=== PATIENT | female | born 1955 | race Caucasian/White ===

== ENCOUNTER → 2023-08-24 13:44 | Outpatient (REF) | payer MEDICARE, OTHER, SELFPAY | LOC: RAD 13:44 | PROVIDERS: ATTENDING PHYSICIAN Orthopaedic Surgery Hand Surgery; FAMILY PHYSICIAN Family Medicine | DX: M25.532 Pain in left wrist (principal) | CPT/HCPCS: 73200 ==

== ENCOUNTER 2023-08-28 23:44 | Inpatient (IN) | payer MEDICARE, OTHER, SELFPAY ==
[2023-08-28 19:09] VITALS: BP 137/79; BMI 25.6
--- NOTE | 2023-08-28 19:45 | ED.GENMED ---
History of Present Illness
General
Chief Complaint: Abdominal Pain
Source: patient
Exam Limitations: none
Time Seen by Provider: 08/28/23 19:12
Travel History
Have you had any contact with someone who has COVID-19?: No
Do you have any symptoms of coronavirus? Fever > 100 degrees, chills, cough, shortness of breath, sore throat, loss of taste or smell, muscle aches, or headache?: No
History of Present Illness
History of Present Illness:
This is a 68 year old female that comes in by ambulance with c/o nausea, vomiting, and abd pain. States that she hasn't eaten in 2 days and that her abd pain started 2 hours ago. Patient has been drinking 2-5ths of Vodka daily. States that she has
had chills, abd pain, nausea, vomiting, diarrhea, headache, dizziness. Denies any fever, chest pain, SOB, urinary burning.
Past History
Past History
ED Past Medical History: GERD, HTN, Hypercholesterolemia, NIDDM, Seizures, Psychiatric (Depression, Anxiety), Other (Chronic pancreatitis, Ulcers, obstructive sleep apnea, UTi, Bilateral Vestibular loss) and Other (migraines, hepatitis, alcohol
abuse, Bilateral vestibular Loss, Gastritis)
ED Past Surgical History: Tonsilectomy and Other (right breast lumpectomy)
Patient has exhibited threatening behavior?: No
Social History
Tobacco: Smoker
Alcohol: Chronic alcoholic ( Two 5th's of vodka)
Drug: None
Personal:
Living: alone
Employment: Not employed
Family History
Family History: Other (Alzheimer's); Negative Early CAD
Review of Systems
Review of Systems
All Other Systems: ROS reviewed and negative except as documented in HPI and ROS
Constitutional: Reports chills; Denies fever
EENT: Reports no symptoms
Respiratory: Reports no symptoms; Denies cough or trouble breathing
Cardiac: Reports no symptoms; Denies chest pain
ABD/GI: Reports abdominal pain, nausea, vomiting and diarrhea
: Reports no symptoms; Denies dysuria, frequency or urgency
Musculoskeletal: Reports no symptoms
Skin: Reports no symptoms
Neurological: Reports dizzy and headache
Psychiatric: Reports no symptoms
Phy Exam
General Physical Exam
General Presentation: mild distress
General age: appears stated age
General Skin: warm and dry
General Habitus: poor hygiene
General Mental: alert
General Hydration: dry mucous membranes
ENT Exam
ENT Exam: TM's normal, pharynx normal and neck supple
Eye Exam
Eye Exam: EOMI
Cardiovascular Exam
Cardiovascular Exam: no edema, normal peripheral pulses and tachycardia
Pulmonary Exam
Pulmonary Exam: lungs clear, no respiratory distress, no rales, chest non tender, no crackles, no rhonchi, no wheezing and no cough
Gastrointestinal Exam
Gastrointestinal Exam: normal bowel sounds, soft, no organomegaly, no pulsatile mass, non distended and tender (Generalized tenderness with palpation)
Musculoskeletal Exam
Musculoskeletal Exam: full ROM and no edema
Skin Exam
Skin Exam: normal color, warm/dry, no rash and no petechia
Psychiatric Exam
Psychiatric Exam: normal mood/affect
Course
Orders/Labs/Results
Orders:
Orders
08/28/23 19:40
0.9% Sodium Chloride 1000 ml [Nss] 1,000 ml IV BOLUS
Pantoprazole [Protonix IV] 80 mg IV NOW STA
08/28/23 20:22
Alcohol Urgent
Complete Blood Count/With Diff Urgent
Comprehensive Metabolic Panel Urgent
Lipase Urgent
08/28/23 21:30
Lorazepam [Ativan] 0.5 mg IV NOW STA
08/28/23 21:32
CT Abd/pelvis W Iv Cont Urgent
Comment:
Reason For Exam: Generalized abd pain
0.9% Sodium Chloride 1000 ml [Nss] 1,000 ml Mvi, Adult [Multivitamin] 10 ml Thiamine Injection 100 mg IV 250 mls/hr
08/28/23 21:54
Ketorolac [Toradol] 30 mg .ROUTE .STK-MED ONE
08/28/23 21:55
Ketorolac [Toradol] 30 mg IV NOW STA
Abnormal Lab Results
08/28/23
20:22
WBC 12.9 H 10^3/uL
(4.8-10.8)
RBC 4.04 L 10^6/uL
(4.20-5.40)
Hct 33.7 L %
(37.0-47.0)
MCH 31.2 H pg
(27.0-31.0)
MCHC 37.4 H g/dL
(33.0-37.0)
Abs Immat Gran (auto) 0.1 H 10^3/uL
(0-0.05)
Absolute Neuts (auto) 7.6 H 10^3/uL
(1.4-6.5)
Absolute Lymphs (auto) 4.5 H 10^3/uL
(1.2-3.4)
Absolute Monos (auto) 0.8 H 10^3/uL
(0.1-0.6)
Sodium 124 L mmol/L
(135-145)
Chloride 94 L mmol/L
(98-107)
BUN 4 L mg/dl
(7-17)
Creatinine 0.4 L mg/dL
(0.6-1.0)
Glucose 143 H mg/dl
(70-99)
08/28/23 20:22
08/28/23 20:22
Leukocytosis, hyponatremia, Chloride low. Glucose nonfasting. Lipase normal at 55, Alcohol none detected.
Vital Signs
Initial and Last Documented VS:
Initial Vital Signs
Temp Pulse Resp BP Pulse Ox
98.4 F 105 22 137/79 97
08/28/23 19:09 08/28/23 19:09 08/28/23 19:09 08/28/23 19:09 08/28/23 19:09
Last Documented Vital Signs
Temp Pulse Resp BP Pulse Ox
98.4 F 103 28 137/79 97
08/28/23 19:09 08/28/23 20:00 08/28/23 19:45 08/28/23 19:09 08/28/23 19:09
MDM/Problems Addressed
Differential Diagnosis Includes:
Alcohol abuse, Gastritis, Ulcers, DKA, Pancreatitis
MDM/Problems Addressed:
This is a 68 year old female that comes in with c/o abd pain. States that she has been drinking 2-5th's daily.
Will get labs, give IV fluids.
Back into see patient. Explained that she will be admitted as her sodium is very low. Will also get CT of the abd due to patient c/o pain. However, this may be a gastritis due to the alcohol abuse.
Chronic conditions affecting care: Other (Chronic alcoholic, Pancreatitis)
Acute Exacerbation and/or Progression of Chronic Illness: Other (Pancreatitis, )
*Radiology
Radiology exam reviewed: radiology read reviewed (CT [place]- Pancreatic parencymal calcification consistent with chronic pancreatitis. No definite CT signs of acute pancreatitis. Correlate with lipase. Diffuse hepatic steatosis. No CT signs of
Cholecystitis. NO evidence of diverticulitis or coloits. Normal appendix. No bowel obstruction. ) and other (CT cont- No free air. No obstructive uropathy. New healing right lateral seventh, 10th, 11th rib fractures. )
*Pulse Oximetry
Patient hypoxic: no
*EKG
Interpreted by ED Provider?: NA
Rate: EKG- N/A
*Banquet Chef Interpretation
Rate: tachycardiac
Heart Rate: 104
*Critical Care Note
Total Time (30-74mins, 75-104mins- exclusive of procedures): Not Applicable
ED Attending Note
-
Portions of this chart may have been created with voice recognition software.� Occasional wrong word or��sound alike� substitutions may have occurred due to the inherent limitations of voice recognition software.
Discharge Plan
Departure
Patient Disposition: Admit
Date of Disposition: 08/28/23
Time of Disposition: 23:38
Admit to: Med/Surg
Presentation/result/management discussed w/ accepting MD/DO: Hospitalist
Patient with high blood pressure during this ER visit?: Yes
Condition: Good
Covid-19: Not Applicable
Discharge Problem:
Abdominal pain, Acute hyponatremia
Prescriptions:
No Action
Jentadueto 2.5-1,000 mg Tablet
1 tab PO BID
folic acid 1 mg Tablet
1 mg PO DAILY Qty: 30 0RF
cyanocobalamin (vitamin B-12) 1,000 mcg Tablet
1,000 mcg PO DAILY Qty: 30 0RF
thiamine HCl (vitamin B1) 100 mg Tablet
100 mg PO BID Qty: 60 0RF
Zenpep 10,000-32,000 -42,000 unit Capsule,Delayed Release(Dr/Ec)
3 cap PO MEALS Qty: 270 0RF
simvastatin 40 mg tablet
40 mg PO HS
gabapentin 300 mg capsule
300 mg PO QID
Rx Instructions:
05/12/23 pt states this medication does not work for her pain
lisinopril 2.5 mg tablet
2 mg PO DAILY
cephalexin 250 mg Capsule
250 mg PO QID Qty: 12 0RF
oxycodone 5 mg tablet
5 mg PO Q8H PRN (Reason: Pain) Qty: 20 0RF
esomeprazole magnesium [Nexium] 40 mg Capsule,Delayed Release(Dr/Ec)
40 mg PO DAILY
Referrals:
Massimo Mcdaniels MD [Family Provider] -
Interventions
Interventions:
*Risk Screen - Suicide Last Done: 08/28/23 19:09
*General Assessment Last Done: 08/28/23 19:09
*Neglect/Abuse Screening Last Done: 08/28/23 19:09
*ED COVID-19 Vaccine History Last Done: 08/28/23 19:38
TM-Kufpcw-Sgupbcfurn Assessment Last Done: 08/28/23 19:38
[2023-08-28] MEDS: NSS 1000 IV (20:27)
[2023-08-28 20:31] LABS: % Basophils 0.2 % (0-2); % Eosinophils 0.2 % (0-6); % Immature Granulocytes 0.4 % (0-0.5); % Lymphocytes 34.4 % (20.5-51.1); % Monocytes 5.8 % (1.7-9.3); Absolute Immature Granulocytes 0.1 10^3/uL (0-0.05); Absolute Lymphocytes 4.5 10^3/uL (1.2-3.4); Absolute Monocytes 0.8 10^3/uL (0.1-0.6); Absolute Neutrophils 7.6 10^3/uL (1.4-6.5); Hematocrit 33.7 % (37.0-47.0); Hemoglobin 12.6 g/dL (12.0-16.0); Mean Corp Hgb Conc. 37.4 g/dL (33.0-37.0); Mean Corpuscular Hgb 31.2 pg (27.0-31.0); Mean Corpuscular Volume 83.4 fL (81.0-99.0); Mean Platelet Volume 8.7 fL (7.4-10.4); Nucleated Red Blood Cells % 0 %; Platelet Count 318 10^3/uL (130-400); Red Blood Cell Count 4.04 10^6/uL (4.20-5.40); Red Cell Dist. Width 13.4 % (11.5-14.5); White Blood Cell Count 12.9 10^3/uL (4.8-10.8)
[2023-08-28] MEDS: PROTONIX IV 80 MG IV (20:44)
[2023-08-28 20:51] LABS: ALT (SGPT) 16 U/L (0-35); AST (SGOT) 34 U/L (14-36); Albumin 4.4 g/dl (3.5-5.0); Alkaline Phosphatase 51 U/L (38-126); Blood Urea Nitrogen 4 mg/dl (7-17); Carbon Dioxide 22 mmol/L (22-30); Chloride 94 mmol/L (98-107); Estimated Creatinine Clearance 83 ml/min; Glucose 143 mg/dl (70-99); Lipase 55 U/L (23-300); Potassium 4.1 mmol/L (3.5-5.1); Sodium 124 mmol/L (135-145); Total Bilirubin 0.9 mg/dl (0.2-1.3); Total Protein 7.3 g/dl (6.3-8.2); eGFR > 60.00
[2023-08-28] MEDS: ATIVAN 0.5 MG IV (21:36)
[2023-08-28] MEDS: TORADOL 30 MG IV (21:57)
[2023-08-28] MEDS: DILAUDID 0.5 MG IV (23:44)
[2023-08-29] VITALS (31 sets, daily range): BP systolic 74–122; BP diastolic 28–78; BMI 24.7
--- NOTE | 2023-08-29 00:04 | HPS.HSE ---
Family Physician
-
Family Physician: Massimo Mcdaniels
Chief Complaint
-
nausea, vomiting, and abd pain.
History of Present Illness
68F HX severe ETOH use disorder, HX DTs, chronic hyponatremia pw nausea, vomiting, and abd pain.
Not eaten in 2 days and that her abd pain started 2 hours ago. Patient has been drinking 2-5ths of Vodka daily.
POS chills, abd pain, nausea, vomiting, diarrhea, headache, dizziness.
ROS
Denies any fever, chest pain, SOB, urinary burning.
Medical History
Past Medical History
Past Medical History: Reports Other
Additional Past Medical History:
GERD, HTN, Hypercholesterolemia, NIDDM, Seizures, Psychiatric (Depression, Anxiety), Other (Chronic pancreatitis, Ulcers, obstructive sleep apnea, UTi, Bilateral Vestibular loss) and Other (migraines, hepatitis, alcohol abuse, Bilateral vestibular
Loss, Gastritis)
Past Surgical History: Reports Other
Additional Past Surgical History:
Tonsillectomy and Other (right breast lumpectomy)
Social History
Tobacco: Non-smoker
Alcohol: Daily (Chronic alcoholic ( Two 5th's of vodka))
Living: Alone
Employment: Not Employed
Family History
Family History: Not pertinent
Allergies / Home Medications
Allergies reflects when Allergies were last updated in [employer].
Home Medications with original date entered in [employer]
Allergy/Medication List:
Allergies
Allergy/AdvReac Type Severity Reaction Status Date / Time
topiramate [From Topamax] Allergy Itching Verified 06/14/23 00:48
valdecoxib [From Bextra] Allergy Rash Verified 06/14/23 00:48
Home Medications
linagliptin 2.5 mg-metformin 1,000 mg tablet (Jentadueto) 1 tab PO BID Diabetes 04/02/23
cyanocobalamin (vitamin B-12) 1,000 mcg tablet 1,000 mcg PO DAILY #30 tabs 05/02/23
folic acid 1 mg tablet 1 mg PO DAILY #30 tabs 05/02/23
nnmjlq-aesowmqe-edgnysr 10,000-32,000-42,000 unit capsule,delayed rel (Zenpep) 3 cap PO MEALS #270 caps 05/02/23
thiamine HCl (vitamin B1) 100 mg tablet 100 mg PO BID #60 tabs 05/02/23
gabapentin 300 mg capsule 300 mg PO QID Pain 05/12/23
lisinopril 2.5 mg tablet 2 mg PO DAILY Blood Pressure 05/12/23
simvastatin 40 mg tablet 40 mg PO HS High Cholesterol 05/12/23
cephalexin 250 mg capsule 250 mg PO QID #12 caps 05/17/23
oxycodone 5 mg tablet 5 mg PO Q8H PRN Pain #20 tabs 05/17/23
esomeprazole magnesium 40 mg capsule,delayed release (Nexium) 40 mg PO DAILY 08/28/23
Review of Systems
-
Constitutional: Reports No Symptoms
EENT: Reports No Symptoms
Respiratory: Reports No Symptoms
Cardiac: Reports No Symptoms
Abdomen/GI: Reports Abdominal Pain, Nausea and Vomiting; Denies Diarrhea
: Reports No Symptoms
Musculoskeletal: Reports No Symptoms
Skin: Reports No Symptoms
Neurological: Reports No Symptoms
Endocrine: Reports No Symptoms
Hematologic/Lymphatic: Reports No Symptoms
Psych: Reports See HPI
Physical Exam
Vital Signs
Vital Signs
Temp Pulse Resp BP Pulse Ox
98.4 F 103 28 137/79 97
08/28/23 19:09 08/28/23 20:00 08/28/23 19:45 08/28/23 19:09 08/28/23 19:09
Physical Exam
General: Other (see below )
Laboratory Results
-
08/28/23 20:22
08/28/23 20:22
Laboratory Results
Total Bilirubin 0.9 mg/dl (0.2-1.3) 08/28/23 20:22
AST 34 U/L (14-36) 08/28/23 20:22
ALT 16 U/L (0-35) 08/28/23 20:22
Alkaline Phosphatase 51 U/L (38-126) 08/28/23 20:22
Lipase 55 U/L (23-300) 08/28/23 20:22
Data Reviewed
-
CT Scan: Report Reviewed by me
Lab Data: Labs Reviewed by me
Old Records: Reviewed
Impression/Plan
-
Reviewed VS: afebrile ST 100 BP 135/80 RR 28 POx 97
PE
GENERAL: alert, tremulous , decresed attention span , slow cognitve speed
HEAD: Atraumatic, normocephalic.
NECK: Supple.
CHEST: Clear to auscultation.
HEART: ST
ABDOMEN: Soft, slight tnder , NG < NRT
EXTREMITIES: no peripheral edema.
Data
WCC 12.9
nl Platelet
Na 124 - baseline is hi 120s to 130 Pending Ur Na, Ur Osm
K 4.1
Cl 94
CO2 22
nl Cr
eGFR > 60
BG 153
nl Transaminase
nl Lipase
Alb 4.4
NEG ETOH
Pending UA
CT AP w contrast
- chronic pancreatitis - no CT suggestion of acute pancreatitis
- Diffuse hepatic steatosis
- New healing Rt lateral 7th, 10th , 11th rib Fxs.
last hospitalist admission 05/12/23 - 05/17/23
DC DXs
1. Severe alcohol use disorder, aborted delirium.
2. Aborted delirium tremens.
3. Fall with left distal radial fracture.
4. Chronic pancreatitis.
5. Urinary tract infection without evidence of sepsis.
6. Depression.
7. Gastroesophageal reflux disease.
8. Type 2 diabetes.
9. Dyslipidemia.
ASSESSMENT & PLAN
At risk for ETOH WDS - NEG ETOH level
Hi risk for rapidly progressibe ETOH WDS
HX aborted DTs on last admission with PHB protocol
HX Severe ETOH abuse and relapse HX
daily 2-5ths of Vodka daily
- Initiate PHB protocol
- MSAS protocol and Ativan
- Supportive care with Thiamine
- Psych Cs
Chronic hyponatremia with acute element due to GI loss
Suspect acute ETOH gastritis
s/p IV NS at ER
- Held Escitalopram /SSRI
- Pending Ur Na, Ur Osm
- FR 40 oz
- Trend Na in AM
- Renal consult
Suspect acute ETOH gastritis
Acute abdominal pain /N/V
Unremarkable CT AP for acute pathology
- S/P IVF at ER
- cont. PO PPI
- on FR due to hyponatremia
Depression
- Held Escitalopram due to hyponatremia
GERD
- PPI daily
T2 DM
- add ISS low
- Hold Linagliptin/Metformin
HLD
- Held Simvastatin
DVT Prophylaxis: SCDs
Full code
IMU
[2023-08-29] MEDS: ATIVAN 1 MG IV ×5 (00:34→07:27)
[2023-08-29] MEDS: PHENOBARBITAL 104 MG IV (00:37)
[2023-08-29] MEDS: ZOFRAN 4 MG IV (02:09)
[2023-08-29] MEDS: OCEAN, SALINE MIST 2 SPRAYS NASAL (02:32)
--- NOTE | 2023-08-29 02:34 | TRANSFER ---
Received pt from the ER via stretcher with Phenobarb IV infusing. She arrived alert and oriented. Given call kothari and instructed pt how to use it and oriented pt to her room. She complained of nausea and abdominal pain. Pain is improved since
she received Dilaudid in the ER. GLUE MAKER notified of pt C/O of nausea and order for Zofran obtained and given to pt. Pt voided clear yellow urine and it was sent for urinalysis, drug screen,etc. She also has tremors and restlessness and MSAS scored at
9 so Ativan 1mg IV given. Now she is slightly more rested. Will monitor. Bed alarm on, call kothari in reach. Instructed not to get up OOB by herself and to ring kothari for her needs. Pt verbalized that she understands.
[2023-08-29 02:38] LABS: Urine Albumin Negative (Neg - Trace); Urine Bilirubin Negative (Negative); Urine Character Clear (Clear); Urine Color Yellow; Urine Glucose Negative (Negative); Urine Ketone 3+ (Negative); Urine Leukocyte 1+ (Negative); Urine Nitrite Negative (Negative); Urine Occult Blood Negative (Negative); Urine Specific Gravity 1.005 (<1.030); Urine Urobilinogen Negative (Neg - 1+)
[2023-08-29 02:43] LABS: Osmolality Urine 203 mOsm/kg (300-900)
[2023-08-29 02:53] LABS: Amphetamines Negative (Negative); Barbiturates Negative (Negative); Benzodiazepines Positive (Negative); Buprenorphine Negative (Negative); Cocaine Negative (Negative); Marijuana Negative (Negative); Methadone Negative (Negative); Methamphetamines Negative (Negative); Opiates Negative (Negative); Phencyclidine Negative (Negative); Tricyclic Antidepressants Negative (Negative)
[2023-08-29 02:55] LABS: Urine Sodium 14 mmol/L (30-90)
[2023-08-29 03:07] LABS: Fentanyl, Urine Negative (Negative)
[2023-08-29 03:46] LABS: Urine Red Blood Cell 0-2 /HPF (0-2); Urine Squamous Cell >30 /LPF (Few); Urine White Cell 21-25 /HPF (0-5)
[2023-08-29 03:47] LABS: Urine Bacteria Few (Negative)
--- NOTE | 2023-08-29 04:23 | PTCARENOTE ---
Pt is feeling less nauseous but still restless, 'nervous', Ativan given per MSAS. When asleep noted O2 sat drops to 87%, placed on O2 at 2 liters and sat improved to 96%.
[2023-08-29 04:54] LABS: GGTP 24 U/L (12-43); Magnesium 1.2 mg/dl (1.6-2.3); Phosphorus 3.5 mg/dl (2.5-4.5)
[2023-08-29 05:00] LABS: B-Hydroxybutyrate 2.68 mmol/L (0.02-0.27)
[2023-08-29 07:33] LABS: Glucose - Point of Care 118 mg/dl (70-99)
[2023-08-29] MEDS: NOVOLOG FLEXPEN-LOW RESISTANCE SC ×2 (07:52→11:47)
--- NOTE | 2023-08-29 08:19 | PTCARENOTE ---
Received patient from mold shifter. Patient resting comfortably in bed. AAO, although a little confused at times, VSS. MSAS this AM was 8 for increased agitation, 1mg Ativan given. Patient received Ativan through the night for MSAS of 8. No
other major events noted. No complaints of pain. Call kothari in reach.
[2023-08-29] MEDS: ZESTRIL 2.5 MG PO (09:11)
[2023-08-29] MEDS: FOLVITE 1 MG PO (09:11)
[2023-08-29] MEDS: VITAMIN B1 100 MG PO ×2 (09:11→19:45)
[2023-08-29] MEDS: VITAMIN B-12 1000 MCG PO (09:11)
[2023-08-29] MEDS: PROTONIX 40 MG PO (09:11)
[2023-08-29] MEDS: LIDOCAINE 4% PATCH TOPICAL ×2 (09:12→11:47)
[2023-08-29] MEDS: PHENOBARBITAL 97.5 MG IV ×3 (09:12→22:48)
--- NOTE | 2023-08-29 10:50 | CON.MD ---
Consultation - Medical
-
Assessment
-hyponatremia acute on chronic
-N/V/abd pain
-hypomagnesemia
-hx alcoholism
-chronic pancreatitis
Plan
-correct volume component
-IVF NSS today
-replete mag
-follow BMP/mag
-[id number]
[2023-08-29 11:46] LABS: Glucose - Point of Care 117 mg/dl (70-99)
--- NOTE | 2023-08-29 11:53 | W.PN.HOSP.TC ---
Today's Communication/Plan
-
Monitor vital signs and see plan
Monitor sodium
Nephrology following
Continue with phenobarbital
Transfer out of IMU
Replete magnesium
Assessment / Plan
Assessment / Plan
GENERAL: no acute distress
HEENT: Anicteric, pink conjunctiva
CVS: Regular rate and rhythm, normal S1-S2
CHEST:� Clear to auscultation, no wheezing
ABDOMEN:� Soft, non tender
EXTREMITIES:� no peripheral edema
Neuro: no slurred speech,AAOX3
Psych: calm
Alchol use with abuse
At risk for ETOH WDS - NEG ETOH level
Hi risk for rapidly progressibe ETOH WDS
HX aborted DTs on last admission with PHB protocol
HX Severe ETOH abuse and relapse HX
daily� 2-5ths of Vodka daily; last drink 2-3 days ago
- Initiate PHB protocol
- MSAS protocol and Ativan
started phenobarbital
- Supportive care with Thiamine
- Psych consult
Chronic hyponatremia with acute element� due to GI loss
Suspect acute ETOH gastritis
s/p IV NS at ER
- Held Escitalopram /SSRI
nephrology following
IVF
Hypomagnesemia
replete
Suspect acute ETOH gastritis
Acute abdominal pain /N/V
Unremarkable CT AP� for acute pathology
- cont. PO PPI
-� on FR due to hyponatremia
Depression
-� Held Escitalopram due to hyponatremia
GERD
- PPI daily
T2 DM
- add ISS low
- Hold Linagliptin/Metformin
HLD
- cw stain
DVT Prophylaxis:� lovenox
Full code
Anticipated Discharge: 24 - 48 hours
Subjective/Interval History
-
Date of Service: August 29, 2023
denies pain
Objective Data
-
Labs:
Laboratory Results
08/29/23
05:00
PT Pending
INR Pending
APTT Pending
Vital Signs:
Vital Signs
Temp Pulse Resp BP Pulse Ox
98.4 F 83 24 108/64 96
08/29/23 08:01 08/29/23 11:15 08/29/23 11:15 08/29/23 11:00 08/29/23 11:36
I&O
08/28/23 08/29/23 08/30/23
06:59 06:59 06:59
Output Total 80 / 80
Balance -80 / -80
--- NOTE | 2023-08-29 12:19 | CON.MD ---
Consultation - Medical
-
patient seen chart reviewed. discussed w nursing. patient is a 68 year old woman who is known to this bond underwriter. she comes to w c.o n,v and abdominal pain. she had not eaten in two days and was excessively consuming etoh. she was seen in the fall
of 2022 and at that time had relapsed w etoh. she entered rehab at [facility] where she was for 21 days and left bc was dx w [facility]. she reports she stayed sober until last week. she cannot pinpoint a reason for her relapse. she denies depression.
in the past she has relapsed bc depression. it was the cause of her relapse a couple of years ago after four years of sobriety. she is s/w anxious but not unduly so. she has a aa sponsor but does not attend meetings much 'it's a pity constitution party'. she
was drinking two liters of vodka per day. she does have a hx of withdrawal sx in the past. patient consumes a lot of fluid in general. see urine osmolality. she drinks over four liters of fluid daily. she is not psychotic no issue re si. patient
was detoxed last time w msas and phenobarb last drink yesterday
past psych hx in the past many years ago hosp for depression took effexor and really struggled to get off it when it stopped working. she mentioned this today as it is a very bad memory and i surmise it has soured her on the subject of
antidepressants
medical hx patient w hyponatremia 124 admits she consumes a large amount of water reflected in urine osmolality. patient w hx chronic pancreatitis electrolyte imbalances niddm pulmonary nodules b12 deficiency in the past amee breast biopsy gerd
neuropathy migraines urine noted w wbc culture pending she has had sz in withdrawal from etoh. hx falls balance issues ct in the past w mold volume loss and leukoairiosis without acute changes.
fh son w addiction
substance abuse etoh see above
social lives at [facility]. likes it. says she does well if she actively engages in activities there. not much contact w son
mse alert ox3 cooperative and rather pleasant. speech and thought process nl no psychosis mood is neutral affect ok no si aver intelligence insight and judgment fair but poor where etoh concerned
dx etoh use disorder severe
plan would continue w msas and phenobarb detox for now. patient asking when she could be dc. advised her to stay for a few days to restore electrolyte balance etc. she should consider at the very least intensive out pt rx for her etoh. advised her
to cut back water consumption ..medical to address. we will follow
[2023-08-29] MEDS: MAGNESIUM SULFATE 100 IV (12:43)
[2023-08-29] MEDS: NSS 1000 IV (13:07)
[2023-08-29 13:27] LABS: INR 1.19
[2023-08-29] MEDS: ProAmatine 5 MG PO ×2 (13:51→17:01)
[2023-08-29 16:34] LABS: Glucose - Point of Care 167 mg/dl (70-99)
[2023-08-29] MEDS: LOVENOX 40 MG SC (16:58)
--- NOTE | 2023-08-29 17:00 | CM ---
Patient with Dx alcohol use disorder, hyponatremia, Suspect acute ETOH gastritis, depression. Room air. Receiving IV Phenobarb, IV Ativan. MSAS.
Met with patient who resides alone in a 6th floor apartment with elevator access.
The patient has been independent in ADLs and ambulation.
The patient has no DME or prior VN.
PCP - Massimo Mcdaniels
Pharmacy - [facility]
The patient has no children. Her sister May is her closest contact.
CM Consult: Substance Abuse
Offered [facility] for help with Etoh use, and patient declined. She had a bad experience when [facility] sent her to [place]. Patient reports that the facility was filthy, the food was horrible, they had to walk outside a long distance to dining moeller,
there were patients there who had done Tranq and had open sores all over their body, and she came down with Covid while she was there. All of this upset her and after being there 21 days she left AMA.
Plan home.
[2023-08-29] MEDS: NOVOLOG FLEXPEN-LOW RESISTANCE 300 UNITS SC (18:02)
[2023-08-29] MEDS: ATIVAN 1 MG PO (19:45)
[2023-08-29 22:29] LABS: Glucose - Point of Care 127 mg/dl (70-99)
[2023-08-30] VITALS: BP 93/54
--- NOTE | 2023-08-30 00:04 | PTCARENOTE ---
Rec'd pt at change of shift from previous RN, AAOx3, VSS. Pt received one dose of PO ativan for MSAS 4 and request for medication from pt. Assessment as documented. Pt c/o pain in R hand IV site, site assessed by nursing and IVT. Determination made
that site may be positional, but is intact. Pt refused half of IV magnesium dose and IVF d/t pain in IV site. IVT determined pt may need a midline if need for IV access continues. Pt has no complaints at rest with no medication running through IV.
PO lipitor refused. MSAS improved to 0 at following assessment.
[2023-08-30 01:00] VITALS: BP 93/49
[2023-08-30 02:43] VITALS: BP 96/58
--- NOTE | 2023-08-30 04:13 | PTCARENOTE ---
Pt repeatedly removing monitoring equipment, agitated, responding aggressively to staff. Pt educated on importance of monitoring equipment. MSAS 2. This RN will continue to monitor pt condition throughout remainder of shift.
--- NOTE | 2023-08-30 07:26 | PTCARENOTE ---
Recd pt this AM. Uncooperative. pulled off all leads, monitoring system. Using abusive language to staff requiring redirection. Informed pt that abusive language will not be tolerated and that if she is to remain here she must be monitored.
Demanding IV be removed. Educated pt that per IV team, she would require a midline IV. Pt states she is not having a midline placed. RN and PCT placed pt back on monitor. NSR on tele, BP 115.57.
[2023-08-30 07:49] LABS: Glucose - Point of Care 128 mg/dl (70-99)
[2023-08-30] MEDS: VITAMIN B-12 1000 MCG PO (08:15)
[2023-08-30] MEDS: NOVOLOG FLEXPEN-LOW RESISTANCE SC (08:15)
[2023-08-30] MEDS: ProAmatine 5 MG PO (08:15)
[2023-08-30] MEDS: PROTONIX 40 MG PO (08:16)
[2023-08-30] MEDS: VITAMIN B1 100 MG PO (08:16)
[2023-08-30] MEDS: LIDOCAINE 4% PATCH 1 PATCH TOPICAL (08:16)
[2023-08-30] MEDS: FOLVITE 1 MG PO (08:16)
[2023-08-30] MEDS: PHENOBARBITAL IV (08:18)
--- NOTE | 2023-08-30 08:59 | PTCARENOTE ---
Pt demanding to leave AMA. stating 'you people aren't going to put up with me much longer'. She did eat her breakfast and allow PO AM meds. Removed lunchroom monitor. multiple complaints. redirection provided. Dr. Valadez notified. Pt called friend for
a ride.
[2023-08-30] MEDS: ZESTRIL PO (09:04)
--- NOTE | 2023-08-30 09:11 | W.PN.HOSP.TC ---
Today's Communication/Plan
-
monitor vitals
see plan
AMA
time of discharge 36 minutes
Assessment / Plan
Assessment / Plan
GENERAL: no acute distress
CVS: Regular rate and rhythm
CHEST:� no wheezing
ABDOMEN:� non tender
EXTREMITIES:� no peripheral edema
Neuro: no slurred speech,AAOX3
Psych: calm
Alchol use with abuse
At risk for ETOH WDS - NEG ETOH level
Hi risk for rapidly progressibe ETOH WDS
HX aborted DTs on last admission with PHB protocol
HX Severe ETOH abuse and relapse HX
daily� 2-5ths of Vodka daily; last drink 2-3 days ago
- Initiate PHB protocol
- MSAS protocol and Ativan
started phenobarbital
- Supportive care with Thiamine
- Psych consult
Chronic hyponatremia with acute element� due to GI loss
Suspect acute ETOH gastritis
s/p IV NS at ER
- Held Escitalopram /SSRI
nephrology following
IVF
Hypomagnesemia
replete
Suspect acute ETOH gastritis
Acute abdominal pain /N/V
Unremarkable CT AP� for acute pathology
- cont. PO PPI
-� on FR due to hyponatremia
Depression
-� Held Escitalopram due to hyponatremia
GERD
- PPI daily
T2 DM
- add ISS low
- Hold Linagliptin/Metformin
HLD
- cw stain
DVT Prophylaxis:� lovenox
Full code
Patient is refusing medical care this morning and abusive to hospital staff. Demanding to leave AMA. I have explained risks of leaving against AMA including worsening alcohol withdrawal however she still chose to leave AMA. RN witnessed conversation
in the room. Will remove IV line. I am providing few days phenobarbital to her upon her leaving and sent prescription to the pharmacy.
Anticipated Discharge: Today
Subjective/Interval History
-
Date of Service: August 30, 2023
refusing care
Objective Data
-
Labs:
Laboratory Results
08/30/23
06:00
WBC Pending
Hgb Pending
Hct Pending
Plt Count Pending
Sodium Pending
Potassium Pending
Chloride Pending
Carbon Dioxide Pending
BUN Pending
Creatinine Pending
Glucose Pending
Calcium Pending
Vital Signs:
Vital Signs
Temp Pulse Resp BP Pulse Ox
98.4 F 66 21 105/55 95
08/30/23 07:55 08/30/23 08:15 08/30/23 03:00 08/30/23 08:15 08/29/23 20:20
I&O
08/29/23 08/30/23 08/31/23
06:59 06:59 06:59
Intake Total 730 / 730
Output Total 80 / 80
Balance -80 / -80 730 / 730
--- NOTE | 2023-08-30 09:16 | W.DCSUMMARY ---
Discharge Summary
Discharge Data
Date of Admission: 08/28/23
Date of Discharge: 08/30/23
-
Pending Results: No
Hospital Course
68-year-old female with past medical show type 2 diabetes mellitus, GERD, hyperlipidemia, depression, alcohol abuse came to the hospital with acute on chronic hyponatremia and alcohol use related gastritis. Patient also had alcohol withdrawal while
she was hospitalized and was started on phenobarbital. She also had hypotension for which she was started on midodrine. patient was seen by psychiatry and nephrology throughout hospitalization. Over time patient nausea and vomiting continue to
improve.
On 08/30/2023 patient decided to leave AGAINST MEDICAL ADVICE. All the risks were discussed with the patient prior to the discharge however she still chose to leave AGAINST MEDICAL ADVICE and signed the paperwork. Patient left AMA on 08/30/2023.
Discharge Plan
-
Patient Disposition: Against Medical Advice
Discharge Diagnosis/Procedures: Alcohol abuse with withrawal
Hyponatremia
Hypotension
Diet: As tolerated
Activity: With assistance and As tolerated
Driving Restrictions: No driving
Referrals:
Massimo Mcdaniels MD [Family Provider] - in less than 1 week
Prescriptions:
New
midodrine 5 mg Tablet
5 mg PO TID@0800,1300,1800 Qty: 30 0RF
phenobarbital 32.4 mg Tablet
32.4 mg PO TID Qty: 18 0RF
Continued
Jentadueto 2.5-1,000 mg Tablet
1 tab PO BID
folic acid 1 mg Tablet
1 mg PO DAILY Qty: 30 0RF
cyanocobalamin (vitamin B-12) 1,000 mcg Tablet
1,000 mcg PO DAILY Qty: 30 0RF
thiamine HCl (vitamin B1) 100 mg Tablet
100 mg PO BID Qty: 60 0RF
simvastatin 40 mg tablet
40 mg PO HS
gabapentin 300 mg capsule
300 mg PO QID
Rx Instructions:
05/12/23 pt states this medication does not work for her pain
lisinopril 2.5 mg tablet
2.5 mg PO DAILY
oxycodone 5 mg tablet
5 mg PO Q8H PRN (Reason: Pain) Qty: 20 0RF
esomeprazole magnesium [Nexium] 40 mg Capsule,Delayed Release(Dr/Ec)
40 mg PO DAILY
cephalexin 250 mg capsule
250 mg PO QID
Zenpep 10,000-32,000 -42,000 unit capsule,delayed release(DR/EC)
3 cap PO MEALS
Discharge Orders:
Discharge Patient (As Directed); Ordered 08/30/23
Ordered By: Guido Valadez
Discharge Date and Time
Discharge Date/Time: 08/30/23 09:12
--- NOTE | 2023-08-30 09:47 | PTCARENOTE ---
Pt jed SHAFFER after discussion with Dr. Valadez. Insisted on ambulating herself to lobby to meet her friend who is picking her up.
== END 2023-08-30 09:12 | disposition left against medical advice (07) | DRG 392 ==
LOC: IMU 23:44
PROVIDERS: Clinical Nurse Specialist Family Health; Nurse Practitioner; ADMITTING PHYSICIAN Internal Medicine; ATTENDING PHYSICIAN Internal Medicine; CONSULT PHYSICIAN Psychiatry & Neurology Psychiatry; CONSULT PHYSICIAN Specialist; EMERGENCY PHYSICIAN Emergency Medicine; FAMILY PHYSICIAN Family Medicine
DX: K29.20 Alcoholic gastritis without bleeding (principal); F10.239 Alcohol dependence with withdrawal, unspecified; E87.1 Hypo-osmolality and hyponatremia; N39.0 Urinary tract infection, site not specified; K86.1 Other chronic pancreatitis; F17.200 Nicotine dependence, unspecified, uncomplicated; E11.9 Type 2 diabetes mellitus without complications; E78.00 Pure hypercholesterolemia, unspecified; F32.A Depression, unspecified; E83.42 Hypomagnesemia; G43.909 Migraine, unspecified, not intractable, without status migrainosus; I95.9 Hypotension, unspecified; G47.33 Obstructive sleep apnea (adult) (pediatric); I10 Essential (primary) hypertension; K21.9 Gastro-esophageal reflux disease without esophagitis; Z87.440 Personal history of urinary (tract) infections; Z88.8 Allergy status to other drugs, medicaments and biological substances
CPT/HCPCS: 74177; 80053; 80306; 80307; 81003; 81015; 82010; 82077; 82962; 82977; 83036; 83690; 83735; 83935; 84100; 84300; 85025; 85610; 85730; 87086; 96361; 96374; 96375; 99285; 99406; Q9967

== ENCOUNTER 2023-10-27 06:37 | Day surgery (SDC) | payer MEDICARE, OTHER, SELFPAY ==
[2023-10-11 14:09] VITALS: BMI 27.9
[2023-10-11 14:36] LABS: Hematocrit 33.3 % (37.0-47.0); Hemoglobin 11.5 g/dL (12.0-16.0); Mean Corp Hgb Conc. 34.5 g/dL (33.0-37.0); Mean Corpuscular Hgb 30.8 pg (27.0-31.0); Mean Corpuscular Volume 89.3 fL (81.0-99.0); Mean Platelet Volume 9.2 fL (7.4-10.4); Platelet Count 263 10^3/uL (130-400); Red Blood Cell Count 3.73 10^6/uL (4.20-5.40); Red Cell Dist. Width 13.5 % (11.5-14.5); White Blood Cell Count 9.8 10^3/uL (4.8-10.8)
[2023-10-27] VITALS (10 sets, daily range): BP systolic 98–122; BP diastolic 49–71; BMI 27.9
[2023-10-27 13:17] LABS: Glucose - Point of Care 115 mg/dl (70-99)
[2023-10-27] MEDS: TYLENOL 1000 MG PO (13:29)
[2023-10-27 15:10] LABS: Glucose - Point of Care 113 mg/dl (70-99)
[2023-10-27 17:56] LABS: Glucose - Point of Care 158 mg/dl (70-99)
== END 2023-10-27 19:15 | disposition home or self-care (01) ==
LOC: SDS 06:37
PROVIDERS: ATTENDING PHYSICIAN Orthopaedic Surgery Hand Surgery; FAMILY PHYSICIAN Family Medicine
DX: S62.102P Fracture of unspecified carpal bone, left wrist, subsequent encounter for fracture with malunion (principal); X58.XXXS Exposure to other specified factors, sequela; Z87.81 Personal history of (healed) traumatic fracture
CPT/HCPCS: 25350; 25390; C1713; 36415; 82962; 85027; 93005

== ENCOUNTER 2024-03-13 21:42 | Emergency (ER) | payer MEDICARE, OTHER, SELFPAY ==
[2024-03-13 21:47] VITALS: BP 141/100
[2024-03-13 21:53] VITALS: BP 141/100
--- NOTE | 2024-03-13 21:56 | PHANOTE ---
Med Rec Note:
Pt unable to answer questions, home med list compiled from Dr Garcia and DOMENICO.
[2024-03-13 22:00] VITALS: BP 86/73
[2024-03-13 22:40] VITALS: BP 129/78
[2024-03-13 23:11] VITALS: BP 139/100
[2024-03-13 23:32] LABS: Ammonia < 9 umol/L (9-30); Lactic Acid 1.2 mmol/L (0.7-2.0)
[2024-03-13 23:34] LABS: ALT (SGPT) 18 U/L (0-35); AST (SGOT) 36 U/L (14-36); Albumin 3.9 g/dl (3.5-5.0); Alcohol None Detected; Alkaline Phosphatase 45 U/L (38-126); Blood Urea Nitrogen 19 mg/dl (7-17); Calcium 9.3 mg/dl (8.4-10.2); Carbon Dioxide 23 mmol/L (22-30); Chloride 86 mmol/L (98-107); Glucose 135 mg/dl (70-99); Potassium 3.7 mmol/L (3.5-5.1); Sodium 121 mmol/L (135-145); Total Bilirubin 0.7 mg/dl (0.2-1.3); Total Protein 6.4 g/dl (6.3-8.2); eGFR > 60.00
[2024-03-13 23:43] LABS: % Basophils 0.3 % (0-2); % Immature Granulocytes 0.6 % (0-0.5); % Lymphocytes 11.1 % (20.5-51.1); Absolute Immature Granulocytes 0.1 10^3/uL (0-0.05); Absolute Lymphocytes 1.2 10^3/uL (1.2-3.4); Absolute Monocytes 1.3 10^3/uL (0.1-0.6); Absolute Neutrophils 8.5 10^3/uL (1.4-6.5); Hematocrit 30.1 % (37.0-47.0); Hemoglobin 11.1 g/dL (12.0-16.0); Mean Corp Hgb Conc. 36.9 g/dL (33.0-37.0); Mean Corpuscular Hgb 32.1 pg (27.0-31.0); Mean Platelet Volume 8.9 fL (7.4-10.4); Nucleated Red Blood Cells % 0 %; Platelet Count 236 10^3/uL (130-400); Red Blood Cell Count 3.46 10^6/uL (4.20-5.40); Red Cell Dist. Width 13.1 % (11.5-14.5); White Blood Cell Count 11.2 10^3/uL (4.8-10.8)
[2024-03-14] VITALS: BP 112/65
--- NOTE | 2024-03-14 00:09 | ED.GENMED ---
History of Present Illness
<NICK Salguero - Last Filed: 03/14/24 02:20>
General
Chief Complaint: Change in Mental Status
Source: other (Nursing staff)
Exam Limitations: altered mental status
Time Seen by Provider: 03/13/24 23:48
History of Present Illness
History of Present Illness:
This is a 69 year old female that is brought in by ambulance with change in mental status. Patient is well know in the ER. Told that the patient was walking down the moeller naked and pulling the fire alarms. Patient is a chronic alcoholic and will
drink whatever she can get that has alcohol in it.
Past History
<NICK Salguero - Last Filed: 03/14/24 02:20>
Past History
ED Past Medical History: GERD, HTN, Hypercholesterolemia, NIDDM, Seizures, Psychiatric (Depression, Anxiety), Other (Chronic pancreatitis, Ulcers, obstructive sleep apnea, UTi, Bilateral Vestibular loss, Migraines, Neck pain, ) and Other (migraines,
hepatitis, alcohol abuse, Bilateral vestibular Loss, Gastritis)
ED Past Surgical History: Tonsilectomy and Other (right breast lumpectomy)
Patient has exhibited threatening behavior?: No
Social History
Tobacco: Smoker
Alcohol: Chronic alcoholic ( Two 5th's of vodka)
Drug: None
Personal:
Living: long term ([facility])
Employment: Not employed
Family History
Family History: Other (Alzheimer's); Negative Early CAD
Review of Systems
<NCIK Salguero - Last Filed: 03/14/24 02:20>
Review of Systems
Unable to obtain full review of systems at this time due to: other (Change in mental status. Patient is not talking)
Constitutional: Reports no symptoms
EENT: Reports no symptoms
Respiratory: Reports no symptoms
Cardiac: Reports no symptoms
ABD/GI: Reports no symptoms
: Reports no symptoms
Musculoskeletal: Reports no symptoms
Skin: Reports no symptoms
Neurological: Reports other (Change in mental status)
Psychiatric: Reports no symptoms
Phy Exam
<NICK Salguero - Last Filed: 03/14/24 02:20>
General Physical Exam
General Presentation: no apparent distress
General age: appears older than age
General Skin: warm and dry
General Habitus: normal
General Mental: other (change in mental status, Patient is not talking. )
General Hydration: appears well hydrated
ENT Exam
ENT Exam: TM's normal
Eye Exam
Eye Exam: EOMI (Patient opens her eyes when name called, Make eye contact)
Cardiovascular Exam
Cardiovascular Exam: regular rate/rhythm, no edema and normal peripheral pulses
Pulmonary Exam
Pulmonary Exam: lungs clear, no respiratory distress, no rales, chest non tender, no crackles, no rhonchi, no wheezing and no cough
Gastrointestinal Exam
Gastrointestinal Exam: normal bowel sounds, soft, no organomegaly, no pulsatile mass, non distended and other (NO grimacing noted with palpation)
Musculoskeletal Exam
Musculoskeletal Exam: full ROM and no edema
Skin Exam
Skin Exam: normal color, warm/dry, no rash, no petechia and other (Old contusion noted on the right hip and left upper arm. )
Psychiatric Exam
Psychiatric Exam: other (Nonverbal adult. Opens eyes when name called, Moving all extremities in bed. )
Course
<NICK Salguero - Last Filed: 03/14/24 02:20>
Orders/Labs/Results
Orders:
Orders
03/13/24 21:50
Restraints - Non Violent As Directed
Justification-Patient:: 2-Protective Intervention
Restraint Type-: Soft Limb-L&R Wrist/4rail
Apply From (date): 03/13/24
Apply from (time): 21:50
Remove (date): 03/14/24
Remove (time): 23:59
03/13/24 22:11
METFORMIN HCl [Glucophage] 1,000 mg .ROUTE .STK-MED ONE
03/13/24 23:12
Alcohol Urgent
Ammonia Urgent
Complete Blood Count/With Diff Urgent
Comprehensive Metabolic Panel Urgent
Lactic Acid Urgent
Lipase Urgent
Comment: ADD ON
03/14/24 00:08
CT Head W/o Iv Contrast Urgent
Comment:
Reason For Exam: Change in mental status
Acetaminophen 1000MG/100Ml [Ofirmev] 1,000 mg in 100 ml IV ONCE
Acetaminophen IV Indication:: ED Narcotic Naive Pt-ONCE
03/14/24 00:10
Add On- LAB Urgent
Tests Added?: Lipase
03/14/24 00:22
Electrocardiogram (*1) Urgent
Reason for Study: Other
Other Reason for Exam: change in mental status
EKG- Treatment ONCE
Osmolality, Random Urine Urgent
Date Specimen was Collected: 03/14/24
Time Specimen was Collected: 01:00
Urinalysis Reflex To Culture Urgent
Date Specimen was Collected: 03/14/24
Time Specimen was Collected: 00:19
Urine Microscopic Reflex Cult Urgent
Urine Sodium Urgent
Date Specimen was Collected: 03/14/24
Time Specimen was Collected: 01:00
Urine Culture Urgent
TEREZA Source: U
Specimen Description:
Date Specimen was Collected: 03/14/24
Time Specimen was Collected: 00:19
03/14/24 01:05
COVID-19 Antigen Urgent
Source: Nasal Swab
03/14/24 01:54
Piperacillin/Tazo 3.375 Gram [Zosyn] 3.375 gram in 50 ml IV NOW
03/14/24 02:21
CPK [Creatine Phosphokinase] Urgent
Blood Culture Urgent
TEREZA Source: Blood/Venous
Specimen Description:
03/14/24 03:00
3% Sodium Chloride 250 ml [Sodium Chloride 3%] 250 ml IV ONCE
Abnormal Lab Results
03/13/24 03/14/24 03/14/24
23:12 00:22 02:21
WBC 11.2 H 10^3/uL
(4.8-10.8)
RBC 3.46 L 10^6/uL
(4.20-5.40)
Hgb 11.1 L g/dL
(12.0-16.0)
Hct 30.1 L %
(37.0-47.0)
MCH 32.1 H pg
(27.0-31.0)
Abs Immat Gran (auto) 0.1 H 10^3/uL
(0-0.05)
Absolute Neuts (auto) 8.5 H 10^3/uL
(1.4-6.5)
Absolute Monos (auto) 1.3 H 10^3/uL
(0.1-0.6)
Immature Gran % 0.6 H %
(0-0.5)
Neutrophils % 76.0 H %
(42.2-75.2)
Lymphocytes % 11.1 L %
(20.5-51.1)
Monocytes % 12.0 H %
(1.7-9.3)
Sodium 121 L mmol/L
(135-145)
Chloride 86 L mmol/L
(98-107)
BUN 19 H mg/dl
(7-17)
Glucose 135 H mg/dl
(70-99)
Ammonia < 9 L umol/L
(9-30)
Creatine Kinase 305 H U/L
(30-135)
Urine Ketones 1+ A
(Negative)
Ur Occult Blood Reflex 1+ A
(Negative)
Leukocyte Esterase Rfl 2+ A
(Negative)
Urine Bacteria (Reflex) Few A
(Negative)
Urine Osmolality 192 L mOsm/kg
(300-900)
03/13/24 23:12
03/13/24 23:12
Leukocytosis, H/H slightly low, Hyponatremia, chloride low. Dehydration. Glucose nonfasting. Ammonia <9 normal. Lactic acid 1.2, Alcohol negative. , Urine osmolality low at 192, Lipase normal at 51, Urine questionable (will give IV Zosyn).
Vital Signs
Initial and Last Documented VS:
Initial Vital Signs
Pulse Resp
95 12
03/13/24 21:44 03/13/24 21:44
Last Documented Vital Signs
Temp Pulse Resp BP Pulse Ox
98.2 F 83 17 126/49 94
03/14/24 03:15 03/14/24 03:15 03/14/24 03:15 03/14/24 03:15 03/14/24 03:15
<Alaina Melchor DO - Last Filed: 03/14/24 06:29>
Orders/Labs/Results
Orders:
Orders
03/13/24 21:50
Restraints - Non Violent As Directed
Justification-Patient:: 2-Protective Intervention
Restraint Type-: Soft Limb-L&R Wrist/4rail
Apply From (date): 03/13/24
Apply from (time): 21:50
Remove (date): 03/14/24
Remove (time): 23:59
03/13/24 22:11
METFORMIN HCl [Glucophage] 1,000 mg .ROUTE .STK-MED ONE
03/13/24 23:12
Alcohol Urgent
Ammonia Urgent
Complete Blood Count/With Diff Urgent
Comprehensive Metabolic Panel Urgent
Lactic Acid Urgent
Lipase Urgent
Comment: ADD ON
03/14/24 00:08
CT Head W/o Iv Contrast Urgent
Comment:
Reason For Exam: Change in mental status
Acetaminophen 1000MG/100Ml [Ofirmev] 1,000 mg in 100 ml IV ONCE
Acetaminophen IV Indication:: ED Narcotic Naive Pt-ONCE
03/14/24 00:10
Add On- LAB Urgent
Tests Added?: Lipase
03/14/24 00:22
Electrocardiogram (*1) Urgent
Reason for Study: Other
Other Reason for Exam: change in mental status
EKG- Treatment ONCE
Osmolality, Random Urine Urgent
Date Specimen was Collected: 03/14/24
Time Specimen was Collected: 01:00
Urinalysis Reflex To Culture Urgent
Date Specimen was Collected: 03/14/24
Time Specimen was Collected: 00:19
Urine Microscopic Reflex Cult Urgent
Urine Sodium Urgent
Date Specimen was Collected: 03/14/24
Time Specimen was Collected: 01:00
Urine Culture Urgent
TEREZA Source: U
Specimen Description:
Date Specimen was Collected: 03/14/24
Time Specimen was Collected: 00:19
03/14/24 01:05
COVID-19 Antigen Urgent
Source: Nasal Swab
03/14/24 01:54
Piperacillin/Tazo 3.375 Gram [Zosyn] 3.375 gram in 50 ml IV NOW
03/14/24 02:21
CPK [Creatine Phosphokinase] Urgent
Blood Culture Urgent
TEREZA Source: Blood/Venous
Specimen Description:
03/14/24 03:00
3% Sodium Chloride 250 ml [Sodium Chloride 3%] 250 ml IV ONCE
Abnormal Lab Results
03/13/24 03/14/24 03/14/24
23:12 00:22 02:21
WBC 11.2 H 10^3/uL
(4.8-10.8)
RBC 3.46 L 10^6/uL
(4.20-5.40)
Hgb 11.1 L g/dL
(12.0-16.0)
Hct 30.1 L %
(37.0-47.0)
MCH 32.1 H pg
(27.0-31.0)
Abs Immat Gran (auto) 0.1 H 10^3/uL
(0-0.05)
Absolute Neuts (auto) 8.5 H 10^3/uL
(1.4-6.5)
Absolute Monos (auto) 1.3 H 10^3/uL
(0.1-0.6)
Immature Gran % 0.6 H %
(0-0.5)
Neutrophils % 76.0 H %
(42.2-75.2)
Lymphocytes % 11.1 L %
(20.5-51.1)
Monocytes % 12.0 H %
(1.7-9.3)
Sodium 121 L mmol/L
(135-145)
Chloride 86 L mmol/L
(98-107)
BUN 19 H mg/dl
(7-17)
Glucose 135 H mg/dl
(70-99)
Ammonia < 9 L umol/L
(9-30)
Creatine Kinase 305 H U/L
(30-135)
Urine Ketones 1+ A
(Negative)
Ur Occult Blood Reflex 1+ A
(Negative)
Leukocyte Esterase Rfl 2+ A
(Negative)
Urine Bacteria (Reflex) Few A
(Negative)
Urine Osmolality 192 L mOsm/kg
(300-900)
03/13/24 23:12
03/13/24 23:12
Vital Signs
Initial and Last Documented VS:
Initial Vital Signs
Pulse Resp
95 12
03/13/24 21:44 03/13/24 21:44
Last Documented Vital Signs
Temp Pulse Resp BP Pulse Ox
98.2 F 83 17 126/49 94
03/14/24 03:15 03/14/24 03:15 03/14/24 03:15 03/14/24 03:15 03/14/24 03:15
<NICK Salguero - Last Filed: 03/14/24 02:20>
MDM/Problems Addressed
Differential Diagnosis Includes:
Change in mental status, Hyponatremia,
MDM/Problems Addressed:
This is a 69 year old female that was brought in by ambulance as patient was walking down the moeller at [facility] naked and attempting to pull the fire alarms. Patient is not talking.
Will check labs and CT head. Neuro exam is limited as patient is not following commands and will only open her eyes when her name is called and closes them. Moving all her extremitas at this time.
Spoke with patient Sister May Dennis who is in [place] ) Reviewed CT with her and explained that the patient needed to be transferred. Spoke with Dr. Pretty neurosurgery at [facility] and also Trauma Doctor Dr. Jacobs. They will take
patient as a Transfer to the ER. Dr. Jacobs did not feel that the patient needed to be flown. Will make ambulance arrangements.
Chronic conditions affecting care:
NA
Acute Exacerbation and/or Progression of Chronic Illness:
NA
<NICK Salguero - Last Filed: 03/14/24 02:20>
*Radiology
Radiology exam reviewed: radiology read reviewed (CT head night hawk-Subtle nondepressed hairline fracture of the right parietal calvarium. INtracranial hemorrhage present and the subdural, subarachoid and intraparenchymal spaces. Acute appearing,
hyperattenuating subdural hemorrhage measures up to 7mm over the right temporal pole, 5mm over the ), all reviewed NAD by ED Provider (CT cont- over the left frontal convexity and 4mm along the falx. There is scattered subarachnoid hemorrhage,
particularly over the left cerebral hemisphere. In addition, there small hemorrhagic contusions in the left frontal and temporal lobes. NO midline shift. No herniation. No hydrocephalus. ) and other (CT cont-Bilateral temporomandibular joint
arthrosis. )
*Pulse Oximetry
Patient hypoxic: no
*EKG
Interpreted by ED Provider?: Yes
Heart Rate: 85
Rate: normal
Rhythm: sinus
Tebbetts: normal axis
Interval: normal interval
QRS Pattern: normal QRS
Ischemia: no ischemia
*Icing Machine Operator Interpretation
Rate: normal
Heart Rate: 82
Rhythm: sinus
*Critical Care Note
Total Time (30-74mins, 75-104mins- exclusive of procedures): Not Applicable
ED Attending Note
<NICK Salguero - Last Filed: 03/14/24 02:20>
-
Portions of this chart may have been created with voice recognition software.� Occasional wrong word or��sound alike� substitutions may have occurred due to the inherent limitations of voice recognition software.
<Alaina Melchor DO - Last Filed: 03/14/24 06:29>
ED Attending Note
Patient seen and examined by attending physician: Yes
I performed a history and physical exam of patient and discussed management with resident, I reviewed resident's note and agree with documented findings and plan of care.: Yes
ED Attending Note:
69-year-old woman resides alone in an apartment at [facility]. History of alcohol abuse presents confusional state.
She is awake but significantly confused, mildly agitated, poorly cooperative.
Noted to have somewhat acute as well as subacute ecchymotic patches about her extremities.
She was also noted to be acutely febrile.
CAT scan shows intracranial hemorrhage in the subdural, subarachnoid and intraparenchymal spaces, acute appearing subdural hemorrhage measuring up to 7 mm over the right temporal pole. There is note of a subtle nondepressed hairline fracture right
parietal calvarium.
At this point unclear as to when or how the patient fell.
Labs are remarkable for significant hyponatremia. Similar but not as significant hyponatremia noted in the past. Alcohol level is 0.
No evidence of significant alcohol withdrawal on exam but must consider.
Other consideration is rhabdomyolysis, sepsis thus blood and urine cultures are pending. It is reassuring that lactic acid is normal.
Will check CPK, assess for potential rhabdomyolysis.
Patient remains hemodynamically stable, no respiratory compromise.
No focal neurologic deficit.
She has been accepted to [facility] trauma service.
Discharge Plan
Departure
Patient Disposition: [facility]
Date of Disposition: 03/14/24
Time of Disposition: 02:15
Patient with high blood pressure during this ER visit?: No
Condition: Good
Covid-19: Negative COVID-19
Discharge Problem:
Acute alteration in mental status, Bilateral subdural hematomas, Subarachnoid hemorrhage, fracture right parietal calvarium
Prescriptions:
No Action
Jentadueto 2.5-1,000 mg Tablet
1 tab PO BID
simvastatin 40 mg tablet
40 mg PO HS
gabapentin 300 mg capsule
300 mg PO QID
lisinopril 2.5 mg tablet
2.5 mg PO DAILY
esomeprazole magnesium [Nexium] 40 mg Capsule,Delayed Release(Dr/Ec)
40 mg PO DAILY
tramadol 50 mg Tablet
50 mg PO Q6HPRN PRN (Reason: moderate pain)
Patient Comments:
03/13/2024: last filled 02/10/24, 120 tabs for 30 days from [facility]
diazepam [Valium] 5 mg Tablet
5 mg PO HS PRN (Reason: anxiety)
Patient Comments:
03/13/2024: last filled 02/15/24, 30 tabs for 10 days from [facility]
calcitonin (salmon) 200 unit/actuation spray,non-aerosol
1 spray intranasal DAILY
Referrals:
Massimo Mcdaniels MD [Family Provider] -
Hospital Transfer
Other hospital: [facility]
I certify that the patient requires transfer: Yes
Discussed case with accepting physician: DR. Jacobs
Reason for transfer: higher level of care and specialties available
Interventions
Interventions:
*Risk Screen - Suicide Last Done: 03/13/24 21:46
*General Assessment Last Done: 03/13/24 21:46
*Neglect/Abuse Screening Last Done: 03/13/24 21:46
ED- Fall Risk Assessment Last Done: 03/14/24 00:00
*ED COVID-19 Vaccine History Last Done: 03/13/24 21:56
*Nursing Disposition Last Done: 03/14/24 03:15
ED- Pulmonary Assessment Last Done: 03/14/24 00:00
ED-Psychological Assessment Last Done: 03/13/24 21:58
ED- Neurological Assessment Last Done: 03/13/24 21:56
ED- Cardiac Assessment Last Done: 03/14/24 01:51
ED Swallowing Screen Last Done: 03/14/24 00:20
Discharge Date and Time
Discharge Date/Time: 03/14/24 03:20
Print Language: SYRIAC
[2024-03-14 00:33] LABS: Urine Albumin Negative (Neg - Trace); Urine Bilirubin Negative (Negative); Urine Character Clear (Clear); Urine Color Yellow; Urine Glucose Negative (Negative); Urine Ketone 1+ (Negative); Urine Leukocyte 2+ (Negative); Urine Nitrite Negative (Negative); Urine Occult Blood 1+ (Negative); Urine Urobilinogen Negative (Neg - 1+)
[2024-03-14] MEDS: OFIRMEV 100 IV (00:35)
[2024-03-14 00:55] LABS: Lipase 51 U/L (23-300)
[2024-03-14 00:58] LABS: Urine Bacteria Few (Negative); Urine Red Blood Cell 0-2 /HPF (0-2); Urine Squamous Cell 0-2 /LPF (Few)
[2024-03-14 01:00] VITALS: BP 124/51
[2024-03-14 01:28] LABS: Osmolality Urine 192 mOsm/kg (300-900)
[2024-03-14 01:31] LABS: COVID-19 Antigen Negative (Negative)
[2024-03-14 01:34] LABS: Urine Sodium 43 mmol/L (30-90)
[2024-03-14 01:47] VITALS: BP 119/57
[2024-03-14 02:19] VITALS: BP 125/58
[2024-03-14] MEDS: ZOSYN 50 IV (02:45)
[2024-03-14 02:59] LABS: Creatine Phosphokinase 305 U/L (30-135)
[2024-03-14 03:00] VITALS: BP 126/49
[2024-03-14] MEDS: SODIUM CHLORIDE 3% 250 IV (03:00)
[2024-03-14 03:15] VITALS: BP 126/49
== END 2024-03-14 03:20 | disposition short-term general hospital (02) ==
LOC: EMR 21:42
PROVIDERS: Clinical Nurse Specialist Family Health; EMERGENCY PHYSICIAN Emergency Medicine; FAMILY PHYSICIAN Family Medicine
DX: S06.6XAA Traumatic subarachnoid hemorrhage with loss of consciousness status unknown, initial encounter (principal); Y93.01 Activity, walking, marching and hiking; K21.9 Gastro-esophageal reflux disease without esophagitis; I10 Essential (primary) hypertension; E78.00 Pure hypercholesterolemia, unspecified; E11.9 Type 2 diabetes mellitus without complications; F41.9 Anxiety disorder, unspecified; E86.0 Dehydration; E87.1 Hypo-osmolality and hyponatremia; G47.33 Obstructive sleep apnea (adult) (pediatric); K86.1 Other chronic pancreatitis; F17.200 Nicotine dependence, unspecified, uncomplicated; Z87.19 Personal history of other diseases of the digestive system; Z87.440 Personal history of urinary (tract) infections
CPT/HCPCS: 99284; 96365; 96375; 70450; 80053; 81003; 81015; 82077; 82140; 82550; 83605; 83690; 83935; 84300; 85025; 87040; 87086; 87811; 93005

== ENCOUNTER 2024-05-21 07:47 | Emergency (ER) | payer MEDICARE, OTHER, SELFPAY ==
[2024-05-21 07:51] VITALS: BP 130/75
[2024-05-21 07:53] VITALS: BP 130/75
[2024-05-21 07:55] VITALS: BMI 22.8
--- NOTE | 2024-05-21 08:20 | ED.GENMED ---
History of Present Illness
General
Chief Complaint: Abdominal Symptoms
Source: patient
Time Seen by Provider: 05/21/24 08:02
History of Present Illness
History of Present Illness:
69yoF with a history of type 2 diabetes, hyperlipidemia, GERD, and chronic pancreatitis presenting via EMS for evaluation of abdominal pain. Patient states she has been feeling unwell for the past 2 days and has not been eating. She developed
nausea and vomiting around dinnertime last night. Patient reports vomiting approximately 20 times since her symptoms began. She also reports abdominal pain which is primarily present in the center lower abdomen. She has a history of pancreatitis
although states her current pain feels different. Last bowel movement was yesterday which was reportedly normal. She denies any fevers, chest pain, shortness of breath, hematemesis, diarrhea, dysuria. She has a documented history of alcohol abuse
although denies drinking alcohol currently. She was admitted 2 months ago at [facility] for a brain bleed after a fall. She was reportedly in a coma for 2 days. No previous abdominal surgeries.
Past History
Past History
ED Past Medical History: GERD, HTN, Hypercholesterolemia, NIDDM, Seizures, Psychiatric (Depression, Anxiety), Other (Chronic pancreatitis, Ulcers, obstructive sleep apnea, UTi, Bilateral Vestibular loss, Migraines, Neck pain, ) and Other (migraines,
hepatitis, alcohol abuse, Bilateral vestibular Loss, Gastritis)
ED Past Surgical History: Tonsilectomy and Other (right breast lumpectomy)
Patient has exhibited threatening behavior?: No
Social History
Tobacco: Smoker
Alcohol: Chronic alcoholic ( Two 5th's of vodka)
Drug: None
Personal:
Living: jail ([facility])
Employment: Not employed
Family History
Family History: Other (Alzheimer's); Negative Early CAD
Phy Exam
General Physical Exam
General Presentation: well appearing and no apparent distress
General age: appears stated age
General Skin: warm and dry
General Habitus: normal
General Mental: alert
General Hydration: appears well hydrated
ENT Exam
ENT Exam: normocephalic
Cardiovascular Exam
Cardiovascular Exam: regular rate/rhythm
Pulmonary Exam
Pulmonary Exam: lungs clear, no respiratory distress, no crackles and no wheezing
Gastrointestinal Exam
Gastrointestinal Exam: soft, non distended and tender (+Tenderness to periumbilical region. Abdomen soft, non-distended. No rebound or guarding. )
[place] Coma Scale
Eye Opening: Spontaneous
Verbal Response: Oriented
Motor Response: Obeys Commands
GCS Total Score: 15
Skin Exam
Skin Exam: normal color and warm/dry
Psychiatric Exam
Psychiatric Exam: normal mood/affect
Course
Orders/Labs/Results
Orders:
Orders
05/21/24 08:17
0.9% Sodium Chloride 500 ml [Nss] 500 ml IV BOLUS
05/21/24 08:18
Electrocardiogram (*1) Urgent
Reason for Study: Abdominal Pain
EKG- Treatment ONCE
05/21/24 08:19
Ondansetron Injectable [Zofran] 4 mg IV NOW STA
05/21/24 08:37
Basic Metabolic Panel Urgent
Complete Blood Count/With Diff Urgent
Lipase Urgent
05/21/24 09:08
Acetaminophen 1000MG/100Ml [Ofirmev] 1,000 mg in 100 ml IV ONCE
Acetaminophen IV Indication:: ED Narcotic History-ONCE
Diphenhydramine [Benadryl] 25 mg IV NOW STA
Magnesium Sulfate 1 G/D5w [Magnesium Sulfate] 1 gm in 100 ml IV NOW
Abnormal Lab Results
05/21/24
08:37
WBC 11.6 H 10^3/uL
(4.8-10.8)
Hct 36.6 L %
(37.0-47.0)
MCH 31.5 H pg
(27.0-31.0)
Absolute Neuts (auto) 7.5 H 10^3/uL
(1.4-6.5)
Absolute Monos (auto) 0.8 H 10^3/uL
(0.1-0.6)
Sodium 134 L mmol/L
(135-145)
Chloride 95 L mmol/L
(98-107)
Glucose 170 H mg/dl
(70-99)
Calcium 10.4 H mg/dl
(8.4-10.2)
05/21/24 08:37
05/21/24 09:16
Vital Signs
Initial and Last Documented VS:
Initial Vital Signs
BP
130/75
05/21/24 07:51
Last Documented Vital Signs
Temp Pulse Resp BP Pulse Ox
98.3 F 95 16 121/74 98
05/21/24 07:53 05/21/24 10:36 05/21/24 10:36 05/21/24 10:36 05/21/24 10:36
MDM/Problems Addressed
Differential Diagnosis Includes:
69yoF here with n/v and abdominal pain since last night. Has not been eating much the past few days. Documented history of alcohol abuse which she denies. Also c/o a migraine. HR 109 in triage. Remainder of vitals are normal. She is well appearing
in no distress. No signs of peritonitis on abdominal exam. Differential diagnosis includes but is not limited to: gastroenteritis, appendicitis, diverticulitis, SBO, dehydration
Initial ED plan: Check abdominal labs, magnesium, EKG, CT head, and CT abdomen. IV Zofran and fluid bolus for symptoms.
*EKG
Interpreted by ED Provider?: Yes
EKG Intrepretation Date: 05/21/24
Heart Rate: 106
Rate: tachycardiac
Rhythm: sinus
[place]: normal axis
Interval: normal interval
QRS Pattern: normal QRS
Ischemia: no ischemia
*Critical Care Note
Total Time (30-74mins, 75-104mins- exclusive of procedures): Not Applicable
Update Note
Update Note:
Labs reveal a sodium of 134. Renal function and lipase normal. Labs hemolyzed so potassium and LFTs not resulted. Informed by nursing staff that patient is requesting medications for her migraines. Tylenol, Benadryl, and magnesium ordered. After
medications were ordered, patient became upset that she was not being given a narcotic because this is apparently what she has been given in the past for her headaches. Discussed with patient that narcotics are not indicated for migraines and can
cause rebound headaches. Patient now is refusing CT scans and further testing. She called her friend to pick her up so she can go home. She was also seen by Dr. Majano. Advised f/u with PCP and ED return precautions discussed. She was discharged
in stable condition.
ED Attending Note
-
Portions of this chart may have been created with voice recognition software.� Occasional wrong word or��sound alike� substitutions may have occurred due to the inherent limitations of voice recognition software.
Discharge Plan
Departure
Patient Disposition: Home (Routine Discharge)
Date of Disposition: 05/21/24
Time of Disposition: 10:26
Patient with high blood pressure during this ER visit?: No
Discharge Problem:
Abdominal pain, Nausea and vomiting
Instructions: Nausea and Vomiting, Adult (DC), Abdominal Pain
Prescriptions:
No Action
Jentadueto 2.5-1,000 mg Tablet
1 tab PO BID
simvastatin 40 mg tablet
40 mg PO HS
gabapentin 300 mg capsule
300 mg PO QID
lisinopril 2.5 mg tablet
2.5 mg PO DAILY
esomeprazole magnesium [Nexium] 40 mg Capsule,Delayed Release(Dr/Ec)
40 mg PO DAILY
tramadol 50 mg Tablet
50 mg PO Q6HPRN PRN (Reason: moderate pain)
Patient Comments:
03/13/2024: last filled 02/10/24, 120 tabs for 30 days from [facility]
diazepam [Valium] 5 mg Tablet
5 mg PO HS PRN (Reason: anxiety)
Patient Comments:
03/13/2024: last filled 02/15/24, 30 tabs for 10 days from [facility]
calcitonin (salmon) 200 unit/actuation spray,non-aerosol
1 spray intranasal DAILY
Referrals:
Massimo Mcdaniels MD [Family Provider] -
Activity Restrictions/Additional Instructions:
Please call your family doctor tomorrow to schedule a follow-up appointment. Return to the ER with any new or worsening symptoms.
Interventions
Interventions:
*Risk Screen - Suicide Last Done: 05/21/24 07:55
*General Assessment Last Done: 05/21/24 07:55
*Neglect/Abuse Screening Last Done: 05/21/24 07:55
ED- Fall Risk Assessment Last Done: 05/21/24 10:37
*ED COVID-19 Vaccine History Last Done: 05/21/24 07:55
*Nursing Disposition Last Done: 05/21/24 10:37
GA-Byxmcc-Pwjekhimbx Assessment Last Done: 05/21/24 07:55
Discharge Date and Time
Discharge Date/Time: 05/21/24 10:38
Print Language: PASHTO
[2024-05-21 08:44] LABS: % Basophils 0.2 % (0-2); % Immature Granulocytes 0.3 % (0-0.5); % Lymphocytes 27.6 % (20.5-51.1); % Monocytes 6.9 % (1.7-9.3); Absolute Lymphocytes 3.2 10^3/uL (1.2-3.4); Absolute Monocytes 0.8 10^3/uL (0.1-0.6); Absolute Neutrophils 7.5 10^3/uL (1.4-6.5); Hematocrit 36.6 % (37.0-47.0); Hemoglobin 13.5 g/dL (12.0-16.0); Mean Corp Hgb Conc. 36.9 g/dL (33.0-37.0); Mean Corpuscular Hgb 31.5 pg (27.0-31.0); Mean Corpuscular Volume 85.3 fL (81.0-99.0); Mean Platelet Volume 8.1 fL (7.4-10.4); Nucleated Red Blood Cells % 0 %; Platelet Count 322 10^3/uL (130-400); Red Blood Cell Count 4.29 10^6/uL (4.20-5.40); White Blood Cell Count 11.6 10^3/uL (4.8-10.8)
[2024-05-21] MEDS: NSS 500 IV (08:46)
[2024-05-21] MEDS: ZOFRAN 4 MG IV (08:47)
[2024-05-21 09:00] VITALS: BP 117/57
[2024-05-21 09:15] LABS: Blood Urea Nitrogen 9 mg/dl (7-17); Calcium 10.4 mg/dl (8.4-10.2); Carbon Dioxide 25 mmol/L (22-30); Chloride 95 mmol/L (98-107); Estimated Creatinine Clearance 62 ml/min; Glucose 170 mg/dl (70-99); Lipase 64 U/L (23-300); Sodium 134 mmol/L (135-145); eGFR > 60.00
[2024-05-21] MEDS: MAGNESIUM SULFATE IV (09:54)
[2024-05-21] MEDS: BENADRYL IV (09:54)
[2024-05-21] MEDS: BENADRYL 25 MG IV (10:01)
[2024-05-21] MEDS: MAGNESIUM SULFATE 100 IV (10:02)
[2024-05-21 10:36] VITALS: BP 121/74
== END 2024-05-21 10:38 | disposition home or self-care (01) ==
LOC: EMR 07:47
PROVIDERS: Physician Assistant; EMERGENCY PHYSICIAN Emergency Medicine; FAMILY PHYSICIAN Family Medicine
DX: R11.2 Nausea with vomiting, unspecified (principal); R10.9 Unspecified abdominal pain
CPT/HCPCS: 99284; 96374; 96375 ×2; 96361; 80048; 83690; 85025; 93005

== ENCOUNTER 2024-05-22 19:03 | Emergency (ER) | payer MEDICARE, OTHER, SELFPAY ==
[2024-05-22 19:13] VITALS: BP 127/73
--- NOTE | 2024-05-22 19:13 | ED.GENMED ---
ED Provider Triage
<Ginger Anne PAYROLL PROCESSOR - Last Filed: 05/22/24 19:20>
-
Patient seen by provider in Triage?: Seen in Triage
Attestation: A medical screening examination has been initiated by a qualified medical provider. Based on the assessment performed at this time, it has been determined that an emergent medical condition may exist and the patient has been informed
that further medical evaluation and possible additional diagnostic testing may be needed.
HPI: 69-year-old female here for 'belly pain, nausea.' 'I have a migraine.' Seen here yesterday for same.
Head CT ordered, had other comprehensive W/U yesterday.
PHYSICAL EXAMINATION:
General: In wheelchair, crouched over holding emesis bag to mouth.
Neuro: alert and oriented.
RESP: No distress
Psychiatric: Anxious. No good eye contact
Musculoskeletal: Moves with ease
Skin: Warm, pink.
This is a medical evaluation conducted in person to initiate diagnostic evaluation and provide initial therapeutics. Please see further documentation by the treating clinician.
History of Present Illness
<Ginger Anne PAYROLL PROCESSOR - Last Filed: 05/22/24 19:20>
General
Chief Complaint: Headache
Time Seen by Provider: 05/22/24 19:45
<NICK Salguero - Last Filed: 05/23/24 02:50>
General
Source: patient
Exam Limitations: none
History of Present Illness
History of Present Illness:
This is a 69 year old female that comes in with c/o migraine. States that she was here yesterday. States that she has not take anything at home for her headache. States that this is different then her normal headache pain as she has pain all over
her head. States that she feels dizzy, has abd discomfort with nausea and vomiting. Denies any fever, chills, chest pain, SOB, diarrhea, urinary burning.
Past History
<Ginger Anne PAYROLL PROCESSOR - Last Filed: 05/22/24 19:20>
Past History
ED Past Medical History: GERD, HTN, Hypercholesterolemia, NIDDM, Seizures, Psychiatric (Depression, Anxiety), Other (Chronic pancreatitis, Ulcers, obstructive sleep apnea, UTi, Bilateral Vestibular loss, Migraines, Neck pain, ) and Other (migraines,
hepatitis, alcohol abuse, Bilateral vestibular Loss, Gastritis)
ED Past Surgical History: Tonsilectomy and Other (right breast lumpectomy)
Patient has exhibited threatening behavior?: No
Social History
Tobacco: Smoker
Alcohol: Chronic alcoholic ( Two 5th's of vodka)
Drug: None
Personal:
Living: prison ([facility])
Employment: Not employed
Family History
Family History: Other (Alzheimer's); Negative Early CAD
<NICK Salguero - Last Filed: 05/23/24 02:50>
Past History
ED Past Medical History: Other (Chronic pancreatitis, Ulcers, obstructive sleep apnea, UTi, Bilateral Vestibular loss, Migraines, Neck pain, Coma from fall)
Social History
Alcohol: Chronic alcoholic ( Two 5th's of vodka, Denies any alcohol for 3 months as of 05/22/24)
Review of Systems
<NICK Salguero - Last Filed: 05/23/24 02:50>
Review of Systems
All Other Systems: ROS reviewed and negative except as documented in HPI and ROS
Constitutional: Reports no symptoms; Denies fever or chills
EENT: Reports no symptoms
Respiratory: Reports no symptoms; Denies cough or trouble breathing
Cardiac: Reports no symptoms; Denies chest pain
ABD/GI: Reports abdominal pain, nausea and vomiting; Denies diarrhea
: Reports no symptoms; Denies dysuria, frequency or urgency
Musculoskeletal: Reports no symptoms
Skin: Reports no symptoms
Neurological: Reports dizzy and headache
Psychiatric: Reports no symptoms
Phy Exam
<NICK Salguero - Last Filed: 05/23/24 02:50>
General Physical Exam
General Presentation: no apparent distress
General age: appears older than age
General Skin: warm and dry
General Habitus: normal
General Mental: alert
General Hydration: appears well hydrated
ENT Exam
ENT Exam: TM's normal, pharynx normal and neck supple
Eye Exam
Eye Exam: EOMI
Cardiovascular Exam
Cardiovascular Exam: regular rate/rhythm, no edema and normal peripheral pulses
Pulmonary Exam
Pulmonary Exam: lungs clear, no respiratory distress, no rales, chest non tender, no crackles, no rhonchi, no wheezing and no cough
Gastrointestinal Exam
Gastrointestinal Exam: normal bowel sounds, soft, no organomegaly, no pulsatile mass, non distended and tender (Chronic upper abd tenderness with palpation)
Musculoskeletal Exam
Musculoskeletal Exam: full ROM and no edema
Skin Exam
Skin Exam: normal color, warm/dry, no rash and no petechia
Psychiatric Exam
Psychiatric Exam: normal mood/affect
Course
<Ginger Anne PAYROLL PROCESSOR - Last Filed: 05/22/24 19:20>
Orders/Labs/Results
Orders:
Orders
05/22/24 19:16
CT Head W/o Iv Contrast Urgent
Comment:
Reason For Exam: headache, n/v
05/22/24 20:00
0.9% Sodium Chloride 1000 ml [Nss] 1,000 ml IV BOLUS
Acetaminophen 1000MG/100Ml [Ofirmev] 1,000 mg in 100 ml IV ONCE
Acetaminophen IV Indication:: ED Narcotic Naive Pt-ONCE
Ketorolac [Toradol] 30 mg IV NOW STA
05/22/24 20:03
Pantoprazole [Protonix IV] 40 mg IV NOW STA
05/22/24 20:20
Ondansetron Injectable [Zofran] 4 mg IV NOW STA
05/22/24 20:30
Alcohol Urgent
Complete Blood Count/With Diff Urgent
Comprehensive Metabolic Panel Urgent
Lipase Urgent
Comment: ADDED
05/23/24 01:00
Add On- LAB Urgent
Tests Added?: Lipase
Abnormal Lab Results
05/22/24 05/22/24
19:36 20:30
RBC 3.82 L 10^6/uL
(4.20-5.40)
Hct 33.1 L %
(37.0-47.0)
MCH 32.2 H pg
(27.0-31.0)
MCHC 37.2 H g/dL
(33.0-37.0)
Absolute Lymphs (auto) 5.1 H 10^3/uL
(1.2-3.4)
Sodium 130 L mmol/L
(135-145)
Chloride 92 L mmol/L
(98-107)
Glucose 132 H mg/dl
(70-99)
Calcium 10.3 H mg/dl
(8.4-10.2)
POC Glucose 141 H mg/dl
(70-99)
05/22/24 20:30
05/22/24 20:30
Vital Signs
Initial and Last Documented VS:
Initial Vital Signs
Temp Pulse Resp Pulse Ox
97.5 F 110 20 98
05/22/24 19:10 05/22/24 19:10 05/22/24 19:10 05/22/24 19:10
Last Documented Vital Signs
Temp Pulse Resp BP Pulse Ox
97.5 F 92 13 126/73 96
05/22/24 19:10 05/23/24 00:45 05/23/24 00:45 05/22/24 22:06 05/22/24 23:15
<NICK Salguero - Last Filed: 05/23/24 02:50>
Orders/Labs/Results
Orders:
Orders
05/22/24 19:16
CT Head W/o Iv Contrast Urgent
Comment:
Reason For Exam: headache, n/v
05/22/24 20:00
0.9% Sodium Chloride 1000 ml [Nss] 1,000 ml IV BOLUS
Acetaminophen 1000MG/100Ml [Ofirmev] 1,000 mg in 100 ml IV ONCE
Acetaminophen IV Indication:: ED Narcotic Naive Pt-ONCE
Ketorolac [Toradol] 30 mg IV NOW STA
05/22/24 20:03
Pantoprazole [Protonix IV] 40 mg IV NOW STA
05/22/24 20:20
Ondansetron Injectable [Zofran] 4 mg IV NOW STA
05/22/24 20:30
Alcohol Urgent
Complete Blood Count/With Diff Urgent
Comprehensive Metabolic Panel Urgent
Lipase Urgent
Comment: ADDED
05/23/24 01:00
Add On- LAB Urgent
Tests Added?: Lipase
Abnormal Lab Results
05/22/24 05/22/24
19:36 20:30
RBC 3.82 L 10^6/uL
(4.20-5.40)
Hct 33.1 L %
(37.0-47.0)
MCH 32.2 H pg
(27.0-31.0)
MCHC 37.2 H g/dL
(33.0-37.0)
Absolute Lymphs (auto) 5.1 H 10^3/uL
(1.2-3.4)
Sodium 130 L mmol/L
(135-145)
Chloride 92 L mmol/L
(98-107)
Glucose 132 H mg/dl
(70-99)
Calcium 10.3 H mg/dl
(8.4-10.2)
POC Glucose 141 H mg/dl
(70-99)
05/22/24 20:30
05/22/24 20:30
Hyponatremia. Chloride low. Hyperglycemia. Alcohol none detected. Lipase normal at 64
Vital Signs
Initial and Last Documented VS:
Initial Vital Signs
Temp Pulse Resp Pulse Ox
97.5 F 110 20 98
05/22/24 19:10 05/22/24 19:10 05/22/24 19:10 05/22/24 19:10
Last Documented Vital Signs
Temp Pulse Resp BP Pulse Ox
97.5 F 92 13 126/73 96
05/22/24 19:10 05/23/24 00:45 05/23/24 00:45 05/22/24 22:06 05/22/24 23:15
Mobile Patrol Officer consulted with Physician
Mobile Patrol Officer consulted with physician?: Yes
Name of Physician Consulted: DR. Villafana
<NICK Salguero - Last Filed: 05/23/24 02:50>
MDM/Problems Addressed
Differential Diagnosis Includes:
Migraines
MDM/Problems Addressed:
This is a 69 year old female who is well know in the emergency room. States that she was here yesterday and today returns with a migraine. States that she has not take anything for this.
Will check labs and medicate for her migraines. Will also get CT of head.
Back into see patient. Patient states that she still has a migraine. Patient states that she wanted to go home but she doesn't have a ride. Patient denies any suicidal thoughts or plan.
Chronic conditions affecting care: Psychiatric illness
Acute Exacerbation and/or Progression of Chronic Illness: Psychiatric illness
<NICK Salguero - Last Filed: 05/23/24 02:50>
*Radiology
Radiology exam reviewed: radiology read reviewed (CT head-There is a left suddural convexity collection with slightly greater than CSF density. This m easures up to 8mm in thickness and appears slightly larger than examination of march 14, 2024.
This is likely a chronic subdural hematoma. Minimal midline shift from left to right. Consideration for) and other (CT cont-- continued CT or MRI follow-up. )
*Pulse Oximetry
Patient hypoxic: no
*EKG
Interpreted by ED Provider?: NA
Rate: EKG- N/A
*Stereotyper Helper Interpretation
Rate: tachycardiac
Heart Rate: 100
Rhythm: sinus tachycardia
*Critical Care Note
Total Time (30-74mins, 75-104mins- exclusive of procedures): Not Applicable
ED Attending Note
<Ginger Anne NP - Last Filed: 05/22/24 19:20>
-
Portions of this chart may have been created with voice recognition software.� Occasional wrong word or��sound alike� substitutions may have occurred due to the inherent limitations of voice recognition software.
Discharge Plan
Departure
Patient Disposition: Home (Routine Discharge)
Date of Disposition: 05/23/24
Time of Disposition: 00:26
Patient with high blood pressure during this ER visit?: No
Condition: Good
Covid-19: Not Applicable
Discharge Problem:
Migraine, Chronic abdominal pain
Instructions: Migraines (DC), Abdominal Pain, Adult ED
Prescriptions:
No Action
Jentadueto 2.5-1,000 mg Tablet
1 tab PO BID
simvastatin 40 mg tablet
40 mg PO HS
gabapentin 300 mg capsule
300 mg PO QID
lisinopril 2.5 mg tablet
2.5 mg PO DAILY
esomeprazole magnesium [Nexium] 40 mg Capsule,Delayed Release(Dr/Ec)
40 mg PO DAILY
tramadol 50 mg Tablet
50 mg PO Q6HPRN PRN (Reason: moderate pain)
Patient Comments:
03/13/2024: last filled 02/10/24, 120 tabs for 30 days from [facility]
diazepam [Valium] 5 mg Tablet
5 mg PO HS PRN (Reason: anxiety)
Patient Comments:
03/13/2024: last filled 02/15/24, 30 tabs for 10 days from [facility]
calcitonin (salmon) 200 unit/actuation spray,non-aerosol
1 spray intranasal DAILY
Referrals:
Massimo Mcdaniels MD [Family Provider] - Follow up in 2-3 days
Activity Restrictions/Additional Instructions:
As discussed, your blood work shows that your sodium is a little low. Please try eating some canned soup or boxed food. Your CT is negative for any acute process. Please increase your water intake to 8-8oz glasses daily. Follow up with the family
doctor for recheck. IF YOU HAVE ANY OTHER CONCERNS PLEASE RETURN TO THE EMERGENY ROOM.
Interventions
Interventions:
*Risk Screen - Suicide Last Done: 05/22/24 20:17
*General Assessment Last Done: 05/22/24 19:10
*Neglect/Abuse Screening Last Done: 05/22/24 19:10
ED- Fall Risk Assessment Last Done: 05/23/24 01:00
*ED COVID-19 Vaccine History Last Done: 05/23/24 01:00
*Nursing Disposition Last Done: 05/23/24 01:06
ED- Neurological Assessment Last Done: 05/22/24 19:38
Discharge Date and Time
Discharge Date/Time: 05/23/24 01:07
Print Language: EQUATORIAL GUINEAN
[2024-05-22 19:31] VITALS: BP 134/68
[2024-05-22 19:39] LABS: Glucose - Point of Care 141 mg/dl (70-99)
[2024-05-22 20:00] VITALS: BP 123/62
[2024-05-22] MEDS: PROTONIX IV 40 MG IV (20:28)
[2024-05-22] MEDS: ZOFRAN 4 MG IV (20:29)
[2024-05-22] MEDS: OFIRMEV 100 IV (20:29)
[2024-05-22] MEDS: NSS 1000 IV (20:29)
[2024-05-22] MEDS: TORADOL 30 MG IV (20:29)
[2024-05-22 20:44] LABS: % Basophils 0.5 % (0-2); % Eosinophils 0.3 % (0-6); % Immature Granulocytes 0.3 % (0-0.5); % Lymphocytes 47.5 % (20.5-51.1); % Monocytes 5.8 % (1.7-9.3); % Neutrophils 45.6 % (42.2-75.2); Absolute Basophils 0.1 10^3/uL (0-0.2); Absolute Lymphocytes 5.1 10^3/uL (1.2-3.4); Absolute Monocytes 0.6 10^3/uL (0.1-0.6); Absolute Neutrophils 4.9 10^3/uL (1.4-6.5); Hematocrit 33.1 % (37.0-47.0); Hemoglobin 12.3 g/dL (12.0-16.0); Mean Corp Hgb Conc. 37.2 g/dL (33.0-37.0); Mean Corpuscular Hgb 32.2 pg (27.0-31.0); Mean Corpuscular Volume 86.6 fL (81.0-99.0); Mean Platelet Volume 8.3 fL (7.4-10.4); Nucleated Red Blood Cells % 0 %; Platelet Count 268 10^3/uL (130-400); Red Blood Cell Count 3.82 10^6/uL (4.20-5.40); Red Cell Dist. Width 13.9 % (11.5-14.5); White Blood Cell Count 10.8 10^3/uL (4.8-10.8)
[2024-05-22 20:59] LABS: ALT (SGPT) 14 U/L (0-35); AST (SGOT) 30 U/L (14-36); Albumin 4.5 g/dl (3.5-5.0); Alcohol None Detected; Alkaline Phosphatase 52 U/L (38-126); Blood Urea Nitrogen 9 mg/dl (7-17); Calcium 10.3 mg/dl (8.4-10.2); Carbon Dioxide 24 mmol/L (22-30); Glucose 132 mg/dl (70-99); Total Protein 7.2 g/dl (6.3-8.2); eGFR > 60.00
[2024-05-22 21:04] LABS: Chloride 92 mmol/L (98-107); Potassium 3.9 mmol/L (3.5-5.1); Sodium 130 mmol/L (135-145)
[2024-05-22 22:06] VITALS: BP 126/73
[2024-05-23 02:08] LABS: Lipase 64 U/L (23-300)
== END 2024-05-23 01:07 | disposition home or self-care (01) ==
LOC: EMR 19:03
PROVIDERS: Clinical Nurse Specialist Family Health; EMERGENCY PHYSICIAN Student in an Organized Health Care Education/Training Program; FAMILY PHYSICIAN Family Medicine
DX: G43.909 Migraine, unspecified, not intractable, without status migrainosus (principal); R10.9 Unspecified abdominal pain; G89.29 Other chronic pain; K21.9 Gastro-esophageal reflux disease without esophagitis; I10 Essential (primary) hypertension; E78.00 Pure hypercholesterolemia, unspecified; E11.9 Type 2 diabetes mellitus without complications; F17.200 Nicotine dependence, unspecified, uncomplicated; G47.33 Obstructive sleep apnea (adult) (pediatric)
CPT/HCPCS: 99284; 96374; 96375; 96361; 70450; 80053; 82077; 82962; 83690; 85025

== ENCOUNTER 2024-06-10 10:27 | Emergency (ER) | payer MEDICARE, OTHER, SELFPAY ==
[2024-06-10 10:38] VITALS: BP 112/67; BMI 25.6
--- NOTE | 2024-06-10 10:58 | ED.GENMED ---
History of Present Illness
General
Chief Complaint: Alcohol Problem
Time Seen by Provider: 06/10/24 10:40
History of Present Illness
History of Present Illness:
69 yo female presents to the Emergency Department via EMS from [facility] for evaluation of ETOH intoxication and a fall last night. Reports falling in the shower, reporting head and neck pain at the moment. Also notes L elbow pain. No CP, SOB,
back pain, N/V, or hip/pelvic pain. States she started drinking heavily last night due to depression, denies SI/HI. States that she does not typically drink. Does not want inpatient mental health treatment.
Past History
Past History
ED Past Medical History: GERD, HTN, Hypercholesterolemia, NIDDM, Seizures, Psychiatric (Depression, Anxiety), Other (Chronic pancreatitis, Ulcers, obstructive sleep apnea, UTi, Bilateral Vestibular loss, Migraines, Neck pain, Coma from fall) and
Other (migraines, hepatitis, alcohol abuse, Bilateral vestibular Loss, Gastritis)
ED Past Surgical History: Tonsilectomy and Other (right breast lumpectomy)
Patient has exhibited threatening behavior?: No
Social History
Tobacco: Smoker
Alcohol: Chronic alcoholic ( Two 5th's of vodka, Denies any alcohol for 3 months as of 05/22/24)
Drug: None
Personal:
Living: [facility] ([facility])
Employment: Not employed
Family History
Family History: Other (Alzheimer's); Negative Early CAD
Review of Systems
Review of Systems
Allergies reviewed?: Yes
All Other Systems: ROS reviewed and negative except as documented in HPI and ROS
Phy Exam
Physical Exam
Physical Exam:
GEN: Well appearing, NAD, WDWN
Eyes: PERRLA, EOMs intact, no scleral icterus
HENT: NCAT, oral mucosa moist. Midline Cervical and L paracervical musculature tenderness noted
Lungs: CTAB, no wheezes, rales, rhonchi, normal chest wall excursion
Cardiac: RRR, no M/R/G, no peripheral edema. Radial pulses 2+ bilat
Abdomen: S, NT, ND, NABS, no masses or hepatosplenomegaly
Neuro: AO x 3, no focal deficits to BUE/BLE, normal sensation throughout
MSK: No gross deformity. Mild L elbow ecchymosis, normal ROM. No pelvic tenderness.
Skin: No rashes, petechiae. Normal color, no pallor or jaundice.
Psych: Calm, cooperative, proper hygiene
Scores
Withdrawal Assessment of Alcohol
Withdrawal Assessment Completed?: Not applicable
Course
Orders/Labs/Results
Orders:
Orders
06/10/24 10:46
CT Cervical Spine W/o Iv Contr Urgent
Comment:
Reason For Exam: fall, +ETOH
CT Head W/o Iv Contrast Urgent
Comment:
Reason For Exam: fall, +ETOH
CR Elbow - Left Min 3 Views Urgent
Comment:
Reason For Exam: fall
06/10/24 11:31
Ketorolac [Toradol] 15 mg IV NOW STA
06/10/24 11:36
Ketorolac [Toradol] 15 mg IM NOW STA
06/10/24 10:46
06/10/24 10:46
Vital Signs
Initial and Last Documented VS:
Initial Vital Signs
Pulse Resp Pulse Ox
98 21 98
06/10/24 10:36 06/10/24 10:36 06/10/24 10:36
Last Documented Vital Signs
Temp Pulse Resp BP Pulse Ox
98.5 F 107 23 89/45 97
06/10/24 10:38 06/10/24 12:15 06/10/24 12:15 06/10/24 11:00 06/10/24 11:45
MDM/Problems Addressed
MDM/Problems Addressed:
Patient's imaging is unremarkable. She was offered counseling with [facility] however declined and was discharged to the care of a close friend, declined mental health resources and there is no need for involuntary psychiatric treatment
*Critical Care Note
Total Time (30-74mins, 75-104mins- exclusive of procedures): Not Applicable
ED Attending Note
-
Portions of this chart may have been created with voice recognition software.� Occasional wrong word or��sound alike� substitutions may have occurred due to the inherent limitations of voice recognition software.
Discharge Plan
Departure
Patient Disposition: Home (Routine Discharge)
Date of Disposition: 06/10/24
Time of Disposition: 12:35
Patient with high blood pressure during this ER visit?: No
Discharge Problem:
Alcohol intoxication, Contusion of elbow, left
Instructions: Alcohol Use Disorder (DC)
Prescriptions:
No Action
Jentadueto 2.5-1,000 mg Tablet
1 tab PO BID
simvastatin 40 mg tablet
40 mg PO HS
gabapentin 300 mg capsule
300 mg PO QID
lisinopril 2.5 mg tablet
2.5 mg PO DAILY
esomeprazole magnesium [Nexium] 40 mg Capsule,Delayed Release(Dr/Ec)
40 mg PO DAILY
tramadol 50 mg Tablet
50 mg PO Q6HPRN PRN (Reason: moderate pain)
Patient Comments:
03/13/2024: last filled 02/10/24, 120 tabs for 30 days from [facility]
diazepam [Valium] 5 mg Tablet
5 mg PO HS PRN (Reason: anxiety)
Patient Comments:
03/13/2024: last filled 02/15/24, 30 tabs for 10 days from [facility]
calcitonin (salmon) 200 unit/actuation spray,non-aerosol
1 spray intranasal DAILY
Referrals:
Massimo Mcdaniels MD [Family Provider] -
Activity Restrictions/Additional Instructions:
Your CT scans were negative for acute disease and your elbow x ray was normal
You declined to wait in the ER for [facility], our substance abuse counselors
If you need further assistance with quitting alcohol use, please return to the ER for further evaluation
Interventions
Interventions:
*Risk Screen - Suicide Last Done: 06/10/24 10:38
*General Assessment Last Done: 06/10/24 10:38
*Neglect/Abuse Screening Last Done: 06/10/24 10:38
ED- Fall Risk Assessment Last Done: 06/10/24 10:38
*ED COVID-19 Vaccine History Last Done: 06/10/24 10:38
*Nursing Disposition Last Done: 06/10/24 13:13
ED- Neurological Assessment Last Done: 06/10/24 10:38
ED-Psychological Assessment Last Done: 06/10/24 10:38
Discharge Date and Time
Discharge Date/Time: 06/10/24 13:14
Print Language: FINNISH
[2024-06-10 11:00] VITALS: BP 89/45
--- NOTE | 2024-06-10 11:36 | EDRN ---
this RN entered the pts room and placed the pt back on the personnel monitor and BP cuff, and Sp02 monitor, this RN notified the pt that the provider wanted blood work drawn, the pt stated to this RN, 'You can draw blood work but don't put an IV in i
don't need one, also i need pain medication for my neck and my back now', this RN asked the pt if she takes pain medication at home and the pt stated, 'No i don't take pain medication at home but i am asking for pain meds, thats your job to relieve
pain now go get me pain medication, and i won't accept tylenol', this RN notified the provider Pascual NDIAYE and per the provider narcotics will not be ordered for the pt, this information was explained to the pt, the pt then stated, 'I want toradol
then and i don't want an IV'
--- NOTE | 2024-06-10 11:40 | EDRN ---
the pt took herself off of the cardiac cath technologist, Sp02 monitor, and BP cuff, and this RN educated the pt on the importance of keeping the cardiac cath technologist in place and the pt interrupted this RN's education and stated, 'I don't care, i don't need it',
this RN asked the pt if she would allow this RN to straight stick her for labs, the pt was agreeable, this RN attempted to straight stick the pt for labs and was unsuccessful, this RN notified the provider
--- NOTE | 2024-06-10 12:08 | EDRN ---
another RN at the pts bedside attempting to straight stick the pt
--- NOTE | 2024-06-10 12:25 | EDRN ---
per the provider the pts labs were cancelled, the pt is refusing to be monitored, the pt is refusing for her labs to be drawn, the pt wants to leave due to not being given narcotics, Pascual NDIAYE at the pts bedside speaking to the pt, the pt is going
to be discharged and the pt is calling to have a friend pick her up
--- NOTE | 2024-06-10 12:39 | EDRN ---
the pt was able to get herself dressed and notified this RN that she called her friend to come pick her up, per the provider, the pt is to wait in the ER room and not the waiting room until the pts ride arrives
--- NOTE | 2024-06-10 12:45 | EDRN ---
this RN heard the pt screaming, 'Leander Tabor, someone come here', this RN entered the pts room and saw that the call kothari was within reach, the pt stated to this RN, 'Put my head down i want to lie down', this RN lowered the pts head
slightly', this RN asked the pt if the pt understood how to use the call kothari, the pt stated that she understands how to use it, this RN asked the pt why she didn't use her call kothari and started screaming, the pt stated, 'Because i shouldn't have to
use the call kothari, so i screamed to get your attention', this RN re educated the pt on the use of the call kothari, the pt is laying in stretcher in the lowest position, side rails up x1, HOB slightly elevated, call kothari within reach in her personal
clothes, the pt is awaiting for her friend to pick her up
== END 2024-06-10 13:14 | disposition home or self-care (01) ==
LOC: EMR 10:27
PROVIDERS: EMERGENCY PHYSICIAN Student in an Organized Health Care Education/Training Program; FAMILY PHYSICIAN Family Medicine
DX: F10.129 Alcohol abuse with intoxication, unspecified (principal); S50.02XA Contusion of left elbow, initial encounter; W18.2XXA Fall in (into) shower or empty bathtub, initial encounter; E11.9 Type 2 diabetes mellitus without complications; E78.00 Pure hypercholesterolemia, unspecified; F17.200 Nicotine dependence, unspecified, uncomplicated; G47.33 Obstructive sleep apnea (adult) (pediatric); I10 Essential (primary) hypertension; K21.9 Gastro-esophageal reflux disease without esophagitis
CPT/HCPCS: 99284; 70450; 72125; 73080

== ENCOUNTER 2024-06-10 18:24 | Emergency (ER) | payer MEDICARE, OTHER, SELFPAY ==
[2024-06-10 18:29] VITALS: BP 102/66
[2024-06-10 18:39] VITALS: BMI 25.1
--- NOTE | 2024-06-10 18:39 | EDRN ---
the pt is refusing a PIV, the pt is refusing for labs to be drawn and the pt is demanding pain medication stating, 'I want pain medication right now, that's your job', provider notified, the pt is resting in stretcher in the lowest position, side
rails up x2, call kothari within reach, HOB elevated, no s/s of distress, will continue to monitor the pt closely
--- NOTE | 2024-06-10 18:44 | EDRN ---
the pt pressed the call kothari and this RN entered the pts room, the pt stated to this RN, 'I am in pain i want dilaudid', this RN asked the pt where her pain was and the pt stated, 'Where it was earlier, i always have neck pain and i need something
for it', this RN notified the provider, the pt then stated, 'If you can't give me anything for pain i am signing myself out', will continue to monitor the pt closely
[2024-06-10 19:00] VITALS: BP 102/53
--- NOTE | 2024-06-10 19:13 | ED.GENMED ---
History of Present Illness
General
Chief Complaint: Alcohol Problem
Source: patient
Time Seen by Provider: 06/10/24 18:58
History of Present Illness
History of Present Illness:
69-year-old female presents emergency room stating she is concerned about her alcohol use. Patient was actually here in the emerged earlier today. She came because she had a fall. She was medically cleared and refused assistance from [facility].
Patient states she wants me to give her medication for alcohol withdrawal but does not want to go through rehab. She denies any fever, chills, chest pain, shortness of breath. No recent nausea or vomiting.
Past History
Past History
ED Past Medical History: GERD, HTN, Hypercholesterolemia, NIDDM, Seizures, Psychiatric (Depression, Anxiety), Other (Chronic pancreatitis, Ulcers, obstructive sleep apnea, UTi, Bilateral Vestibular loss, Migraines, Neck pain, Coma from fall) and
Other (migraines, hepatitis, alcohol abuse, Bilateral vestibular Loss, Gastritis)
ED Past Surgical History: Tonsilectomy and Other (right breast lumpectomy)
Patient has exhibited threatening behavior?: No
Social History
Tobacco: Smoker
Alcohol: Chronic alcoholic ( Two 5th's of vodka, Denies any alcohol for 3 months as of 05/22/24)
Drug: None
Personal:
Living: [facility] ([facility])
Employment: Not employed
Family History
Family History: Other (Alzheimer's); Negative Early CAD
Phy Exam
Physical Exam
Physical Exam:
General: Awake, Alert, Oriented X3. No acute distress.
Vitals: Unremarkable
Head: Atraumatic
Eyes: Pupils equal, EOMI
Throat: Airway intact, no exudates
Neck: Trachea midline
Lungs: Clear and equal b/l
Heart: Regular rate, no murmurs
Abd: Soft, Nontender, No pulsatile mass
Neuro: Nonfocal
Skin: Warm, dry, no rash
Extremities: pulses equal b/l, no edema
Scores
Withdrawal Assessment of Alcohol
Withdrawal Assessment Completed?: Not applicable
Course
Vital Signs
Initial and Last Documented VS:
Initial Vital Signs
Temp Pulse Resp BP Pulse Ox
97.7 F 104 20 102/66 95
06/10/24 18:29 06/10/24 18:29 06/10/24 18:29 06/10/24 18:29 06/10/24 18:29
Last Documented Vital Signs
Temp Pulse Resp BP Pulse Ox
97.7 F 104 15 102/53 92
06/10/24 18:29 06/10/24 19:00 06/10/24 19:00 06/10/24 19:00 06/10/24 18:45
MDM/Problems Addressed
Differential Diagnosis Includes:
Alcohol use disorder
MDM/Problems Addressed:
Patient presents to the ER stating she is having a problem with alcohol. However she does not want to go through rehab. She wants us to give her medication here in the emergency to help with withdrawal and give her prescription. I explained to
her that this is not an appropriate way to treat her alcohol use disorder. She needs to be in a structured program. In addition I cannot be certain that if I give her benzos to help with withdrawal she will abuse them or use them along with her
alcohol. No further interventions required at this time.
*Critical Care Note
Total Time (30-74mins, 75-104mins- exclusive of procedures): Not Applicable
ED Attending Note
-
Portions of this chart may have been created with voice recognition software.� Occasional wrong word or��sound alike� substitutions may have occurred due to the inherent limitations of voice recognition software.
Discharge Plan
Departure
Patient Disposition: Home (Routine Discharge)
Date of Disposition: 06/10/24
Time of Disposition: 19:36
Patient with high blood pressure during this ER visit?: No
Condition: Good
Discharge Problem:
Alcohol use disorder
Instructions: Alcohol Use Disorder (DC)
Prescriptions:
No Action
Jentadueto 2.5-1,000 mg Tablet
1 tab PO BID
simvastatin 40 mg tablet
40 mg PO HS
gabapentin 300 mg capsule
300 mg PO QID
lisinopril 2.5 mg tablet
2.5 mg PO DAILY
esomeprazole magnesium [Nexium] 40 mg Capsule,Delayed Release(Dr/Ec)
40 mg PO DAILY
tramadol 50 mg Tablet
50 mg PO Q6HPRN PRN (Reason: moderate pain)
Patient Comments:
03/13/2024: last filled 02/10/24, 120 tabs for 30 days from [facility]
diazepam [Valium] 5 mg Tablet
5 mg PO HS PRN (Reason: anxiety)
Patient Comments:
03/13/2024: last filled 02/15/24, 30 tabs for 10 days from [facility]
calcitonin (salmon) 200 unit/actuation spray,non-aerosol
1 spray intranasal DAILY
Interventions
Interventions:
*Risk Screen - Suicide Last Done: 06/10/24 18:29
*General Assessment Last Done: 06/10/24 18:39
*Neglect/Abuse Screening Last Done: 06/10/24 18:29
ED- Fall Risk Assessment Last Done: 06/10/24 18:39
*ED COVID-19 Vaccine History Last Done: 06/10/24 18:39
*Nursing Disposition Last Done: 06/10/24 19:51
ED- Neurological Assessment Last Done: 06/10/24 18:39
ED-Psychological Assessment Last Done: 06/10/24 18:39
Discharge Date and Time
Discharge Date/Time: 06/10/24 19:54
Print Language: SAUDI ARABIAN
== END 2024-06-10 19:54 | disposition home or self-care (01) ==
LOC: EMR 18:24
PROVIDERS: EMERGENCY PHYSICIAN Emergency Medicine; FAMILY PHYSICIAN Family Medicine
DX: F10.10 Alcohol abuse, uncomplicated (principal); E11.9 Type 2 diabetes mellitus without complications; E78.00 Pure hypercholesterolemia, unspecified; F17.200 Nicotine dependence, unspecified, uncomplicated; G47.33 Obstructive sleep apnea (adult) (pediatric); I10 Essential (primary) hypertension; K21.9 Gastro-esophageal reflux disease without esophagitis
CPT/HCPCS: 99282

== ENCOUNTER 2024-06-25 23:15 | Emergency (ER) | payer MEDICARE, OTHER, SELFPAY ==
[2024-06-25 23:18] VITALS: BP 109/64; BMI 24.7
--- NOTE | 2024-06-25 23:59 | ED.GENMED ---
History of Present Illness
General
Chief Complaint: Alcohol Problem
Source: patient and ambulance crew
Time Seen by Provider: 06/25/24 23:24
Nursing documentation reviewed up to this point in time: agreed with
History of Present Illness
History of Present Illness:
This is a 69-year-old female brought in by EMS for acute alcohol intoxication. She admits to drinking a bottle of wine 2 hours prior to arrival. Patient has no complaints. She is unsure why she is here. She does not wish to get help from [facility]. She states that she does have resources. Patient has bruising on her face which she admits is from a fall several weeks ago. She states that she already had it evaluated. Patient refuses IV. She does not want lab work or CAT scan. She
does not wish to be here.
Past History
Past History
ED Past Medical History: GERD, HTN, Hypercholesterolemia, NIDDM, Seizures, Psychiatric (Depression, Anxiety), Other (Chronic pancreatitis, Ulcers, obstructive sleep apnea, UTi, Bilateral Vestibular loss, Migraines, Neck pain, Coma from fall) and
Other (migraines, hepatitis, alcohol abuse, Bilateral vestibular Loss, Gastritis)
ED Past Surgical History: Tonsilectomy and Other (right breast lumpectomy)
Patient has exhibited threatening behavior?: No
Social History
Tobacco: Smoker
Alcohol: Chronic alcoholic ( Two 5th's of vodka, Denies any alcohol for 3 months as of 05/22/24)
Drug: None
Personal:
Living: shelter ([facility])
Employment: Not employed
Family History
Family History: Other (Alzheimer's); Negative Early CAD
Review of Systems
Review of Systems
Allergies reviewed?: Yes
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
All Other Systems: Not applicable
Phy Exam
General Physical Exam
General Presentation: mild distress
General age: appears older than age
General Skin: warm and dry
General Habitus: elderly
General Mental: alert
General Hydration: appears well hydrated
Cardiovascular Exam
Cardiovascular Exam: regular rate/rhythm and no edema
Pulmonary Exam
Pulmonary Exam: lungs clear, no respiratory distress and no cough
Neurological Exam
Neurological Exam: alert and oriented x3
Musculoskeletal Exam
Musculoskeletal Exam: full ROM and no edema
Skin Exam
Skin Exam: normal color, warm/dry and other (Ecchymosis to the face and left arm)
Scores
Withdrawal Assessment of Alcohol
Withdrawal Assessment Completed?: Not applicable
Course
Vital Signs
Initial and Last Documented VS:
Initial Vital Signs
Temp Pulse Resp BP Pulse Ox
97.9 F 93 16 109/64 99
06/25/24 23:18 06/25/24 23:18 06/25/24 23:18 06/25/24 23:18 06/25/24 23:18
Last Documented Vital Signs
Temp Pulse Resp BP Pulse Ox
97.9 F 95 16 109/64 96
06/25/24 23:18 06/25/24 23:18 06/25/24 23:18 06/25/24 23:18 06/25/24 23:18
*Critical Care Note
Total Time (30-74mins, 75-104mins- exclusive of procedures): Not Applicable
ED Attending Note
-
Portions of this chart may have been created with voice recognition software.� Occasional wrong word or��sound alike� substitutions may have occurred due to the inherent limitations of voice recognition software.
Discharge Plan
Departure
Patient Disposition: Home (Routine Discharge)
Date of Disposition: 06/26/24
Time of Disposition: 00:30
Patient with high blood pressure during this ER visit?: Yes
Condition: Good
Discharge Problem:
Alcohol abuse
Instructions: Alcohol Use Disorder (DC), BLOOD PRESSURE
Prescriptions:
No Action
Jentadueto 2.5-1,000 mg Tablet
1 tab PO BID
simvastatin 40 mg tablet
40 mg PO HS
gabapentin 300 mg capsule
300 mg PO QID
lisinopril 2.5 mg tablet
2.5 mg PO DAILY
esomeprazole magnesium [Nexium] 40 mg Capsule,Delayed Release(Dr/Ec)
40 mg PO DAILY
tramadol 50 mg Tablet
50 mg PO Q6HPRN PRN (Reason: moderate pain)
Patient Comments:
03/13/2024: last filled 02/10/24, 120 tabs for 30 days from [facility]
diazepam [Valium] 5 mg Tablet
5 mg PO HS PRN (Reason: anxiety)
Patient Comments:
03/13/2024: last filled 02/15/24, 30 tabs for 10 days from [facility]
calcitonin (salmon) 200 unit/actuation spray,non-aerosol
1 spray intranasal DAILY
Referrals:
[facility] [Active] -
UNKNOWN - PT NOT,[facility] [Family Provider] -
Activity Restrictions/Additional Instructions:
It was a pleasure meeting you and taking part in your care. We hope for your continued healing and wellness.
Please read discharge instructions in their entirety. However, they are for general education and may not describe your exact diagnosis at discharge. Information on your ER visit and medical conditions were discussed with you along with appropriate
follow up information...
If indicated, please take your medications as instructed and indicated on discharge paperwork.
Please schedule a follow up appointment as directed. Call to schedule an appointment
Please return to the emergency department with ANY change in, persisting, or worsening of symptoms. If any of your symptoms do not improve, or persist, or become more severe within 6-12 hours, please return to the emergency department for further
care.
Please return to the emergency department if you develop a headache, neck pain/stiffness, fever greater than 100.4F, chest pain, shortness of breath, persistent nausea, vomiting, slurred speech, difficulty walking, numbness/tingling, weakness, signs
of infection or any other symptoms that are worrisome to you.
If you have any questions or concerns please do not hesitate to call the Hospital at or E-mail me directly at [email or web address]
Interventions
Interventions:
*Risk Screen - Suicide Last Done: 06/25/24 23:18
*General Assessment Last Done: 06/25/24 23:18
*Neglect/Abuse Screening Last Done: 06/25/24 23:18
*ED COVID-19 Vaccine History Last Done: 06/25/24 23:18
*Nursing Disposition Last Done: 06/26/24 01:54
ED- Neurological Assessment Last Done: 06/25/24 23:22
ED-Psychological Assessment Last Done: 06/25/24 23:22
Discharge Date and Time
Discharge Date/Time: 06/26/24 01:54
Print Language: BELARUSIAN
== END 2024-06-26 01:54 | disposition home or self-care (01) ==
LOC: EMR 23:15
PROVIDERS: EMERGENCY PHYSICIAN Student in an Organized Health Care Education/Training Program
DX: F10.129 Alcohol abuse with intoxication, unspecified (principal); K21.9 Gastro-esophageal reflux disease without esophagitis; I10 Essential (primary) hypertension; E78.00 Pure hypercholesterolemia, unspecified; E11.9 Type 2 diabetes mellitus without complications; F41.9 Anxiety disorder, unspecified; G47.33 Obstructive sleep apnea (adult) (pediatric); F17.200 Nicotine dependence, unspecified, uncomplicated; Z87.19 Personal history of other diseases of the digestive system; Z87.440 Personal history of urinary (tract) infections
CPT/HCPCS: 99282

== ENCOUNTER 2024-06-26 14:37 | Emergency (ER) | payer MEDICARE, OTHER, SELFPAY ==
[2024-06-26 14:38] VITALS: BP 114/60
[2024-06-26 14:40] VITALS: BP 114/60
--- NOTE | 2024-06-26 14:43 | ED.GENMED ---
History of Present Illness
General
Chief Complaint: Alcohol Problem
Source: patient
Exam Limitations: none
Time Seen by Provider: 06/26/24 14:43
Nursing documentation reviewed up to this point in time: agreed with
History of Present Illness
History of Present Illness:
Patient is a 69-year-old female who presents to the ER from EMS. Patient lives at [facility] by herself in her own apartment and admits to alcohol abuse. She last drank this morning and drank last night but does want help in it and was requesting
alcohol detox. She reports she did fall last night but denies hitting her head. She presents with bruises to the bone her face reported this from old injury a week ago.
Patient was seen here last night around 1130 for acute alcohol intoxication. She did not wish to get help from [facility] last night. She refused IV and refused blood work and a CAT scan and did not wish to be here was discharged home.
Patient reports she is now willing to get help.
She denies any headache. She does feel nauseous but denies vomiting. She denies any hallucinations. No prior history of withdrawal seizures or DTs
Past History
Past History
ED Past Medical History: GERD, HTN, Hypercholesterolemia, NIDDM, Seizures, Psychiatric (Depression, Anxiety), Other (Chronic pancreatitis, Ulcers, obstructive sleep apnea, UTi, Bilateral Vestibular loss, Migraines, Neck pain, Coma from fall) and
Other (migraines, hepatitis, alcohol abuse, Bilateral vestibular Loss, Gastritis)
ED Past Surgical History: Tonsilectomy and Other (right breast lumpectomy)
Patient has exhibited threatening behavior?: No
Social History
Tobacco: Smoker
Alcohol: Chronic alcoholic ( Two 5th's of vodka, Denies any alcohol for 3 months as of 05/22/24)
Drug: None
Personal:
Living: care home ([facility])
Employment: Not employed
Family History
Family History: Other (Alzheimer's); Negative Early CAD
Review of Systems
Review of Systems
Allergies reviewed?: Yes
All Other Systems: ROS reviewed and negative except as documented in HPI and ROS
Constitutional: Reports no symptoms; Denies fever, fatigue or chills
Cardiac: Reports no symptoms
ABD/GI: Reports nausea; Denies abdominal pain, vomiting or diarrhea
: Reports no symptoms
Musculoskeletal: Reports no symptoms
Skin: Reports no symptoms
Neurological: Reports no symptoms and other (Patient has chronic vestibular issues); Denies headache
Psychiatric: Reports no symptoms
Phy Exam
General Physical Exam
General Presentation: no apparent distress
General age: appears stated age
General Skin: warm and dry
General Habitus: elderly
General Mental: alert
General Hydration: appears well hydrated
Cardiovascular Exam
Cardiovascular Exam: regular rate/rhythm, no murmur and normal peripheral pulses
Pulmonary Exam
Pulmonary Exam: lungs clear and no respiratory distress
Neurological Exam
Neurological Exam: alert and oriented x3
Musculoskeletal Exam
Musculoskeletal Exam: full ROM
Skin Exam
Skin Exam: normal color and warm/dry
Psychiatric Exam
Psychiatric Exam: normal mood/affect
Scores
Withdrawal Assessment of Alcohol
Withdrawal Assessment Completed?: Not applicable
Course
Orders/Labs/Results
Orders:
Orders
06/26/24 15:02
CT Head W/o Iv Contrast Urgent
Comment:
Reason For Exam: trauma fell last night
06/26/24 15:06
IV Insert/Care/Rem.- Treatment PRN
0.9% Sodium Chloride 1000 ml [Nss] 1,000 ml IV BOLUS
Ondansetron Injectable [Zofran] 4 mg IV NOW STA
06/26/24 16:09
Complete Blood Count/With Diff Urgent
Comprehensive Metabolic Panel Urgent
06/26/24 17:06
Lorazepam [Ativan] 0.5 mg PO NOW STA
Abnormal Lab Results
06/26/24
16:09
RBC 3.60 L 10^6/uL
(4.20-5.40)
Hgb 11.6 L g/dL
(12.0-16.0)
Hct 32.7 L %
(37.0-47.0)
MCH 32.2 H pg
(27.0-31.0)
MPV 7.3 L fL
(7.4-10.4)
Absolute Monos (auto) 0.8 H 10^3/uL
(0.1-0.6)
Sodium 132 L mmol/L
(135-145)
Chloride 97 L mmol/L
(98-107)
BUN 5 L mg/dl
(7-17)
Glucose 146 H mg/dl
(70-99)
06/26/24 16:09
06/26/24 16:09
Vital Signs
Initial and Last Documented VS:
Initial Vital Signs
Pulse Resp BP Pulse Ox
122 26 114/60 97
06/26/24 14:38 06/26/24 14:38 06/26/24 14:38 06/26/24 14:38
Last Documented Vital Signs
Temp Pulse Resp BP Pulse Ox
98.2 F 85 16 121/62 97
06/26/24 14:40 06/26/24 17:15 06/26/24 17:15 06/26/24 15:19 06/26/24 17:15
MDM/Problems Addressed
MDM/Problems Addressed:
Patient is a 69-year-old female with past medical history of alcohol abuse presents to the ER requesting [facility]/Detox.
Patient was seen here last night but declined all treatment. Patient presents today awake alert she does report she drank last night and again this morning.
She presents however awake alert does not appear intoxicated giving full history cooperative calm. She does report she fell last night and she falls often and also fell June 10 and was seen here in the ER that time. With last night's fall she
denies loss of conscious. She denies any headache. She denies any history of alcohol withdrawal seizures or DTs.
She last drank this morning.
Patient with old appearing ecchymosis to the face no other acute obvious head injury on exam CAT scan however was done because patient does admit to falling last night and was drinking alcohol. CAT scan is negative for acute intracranial pathology.
Patient has a chronic left subdural hematoma which is mildly improving no shift.(seen on ct scan 03/12/2024).
Patient has been stable here in the ER. She had mild complaints of nausea and was given fluids and Zofran here in the ER. She remained cooperative and awake alert with no complaints. Patient's labs reviewed within normal white count she is
afebrile denies any recent fevers, hemoglobin stable no acute abnormalities in chemistries.
[facility] evaluated patient and found to room placement at [facility] pt willing to go
Chronic conditions affecting care:
chronic alcohol abuse
*Radiology
Radiology exam reviewed: radiology read reviewed
*Pulse Oximetry
Patient hypoxic: no
*Critical Care Note
Total Time (30-74mins, 75-104mins- exclusive of procedures): Not Applicable
ED Attending Note
-
Portions of this chart may have been created with voice recognition software.� Occasional wrong word or��sound alike� substitutions may have occurred due to the inherent limitations of voice recognition software.
Discharge Plan
Departure
Patient Disposition: Home (Routine Discharge)
Date of Disposition: 06/26/24
Time of Disposition: 17:05
Patient with high blood pressure during this ER visit?: No
Condition: Fair
Covid-19: Not Applicable
Discharge Problem:
Alcohol abuse
Instructions: Alcohol Use Disorder (DC)
Prescriptions:
No Action
Jentadueto 2.5-1,000 mg Tablet
1 tab PO BID
simvastatin 40 mg tablet
40 mg PO HS
gabapentin 300 mg capsule
300 mg PO QID
lisinopril 2.5 mg tablet
2.5 mg PO DAILY
esomeprazole magnesium [Nexium] 40 mg Capsule,Delayed Release(Dr/Ec)
40 mg PO DAILY
tramadol 50 mg Tablet
50 mg PO Q6HPRN PRN (Reason: moderate pain)
Patient Comments:
03/13/2024: last filled 02/10/24, 120 tabs for 30 days from [facility]
diazepam [Valium] 5 mg Tablet
5 mg PO HS PRN (Reason: anxiety)
Patient Comments:
03/13/2024: last filled 02/15/24, 30 tabs for 10 days from [facility]
calcitonin (salmon) 200 unit/actuation spray,non-aerosol
1 spray intranasal DAILY
Referrals:
UNKNOWN - PT DOES,NOT KNOW [Family Provider] -
Activity Restrictions/Additional Instructions:
You will be going directly to [facility] for rehab.
Interventions
Interventions:
*Risk Screen - Suicide Last Done: 06/26/24 14:40
*General Assessment Last Done: 06/26/24 14:40
*Neglect/Abuse Screening Last Done: 06/26/24 14:45
ED- Fall Risk Assessment Last Done: 06/26/24 18:04
*Nursing Disposition Last Done: 06/26/24 18:04
ED- Neurological Assessment Last Done: 06/26/24 16:03
ED-Psychological Assessment Last Done: 06/26/24 16:03
Discharge Date and Time
Discharge Date/Time: 06/26/24 18:05
Print Language: BOLIVIAN
[2024-06-26 15:00] VITALS: BP 113/52
[2024-06-26] MEDS: NSS 1000 IV (15:11)
[2024-06-26] MEDS: ZOFRAN 4 MG IV (15:11)
[2024-06-26 15:19] VITALS: BP 121/62
[2024-06-26 16:16] LABS: % Basophils 0.2 % (0-2); % Eosinophils 0.1 % (0-6); % Immature Granulocytes 0.3 % (0-0.5); % Lymphocytes 29.3 % (20.5-51.1); % Monocytes 9.1 % (1.7-9.3); Absolute Lymphocytes 2.7 10^3/uL (1.2-3.4); Absolute Monocytes 0.8 10^3/uL (0.1-0.6); Absolute Neutrophils 5.6 10^3/uL (1.4-6.5); Hematocrit 32.7 % (37.0-47.0); Hemoglobin 11.6 g/dL (12.0-16.0); Mean Corp Hgb Conc. 35.5 g/dL (33.0-37.0); Mean Corpuscular Hgb 32.2 pg (27.0-31.0); Mean Corpuscular Volume 90.8 fL (81.0-99.0); Mean Platelet Volume 7.3 fL (7.4-10.4); Nucleated Red Blood Cells % 0 %; Platelet Count 286 10^3/uL (130-400); White Blood Cell Count 9.2 10^3/uL (4.8-10.8)
[2024-06-26 16:29] LABS: ALT (SGPT) 18 U/L (0-35); AST (SGOT) 29 U/L (14-36); Albumin 3.8 g/dl (3.5-5.0); Alkaline Phosphatase 91 U/L (38-126); Blood Urea Nitrogen 5 mg/dl (7-17); Calcium 9.4 mg/dl (8.4-10.2); Carbon Dioxide 27 mmol/L (22-30); Chloride 97 mmol/L (98-107); Glucose 146 mg/dl (70-99); Sodium 132 mmol/L (135-145); Total Bilirubin 0.7 mg/dl (0.2-1.3); Total Protein 6.4 g/dl (6.3-8.2); eGFR > 60.00
[2024-06-26] MEDS: ATIVAN 0.5 MG PO (17:11)
== END 2024-06-26 18:05 | disposition home or self-care (01) ==
LOC: EMR 14:37
PROVIDERS: Nurse Practitioner; EMERGENCY PHYSICIAN Emergency Medicine
DX: F10.10 Alcohol abuse, uncomplicated (principal); F17.200 Nicotine dependence, unspecified, uncomplicated
CPT/HCPCS: 99284; 96374; 96361; 70450; 80053; 85025

== ENCOUNTER 2024-10-15 12:23 | Inpatient (IN) | payer MEDICARE, OTHER, SELFPAY ==
[2024-10-15] VITALS (17 sets, daily range): BP systolic 90–144; BP diastolic 36–71; BMI 24.9
[2024-10-15] MEDS: MORPHINE SULFATE 4 MG IV ×4 (01:58→18:34)
[2024-10-15 02:01] LABS: % Basophils 0.5 % (0-2); % Eosinophils 0.7 % (0-6); % Immature Granulocytes 0.4 % (0-0.5); % Lymphocytes 24.5 % (20.5-51.1); % Neutrophils 66.9 % (42.2-75.2); Absolute Basophils 0.1 10^3/uL (0-0.2); Absolute Eosinophils 0.1 10^3/uL (0-0.7); Absolute Immature Granulocytes 0.1 10^3/uL (0-0.05); Absolute Lymphocytes 3.4 10^3/uL (1.2-3.4); Absolute Neutrophils 9.2 10^3/uL (1.4-6.5); Hematocrit 31.7 % (37.0-47.0); Hemoglobin 11.4 g/dL (12.0-16.0); Mean Corpuscular Hgb 29.9 pg (27.0-31.0); Mean Corpuscular Volume 83.2 fL (81.0-99.0); Mean Platelet Volume 8.5 fL (7.4-10.4); Nucleated Red Blood Cells % 0 %; Platelet Count 210 10^3/uL (130-400); Red Blood Cell Count 3.81 10^6/uL (4.20-5.40); Red Cell Dist. Width 15.9 % (11.5-14.5); White Blood Cell Count 13.7 10^3/uL (4.8-10.8)
[2024-10-15 03:12] LABS: Alcohol 18 mg/dl; Blood Urea Nitrogen 6 mg/dl (7-17); Calcium 9.7 mg/dl (8.4-10.2); Carbon Dioxide 24 mmol/L (22-30); Chloride 94 mmol/L (98-107); Estimated Creatinine Clearance 82 ml/min; Glucose 111 mg/dl (70-99); Potassium 4.6 mmol/L (3.5-5.1); Sodium 126 mmol/L (135-145); eGFR > 60.00
--- NOTE | 2024-10-15 03:30 | PTCARENOTE ---
pt di med list from memory- does not have entire list and thinks she may have forgotten some meds,
--- NOTE | 2024-10-15 05:10 | VATNOTE ---
VAT paged to assist with peripheral access as ED had placed two USG IV's both of which infiltrated. This VAT RN unable to obtain a PIV therefore a midline was placed in left arm. Two failed attempts in right arm, two different vessels unable to
thread wire. Switched to left arm basilic vein visualized and midline placed with ease. Primary RN at bedside.
--- NOTE | 2024-10-15 07:00 | ED.GENMED ---
History of Present Illness
General
Chief Complaint: Fall
Source: patient
Time Seen by Provider: 10/15/24 01:29
History of Present Illness
History of Present Illness:
69-year-old female who presents after she had a fall in the bathroom. She states she was trying to sit on the toilet and fell. She struck her left chest on the edge of the shower. The patient reports pain in the left chest wall. Denies shortness
of breath. States it hurts up into her abdomen. Does admit to alcohol history. Denies head injury
Past History
Past History
ED Past Medical History: GERD, HTN, Hypercholesterolemia, NIDDM, Seizures, Psychiatric (Depression, Anxiety), Other (Chronic pancreatitis, Ulcers, obstructive sleep apnea, UTi, Bilateral Vestibular loss, Migraines, Neck pain, Coma from fall) and
Other (migraines, hepatitis, alcohol abuse, Bilateral vestibular Loss, Gastritis)
ED Past Surgical History: Tonsilectomy and Other (right breast lumpectomy)
Patient has exhibited threatening behavior?: No
Social History
Tobacco: Smoker
Alcohol: Chronic alcoholic ( Two 5th's of vodka, Denies any alcohol for 3 months as of 05/22/24)
Drug: None
Personal:
Living: jail ([facility])
Employment: Not employed
Family History
Family History: Other (Alzheimer's); Negative Early CAD
Phy Exam
Physical Exam
Physical Exam:
CONSTITUTIONAL Patient alert and oriented to person, place and time. Well-appearing. Vital signs reviewed.
HEAD atraumatic, normocephalic.
EYES eyelids normal to inspection, Extraocular muscles intact, Conjunctiva normal, Sclera normal.
NECK normal range of motion, Trachea midline, no jugular venous distention.
RESPIRATORY CHEST No respiratory distress noted, Chest expansion equal, Bilateral breath sounds clear. Moderate left lateral chest wall tenderness
CARDIOVASCULAR regular rate and rhythm, Heart sounds normal.
ABDOMEN mild left-sided tenderness
BACK normal inspection, no obvious deformities, no midline tenderness
UPPER EXTREMITY range of motion normal, Motor strength normal, no cyanosis, no edema.
LOWER EXTREMITY range of motion normal, Motor strength normal, no cyanosis, no edema.
NEURO Speech normal, No focal motor deficits, Adams coma scale 15, Memory normal, Cranial Nerves intact to screening exam.
SKIN skin warm, dry, and normal in color.
Course
Orders/Labs/Results
Orders:
Orders
10/15/24 01:36
CT Chest/abd/pel W Iv Cont Urgent
Comment:
Reason For Exam: fall, L sided pain (flank/abd), intoxicated
10/15/24 01:48
Complete Blood Count/With Diff Urgent
10/15/24 01:54
Morphine Sulfate 4 mg IV NOW STA
10/15/24 02:37
Alcohol Urgent
Basic Metabolic Panel Urgent
Comment: REDRAW
10/15/24 06:04
Morphine Sulfate 4 mg .ROUTE .STK-MED ONE
10/15/24 06:05
Morphine Sulfate 4 mg IV NOW STA
10/15/24 07:12
Hydrocodone 5/APAP 325 [[place] 5/325] 2 tablet PO NOW STA
Ondansetron Injectable [Zofran] 4 mg IV NOW STA
10/15/24 07:49
Incentive Spirometry [Rx Incentive Spirometry] [RESP] Urgent
Frequency: q1h while awake
Abnormal Lab Results
10/15/24 10/15/24
01:48 02:37
WBC 13.7 H 10^3/uL
(4.8-10.8)
RBC 3.81 L 10^6/uL
(4.20-5.40)
Hgb 11.4 L g/dL
(12.0-16.0)
Hct 31.7 L %
(37.0-47.0)
RDW 15.9 H %
(11.5-14.5)
Abs Immat Gran (auto) 0.1 H 10^3/uL
(0-0.05)
Absolute Neuts (auto) 9.2 H 10^3/uL
(1.4-6.5)
Absolute Monos (auto) 1.0 H 10^3/uL
(0.1-0.6)
Sodium 126 L mmol/L
(135-145)
Chloride 94 L mmol/L
(98-107)
BUN 6 L mg/dl
(7-17)
Creatinine 0.5 L mg/dL
(0.6-1.0)
Glucose 111 H mg/dl
(70-99)
10/15/24 01:48
10/15/24 02:37
Vital Signs
Initial and Last Documented VS:
Initial Vital Signs
BP Pulse Ox
117/53 94
10/15/24 00:48 10/15/24 00:48
Last Documented Vital Signs
Temp Pulse Resp BP Pulse Ox
98.3 F 100 20 129/71 91
10/15/24 06:00 10/15/24 03:20 10/15/24 03:20 10/15/24 07:10 10/15/24 07:15
MDM/Problems Addressed
Differential Diagnosis Includes:
Rib fractures, flail chest, pneumothorax, spleen injury, contusion
MDM/Problems Addressed:
Rib fractures
*Radiology
Radiology exam reviewed: radiology read reviewed
*Pulse Oximetry
Patient hypoxic: no
*Critical Care Note
Total Time (30-74mins, 75-104mins- exclusive of procedures): Not Applicable
Data Reviewed
Source: patient
Further Testing Considered But Not Given:
Consider head CT but no obvious signs of head injury
Patient Management
Escalation/DeEscalation of care consider admission/obs:
Continues to have pain. Awaiting reassessment after awakening. If improved could consider outpatient management but if persistent may need inpatient management. Case signed out to Dr. De Leon pending reevaluation
ED Attending Note
-
Portions of this chart may have been created with voice recognition software.� Occasional wrong word or��sound alike� substitutions may have occurred due to the inherent limitations of voice recognition software.
Discharge Plan
Departure
Prescriptions:
No Action
Jentadueto 2.5-1,000 mg Tablet
1 tab PO BID
simvastatin 40 mg tablet
40 mg PO HS
gabapentin 300 mg capsule
300 mg PO QID
lisinopril 2.5 mg tablet
2.5 mg PO DAILY
esomeprazole magnesium [Nexium] 40 mg Capsule,Delayed Release(Dr/Ec)
40 mg PO DAILY
tramadol 50 mg Tablet
50 mg PO Q6HPRN PRN (Reason: moderate pain)
Patient Comments:
03/13/2024: last filled 02/10/24, 120 tabs for 30 days from [facility]
Referrals:
UNKNOWN - PT DOES,NOT KNOW [Family Provider] -
Interventions
Interventions:
*Risk Screen - Suicide Last Done: 10/15/24 00:59
*General Assessment Last Done: 10/15/24 00:54
*Neglect/Abuse Screening Last Done: 10/15/24 00:54
*ED- Fall Risk Assessment Last Done: 10/15/24 00:54
*ED COVID-19 Vaccine History Last Done: 10/15/24 00:54
ED-Musculoskeletal Assessment Last Done: 10/15/24 00:59
ED- Neurological Assessment Last Done: 10/15/24 00:59
ED-Skin Assessment Last Done: 10/15/24 00:59
Discharge Date and Time
Print Language: EMIRATI
[2024-10-15] MEDS: NORCO 5/325 2 TABLET PO (07:15)
[2024-10-15] MEDS: ZOFRAN 4 MG IV (07:15)
--- NOTE | 2024-10-15 10:46 | HPS.HSE ---
Family Physician
-
Family Physician: NOT KNOW UNKNOWN - PT DOES
Chief Complaint
-
fall and chest wall pain
History of Present Illness
69 years old female who lives at [facility] independent living had a fall in the bathroom. Patient admitted that she was drinking alcohol when she lost her balance. She denies shortness of breath. She denied head injury, she started to have
left chest pain. She could not get up and ambulance was called. In the ER, scan of the chest showed minimally displaced lateral left seventh and eighth rib fractures. Also shown compression fractures T5 and L2. No hypoxia reported.
Medical History
Past Medical History
Past Medical History: Reports Other (GERD, alcoholic use disorder, HTN, Hypercholesterolemia, NIDDM, Seizures, Depression, Anxiety, Chronic pancreatitis, gastric ulcers, obstructive sleep apnea, UTi, Bilateral Vestibular loss,migraines, hepatitis,
Bilateral vestibular Loss, Gastritis))
Past Surgical History: Reports Other (No recent major surgery)
Social History
Tobacco: Smoker
Alcohol: Daily
Drug: None
Personal: Single
Living: Alone
Employment: Not Employed
Family History
Family History: Not pertinent
Allergies / Home Medications
Allergies reflects when Allergies were last updated in [facility].
Home Medications with original date entered in [facility]
Allergy/Medication List:
Allergies
Allergy/AdvReac Type Severity Reaction Status Date / Time
topiramate [From Topamax] Allergy Itching Verified 10/15/24 00:53
valdecoxib [From Bextra] Allergy Rash Verified 10/15/24 00:53
Home Medications
linagliptin 2.5 mg-metformin 1,000 mg tablet (Jentadueto) 1 tab PO BID Diabetes 04/02/23
gabapentin 300 mg capsule 300 mg PO QID Pain 05/12/23
lisinopril 2.5 mg tablet 2.5 mg PO DAILY Blood Pressure 05/12/23
simvastatin 40 mg tablet 40 mg PO HS High Cholesterol 05/12/23
esomeprazole magnesium 40 mg capsule,delayed release (Nexium) 40 mg PO DAILY Gastrointestinal Issue 08/28/23
tramadol 50 mg tablet 50 mg PO Q6HPRN PRN moderate pain 10/20/23
azelastine 137 mcg (0.1 %) nasal spray 1 spray intranasal BID 10/15/24
cholecalciferol (vitamin D3) 25 mcg (1,000 unit) tablet 25 mcg PO DAILY 10/15/24
cyanocobalamin (vitamin B-12) 1,000 mcg tablet 1,000 mcg PO DAILY 10/15/24
diazepam 5 mg tablet 5 mg PO Q8HPRN PRN anxiety 10/15/24
doxepin 25 mg capsule 75 mg PO HSPRN PRN anxiety 10/15/24
vitamin A 2,400 mcg capsule 2,400 mcg PO DAILY 10/15/24
Review of Systems
-
History Source: Patient
A 12 point ROS was completed and negative except as noted: Yes
Constitutional: Denies Fever
EENT: Denies Sore Throat
Respiratory: Denies Cough
Cardiac: Reports Chest Pain (Left side on deep breath and moving); Denies Palpitations
Abdomen/GI: Denies Abdominal Pain
: Denies Dysuria
Musculoskeletal: Denies Muscle Stiffness
Neurological: Denies Numbness
Endocrine: Denies Temp Intolerance
Hematologic/Lymphatic: Denies Bruising
Psych: Denies Panic Disorder
Physical Exam
Vital Signs
Vital Signs
Temp Pulse Resp BP Pulse Ox
98.3 F 78 17 115/63 94
10/15/24 06:00 10/15/24 10:30 10/15/24 10:15 10/15/24 10:00 10/15/24 10:30
Physical Exam
General: No Apparent Distress
HEENT: Moist mucous membranes and Atraumatic
Respiratory: Decreased Breath Sounds; No Wheezes
Cardiac: S1/S2 and Regular Rhythm
GI: Soft and Non Tender
Rectal: No Maroon Stools
Genito-urinary: No costovertebral tender; No Cornell
Musculoskeletal: No Cyanosis and No Edema
Skin: No Jaundice
Neuro: AO x 3; No Slurred Speech or Tremors
Psych: Calm and Intact Judgment/Insight
Laboratory Results
-
10/15/24 01:48
10/15/24 02:37
Impression/Plan
-
69 years old female who had a fall while drinking alcohol
# Left chest wall pain secondary to left seventh and eighth rib fractures
Admit the patient to the hospital
Continue pain control with oral and IV pain medications. Patient takes gabapentin at home.
No hypoxia
Encourage use of incentive spirometer
Monitor vital signs
PT/OT
No evidence of pneumothorax on chest radiography
Monitor vital signs
# History of alcohol use disorder
At risk alcohol withdrawal
Currently, she is fully oriented no tremor
Mood is a pleasant and cooperative
Start the patient on alcohol withdrawal protocol
Continue with thiamine
Order urine drug screen
# Acute on chronic hyponatremia
No confusion
Continue with IV fluid
Continue with regular diet with fluid restriction
# History of alcoholic gastritis
No nausea or vomiting
Abdominal examination is benign
Continue with PPI
#History of diabetes
Hold metformin as patient had contrast study
Continue with insulin sliding scale for now
She takes linagliptin/Metformin at home
#HLD
No changes intended
DVT Prophylaxis:�Subcu heparin
Full code
Total time spent to see the patient, examine the patient, review data and lab results, discuss treatment plan with patient, ER doctor and nursing staff around 75 minutes
[2024-10-15 11:25] LABS: ALT (SGPT) 14 U/L (0-35); AST (SGOT) 23 U/L (14-36); Albumin 4.2 g/dl (3.5-5.0); Alkaline Phosphatase 79 U/L (38-126); Direct Bilirubin 0.3 mg/dl (0.0-0.4); Total Bilirubin 0.8 mg/dl (0.2-1.3); Total Protein 7.3 g/dl (6.3-8.2)
[2024-10-15] MEDS: ROXICODONE 5 MG PO ×2 (12:26→17:15)
[2024-10-15 13:45] LABS: Glucose - Point of Care 162 mg/dl (70-99)
[2024-10-15] MEDS: NEURONTIN PO (14:03)
--- NOTE | 2024-10-15 14:07 | PTCARENOTE ---
Pt. refused this nurse to assess skin on admission, stating ' It's too invasive and I'm in alot of pain. Charge nurse made aware. Will pass on to next shift.
[2024-10-15 14:54] LABS: APTT 25.5 Sec (23.4-35.0); INR 1.02; PT 13.7 Sec (11.4-14.6)
--- NOTE | 2024-10-15 15:01 | CM ---
marketing effectiveness manager reviewed patient's chart and met with patient and patient lives at [facility], 6th floor of an elevator accessible building, patient is independent with adl's and ambulation, no dme, patient is currently requiring oxygen
but did not need oxygen prior to admission.
Consult received for substance abuse counseling, case resource manager met with patient and offered treatment options however patient declined.
PCP: Massimo Mcdaniels
Pharmacy: [facility]
Plan; Home no needs, case resource manager will follow for any home oxygen needs.
[2024-10-15 15:25] LABS: Magnesium 1.8 mg/dl (1.6-2.3)
[2024-10-15] MEDS: NEURONTIN 300 MG PO ×2 (17:15→21:08)
[2024-10-15 17:18] LABS: Glucose - Point of Care 166 mg/dl (70-99)
[2024-10-15] MEDS: NOVOLOG FLEXPEN-MODERATE RESISTANCE SC (17:19)
--- NOTE | 2024-10-15 17:24 | PTCARENOTE ---
Pt. refusing to eat dinner, blood glucose 166. Dinner time insulin held d/t pt. refusing to eat.
[2024-10-15] MEDS: HEPARIN 5000 UNITS SC (19:57)
[2024-10-15] MEDS: FLUSH (NSS) 2 FLUSH IV (21:07)
[2024-10-15] MEDS: THIAMINE INJECTION 200 MG IV (21:08)
[2024-10-15 21:51] LABS: Glucose - Point of Care 149 mg/dl (70-99)
[2024-10-15 22:06] LABS: Urine Albumin 1+ (Neg - Trace); Urine Bilirubin Negative (Negative); Urine Character Clear (Clear); Urine Color Yellow; Urine Glucose Negative (Negative); Urine Ketone 2+ (Negative); Urine Leukocyte 2+ (Negative); Urine Nitrite Negative (Negative); Urine Occult Blood 2+ (Negative); Urine Specific Gravity 1.015 (<1.030); Urine Urobilinogen Negative (Neg - 1+)
[2024-10-15] MEDS: NSS 500 IV (22:13)
[2024-10-15 22:18] LABS: Urine Bacteria Few (Negative); Urine White Cell 16-20 /HPF (0-5)
[2024-10-15 22:33] LABS: Amphetamines Negative (Negative); Barbiturates Negative (Negative); Benzodiazepines Positive (Negative); Buprenorphine Negative (Negative); Cocaine Negative (Negative); Marijuana Negative (Negative); Methadone Negative (Negative); Methamphetamines Negative (Negative); Opiates Positive (Negative); Phencyclidine Negative (Negative); Tricyclic Antidepressants Negative (Negative)
[2024-10-15 22:55] LABS: Fentanyl, Urine Negative (Negative)
[2024-10-15] MEDS: TORADOL 15 MG IV (23:23)
[2024-10-16] VITALS (7 sets, daily range): BP systolic 93–130; BP diastolic 57–67; PULSE 93–98; O2SAT 93; BMI 24.8
--- NOTE | 2024-10-16 01:25 | PTCARENOTE ---
2124: Pt requesting IV morphine- BP checked prior to administration 90/59 HR 114, pt stating dizziness when ambulating to bathroom. Used the [facility], house [employer]ER notified order for NSS 100/hr X500 ml bag. Order to hold IV morphine for now.
8933: Pt requesting IV morphine BP 99/62 HR 73- house [employer]IPPED TOPPING FINISHER order to hold IV morphine and give 15 mg IV toradol. Pt sleeping in bed after administration.
[2024-10-16] MEDS: MORPHINE SULFATE 4 MG IV ×3 (02:22→13:26)
[2024-10-16 05:03] LABS: Hematocrit 30.3 % (37.0-47.0); Hemoglobin 10.3 g/dL (12.0-16.0); Mean Corpuscular Hgb 29.7 pg (27.0-31.0); Mean Corpuscular Volume 87.3 fL (81.0-99.0); Mean Platelet Volume 8.7 fL (7.4-10.4); Platelet Count 182 10^3/uL (130-400); Red Blood Cell Count 3.47 10^6/uL (4.20-5.40); Red Cell Dist. Width 16.3 % (11.5-14.5); White Blood Cell Count 9.7 10^3/uL (4.8-10.8)
[2024-10-16 05:26] LABS: ALT (SGPT) 12 U/L (0-35); AST (SGOT) 20 U/L (14-36); Albumin 3.7 g/dl (3.5-5.0); Alkaline Phosphatase 69 U/L (38-126); Blood Urea Nitrogen 9 mg/dl (7-17); Calcium 9.6 mg/dl (8.4-10.2); Carbon Dioxide 29 mmol/L (22-30); Chloride 97 mmol/L (98-107); Estimated Creatinine Clearance 70 ml/min; Glucose 155 mg/dl (70-99); Potassium 4.5 mmol/L (3.5-5.1); Sodium 129 mmol/L (135-145); Total Bilirubin 0.6 mg/dl (0.2-1.3); Total Protein 6.7 g/dl (6.3-8.2); eGFR > 60.00
--- NOTE | 2024-10-16 05:30 | W.PN.UPDATE ---
Update Note
Progress Note Update
-Patient was hypotensive at the beginning of shift bp 90/59. 500cc bolus of NSS was given. BP improved after bolus.
Around 5am BP dropped again 93/57, hr 79. Patient is poor po intake.
-Will start the patient on maintenance IVF of normal saline 70cc/hr.
[2024-10-16] MEDS: NSS 1000 IV ×2 (05:50→18:31)
[2024-10-16 07:31] LABS: Glucose - Point of Care 115 mg/dl (70-99)
[2024-10-16 08:21] LABS: Glycohemoglobin (HgbA1c) 5.8 % (4.0-5.6)
--- NOTE | 2024-10-16 09:18 | W.PN.HOSP.TC ---
Today's Communication/Plan
-
pain control
Assessment / Plan
Assessment / Plan
Physical exam:
General: Well Developed, Well Nourished and No Apparent Distress
HEENT: Normocephalic, Atraumatic and Moist Mucous Membranes
Respiratory: Clear to Auscultation; Negative Wheezes, Rales or Rhonchi
Cardiac: Regular Rhythm and S1/S2
GI: Soft, Nontender and Nondistended
Musculoskeletal: No Clubbing, No Cyanosis and No Edema
Neuro: Awake, Alert and Oriented
Psych: Calm
A/P:
# Left chest wall pain secondary to left seventh and eighth rib fractures
Continue pain control with oral and IV pain medications. Patient takes gabapentin at home.
Will add Lidoderm patch today
No hypoxia
Encourage use of incentive spirometer
Monitor vital signs
PT/OT
No evidence of pneumothorax on chest radiography
Monitor vital signs
#Hypotension
Started on IV fluid overnight
Hold TRISTIAN inhibitor
#Hyponatremia
On fluid restriction
On IV fluid-isotonic
126 up to 129 today
Continue to monitor sodium closely
# History of alcohol use disorder
At risk alcohol withdrawal
Currently, she is fully oriented no tremor
Mood is a pleasant and cooperative
Continue on alcohol withdrawal protocol
Continue with thiamine
Order urine drug screen
# History of alcoholic gastritis
No nausea or vomiting
Abdominal examination is benign
Continue with PPI
#History of diabetes
Hold metformin as patient had contrast study
Continue with insulin sliding scale for now
She takes linagliptin/Metformin at home
#HLD
No changes intended
DVT Prophylaxis:�Subcu heparin
Full code
Anticipated Discharge: 24 - 48 hours
Subjective/Interval History
-
Date of Service: October 16, 2024
Patient complains of left rib cage pain. No shortness of breath. No back pain either. Blood pressure improved.
Objective Data
-
Labs:
Laboratory Results
10/16/24
04:27
WBC 9.7
Hgb 10.3 L
Hct 30.3 L
Plt Count 182
Sodium 129 L
Potassium 4.5
Chloride 97 L
Carbon Dioxide 29
BUN 9
Creatinine 0.7
Glucose 155 H
Calcium 9.6
Total Bilirubin 0.6
AST 20
ALT 12
Alkaline Phosphatase 69
Vital Signs:
Vital Signs
Temp Pulse Resp BP Pulse Ox
98 F 79 17 93/57 96
10/15/24 23:39 10/16/24 05:19 10/15/24 23:39 10/16/24 05:19 10/15/24 23:39
I&O
10/15/24 10/16/24 10/17/24
06:59 06:59 06:59
Intake Total 1220 / 1220
Output Total 250 / 250
Balance 970 / 970
[2024-10-16] MEDS: NOVOLOG FLEXPEN-MODERATE RESISTANCE SC (09:21)
[2024-10-16] MEDS: PROTONIX 40 MG PO (09:26)
[2024-10-16] MEDS: ZESTRIL 2.5 MG PO (09:26)
[2024-10-16] MEDS: NEURONTIN 300 MG PO ×4 (09:27→21:14)
[2024-10-16] MEDS: HEPARIN 5000 UNITS SC ×2 (09:27→21:11)
[2024-10-16] MEDS: THIAMINE INJECTION 200 MG IV ×2 (09:27→21:13)
[2024-10-16] MEDS: FOLVITE 1 MG PO (09:27)
[2024-10-16] MEDS: FLUSH (NSS) 1 FLUSH IV ×3 (09:30→17:44)
[2024-10-16 12:01] LABS: Glucose - Point of Care 181 mg/dl (70-99)
[2024-10-16] MEDS: NOVOLOG FLEXPEN-MODERATE RESISTANCE 1 UNITS SC ×2 (13:01→17:45)
[2024-10-16] MEDS: LIDOCAINE 4% PATCH 1 PATCH TOPICAL (14:42)
[2024-10-16 16:41] LABS: Glucose - Point of Care 193 mg/dl (70-99)
--- NOTE | 2024-10-16 16:53 | PTCARENOTE ---
Pt AAO x3, DAMON; OOB to chair/BSC with minimal assistance; pt c/o lt side pain with movement; states no relief from Lidoderm patch/IV Morphine. Dr. Brizuela notified. VSS. On room air- pulse ox 98%, no SOB Noted. Abd soft, jacob 2200 hector diet;
appetite fair; pt non-compliant with 1200 ml fluid restriction; continuously asking for water. Void small amts clear alok urine on BSC. Resting in bed at present. Will continue to monitor.
[2024-10-16] MEDS: DILAUDID 1 MG IV ×2 (17:43→22:37)
[2024-10-16] MEDS: TYLENOL 1000 MG PO (17:53)
[2024-10-16 18:23] LABS: Osmolality Urine 580 mOsm/kg (300-900)
[2024-10-16 18:30] LABS: Urine Sodium 6 mmol/L (30-90)
[2024-10-16 21:21] LABS: Glucose - Point of Care 242 mg/dl (70-99)
[2024-10-16] MEDS: FLUSH (NSS) 2 FLUSH IV (22:39)
[2024-10-17] MEDS: TYLENOL 1000 MG PO ×3 (00:56→17:29)
[2024-10-17] MEDS: DILAUDID 1 MG IV ×6 (02:05→21:11)
[2024-10-17 05:43] LABS: % Basophils 0.4 % (0-2); % Eosinophils 3.8 % (0-6); % Immature Granulocytes 0.2 % (0-0.5); % Monocytes 12.3 % (1.7-9.3); % Neutrophils 46.3 % (42.2-75.2); Absolute Eosinophils 0.3 10^3/uL (0-0.7); Absolute Neutrophils 3.7 10^3/uL (1.4-6.5); Hematocrit 27.4 % (37.0-47.0); Hemoglobin 9.2 g/dL (12.0-16.0); Mean Corp Hgb Conc. 33.6 g/dL (33.0-37.0); Mean Corpuscular Hgb 29.9 pg (27.0-31.0); Mean Platelet Volume 8.9 fL (7.4-10.4); Nucleated Red Blood Cells % 0 %; Platelet Count 147 10^3/uL (130-400); Red Blood Cell Count 3.08 10^6/uL (4.20-5.40); Red Cell Dist. Width 15.9 % (11.5-14.5); White Blood Cell Count 8.1 10^3/uL (4.8-10.8)
[2024-10-17 06:00] VITALS: BMI 24.6
[2024-10-17 06:21] LABS: ALT (SGPT) 10 U/L (0-35); AST (SGOT) 17 U/L (14-36); Albumin 3.4 g/dl (3.5-5.0); Alkaline Phosphatase 62 U/L (38-126); Blood Urea Nitrogen 11 mg/dl (7-17); Calcium 9.2 mg/dl (8.4-10.2); Carbon Dioxide 26 mmol/L (22-30); Chloride 102 mmol/L (98-107); Estimated Creatinine Clearance 82 ml/min; Glucose 151 mg/dl (70-99); Magnesium 1.5 mg/dl (1.6-2.3); Potassium 4.2 mmol/L (3.5-5.1); Sodium 132 mmol/L (135-145); Total Bilirubin 0.7 mg/dl (0.2-1.3); eGFR > 60.00
[2024-10-17 07:25] VITALS: BP 101/62
[2024-10-17 07:27] LABS: Glucose - Point of Care 156 mg/dl (70-99)
[2024-10-17] MEDS: NOVOLOG FLEXPEN-MODERATE RESISTANCE 1 UNITS SC ×2 (08:44→12:43)
[2024-10-17] MEDS: FOLVITE 1 MG PO (08:45)
[2024-10-17] MEDS: THIAMINE INJECTION 200 MG IV ×2 (08:45→21:01)
[2024-10-17] MEDS: NEURONTIN 300 MG PO ×4 (08:45→22:23)
[2024-10-17] MEDS: PROTONIX 40 MG PO (08:45)
[2024-10-17] MEDS: HEPARIN 5000 UNITS SC ×2 (08:46→21:00)
[2024-10-17] MEDS: LIDOCAINE 4% PATCH TOPICAL (08:46)
[2024-10-17] MEDS: NSS 1000 IV (09:10)
--- NOTE | 2024-10-17 09:16 | W.PN.HOSP.TC ---
Today's Communication/Plan
-
IV fluid. Pain control.
Assessment / Plan
Assessment / Plan
Physical exam:
General: Well Developed, Well Nourished and some Apparent Distress
HEENT: Normocephalic, Atraumatic and Moist Mucous Membranes
Respiratory: Clear to Auscultation; Negative Wheezes, Rales or Rhonchi
Cardiac: Regular Rhythm and S1/S2
GI: Soft, Nontender and Nondistended
Musculoskeletal: No Clubbing, No Cyanosis and No Edema
Neuro: Awake, Alert and Oriented
Psych: Calm
A/P:
# Left chest wall pain secondary to left seventh and eighth rib fractures
Continue pain control with IV pain medications-patient refused oral pain medications yesterday. Patient takes gabapentin at home.
Added Lidoderm patch
We discussed about importance of taking oral pain medications so we can transition to home upon discharge
No hypoxia
Encourage use of incentive spirometer
Monitor vital signs
PT/OT
No evidence of pneumothorax on chest radiography
Monitor vital signs
#Hypotension
On IV fluid
Holding TRISTIAN inhibitor
#Hyponatremia
On oral fluid restriction
On IV fluid-isotonic
126---> up to 132 today
Urine sodium 6 and urine osmolality 580
Continue to monitor sodium closely
# History of alcohol use disorder
At risk alcohol withdrawal
Currently, she is fully oriented no tremor
Mood is a pleasant and cooperative
Continue on alcohol withdrawal protocol
Continue with thiamine
Order urine drug screen
# History of alcoholic gastritis
No nausea or vomiting
Abdominal examination is benign
Continue with PPI
#History of diabetes
Hold metformin as patient had contrast study but can resume tomorrow
Continue with insulin sliding scale for now
She takes linagliptin/Metformin at home
#HLD
No changes intended
DVT Prophylaxis:�Subcu heparin
Full code
Anticipated Discharge: 24 - 48 hours
Subjective/Interval History
-
Date of Service: October 17, 2024
Patient states that pain is very significant but some improvement noticed. No shortness of breath. Afebrile
Objective Data
-
Labs:
Laboratory Results
10/17/24
05:19
WBC 8.1
Hgb 9.2 L
Hct 27.4 L
Plt Count 147
Sodium 132 L
Potassium 4.2
Chloride 102
Carbon Dioxide 26
BUN 11
Creatinine 0.6
Glucose 151 H
Calcium 9.2
Total Bilirubin 0.7
AST 17
ALT 10
Alkaline Phosphatase 62
Vital Signs:
Vital Signs
Temp Pulse Resp BP Pulse Ox
98.2 F 77 16 101/62 92
10/17/24 07:25 10/17/24 07:25 10/17/24 07:25 10/17/24 07:25 10/17/24 07:25
I&O
10/16/24 10/17/24 10/18/24
06:59 06:59 06:59
Intake Total 1220 / 1220 2900 / 2900
Output Total 250 / 250 1075 / 1075
Balance 970 / 970 1825 / 1825
[2024-10-17 11:18] LABS: Osmolality Serum 280 mOsm/kg (275-300)
[2024-10-17 11:45] LABS: Glucose - Point of Care 182 mg/dl (70-99)
--- NOTE | 2024-10-17 14:02 | CM ---
Chart reviewed. Care ongoing at this time.
IV fluids, pain control
Therapy assessing home PT vs no needs. Will cont to follow for plan
Plan: Home; poss HC needs
[2024-10-17 15:21] VITALS: BP 127/69
[2024-10-17] MEDS: NOVOLOG FLEXPEN-MODERATE RESISTANCE SC (17:37)
--- NOTE | 2024-10-17 18:21 | PTCARENOTE ---
Pt rang call kothari to say her 'Midline blew' I assessed her left arm at the site of her midline. I did not note any moisture or the dressing being damp. I paged the IV team to come and check the midline as well. The pt stated that 'maybe she bumped
the IV and that maybe some of her pain medication didnt go all the way in' When I gave the medication I sat with the pt and there was no drainage or leaking post administration.
[2024-10-17] MEDS: FLUSH (NSS) 2 FLUSH IV (21:02)
[2024-10-17 21:26] LABS: Glucose - Point of Care 148 mg/dl (70-99)
[2024-10-17 23:00] VITALS: BP 133/85
[2024-10-18] MEDS: DILAUDID 1 MG IV ×2 (01:09→10:04)
[2024-10-18] MEDS: NSS 1000 IV ×2 (01:10→14:18)
[2024-10-18] MEDS: TYLENOL 1000 MG PO ×3 (01:11→17:00)
[2024-10-18 06:00] VITALS: BMI 25.2
[2024-10-18 07:35] VITALS: BP 142/90
[2024-10-18 08:01] LABS: Blood Urea Nitrogen 8 mg/dl (7-17); Calcium 9.1 mg/dl (8.4-10.2); Carbon Dioxide 25 mmol/L (22-30); Chloride 100 mmol/L (98-107); Estimated Creatinine Clearance 82 ml/min; Glucose 128 mg/dl (70-99); Sodium 132 mmol/L (135-145); eGFR > 60.00
[2024-10-18 08:22] LABS: Glucose - Point of Care 128 mg/dl (70-99)
[2024-10-18] MEDS: NOVOLOG FLEXPEN-MODERATE RESISTANCE SC ×3 (08:28→17:01)
--- NOTE | 2024-10-18 08:44 | W.PN.HOSP.TC ---
Today's Communication/Plan
-
Pain control
Assessment / Plan
Assessment / Plan
Physical exam:
General: Well Developed, Well Nourished and some Apparent Distress
HEENT: Normocephalic, Atraumatic and Moist Mucous Membranes
Respiratory: Clear to Auscultation; Negative Wheezes, Rales or Rhonchi
Cardiac: Regular Rhythm and S1/S2
GI: Soft, Nontender and Nondistended
Musculoskeletal: No Clubbing, No Cyanosis and No Edema
Neuro: Awake, Alert and Oriented
Psych: Calm
A/P:
# Left chest wall pain secondary to left seventh and eighth rib fractures
Continue pain control with IV pain medications-patient refused oral pain medications yesterday. Patient takes gabapentin at home. Discussed with patient that she needs to take oral pain medication for us to transition. Will start spacing out IV
pain medications and continue with oral
Added Lidoderm patch
We discussed about importance of taking oral pain medications so we can transition to home upon discharge
No hypoxia
Encourage use of incentive spirometer
Monitor vital signs
PT/OT
No evidence of pneumothorax on chest radiography
Monitor vital signs
#Hypotension
On IV fluid
Holding TRISTIAN inhibitor
#Hyponatremia
On oral fluid restriction
On IV fluid-isotonic
126---> up to 132 today
Urine sodium 6 and urine osmolality 580
Continue to monitor sodium closely
# History of alcohol use disorder
At risk alcohol withdrawal
Currently, she is fully oriented no tremor
Mood is a pleasant and cooperative
Continue on alcohol withdrawal protocol
Continue with thiamine
Order urine drug screen
# History of alcoholic gastritis
No nausea or vomiting
Abdominal examination is benign
Continue with PPI
#History of diabetes
Hold metformin as patient had contrast study but can resume tomorrow
Continue with insulin sliding scale for now
She takes linagliptin/Metformin at home
#HLD
No changes intended
DVT Prophylaxis:�Subcu heparin
Full code
Anticipated Discharge: 24 - 48 hours
Subjective/Interval History
-
Date of Service: October 18, 2024
Patient still complain of pain. Discussed about plan in terms of pain medications
Objective Data
-
Labs:
Laboratory Results
10/18/24
06:56
Sodium 132 L
Potassium 4.0
Chloride 100
Carbon Dioxide 25
BUN 8
Creatinine 0.5 L
Glucose 128 H
Calcium 9.1
Vital Signs:
Vital Signs
Temp Pulse Resp BP Pulse Ox
98.2 F 90 13 133/85 93
10/17/24 23:00 10/17/24 23:00 10/17/24 23:00 10/17/24 23:00 10/18/24 00:40
I&O
10/17/24 10/18/24 10/19/24
06:59 06:59 06:59
Intake Total 2900 / 2900 2160 / 2160
Output Total 1075 / 1075 1725 / 1725
Balance 1825 / 1825 435 / 435
[2024-10-18] MEDS: THIAMINE INJECTION 200 MG IV (09:45)
[2024-10-18] MEDS: NEURONTIN 300 MG PO ×4 (09:45→21:08)
[2024-10-18] MEDS: FOLVITE 1 MG PO (09:45)
[2024-10-18] MEDS: PROTONIX 40 MG PO (09:45)
[2024-10-18] MEDS: HEPARIN 5000 UNITS SC ×2 (09:46→20:27)
[2024-10-18] MEDS: LIDOCAINE 4% PATCH TOPICAL (09:46)
[2024-10-18 12:14] LABS: Glucose - Point of Care 129 mg/dl (70-99)
[2024-10-18] MEDS: MIRALAX 17 GRAMS PO (13:14)
[2024-10-18] MEDS: COLACE 100 MG PO ×2 (13:14→20:28)
[2024-10-18] MEDS: ROXICODONE 10 MG PO ×2 (14:14→20:27)
[2024-10-18 15:25] VITALS: BP 130/62
[2024-10-18 16:52] LABS: Glucose - Point of Care 222 mg/dl (70-99)
[2024-10-18] MEDS: ROXICODONE 5 MG PO (16:54)
[2024-10-18] MEDS: NOVOLOG FLEXPEN-MODERATE RESISTANCE 3 UNITS SC (17:02)
[2024-10-18] MEDS: VITAMIN B1 100 MG PO (20:28)
[2024-10-18] MEDS: MELATONIN 5 MG PO (21:08)
[2024-10-18 21:10] LABS: Glucose - Point of Care 168 mg/dl (70-99)
[2024-10-18 23:00] VITALS: BP 128/84
[2024-10-19] MEDS: ROXICODONE 10 MG PO ×5 (00:29→21:28)
[2024-10-19] MEDS: TYLENOL 1000 MG PO ×3 (00:34→16:30)
[2024-10-19 07:58] VITALS: BP 125/86
[2024-10-19] MEDS: MIRALAX 17 GRAMS PO (08:49)
[2024-10-19] MEDS: COLACE 100 MG PO ×2 (08:49→21:29)
[2024-10-19] MEDS: LIDOCAINE 4% PATCH TOPICAL ×2 (08:49→09:05)
[2024-10-19] MEDS: VITAMIN B1 100 MG PO ×2 (08:49→21:29)
[2024-10-19] MEDS: FOLVITE 1 MG PO (08:49)
[2024-10-19] MEDS: NEURONTIN 300 MG PO ×4 (08:49→21:28)
[2024-10-19] MEDS: PROTONIX 40 MG PO (08:49)
[2024-10-19] MEDS: HEPARIN 5000 UNITS SC ×2 (08:50→21:27)
[2024-10-19 08:53] LABS: Glucose - Point of Care 143 mg/dl (70-99)
--- NOTE | 2024-10-19 09:00 | W.PN.HOSP.TC ---
Today's Communication/Plan
-
Pain control
Assessment / Plan
Assessment / Plan
Physical exam:
General: Well Developed, Well Nourished and some Apparent Distress
HEENT: Normocephalic, Atraumatic and Moist Mucous Membranes
Respiratory: Clear to Auscultation; Negative Wheezes, Rales or Rhonchi
Cardiac: Regular Rhythm and S1/S2
GI: Soft, Nontender and Nondistended
Musculoskeletal: No Clubbing, No Cyanosis and No Edema
Neuro: Awake, Alert and Oriented
Psych: Calm
A/P:
# Left chest wall pain secondary to left seventh and eighth rib fractures
Continue pain control with IV pain medications-patient refused oral pain medications yesterday. Patient takes gabapentin at home. Discussed with patient that she needs to take oral pain medication for us to transition. Will start spacing out IV
pain medications and continue with oral
Added Lidoderm patch
We discussed about importance of taking oral pain medications so we can transition to home upon discharge
No hypoxia
Encourage use of incentive spirometer
Monitor vital signs
PT/OT
No evidence of pneumothorax on chest radiography
Monitor vital signs
#Hypotension
On IV fluid but improved so can stop and monitor
Holding TRISTIAN inhibitor
#Hyponatremia
On oral fluid restriction
On IV fluid-isotonic
126---> up to 132
Urine sodium 6 and urine osmolality 580
Continue to monitor sodium closely
# History of alcohol use disorder
At risk alcohol withdrawal
Currently, she is fully oriented no tremor
Mood is a pleasant and cooperative
Continue on alcohol withdrawal protocol
Continue with thiamine
Order urine drug screen
# History of alcoholic gastritis
No nausea or vomiting
Abdominal examination is benign
Continue with PPI
#History of diabetes
Hold metformin as patient had contrast study but can resume tomorrow
Continue with insulin sliding scale for now
She takes linagliptin/Metformin at home
#HLD
No changes intended
DVT Prophylaxis:�Subcu heparin
Full code
Anticipated Discharge: 24 - 48 hours
Subjective/Interval History
-
Date of Service: October 19, 2024
Patient was seen to have pain. No shortness of breath. Afebrile
Objective Data
-
Vital Signs:
Vital Signs
Temp Pulse Resp BP Pulse Ox
98.5 F 84 18 125/86 95
10/19/24 07:58 10/19/24 07:58 10/19/24 07:58 10/19/24 07:58 10/19/24 07:58
I&O
10/18/24 10/19/24 10/20/24
06:59 06:59 06:59
Intake Total 2160 / 2160 480 / 480
Output Total 1725 / 1725 600 / 600
Balance 435 / 435 -120 / -120
[2024-10-19] MEDS: NOVOLOG FLEXPEN-MODERATE RESISTANCE SC (09:08)
[2024-10-19 10:05] VITALS: BP 121/67; PULSE 95; O2SAT 94
[2024-10-19 10:46] VITALS: BP 121/67; PULSE 94; O2SAT 98
[2024-10-19 12:03] LABS: Glucose - Point of Care 188 mg/dl (70-99)
[2024-10-19] MEDS: NOVOLOG FLEXPEN-MODERATE RESISTANCE 1 UNITS SC ×2 (12:53→17:10)
--- NOTE | 2024-10-19 14:41 | CM ---
Chart reviewed. Pain control.
Therapy assessed, rec home PT vs no needs at this time
Plan: Home; poss HC needs
[2024-10-19 16:27] VITALS: BP 155/86
[2024-10-19 16:47] LABS: Glucose - Point of Care 174 mg/dl (70-99)
[2024-10-19 21:01] LABS: Glucose - Point of Care 216 mg/dl (70-99)
[2024-10-19] MEDS: VALIUM 5 MG PO (21:29)
[2024-10-19 23:56] VITALS: BP 145/81
[2024-10-20] MEDS: TYLENOL 1000 MG PO ×3 (01:18→17:00)
[2024-10-20 07:20] VITALS: BP 139/79
[2024-10-20] MEDS: MIRALAX 17 GRAMS PO (08:00)
[2024-10-20] MEDS: NEURONTIN 300 MG PO ×4 (08:00→22:02)
[2024-10-20] MEDS: FOLVITE 1 MG PO (08:00)
[2024-10-20] MEDS: COLACE 100 MG PO ×2 (08:00→20:20)
[2024-10-20] MEDS: PROTONIX 40 MG PO (08:00)
[2024-10-20] MEDS: VITAMIN B1 100 MG PO ×2 (08:00→20:20)
[2024-10-20] MEDS: HEPARIN 5000 UNITS SC ×2 (08:01→20:20)
[2024-10-20 08:05] LABS: Glucose - Point of Care 134 mg/dl (70-99)
[2024-10-20] MEDS: NOVOLOG FLEXPEN-MODERATE RESISTANCE SC (08:06)
[2024-10-20] MEDS: LIDOCAINE 4% PATCH TOPICAL (08:07)
[2024-10-20] MEDS: ROXICODONE 10 MG PO ×3 (08:13→20:20)
--- NOTE | 2024-10-20 08:35 | W.PN.HOSP.TC ---
Today's Communication/Plan
-
Pain control. Discharge planning
Assessment / Plan
Assessment / Plan
Physical exam:
General: Well Developed, Well Nourished and some Apparent Distress
HEENT: Normocephalic, Atraumatic and Moist Mucous Membranes
Respiratory: Clear to Auscultation; Negative Wheezes, Rales or Rhonchi
Cardiac: Regular Rhythm and S1/S2
GI: Soft, Nontender and Nondistended
Musculoskeletal: No Clubbing, No Cyanosis and No Edema
Neuro: Awake, Alert and Oriented
Psych: Calm
A/P:
# Left chest wall pain secondary to left seventh and eighth rib fractures
Continue pain control with IV pain medications-patient refused oral pain medications prior but agree to start oral meds. Patient takes gabapentin at home. Discussed with patient that she needs to take oral pain medication for us to transition.
Will continue spacing out IV pain medications and continue with oral.
Added Lidoderm patch
We discussed about importance of taking oral pain medications so we can transition to home upon discharge
No hypoxia
Encourage use of incentive spirometer
Monitor vital signs
PT/OT
No evidence of pneumothorax on chest radiography
Monitor vital signs
#Hypotension
On IV fluid but improved so can stop and monitor
Holding TRISTIAN inhibitor
#Hyponatremia
On oral fluid restriction
On IV fluid-isotonic
126---> up to 132
Urine sodium 6 and urine osmolality 580
Continue to monitor sodium closely
# History of alcohol use disorder
At risk alcohol withdrawal
Currently, she is fully oriented no tremor
Mood is a pleasant and cooperative
Continue on alcohol withdrawal protocol
Continue with thiamine
Order urine drug screen
# History of alcoholic gastritis
No nausea or vomiting
Abdominal examination is benign
Continue with PPI
#History of diabetes
Hold metformin as patient had contrast study but can resume tomorrow
Continue with insulin sliding scale for now
She takes linagliptin/Metformin at home
#HLD
No changes intended
DVT Prophylaxis:�Subcu heparin
Full code
Anticipated Discharge: Within 24 hours
Subjective/Interval History
-
Date of Service: October 20, 2024
Patient feels better for first time but she does not feel that she is ready to go home yet.
Objective Data
-
Vital Signs:
Vital Signs
Temp Pulse Resp BP Pulse Ox
98.0 F 65 16 139/79 98
10/20/24 07:20 10/20/24 07:20 10/20/24 07:20 10/20/24 07:20 10/20/24 07:20
I&O
10/19/24 10/20/24 10/21/24
06:59 06:59 06:59
Intake Total 480 / 480 480 / 480
Output Total 600 / 600 1260 / 1260
Balance -120 / -120 -780 / -780
[2024-10-20 12:04] LABS: Glucose - Point of Care 155 mg/dl (70-99)
[2024-10-20] MEDS: NOVOLOG FLEXPEN-MODERATE RESISTANCE 1 UNITS SC ×2 (12:50→16:28)
[2024-10-20 13:33] VITALS: BP 115/65; PULSE 81
--- NOTE | 2024-10-20 13:33 | CM ---
Patient seen at bedside. IMM explained & signed
PT rec Home PT vs. no needs
Patient interested in HH - prefers [facility] as she has had in the past
notified L[facility]ung[facility]ia[facility] - referral entered in [facility]
PLAN: Home with [facility]
[2024-10-20 14:11] LABS: Blood Urea Nitrogen 10 mg/dl (7-17); Calcium 9.2 mg/dl (8.4-10.2); Carbon Dioxide 28 mmol/L (22-30); Chloride 99 mmol/L (98-107); Estimated Creatinine Clearance 82 ml/min; Glucose 150 mg/dl (70-99); Potassium 3.7 mmol/L (3.5-5.1); Sodium 133 mmol/L (135-145); eGFR > 60.00
--- NOTE | 2024-10-20 14:24 | VNURNOTE ---
Home health liaison met with patient to discuss [facility] services, visit scheduling/frequency, homebound status and pet policy. Patient agreeable to [facility] services and understands home visits will be 1-2 times a week to assess and teach medical
management. Patient aware a visiting nurse will contact her for start of care early next week after discharge from . [facility] Referral completed in care port
[2024-10-20 15:20] VITALS: BP 96/80
[2024-10-20] MEDS: ROXICODONE 5 MG PO (16:22)
[2024-10-20 16:26] LABS: Glucose - Point of Care 188 mg/dl (70-99)
[2024-10-20 16:49] VITALS: BP 114/60; BP 71/46; BP 97/56; PULSE 109; PULSE 88; PULSE 98
--- NOTE | 2024-10-20 16:51 | PTCARENOTE ---
Pt with BP 90's/50's HR 100. Pt states slight dizziness at times. MD made aware. checked orthostatic BP. Pt + orthos. asymptomatic at the time. MD notified of the numbers. plan of care ongoing.
[2024-10-20] MEDS: ProAmatine 2.5 MG PO (18:12)
[2024-10-20] MEDS: VALIUM 5 MG PO (18:30)
[2024-10-20 20:07] VITALS: BP 111/58
[2024-10-20 21:31] LABS: Glucose - Point of Care 209 mg/dl (70-99)
[2024-10-20 23:50] VITALS: BP 111/64
[2024-10-21] MEDS: ROXICODONE 5 MG PO (00:25)
[2024-10-21] MEDS: TYLENOL 1000 MG PO ×2 (01:35→09:25)
[2024-10-21 03:59] VITALS: BP 109/48; BP 111/64; BP 96/63; PULSE 106; PULSE 85; PULSE 95
[2024-10-21] MEDS: ROXICODONE 10 MG PO ×3 (05:38→13:41)
--- NOTE | 2024-10-21 07:28 | W.PN.HOSP.TC ---
Today's Communication/Plan
-
Discharge planning today
Assessment / Plan
Assessment / Plan
Physical exam:
General: Well Developed, Well Nourished and No Apparent Distress
HEENT: Normocephalic, Atraumatic and Moist Mucous Membranes
Respiratory: Clear to Auscultation; Negative Wheezes, Rales or Rhonchi
Cardiac: Regular Rhythm and S1/S2
GI: Soft, Nontender and Nondistended
Musculoskeletal: No Clubbing, No Cyanosis and No Edema
Neuro: Awake, Alert and Oriented
Psych: Calm
A/P:
# Left chest wall pain secondary to left seventh and eighth rib fractures
Continue pain control with IV pain medications-patient refused oral pain medications prior but agree to start oral meds. Patient takes gabapentin at home. Discussed with patient that she needs to take oral pain medication for us to transition.
Will continue spacing out IV pain medications and continue with oral.
Added Lidoderm patch
We discussed about importance of taking oral pain medications so we can transition to home upon discharge
No hypoxia
Encourage use of incentive spirometer
Monitor vital signs
PT/OT
No evidence of pneumothorax on chest radiography
Monitor vital signs
#Hypotension
On IV fluid but improved so can stop and monitor
Holding TRISTIAN inhibitor
#Hyponatremia
On oral fluid restriction
On IV fluid-isotonic
126---> up to 132
Urine sodium 6 and urine osmolality 580
Continue to monitor sodium closely
# History of alcohol use disorder
At risk alcohol withdrawal
Currently, she is fully oriented no tremor
Mood is a pleasant and cooperative
Continue on alcohol withdrawal protocol
Continue with thiamine
Order urine drug screen
# History of alcoholic gastritis
No nausea or vomiting
Abdominal examination is benign
Continue with PPI
#History of diabetes
Hold metformin as patient had contrast study but can resume tomorrow
Continue with insulin sliding scale for now
She takes linagliptin/Metformin at home
#HLD
No changes intended
DVT Prophylaxis:�Subcu heparin
Full code
Anticipated Discharge: Today
Subjective/Interval History
-
Date of Service: October 21, 2024
Patient feels well today. Ready to go home
Objective Data
-
Vital Signs:
Vital Signs
Temp Pulse Resp BP Pulse Ox
98.7 F 85 14 111/64 95
10/20/24 23:50 10/20/24 23:50 10/20/24 23:50 10/20/24 23:50 10/20/24 23:50
I&O
10/20/24 10/21/24 10/22/24
06:59 06:59 06:59
Intake Total 480 / 480 1500 / 1500
Output Total 1260 / 1260
Balance -780 / -780 1500 / 1500
[2024-10-21 08:15] VITALS: BP 128/79
[2024-10-21 08:50] LABS: Glucose - Point of Care 155 mg/dl (70-99)
[2024-10-21] MEDS: NOVOLOG FLEXPEN-MODERATE RESISTANCE 1 UNITS SC ×2 (09:23→12:48)
[2024-10-21] MEDS: HEPARIN 5000 UNITS SC (09:24)
[2024-10-21] MEDS: ProAmatine 2.5 MG PO ×2 (09:25→12:47)
[2024-10-21] MEDS: MIRALAX 17 GRAMS PO (09:25)
[2024-10-21] MEDS: FOLVITE 1 MG PO (09:25)
[2024-10-21] MEDS: NEURONTIN 300 MG PO ×2 (09:25→12:47)
[2024-10-21] MEDS: COLACE 100 MG PO (09:25)
[2024-10-21] MEDS: PROTONIX 40 MG PO (09:25)
[2024-10-21] MEDS: VITAMIN B1 100 MG PO (09:25)
[2024-10-21] MEDS: LIDOCAINE 4% PATCH TOPICAL (09:26)
[2024-10-21 11:59] VITALS: BP 124/63
[2024-10-21 12:45] LABS: Glucose - Point of Care 159 mg/dl (70-99)
--- NOTE | 2024-10-21 13:07 | W.DCSUMMARY ---
Discharge Summary
Discharge Data
Date of Admission: 10/15/24
Date of Discharge: 10/21/24
-
Pending Results: No
Hospital Course
Patient is 69 years old female who has history of alcohol use disorder hypertension and presented to the hospital after a fall and had the seventh and eighth rib fractured. She was placed on MSA protocol but subsequently discontinued since she did
not have any active withdrawal. She was placed on pain medication initially IV and we were able to transition to oral. Her pain has subsided. She is able to tolerate the transition to oral pain medications so she will be discharged in stable
condition today. Of note she did have orthostatic hypotension and she was started on midodrine. Her low-dose TRISTIAN inhibitor was held but restarted upon discharge. Otherwise, hemodynamically stable and pain better controlled and ready to go home
today. She will be discharged in stable condition today.
Discharge Plan
-
Patient Disposition: Home (Routine Discharge)
Discharge Diagnosis/Procedures: Chest pain due to left seventh and eighth rib fracture. Hypertension. Hypotension. Hyponatremia.
Diet: Low Cholesterol and Restrict fluids to 64 oz
Activity: As tolerated
Blood Work: Please PCP to order CBC, BMP within 1 week
Referrals:
Primary care, provider [Other] - in less than 1 week
Prescriptions:
New
midodrine 2.5 mg Tablet
2.5 mg PO TID@0800,1300,1800 30 Days Qty: 90 0RF
oxycodone 10 mg Tablet
10 mg PO Q4HPRN PRN (Reason: severe pain) Qty: 15 0RF
senna 8.6 mg capsule
8.6 mg PO DAILY Qty: 14 0RF
polyethylene glycol 3350 [Miralax] 17 gram/dose powder
4 g PO DAILY 10 Days Qty: 40 0RF
Continued
Jentadueto 2.5-1,000 mg Tablet
1 tab PO BID
simvastatin 40 mg tablet
40 mg PO HS
gabapentin 300 mg capsule
300 mg PO QID
lisinopril 2.5 mg tablet
2.5 mg PO DAILY
esomeprazole magnesium [Nexium] 40 mg Capsule,Delayed Release(Dr/Ec)
40 mg PO DAILY
tramadol 50 mg Tablet
50 mg PO Q6HPRN PRN (Reason: moderate pain)
vitamin A 2,400 mcg Capsule
2,400 mcg PO DAILY
doxepin 25 mg Capsule
75 mg PO HSPRN PRN (Reason: anxiety)
cyanocobalamin (vitamin B-12) 1,000 mcg Tablet
1,000 mcg PO DAILY
azelastine 137 mcg (0.1 %) [place],Non-Aerosol
1 spray INTRANASAL BID
diazepam 5 mg Tablet
5 mg PO Q8HPRN PRN (Reason: anxiety)
cholecalciferol (vitamin D3) 25 mcg (1,000 unit) Tablet
25 mcg PO DAILY
Discharge Orders:
Discharge Patient (As Directed); Ordered 10/21/24
Ordered By: Mat Brizuela
Discharge Date and Time
Print Language: BANGLADESHI
--- NOTE | 2024-10-21 13:13 | CM ---
Patient for d/c today. [facility] accepted for services.
Family will transport at d/c
Plan: Home w/ [facility]
== END 2024-10-21 14:51 | disposition home health service (06) | DRG 184 ==
LOC: 4 EAST ACU 12:23
PROVIDERS: ADMITTING PHYSICIAN Internal Medicine; ATTENDING PHYSICIAN Hospitalist; EMERGENCY PHYSICIAN Emergency Medicine
DX: S22.42XA Multiple fractures of ribs, left side, initial encounter for closed fracture (principal); E87.1 Hypo-osmolality and hyponatremia; M48.55XA Collapsed vertebra, not elsewhere classified, thoracolumbar region, initial encounter for fracture; I10 Essential (primary) hypertension; I95.1 Orthostatic hypotension; W19.XXXA Unspecified fall, initial encounter; F17.200 Nicotine dependence, unspecified, uncomplicated; F32.A Depression, unspecified; F41.9 Anxiety disorder, unspecified; Z79.84 Long term (current) use of oral hypoglycemic drugs; E11.9 Type 2 diabetes mellitus without complications; F10.10 Alcohol abuse, uncomplicated; E78.00 Pure hypercholesterolemia, unspecified; G43.909 Migraine, unspecified, not intractable, without status migrainosus; G47.33 Obstructive sleep apnea (adult) (pediatric); K21.9 Gastro-esophageal reflux disease without esophagitis; Z87.440 Personal history of urinary (tract) infections
CPT/HCPCS: 71260; 74177; 80048; 80053; 80076; 80306; 80307; 81003; 81015; 82077; 82962; 83036; 83735; 83930; 83935; 84300; 85025; 85027; 85610; 85730; 87070; 96374; 96375; 96376; 97116; 97162; 97166; 97530; 99285; 99406; Q9967

== ENCOUNTER 2024-10-26 22:46 | Emergency (ER) | payer MEDICARE, OTHER, SELFPAY ==
[2024-10-26 22:48] VITALS: BMI 28.5
[2024-10-26 22:56] VITALS: BP 111/52
[2024-10-26 23:38] LABS: % Eosinophils 0.7 % (0-6); % Immature Granulocytes 0.6 % (0-0.5); % Lymphocytes 31.6 % (20.5-51.1); % Monocytes 6.8 % (1.7-9.3); % Neutrophils 59.3 % (42.2-75.2); Absolute Basophils 0.1 10^3/uL (0-0.2); Absolute Eosinophils 0.1 10^3/uL (0-0.7); Absolute Immature Granulocytes 0.1 10^3/uL (0-0.05); Absolute Lymphocytes 3.2 10^3/uL (1.2-3.4); Absolute Monocytes 0.7 10^3/uL (0.1-0.6); Absolute Neutrophils 6.1 10^3/uL (1.4-6.5); Hematocrit 29.5 % (37.0-47.0); Mean Corp Hgb Conc. 33.9 g/dL (33.0-37.0); Mean Corpuscular Hgb 29.8 pg (27.0-31.0); Mean Corpuscular Volume 87.8 fL (81.0-99.0); Nucleated Red Blood Cells % 0 %; Platelet Count 594 10^3/uL (130-400); Red Blood Cell Count 3.36 10^6/uL (4.20-5.40); Red Cell Dist. Width 16.5 % (11.5-14.5); White Blood Cell Count 10.2 10^3/uL (4.8-10.8)
[2024-10-26 23:48] LABS: ALT (SGPT) 18 U/L (0-35); AST (SGOT) 30 U/L (14-36); Albumin 4.4 g/dl (3.5-5.0); Alkaline Phosphatase 106 U/L (38-126); Blood Urea Nitrogen 6 mg/dl (7-17); Calcium 9.8 mg/dl (8.4-10.2); Carbon Dioxide 30 mmol/L (22-30); Chloride 99 mmol/L (98-107); Estimated Creatinine Clearance 84 ml/min; Glucose 147 mg/dl (70-99); Potassium 4.8 mmol/L (3.5-5.1); Sodium 139 mmol/L (135-145); Total Bilirubin 0.5 mg/dl (0.2-1.3); Total Protein 7.8 g/dl (6.3-8.2); eGFR > 60.00
[2024-10-27] VITALS (9 sets, daily range): BP systolic 100–129; BP diastolic 51–68
--- NOTE | 2024-10-27 02:07 | ED.GENMED ---
History of Present Illness
<DO Ras Page Last Filed: 10/27/24 02:55>
General
Chief Complaint: Fall
Source: patient
Time Seen by Provider: 10/26/24 23:45
History of Present Illness
History of Present Illness:
69-year-old female who presents after another fall. She states she has been falling a lot. She reportedly had a witnessed mechanical fall tonight and suffered abrasion to the left eye. She states she has had persistent pain from fractures of her
ribs that were diagnosed recently. She was recently hospitalized. She was discharged on October 21. No fevers. No cough. She does report today has had diarrhea. She also has felt little short of breath with exertion. She is a smoker. Patient
states she had been clean but for the last month or 2 has been drinking. Patient denies loss of consciousness. She states she lives alone
Past History
<DO Ras Page Last Filed: 10/27/24 02:55>
Past History
ED Past Medical History: GERD, HTN, Hypercholesterolemia, NIDDM, Seizures, Psychiatric (Depression, Anxiety), Other (Chronic pancreatitis, Ulcers, obstructive sleep apnea, UTi, Bilateral Vestibular loss, Migraines, Neck pain, Coma from fall) and
Other (migraines, hepatitis, alcohol abuse, Bilateral vestibular Loss, Gastritis)
ED Past Surgical History: Tonsilectomy and Other (right breast lumpectomy)
Patient has exhibited threatening behavior?: No
Social History
Tobacco: Smoker
Alcohol: Chronic alcoholic ( Two 5th's of vodka, Denies any alcohol for 3 months as of 05/22/24)
Drug: None
Personal:
Living: [facility] ([facility])
Employment: Not employed
Family History
Family History: Other (Alzheimer's); Negative Early CAD
Phy Exam
<DO Ras Page Last Filed: 10/27/24 02:55>
Physical Exam
Physical Exam:
CONSTITUTIONAL Patient alert and oriented to person, place and time. Well-appearing. Vital signs reviewed.
HEAD abrasion to the left forehead with some ecchymosis. Left periorbital ecchymosis. She has tenderness noted to the left maxillary area and left supraorbital area
EYES eyelids normal to inspection, Extraocular muscles intact, Conjunctiva normal, Sclera normal.
NECK normal range of motion, Trachea midline, no jugular venous distention.
RESPIRATORY CHEST No respiratory distress noted, Chest expansion equal, diminished at bilateral bases
CARDIOVASCULAR regular rate and rhythm, Heart sounds normal.
ABDOMEN abdomen nontender, Bowel sounds normal. No distention.
BACK normal inspection, no obvious deformities
UPPER EXTREMITY range of motion normal, Motor strength normal, no cyanosis, no edema.
LOWER EXTREMITY range of motion normal, Motor strength normal, no cyanosis, no edema.
NEURO Speech normal, No focal motor deficits, Angel coma scale 15, Memory normal, Cranial Nerves intact to screening exam.
SKIN skin warm, dry, and normal in color.
Course
<Massimo Vo, DO - Last Filed: 10/27/24 02:55>
Orders/Labs/Results
Orders:
Orders
10/26/24 23:25
Complete Blood Count/With Diff Urgent
Comprehensive Metabolic Panel Urgent
10/27/24 00:15
CT Head W/o Iv Contrast Urgent
Reason For Exam: fall
10/27/24 01:26
Norovirus by PCR Urgent
TEREZA Source: Feces/Stool
Specimen Description:
Date Specimen was Collected: 10/27/24
Time Specimen was Collected: 01:25
10/27/24 01:53
CR Chest - 2 Views Urgent
Comment:
Reason For Exam: recent rib fractures, pain, sob
10/27/24 02:25
CT Chest PE Study Urgent
Comment:
Reason For Exam: sob, recent hospitalization
10/27/24 02:54
Add On - Microbiology Urgent
Tests Added?: CDIFF, stool culture
Electrocardiogram (*1) Urgent
Reason for Study: Shortness of Breath
EKG- Treatment ONCE
10/27/24 03:27
Acetaminophen [Tylenol] 650 mg .ROUTE .STK-MED ONE
10/27/24 03:34
Acetaminophen [Tylenol] 650 mg PO NOW STA
10/27/24 05:35
HYDROmorphone [Dilaudid] 1 mg .ROUTE .STK-MED ONE
10/27/24 05:36
HYDROmorphone [Dilaudid] 1 mg IV NOW STA
10/27/24 05:38
CXR Port [CR Chest Portable - 1 View] Urgent
Comment:
Reason For Exam: chest tube insertion
Reason Study Needs to be Portable: Unable to Transport
10/27/24 05:40
Lorazepam [Ativan] 2 mg .ROUTE .STK-MED ONE
10/27/24 05:41
Lorazepam [Ativan] 2 mg IV NOW STA
10/27/24 05:57
Morphine Sulfate 4 mg .ROUTE .STK-MED ONE
10/27/24 05:58
Morphine Sulfate 4 mg IV NOW STA
10/27/24 06:48
HYDROmorphone [Dilaudid] 1 mg IV NOW STA
Abnormal Lab Results
10/26/24
23:25
RBC 3.36 L 10^6/uL
(4.20-5.40)
Hgb 10.0 L g/dL
(12.0-16.0)
Hct 29.5 L %
(37.0-47.0)
RDW 16.5 H %
(11.5-14.5)
Plt Count 594 H 10^3/uL
(130-400)
Abs Immat Gran (auto) 0.1 H 10^3/uL
(0-0.05)
Absolute Monos (auto) 0.7 H 10^3/uL
(0.1-0.6)
Immature Gran % 0.6 H %
(0-0.5)
BUN 6 L mg/dl
(7-17)
Glucose 147 H mg/dl
(70-99)
10/26/24 23:25
10/26/24 23:25
Vital Signs
Initial and Last Documented VS:
Initial Vital Signs
Temp Pulse Resp Pulse Ox
98.3 F 108 23 88
10/26/24 22:48 10/26/24 22:48 10/26/24 22:48 10/26/24 22:48
Last Documented Vital Signs
Temp Pulse Resp BP Pulse Ox
98.3 F 92 17 120/56 94
10/26/24 22:48 10/27/24 06:30 10/27/24 06:30 10/27/24 06:00 10/27/24 06:30
<Kumar Lemus, DO - Last Filed: 10/27/24 06:51>
Orders/Labs/Results
Orders:
Orders
10/26/24 23:25
Complete Blood Count/With Diff Urgent
Comprehensive Metabolic Panel Urgent
10/27/24 00:15
CT Head W/o Iv Contrast Urgent
Reason For Exam: fall
10/27/24 01:26
Norovirus by PCR Urgent
TEREZA Source: Feces/Stool
Specimen Description:
Date Specimen was Collected: 10/27/24
Time Specimen was Collected: 01:25
10/27/24 01:53
CR Chest - 2 Views Urgent
Comment:
Reason For Exam: recent rib fractures, pain, sob
10/27/24 02:25
CT Chest PE Study Urgent
Comment:
Reason For Exam: sob, recent hospitalization
10/27/24 02:54
Add On - Microbiology Urgent
Tests Added?: CDIFF, stool culture
Electrocardiogram (*1) Urgent
Reason for Study: Shortness of Breath
EKG- Treatment ONCE
10/27/24 03:27
Acetaminophen [Tylenol] 650 mg .ROUTE .STK-MED ONE
10/27/24 03:34
Acetaminophen [Tylenol] 650 mg PO NOW STA
10/27/24 05:35
HYDROmorphone [Dilaudid] 1 mg .ROUTE .STK-MED ONE
10/27/24 05:36
HYDROmorphone [Dilaudid] 1 mg IV NOW STA
10/27/24 05:38
CXR Port [CR Chest Portable - 1 View] Urgent
Comment:
Reason For Exam: chest tube insertion
Reason Study Needs to be Portable: Unable to Transport
10/27/24 05:40
Lorazepam [Ativan] 2 mg .ROUTE .STK-MED ONE
10/27/24 05:41
Lorazepam [Ativan] 2 mg IV NOW STA
10/27/24 05:57
Morphine Sulfate 4 mg .ROUTE .STK-MED ONE
10/27/24 05:58
Morphine Sulfate 4 mg IV NOW STA
10/27/24 06:48
HYDROmorphone [Dilaudid] 1 mg IV NOW STA
Abnormal Lab Results
10/26/24
23:25
RBC 3.36 L 10^6/uL
(4.20-5.40)
Hgb 10.0 L g/dL
(12.0-16.0)
Hct 29.5 L %
(37.0-47.0)
RDW 16.5 H %
(11.5-14.5)
Plt Count 594 H 10^3/uL
(130-400)
Abs Immat Gran (auto) 0.1 H 10^3/uL
(0-0.05)
Absolute Monos (auto) 0.7 H 10^3/uL
(0.1-0.6)
Immature Gran % 0.6 H %
(0-0.5)
BUN 6 L mg/dl
(7-17)
Glucose 147 H mg/dl
(70-99)
10/26/24 23:25
10/26/24 23:25
Vital Signs
Initial and Last Documented VS:
Initial Vital Signs
Temp Pulse Resp Pulse Ox
98.3 F 108 23 88
10/26/24 22:48 10/26/24 22:48 10/26/24 22:48 10/26/24 22:48
Last Documented Vital Signs
Temp Pulse Resp BP Pulse Ox
98.3 F 92 17 120/56 94
10/26/24 22:48 10/27/24 06:30 10/27/24 06:30 10/27/24 06:00 10/27/24 06:30
Procedures
<Kumar Lemus, DO - Last Filed: 10/27/24 06:51>
Chest Tube
Indication for procedure:: Hemothorax
Procedure completed by: Myself
Consent form signed: Yes
Anesthesia: 1% Lidocaine
Chest tube placed to: left side
Size of chest tube (cm): 28
Preparation: cleaned with Hibiclens
Chest tube position: mid clavicular line
Chest tube sutured to skin?: Yes
Chest tube complications: none
Additional information:
Patient tolerated procedure well with no immediate adverse effects. 440 cc of blood was evacuated
<Massimo Vo, DO - Last Filed: 10/27/24 02:55>
MDM/Problems Addressed
MDM/Problems Addressed:
Head injury, alcohol abuse, pleural effusion
<DO Ras Page Last Filed: 10/27/24 02:55>
*Radiology
Radiology exam reviewed: preliminary read by ED provider (Left pleural effusion noted)
*Pulse Oximetry
Patient hypoxic: no
*Addictions Counselor Interpretation
Rate: tachycardiac
Interpretation: abnormal
Rhythm: sinus
*Critical Care Note
Total Time (30-74mins, 75-104mins- exclusive of procedures): Not Applicable
Data Reviewed
Review of Other/Old Records Reveals: Radiology Studies (Recent CT chest/abdomen/pelvis reviewed from September 2024) and Discharge Summary (Recent discharge summary reviewed from October 21, 2024)
Source: patient
<DO Ras Hamilton Last Filed: 10/27/24 06:51>
*Critical Care Note
Total Time (30-74mins, 75-104mins- exclusive of procedures): 45
comment:
Critical care statement: A total of 45 minutes of critical care time was provided for this patient. This time is separate from time utilized to perform the aforementioned documented procedures. Aggregate critical care time includes only time
during which I was engaged in work directly related to the patient's care, as described above, whether at the bedside or elsewhere in the Emergency Department.
<DO Ras Page Last Filed: 10/27/24 02:55>
Patient Management
Escalation/DeEscalation of care consider admission/obs:
Patient recently admitted. Now presents again after fall. Found to have pleural effusion on chest x-ray. CT pending in light of recent admission. Has had several bouts of diarrhea. Stool pending for norovirus and C. difficile and culture.
Anticipate admission.
<DO Ras Hamilton Last Filed: 10/27/24 06:51>
Update Note
Update Note:
CTA chest with IV contrast
IMPRESSION:
Acute left lateral sixth through eighth displaced rib fractures. Moderate to large left hemothorax with associated compressive atelectasis. Scattered groundglass changes. No pneumothorax.
No pulmonary embolus. Technically adequate study. No thoracic aneurysm or dissection.
Mediastinal and cardiac structures are unremarkable. Visualized portions of the upper abdomen are unremarkable.
Assumed care of the patient.
Hemothorax seen on CT scan. Spoke with hospitalist and cardiothoracic surgeon on-call. CT surgeon recommended transfer to a trauma center.
Spoke with [facility], who stated that they could not accept the patient because they do not have a CT surgeon at the current time.
Patient is agreeable to being transferred to [facility]. [facility]. I told her that it may be our only option if [facility] cannot accept her.
ED Attending Note
<Massimo Vo, - Last Filed: 10/27/24 02:55>
-
Portions of this chart may have been created with voice recognition software.� Occasional wrong word or��sound alike� substitutions may have occurred due to the inherent limitations of voice recognition software.
Discharge Plan
Departure
Patient Disposition: Acute Care Hospital
Date of Disposition: 10/27/24
Time of Disposition: 06:45
Condition: Serious
Discharge Problem:
Hemothorax on left, Closed rib fracture
Prescriptions:
No Action
Jentadueto 2.5-1,000 mg Tablet
1 tab PO BID
simvastatin 40 mg tablet
40 mg PO HS
gabapentin 300 mg capsule
300 mg PO QID
lisinopril 2.5 mg tablet
2.5 mg PO DAILY
esomeprazole magnesium [Nexium] 40 mg Capsule,Delayed Release(Dr/Ec)
40 mg PO DAILY
tramadol 50 mg Tablet
50 mg PO Q6HPRN PRN (Reason: moderate pain)
vitamin A 2,400 mcg Capsule
2,400 mcg PO DAILY
doxepin 25 mg Capsule
75 mg PO HSPRN PRN (Reason: anxiety)
cyanocobalamin (vitamin B-12) 1,000 mcg Tablet
1,000 mcg PO DAILY
azelastine 137 mcg (0.1 %) [place],Non-Aerosol
1 spray INTRANASAL BID
diazepam 5 mg Tablet
5 mg PO Q8HPRN PRN (Reason: anxiety)
cholecalciferol (vitamin D3) 25 mcg (1,000 unit) Tablet
25 mcg PO DAILY
midodrine 2.5 mg Tablet
2.5 mg PO TID@0800,1300,1800 30 Days Qty: 90 0RF
oxycodone 10 mg Tablet
10 mg PO Q4HPRN PRN (Reason: severe pain) Qty: 15 0RF
senna 8.6 mg capsule
8.6 mg PO DAILY Qty: 14 0RF
polyethylene glycol 3350 [Miralax] 17 gram/dose powder
4 g PO DAILY 10 Days Qty: 40 0RF
Referrals:
Massimo Mcdaniels MD [Family Provider] -
Hospital Transfer
Other hospital: [facility]
I certify that the patient requires transfer: Yes
Discussed case with accepting physician: Dr Ramirez
Reason for transfer: higher level of care, medical necessity, availability of service and specialties available
Interventions
Interventions:
*General Assessment Last Done: 10/26/24 22:48
*Neglect/Abuse Screening Last Done: 10/26/24 22:48
ED-Musculoskeletal Assessment Last Done: 10/26/24 22:53
ED- Neurological Assessment Last Done: 10/26/24 22:53
ED-Skin Assessment Last Done: 10/26/24 22:53
Discharge Date and Time
Print Language: MARTINIQUAIS
[2024-10-27] MEDS: TYLENOL 650 MG PO (03:35)
[2024-10-27] MEDS: DILAUDID 1 MG IV ×2 (05:36→06:52)
[2024-10-27] MEDS: ATIVAN 2 MG IV (05:41)
[2024-10-27] MEDS: MORPHINE SULFATE 4 MG IV (05:58)
== END 2024-10-27 08:05 | disposition short-term general hospital (02) ==
LOC: EMR 22:46
PROVIDERS: Emergency Medicine; EMERGENCY PHYSICIAN Emergency Medicine; FAMILY PHYSICIAN Family Medicine
DX: S27.1XXA Traumatic hemothorax, initial encounter (principal); S22.42XA Multiple fractures of ribs, left side, initial encounter for closed fracture; W19.XXXA Unspecified fall, initial encounter; F17.200 Nicotine dependence, unspecified, uncomplicated
CPT/HCPCS: 32551; 99291; 96374; 96375 ×2; 96376; 70450; 71045; 71046; 71275; 80053; 85025; 87045; 87046; 87324; 87427; 87449; 87798; 93005; Q9967

== ENCOUNTER 2024-11-12 15:05 | Emergency (ER) | payer MEDICARE, OTHER, SELFPAY ==
[2024-11-12 15:12] VITALS: BP 111/64
--- NOTE | 2024-11-12 16:12 | ED.GENMED ---
History of Present Illness
General
Chief Complaint: Skin Problem
Time Seen by Provider: 11/12/24 15:51
History of Present Illness
History of Present Illness:
69-year-old female presents to the emergency department for evaluation of a rash to bilateral lower buttocks for the past 2 days. Painful, not itchy. Denies any new soaps or topical products. No known sick exposures. No new medications.
Past History
Past History
ED Past Medical History: GERD, HTN, Hypercholesterolemia, NIDDM, Seizures, Psychiatric (Depression, Anxiety), Other (Chronic pancreatitis, Ulcers, obstructive sleep apnea, UTi, Bilateral Vestibular loss, Migraines, Neck pain, Coma from fall) and
Other (migraines, hepatitis, alcohol abuse, Bilateral vestibular Loss, Gastritis)
ED Past Surgical History: Tonsilectomy and Other (right breast lumpectomy)
Patient has exhibited threatening behavior?: No
Social History
Tobacco: Smoker
Alcohol: Chronic alcoholic ( Two 5th's of vodka, Denies any alcohol for 3 months as of 05/22/24)
Drug: None
Personal:
Living: residential ([facility])
Employment: Not employed
Family History
Family History: Other (Alzheimer's); Negative Early CAD
Review of Systems
Review of Systems
Allergies reviewed?: Yes
All Other Systems: ROS reviewed and negative except as documented in HPI and ROS
Phy Exam
Physical Exam
Physical Exam:
GEN: Well appearing, NAD, WDWN
HEENT: Oral mucosa moist, no scleral icterus
Cardiac: Regular rate
Lung: No respiratory distress, no tachypnea
MSK: No gross deformity or injuries
Skin: Good color, no pallor or jaundice, 4 cm erythematous patch with overlying yellowish crust to the left inferior buttock, there is a smaller similar lesion measuring approximately 1 to 2 cm with limited amounts of yellowish crust to the right
inferior buttock
Neuro: AO x3, moves all extremities freely
Psych: Calm, cooperative
Course
Orders/Labs/Results
Orders:
Orders
11/12/24 16:27
Mupirocin [Bactroban 2% Ointment] 2 applic TOPICAL NOW STA
Vital Signs
Initial and Last Documented VS:
Initial Vital Signs
Temp Pulse Resp BP Pulse Ox
98.4 F 97 18 111/64 97
11/12/24 15:12 11/12/24 15:12 11/12/24 15:12 11/12/24 15:12 11/12/24 15:12
Last Documented Vital Signs
Temp Pulse Resp BP Pulse Ox
98.4 F 97 18 111/64 97
11/12/24 15:12 11/12/24 15:12 11/12/24 15:12 11/12/24 15:12 11/12/24 15:12
MDM/Problems Addressed
MDM/Problems Addressed:
Clinically the lesion suggests impetigo, does not appear to be zoster given bilateral nature. Will start topical antibiotics
*Critical Care Note
Total Time (30-74mins, 75-104mins- exclusive of procedures): Not Applicable
ED Attending Note
-
Portions of this chart may have been created with voice recognition software.� Occasional wrong word or��sound alike� substitutions may have occurred due to the inherent limitations of voice recognition software.
Discharge Plan
Departure
Patient Disposition: Home (Routine Discharge)
Date of Disposition: 11/12/24
Time of Disposition: 16:12
Patient with high blood pressure during this ER visit?: No
Discharge Problem:
Impetigo
Instructions: Impetigo
Prescriptions:
New
mupirocin 2 % ointment
1 applic topical TID 7 Days Qty: 22 1RF
No Action
Jentadueto 2.5-1,000 mg Tablet
1 tab PO BID
simvastatin 40 mg tablet
40 mg PO HS
gabapentin 300 mg capsule
300 mg PO QID
lisinopril 2.5 mg tablet
2.5 mg PO DAILY
esomeprazole magnesium [Nexium] 40 mg Capsule,Delayed Release(Dr/Ec)
40 mg PO DAILY
tramadol 50 mg Tablet
50 mg PO Q6HPRN PRN (Reason: moderate pain)
vitamin A 2,400 mcg Capsule
2,400 mcg PO DAILY
doxepin 25 mg Capsule
75 mg PO HSPRN PRN (Reason: anxiety)
cyanocobalamin (vitamin B-12) 1,000 mcg Tablet
1,000 mcg PO DAILY
azelastine 137 mcg (0.1 %) [place],Non-Aerosol
1 spray INTRANASAL BID
diazepam 5 mg Tablet
5 mg PO Q8HPRN PRN (Reason: anxiety)
cholecalciferol (vitamin D3) 25 mcg (1,000 unit) Tablet
25 mcg PO DAILY
midodrine 2.5 mg Tablet
2.5 mg PO TID@0800,1300,1800 30 Days Qty: 90 0RF
oxycodone 10 mg Tablet
10 mg PO Q4HPRN PRN (Reason: severe pain) Qty: 15 0RF
senna 8.6 mg capsule
8.6 mg PO DAILY Qty: 14 0RF
polyethylene glycol 3350 [Miralax] 17 gram/dose powder
4 g PO DAILY 10 Days Qty: 40 0RF
Interventions
Interventions:
*Risk Screen - Suicide Last Done: 11/12/24 15:12
*General Assessment Last Done: 11/12/24 15:12
*Neglect/Abuse Screening Last Done: 11/12/24 15:12
*ED COVID-19 Vaccine History Last Done: 11/12/24 15:12
*Nursing Disposition Last Done: 11/12/24 16:37
ED-Skin Assessment Last Done: 11/12/24 16:12
Discharge Date and Time
Discharge Date/Time: 11/12/24 16:38
Print Language: CUBAN
[2024-11-12] MEDS: BACTROBAN 2% OINTMENT 2 APPLIC TOPICAL (16:34)
== END 2024-11-12 16:38 | disposition home or self-care (01) ==
LOC: EMR 15:05
PROVIDERS: EMERGENCY PHYSICIAN Emergency Medicine; FAMILY PHYSICIAN Family Medicine
DX: L01.00 Impetigo, unspecified (principal); E11.9 Type 2 diabetes mellitus without complications; E78.00 Pure hypercholesterolemia, unspecified; K21.9 Gastro-esophageal reflux disease without esophagitis; R56.9 Unspecified convulsions; F32.A Depression, unspecified; F41.9 Anxiety disorder, unspecified; G43.909 Migraine, unspecified, not intractable, without status migrainosus; F17.200 Nicotine dependence, unspecified, uncomplicated; G47.33 Obstructive sleep apnea (adult) (pediatric); I10 Essential (primary) hypertension; K86.1 Other chronic pancreatitis; F10.21 Alcohol dependence, in remission; Z88.8 Allergy status to other drugs, medicaments and biological substances
CPT/HCPCS: 99283

== ENCOUNTER 2024-11-20 09:52 | Inpatient (IN) | payer MEDICARE, OTHER, SELFPAY ==
[2024-11-16 18:31] VITALS: BMI 24.4
[2024-11-16 18:32] VITALS: BP 144/72
--- NOTE | 2024-11-16 18:35 | ED.GENMED ---
History of Present Illness
General
Chief Complaint: Rectal Bleeding
Time Seen by Provider: 11/16/24 18:35
History of Present Illness
History of Present Illness:
TIME OF INITIAL ENCOUNTER: 6:35 PM
HPI: The patient was admitted here in September with rib fractures. She came back 10/27/24 and was found to have a large hemothorax and chest tube was placed at that time and was transferred to [facility]. She started drinking alcohol again 2 days ago and
primarily came in by ambulance today due to left-sided abdominal pain. She also reported coffee-ground emesis and had dark stool. She states that she 'only takes Nexium'. She denies NSAID use.
EXAM:
GENERAL: Appears somewhat chronically ill in appearance, there is coffee-ground emesis in the emesis basin at bedside
HEENT: Moist oral mucosa
CARDIOVASCULAR: No murmurs, borderline tachycardic heart rate, regular rhythm, No chest wall tenderness
PULMONARY: No respiratory distress, breath sounds are clear and equal
ABDOMEN: Soft with no peritoneal signs, very mild left-sided abdominal tenderness, heme-negative brown stool
NEUROLOGIC: Excellent strength all extremities, no coordination deficits
PSYCHIATRIC: Appropriate mental status, normal insight and judgement
EXTREMITIES: Nontender, no edema, moves all extremities equally
SKIN: No rash, no lesions
NUMBER AND COMPLEXITY OF PROBLEMS ADDRESSED AT THE ENCOUNTER
� Chronic conditions affecting care: Alcohol abuse, anxiety/depression, has had SI, diabetes, smoker
� Acute Exacerbation and/or Progression of Chronic Illness: This is an acute problem
� Differential Diagnosis includes: Esophageal varices, alcoholic gastritis, duodenitis, gastric ulcer
AMOUNT AND/OR COMPLEXITY OF DATA TO BE REVIEWED AND ANALYZED
� I performed an independent evaluation of and my interpretation is:
EKG:
CT: CAT scan shows no clear acute abnormality in the abdomen pelvis, of note I personally reviewed the look for any pleural fluid and there was none
X-rays:
Laboratory Studies: Alcohol is 278, hemoglobin is 10.5, white count is normal, sodium 131, bicarb 21, glucose 121, mag 1.5
Other:
� Review of other/old records: I reviewed records, the patient was admitted here and was found to have 7th and 8th rib fractures. At that time she was also placed on midodrine and oxycodone.
� Clinical information was obtained by an independent historian: EMS
� Prescriptions/Medications Considered but not given:
� Further testing considered but not performed:
RISK OF COMPLICATIONS AND/OR MORBIDITY OR MORTALITY OF PATIENT MANAGEMENT
� Social determinants of health affecting care: Lives at home, drinks alcohol
� Discussion with other providers: Hospitalist, Dr. Pittman for admission as patient's pain is poorly controlled and there is concern for upper GI bleeding
� Escalation of care including admission/observation vs risk of discharge considered: The patient comes in because of abdominal pain on the left side. She does have coffee-ground emesis in the emesis basin and was given
Protonix. Her alcohol level was elevated to 78, she is tachycardic. She was given Zofran by EMS. On rectal examination, she had heme-negative dark brown stool.
ANY OTHER UPDATES:
On reassessment at around 11 PM, the patient reports no significant improvement. She would like something additional for pain. We gave Dilaudid 0.5 mg earlier and will give another dose now. Mild tachycardia persists. She has been getting IV
fluids. We gave Protonix earlier.
Past History
Past History
ED Past Medical History: GERD, HTN, Hypercholesterolemia, NIDDM, Seizures, Psychiatric (Depression, Anxiety), Other (Chronic pancreatitis, Ulcers, obstructive sleep apnea, UTi, Bilateral Vestibular loss, Migraines, Neck pain, Coma from fall) and
Other (migraines, hepatitis, alcohol abuse, Bilateral vestibular Loss, Gastritis)
ED Past Surgical History: Tonsilectomy and Other (right breast lumpectomy)
Patient has exhibited threatening behavior?: No
Social History
Tobacco: Smoker
Alcohol: Chronic alcoholic ( Two 5th's of vodka, Denies any alcohol for 3 months as of 05/22/24)
Drug: None
Personal:
Living: residential ([facility])
Employment: Not employed
Family History
Family History: Other (Alzheimer's); Negative Early CAD
Phy Exam
Physical Exam
Physical Exam:
See HPI
Course
Orders/Labs/Results
Orders:
Orders
11/16/24 18:54
Pantoprazole [Protonix IV] 80 mg IV NOW STA
11/16/24 19:00
CT Abd/pelvis W Iv Cont Urgent
Comment:
Reason For Exam: L abd pain; recent hemothorax
11/16/24 19:21
Alcohol Urgent
Complete Blood Count/With Diff Urgent
Comprehensive Metabolic Panel Urgent
Lipase Urgent
Comment: ADD ON
Magnesium Urgent
11/16/24 21:59
HYDROmorphone [Dilaudid] 0.5 mg IV NOW STA
11/16/24 22:00
0.9% Sodium Chloride 1000 ml [Nss] 1,000 ml IV BOLUS
Ondansetron Injectable [Zofran] 4 mg IV NOW STA
11/16/24 23:00
Flush (0.9% Sodium Chloride) [Flush (Nss)] See Dose Instructions IV PER PROTOCOL
11/16/24 23:09
HYDROmorphone [Dilaudid] 0.5 mg IV NOW STA
11/16/24 23:38
Oxazepam [Serax] 15 mg PO NOW STA
11/16/24 23:53
Admit/Transfer Patient As Directed
Co-Sign Provider:
Level of Care: Observation services
Assign to:: Telemetry
Physician / Group: hospitalist
Diagnosis: GI bleed
Reason for Telemetry: Other
Other Reason for Telemetry: GI bleed
Date to Stop Telemetry: 11/18/24
Time to Stop Telemetry: 11:00
11/16/24 23:54
PRN Pain Medication Management As Directed
May give lesser potent ordered pain med per pt: Yes
preference::
Protocol:: Medication orders for pain may be administered in a
manner that supports deferring to patient preference
when the pt is:
- Requesting an ordered lesser potent pain medication.
Least to most potent pain medications are defined
as: acetaminophen < NSAID < tramadol < opioids
(morphine, oxycodone, hydromorphone).
- Requesting a lesser dose of the same medication IF
ORDERED.
- Requesting a less intrusive route of administration
if both routes are prescribed by the provider (PO <
IV).
11/16/24 23:55
Code Status As Directed
Resuscitation Status: Full Code
11/16/24 23:59
Add On- LAB Stat
Tests Added?: lipase
11/17/24 00:54
0.9% Sodium Chloride 1000 ml [Nss] 1,000 ml IV 100 mls/hr
0.9% Sodium Chloride [Nss (Preservative Free)] See Protocol IV PRN PRN
FOLic ACID [Folvite] 1 mg 0.9% Sodium Chloride 50 ml [Nss] 50 ml IV DAILYPRN
Lorazepam [Ativan] 1 mg IV Q1HPRN PRN
Lorazepam [Ativan] 1 mg PO Q2HPRN PRN
Lorazepam [Ativan] 2 mg IV Q1HPRN PRN
Ondansetron Injectable [Zofran] 4 mg IV Q6HPRN PRN
11/17/24 00:54
Case Management Consult Once
Case Management Consult: Other
Comment: Substance abuse counseling
DIETARY IP CONSULT Routine
Reason for Consult: Nutrition support, possible refeeding guidelines
Activity As Directed
Activity Level: With Assistance
INT (Intravenous Needle Therapy) As Directed
Comment: Place 2 IV catheters of the largest bore possible until stable
MSAS SCORE As Directed
MSAS Score 0-4: Repeat MSAS every 2 hours until 0-4 for three consecutive assessments, then every 4 hours x 48
hours.
MSAS Score 5-7: For MILD withdrawl symptoms. Repeat MSAS and RASS every 2 hours
MSAS Score 8-11: For MODERATE withdrawal symptoms. Repeat MSAS and RASS every 1 hour. Consider ICU or IMU
level of care.
MSAS Score > 11: For SEVERE withdrawal symptoms. Repeat MSAS and RASS every 1 hour. Notify provider, consider
ICU level of care.
MSAS Additional Instructions: If no improvement or no decrease in score from severe to moderate within 12
hours, consult psychiatry
MSAS Notify Provider: Notify provider if patient requires more than 10 mg of Lorazepam in eight hour period.
Orthostatic Vital Signs As Directed
Orthostatic VS Frequency: Now
Comment: then every four hours for twenty-four hours
Pneumatic Compression Sleeves As Directed
Type: Knee high
Stool for occult blood [Hemetest Stools] As Directed
Vital Signs As Directed
Frequency: Per unit guidelines
DX Deep Vein Thrombosis Video Routine
11/17/24 01:05
Urinalysis Routine
Date Specimen was Collected: 11/17/24
Time Specimen was Collected: 01:05
Urine Drug Abuse Screen Routine
Date Specimen was Collected: 11/17/24
Time Specimen was Collected: 01:05
11/17/24 01:30
Magnesium Sulfate 1 grams 0.9% Sodium Chloride 100 ml [Nss] 100 ml IV ONCE
11/17/24 04:23
Basic Metabolic Panel IN AM
Complete Blood Count/No Diff IN AM
Magnesium IN AM
Phosphorus IN AM
11/17/24 Breakfast
NPO
Allow oral meds: Yes
Allow clear liquids: Sips of Clears
11/17/24 08:00
FOLic ACID [Folvite] 1 mg PO DAILY
Gabapentin [Neurontin] 300 mg PO QID
Lisinopril [Zestril] 2.5 mg PO DAILY
Pantoprazole [Protonix IV] 40 mg IV BID
Thiamine Injection 200 mg IV Q12
11/17/24 14:00
H&H Q8H
11/17/24 22:00
H&H Q8H
Atorvastatin [Lipitor] 20 mg PO HS
11/18/24 11:00
DC Protocol for Telemetry ONCE
11/20/24 08:00
Thiamine HCl [Vitamin B1] 100 mg PO BID
Abnormal Lab Results
11/16/24
19:21
RBC 3.81 L 10^6/uL
(4.20-5.40)
Hgb 10.5 L g/dL
(12.0-16.0)
Hct 30.1 L %
(37.0-47.0)
MCV 79.0 L fL
(81.0-99.0)
RDW 16.1 H %
(11.5-14.5)
Absolute Monos (auto) 0.7 H 10^3/uL
(0.1-0.6)
Sodium 131 L mmol/L
(135-145)
Chloride 94 L mmol/L
(98-107)
Carbon Dioxide 21 L mmol/L
(22-30)
Glucose 121 H mg/dl
(70-99)
Magnesium 1.5 L mg/dl
(1.6-2.3)
11/16/24 19:21
11/16/24 19:21
Vital Signs
Initial and Last Documented VS:
Initial Vital Signs
Temp Pulse Resp BP Pulse Ox
37.2 C 104 20 144/72 95
11/16/24 18:32 11/16/24 18:32 11/16/24 18:32 11/16/24 18:32 11/16/24 18:32
Last Documented Vital Signs
Temp Pulse Resp BP Pulse Ox
36.4 C 89 14 109/64 92
11/17/24 08:00 11/17/24 06:00 11/17/24 06:00 11/17/24 06:00 11/17/24 08:00
*Critical Care Note
Total Time (30-74mins, 75-104mins- exclusive of procedures): Not Applicable
ED Attending Note
-
Portions of this chart may have been created with voice recognition software.� Occasional wrong word or��sound alike� substitutions may have occurred due to the inherent limitations of voice recognition software.
Discharge Plan
Departure
Patient Disposition: Admit
Date of Disposition: 11/16/24
Time of Disposition: 23:07
Presentation/result/management discussed w/ accepting MD/DO: Hospitalist
Discharge Problem:
Acute upper GI bleeding
Interventions
Interventions:
*Risk Screen - Suicide Last Done: 11/16/24 18:32
*General Assessment Last Done: 11/16/24 18:32
*Neglect/Abuse Screening Last Done: 11/16/24 18:32
*ED COVID-19 Vaccine History Last Done: 11/17/24 06:02
NM-[facility]-Eafdechydv Assessment Last Done: 11/16/24 20:59
ED- Cardiac Assessment Last Done: 11/16/24 20:59
ED- Pulmonary Assessment Last Done: 11/16/24 20:59
[2024-11-16 19:00] VITALS: BP 130/48
[2024-11-16 19:31] LABS: % Basophils 1.2 % (0-2); % Eosinophils 0.9 % (0-6); % Immature Granulocytes 0.3 % (0-0.5); % Lymphocytes 34.7 % (20.5-51.1); % Monocytes 7.7 % (1.7-9.3); % Neutrophils 55.2 % (42.2-75.2); Absolute Basophils 0.1 10^3/uL (0-0.2); Absolute Eosinophils 0.1 10^3/uL (0-0.7); Absolute Lymphocytes 3.2 10^3/uL (1.2-3.4); Absolute Monocytes 0.7 10^3/uL (0.1-0.6); Absolute Neutrophils 5.1 10^3/uL (1.4-6.5); Hematocrit 30.1 % (37.0-47.0); Hemoglobin 10.5 g/dL (12.0-16.0); Mean Corp Hgb Conc. 34.9 g/dL (33.0-37.0); Mean Corpuscular Hgb 27.6 pg (27.0-31.0); Nucleated Red Blood Cells % 0 %; Platelet Count 296 10^3/uL (130-400); Red Blood Cell Count 3.81 10^6/uL (4.20-5.40); Red Cell Dist. Width 16.1 % (11.5-14.5); White Blood Cell Count 9.3 10^3/uL (4.8-10.8)
[2024-11-16 19:48] LABS: ALT (SGPT) 34 U/L (0-35); AST (SGOT) 36 U/L (14-36); Albumin 3.8 g/dl (3.5-5.0); Alcohol 278 mg/dl; Alkaline Phosphatase 101 U/L (38-126); Blood Urea Nitrogen 9 mg/dl (7-17); Calcium 9.2 mg/dl (8.4-10.2); Carbon Dioxide 21 mmol/L (22-30); Chloride 94 mmol/L (98-107); Glucose 121 mg/dl (70-99); Magnesium 1.5 mg/dl (1.6-2.3); Potassium 4.5 mmol/L (3.5-5.1); Sodium 131 mmol/L (135-145); Total Bilirubin 0.5 mg/dl (0.2-1.3); Total Protein 7.2 g/dl (6.3-8.2); eGFR > 60.00
[2024-11-16 20:00] VITALS: BP 130/72
[2024-11-16] MEDS: PROTONIX IV 80 MG IV (20:01)
[2024-11-16 21:04] VITALS: BP 141/68
[2024-11-16] MEDS: DILAUDID 0.5 MG IV ×2 (22:01→23:14)
[2024-11-16] MEDS: ZOFRAN 4 MG IV (22:17)
[2024-11-16] MEDS: NSS 1000 IV (22:40)
[2024-11-16 23:00] VITALS: BP 113/66
--- NOTE | 2024-11-16 23:38 | HPS.HSE ---
Family Physician
-
Family Physician: Massimo Mcdaniels
Chief Complaint
-
Abdominal pain coffee-ground emesis, alcohol abuse
History of Present Illness
This 69-year-old with past medical history significant for insulin-dependent diabetes, hypertension, GERD, hyperlipidemia, alcohol dependence and history of alcohol withdrawal presents to the emergency department with abdominal pain and vomiting.
Patient reported that she been drinking for around 5 days. She did stop for some time beside drinking about half a bottle of wine daily for the last 5 days. She reports is secondary to depression. Patient also reported that today she had episode
of bloody emesis. She reported bright red blood on vomiting. She reports a burning abdominal discomfort. She also stated that she has had dark stools to the emergency department but she did not have dark stools for me. In the emergency
department she had heme-negative stool. Recent admission for rib fracture and last etoh admit was june.
Hemodynamically blood pressure was 141/68 with a pulse of 112. She is satting 96% on room air. She was afebrile. Hemoglobin was 10.5 which is similar to prior. Electrolytes notable for a sodium of 131 but otherwise unremarkable with normal BUN
and creatinine. BUN does not show elevations consistent with upper GI bleed. Magnesium level was 1.5. CT of the abdomen pelvis shows no acute abnormalities.
Alcohol level was 280.
Medical History
Past Medical History
Past Medical History: Reports Other (GERD, alcoholic use disorder, HTN, Hypercholesterolemia, NIDDM, Seizures, Depression, Anxiety, Chronic pancreatitis, gastric ulcers, obstructive sleep apnea, UTi, Bilateral Vestibular loss,migraines, hepatitis,
Bilateral vestibular Loss, Gastritis))
Past Surgical History: Reports Other (No recent major surgery)
Social History
Tobacco: Smoker
Alcohol: Daily
Drug: None
Personal: Single
Living: Alone
Employment: Not Employed
Family History
Family History: Not pertinent
Allergies / Home Medications
Allergies reflects when Allergies were last updated in [employer].
Home Medications with original date entered in [employer]
Allergy/Medication List:
Allergies
Allergy/AdvReac Type Severity Reaction Status Date / Time
topiramate [From Topamax] Allergy Itching Verified 10/15/24 00:53
valdecoxib [From Bextra] Allergy Rash Verified 10/15/24 00:53
Home Medications
linagliptin 2.5 mg-metformin 1,000 mg tablet (Jentadueto) 1 tab PO BID Diabetes 04/02/23
gabapentin 300 mg capsule 300 mg PO QID Pain 05/12/23
lisinopril 2.5 mg tablet 2.5 mg PO DAILY Blood Pressure 05/12/23
simvastatin 40 mg tablet 40 mg PO HS High Cholesterol 05/12/23
esomeprazole magnesium 40 mg capsule,delayed release (Nexium) 40 mg PO DAILY Gastrointestinal Issue 08/28/23
tramadol 50 mg tablet 50 mg PO Q6HPRN PRN moderate pain 10/20/23
azelastine 137 mcg (0.1 %) nasal spray 1 spray intranasal BID 10/15/24
cholecalciferol (vitamin D3) 25 mcg (1,000 unit) tablet 25 mcg PO DAILY 10/15/24
cyanocobalamin (vitamin B-12) 1,000 mcg tablet 1,000 mcg PO DAILY 10/15/24
diazepam 5 mg tablet 5 mg PO Q8HPRN PRN anxiety 10/15/24
doxepin 25 mg capsule 75 mg PO HSPRN PRN anxiety 10/15/24
vitamin A 2,400 mcg capsule 2,400 mcg PO DAILY 10/15/24
Review of Systems
-
History Source: Patient
Constitutional: Reports No Symptoms
EENT: Reports No Symptoms
Respiratory: Reports No Symptoms
Cardiac: Reports No Symptoms
Abdomen/GI: Reports Abdominal Pain, Vomiting and Black Stools
: Reports No Symptoms
Musculoskeletal: Reports No Symptoms
Skin: Reports No Symptoms
Neurological: Reports No Symptoms
Endocrine: Reports No Symptoms
Hematologic/Lymphatic: Reports No Symptoms
Psych: Reports No Symptoms
Physical Exam
Vital Signs
Vital Signs
Temp Pulse Resp BP Pulse Ox
99 F 112 18 141/68 96
11/16/24 18:32 11/16/24 21:04 11/16/24 21:04 11/16/24 21:04 11/16/24 21:00
Physical Exam
General: Well Developed and No Apparent Distress
HEENT: NormoCephalic, Anicteric, Moist mucous membranes and Atraumatic
Respiratory: Clear
Cardiac: S1/S2, Regular Rhythm and Tachycardia
Breast: Deferred by me
GI: Soft, Non Tender, Non Distended and Normal Bowel Sounds
Rectal: Hem Negative
Genito-urinary: Deferred by me
Musculoskeletal: No Clubbing, No Cyanosis and No Edema
Skin: Warm
Neuro: AO x 3 and Nonfocal/grossly intact
Hematologic/Lymphatic: No Lymphadenopathy
Psych: Calm
Laboratory Results
-
11/16/24 19:21
11/16/24 19:21
Laboratory Results
Total Bilirubin 0.5 mg/dl (0.2-1.3) 11/16/24 19:21
AST 36 U/L (14-36) 11/16/24 19:21
ALT 34 U/L (0-35) 11/16/24 19:21
Alkaline Phosphatase 101 U/L (38-126) 11/16/24 19:21
Data Reviewed
-
Lab Data: Labs Reviewed by me
Old Records: Reviewed
Impression/Plan
-
IMPRESSION:
69 y.o alcohol dependence, GERD, DM II presenting with abdominal pain, vomiting with complaint of bloody emesis and dark stools. ETOH level 280. Labs otherwise notable for Na of 131. Hgb is stable compared to prior. Last ETOH drink is today and
has been drinking regularly for the last 5 days at least.
PLAN:
1. GI bleed - Suspect acute gastritis possibly 2/2 ETOH. No melena. Heme negative stools, Hgb is stable and patient is hemodynamically stable.
- admit to telemetry
- npo
- ppi iv bid for now
- type and screen
- trend h&h
- pain control and anti emetics
- will monitor, no acute GI consult for now
- hemoccult stools.
2. ETOH dependence and withdrawal - Moderate risk for withdrawal given recent drinking
- given serax x 1 in ED
- msas withdrawal protocol without pheonbarb for now
- consider rehab in am
- IV NS/D5
- continue thiamine/folate
3. DM II
- hold metformin for now
- while npo, sliding scale q6h
DVT PPX - SCDs
Code status - full code
[2024-11-17] VITALS (26 sets, daily range): BP systolic 94–153; BP diastolic 41–109
[2024-11-17] MEDS: SERAX 15 MG PO (00:01)
[2024-11-17 00:49] LABS: Lipase 86 U/L (23-300)
[2024-11-17 01:15] LABS: Urine Albumin 2+ (Neg - Trace); Urine Bilirubin Negative (Negative); Urine Character Slightly Cloudy (Clear); Urine Color Yellow; Urine Glucose Negative (Negative); Urine Ketone Negative (Negative); Urine Leukocyte 3+ (Negative); Urine Nitrite Positive (Negative); Urine Occult Blood 2+ (Negative); Urine Urobilinogen Negative (Neg - 1+)
[2024-11-17] MEDS: NSS 1000 IV ×2 (01:30→16:50)
[2024-11-17 01:43] LABS: Amphetamines Negative (Negative); Barbiturates Negative (Negative); Benzodiazepines Positive (Negative); Buprenorphine Negative (Negative); Cocaine Negative (Negative); Marijuana Negative (Negative); Methadone Negative (Negative); Methamphetamines Negative (Negative); Opiates Positive (Negative); Phencyclidine Negative (Negative); Tricyclic Antidepressants Negative (Negative)
[2024-11-17 01:46] LABS: Urine Amorphous Seen; Urine Bacteria Many (Negative); Urine Squamous Cell >30 /LPF (Few); Urine White Cell >100 /HPF (0-5)
[2024-11-17] MEDS: ATIVAN 1 MG PO ×4 (01:52→10:18)
[2024-11-17] MEDS: MAGNESIUM SULFATE 102 GRAMS IV (01:55)
[2024-11-17 01:59] LABS: Fentanyl, Urine Negative (Negative)
[2024-11-17] MEDS: DILAUDID 0.5 MG IV ×5 (02:49→19:31)
[2024-11-17 04:44] LABS: Hematocrit 28.2 % (37.0-47.0); Hemoglobin 9.6 g/dL (12.0-16.0); Mean Corpuscular Hgb 27.7 pg (27.0-31.0); Mean Corpuscular Volume 81.5 fL (81.0-99.0); Mean Platelet Volume 7.9 fL (7.4-10.4); Platelet Count 258 10^3/uL (130-400); Red Blood Cell Count 3.46 10^6/uL (4.20-5.40); Red Cell Dist. Width 16.2 % (11.5-14.5); White Blood Cell Count 11.7 10^3/uL (4.8-10.8)
[2024-11-17 05:09] LABS: Blood Urea Nitrogen 8 mg/dl (7-17); Carbon Dioxide 25 mmol/L (22-30); Chloride 99 mmol/L (98-107); Estimated Creatinine Clearance 82 ml/min; Glucose 119 mg/dl (70-99); Magnesium 1.9 mg/dl (1.6-2.3); Phosphorus 3.9 mg/dl (2.5-4.5); Potassium 4.6 mmol/L (3.5-5.1); Sodium 133 mmol/L (135-145); eGFR > 60.00
[2024-11-17 05:30] LABS: Glucose - Point of Care 122 mg/dl (70-99)
[2024-11-17] MEDS: NOVOLOG FLEXPEN-LOW RESISTANCE SC ×2 (05:31→16:43)
[2024-11-17] MEDS: FOLVITE 1 MG PO (08:06)
[2024-11-17] MEDS: ZESTRIL 2.5 MG PO (08:06)
[2024-11-17] MEDS: THIAMINE INJECTION 200 MG IV (08:06)
[2024-11-17] MEDS: NEURONTIN 300 MG PO ×3 (08:06→22:45)
[2024-11-17] MEDS: PROTONIX IV 40 MG IV ×2 (08:07→19:31)
[2024-11-17] MEDS: NSS (PRESERVATIVE FREE) 10 ML IV ×2 (08:07→19:31)
--- NOTE | 2024-11-17 09:16 | W.PN.HOSP.TC ---
Today's Communication/Plan
-
PPI. GI consult
Assessment / Plan
Assessment / Plan
Physical exam:
General: Acutely ill
HEENT: Normocephalic, Atraumatic and Moist Mucous Membranes
Respiratory: Clear to Auscultation; Negative Wheezes, Rales or Rhonchi
Cardiac: Regular Rhythm and S1/S2
GI: Soft, tender and Nondistended
Musculoskeletal: No Clubbing, No Cyanosis and No Edema
Neuro: Awake, Alert and Oriented
Psych: Calm
A/P:
Acute upper GI bleed:
Suspect peptic ulcer disease versus variceal bleed
Keep n.p.o.
IV PPI twice daily
Patient does need GI consult AZUL-discussed with GI this morning.
Pain control
Plan for endoscopy today
Alcohol use disorder:
Continue alcohol withdrawal protocol
Monitor mental status
Continue thiamine and folate
Diabetes mellitus type 2:
Insulin sliding scale
Monitor blood sugar
Hold metformin acute
Hypertension:
On TRISTIAN inhibitor
History of orthostatic hypotension:
Monitor blood pressure closely
Hyperlipidemia:
On statin
DVT prophylaxis:
SCD
CODE STATUS:
Full code
Total time spent on today's encounter was 52 minutes which included time spent in counseling the patient/family regarding diagnosis and treatment plan as listed above, goals of care, and symptom management. Case was discussed with nursing staff,
specialists, and care coordinators/case management. All labs and imaging personally reviewed by me. Remainder the time spent in detailed review of previous records, lab data, imaging, and other medical provider documentation.
Anticipated Discharge: 24 - 48 hours
Subjective/Interval History
-
Date of Service: November 17, 2024
Patient with abdominal pain. Also nausea on and off. No further hematemesis.
Objective Data
-
Labs:
Laboratory Results
11/17/24 11/17/24 11/17/24
04:23 14:00 22:00
WBC 11.7 H
Hgb 9.6 L Pending Pending
Hct 28.2 L Pending Pending
Plt Count 258
Sodium 133 L
Potassium 4.6
Chloride 99
Carbon Dioxide 25
BUN 8
Creatinine 0.6
Glucose 119 H
Calcium 9.0
Vital Signs:
Vital Signs
Temp Pulse Resp BP Pulse Ox
98.4 F 89 14 109/64 92
11/17/24 03:19 11/17/24 06:00 11/17/24 06:00 11/17/24 06:00 11/17/24 08:00
I&O
11/16/24 11/17/24 11/18/24
06:59 06:59 06:59
Intake Total 662 / 662
Balance 662 / 662
--- NOTE | 2024-11-17 09:22 | CM ---
Addendum entered by Saritha Gonzalez RN 11/17/24 16:15:
STAUFFER letter scanned into chart.
Original Note:
Reviewed the chart notes and spoke with the patient at the bedside. The patient is admitted under observational status. The STAUFFER letter was provided and explained. The patient had no questions with regards to the letter. STAUFFER letter scanned into
chart.
CM consult for substance abuse received. Patient declined. Packet left with resources at the bedside.
The patient resides alone in [facility]. Elevator access. The patient reports on DME is a rolling walker in home. The patient is current with [facility] after last hospitalization (10/15-10/21). The patient reports no SNF in the past. The patient
confirmed her pharmacy of choice [facility]. CM continues to be available to patient/family and is monitoring medical plan for needs at discharge.
Plan: Discharge back to home with resumption of [facility] services.
--- NOTE | 2024-11-17 10:16 | CON.GI ---
Addendum entered and electronically signed by Tamy Rivera MD 11/17/24 12:20:
The patient was seen and examined by me independently in collaboration with the nurse practitioner.
Past medical history/social history/medications/allergies/family history reviewed.
Lab data and imaging data reviewed.
69-year-old female past medical history as below including multiple complications from alcohol abuse presenting with abdominal pain with vomiting followed by hematemesis. Her hemoglobin is stable, normal platelets. On imaging there is no evidence
of cirrhosis. No explanation for abdominal pain on imaging as well except for chronic pancreatitis.
Most likely suspect her hematemesis is due to Evelin-Beaulieu tear. She may also have esophagitis versus esophageal ulcer versus peptic ulcer disease as she does have occasional NSAID use. Lower suspicion for variceal bleeding.
Plan for upper endoscopy today for further evaluation for her GI bleeding. We discussed the risk, benefits, and alternatives to upper endoscopy. The risks include bleeding, infection, perforation, missed lesion, and cardiopulmonary complications
from anesthesia. The importance of bringing an escort and remaining NPO after midnight was discussed.
Continue IV PPI D in the interim. I discussed with hospitalist. Further recommendations pending upper endoscopy.
Original Note:
Consultation
-
Date/Time Consultation Requested: 11/17/24 0915
Date/Time Consultation Performed: 11/17/24 1015
Requesting Provider: Mat Brizuela MD
Performing Provider: NICK Benitez, Dilia Rivera MD
Reason for Consultation: coffee ground emesis
Medical History
Chief Complaint / HPI
Chief Complaint: Abdominal pain
History of Present Illness:
68-year-old female with past medical history of alcoholic hepatitis, chronic pancreatitis, pancreatic pseudocyst, alcohol abuse, tobacco abuse, seizure disorder, anxiety, depression, bipolar disorder, hyperlipidemia, diabetes presents to the
emergency room with abdominal pain and vomiting. She has hx ETOH use with several recent evaluations for falls. In review with patient she has hx ETOH use since age 32 with periods of sobriety and heavy use. She admits to recent [place] stay
for E[place]H rehab with sobriety til September but then had of friends and began to drink again. She admits to recent ETOH use of 1/2 bottle wine daily. She now presents with abdominal pain and vomiting. She initially vomited bile then noted some red
blood. On admission also with abdominal pain 05/04. Ct a/p with IV contrast was completed without any abnormalities.
At this time she admits to continued abdominal pain. Pain is improved with pain med and worse with palpation. Pt denies odynophagia, dysphagia, GERD, blood or black in stools. She denies hx EGD or colonoscopy in past. labs on admission
with WBC 11,700, hbg 9.6, Na 131 with normal LFT's,lipase, and platelets. Occasional NSAID use. Denies anticoagulation use.
Past Medical History
Past Medical History: GERD
Past Surgical History: Other (Tonsillectomy)
Social History
Tobacco: Smoker
Alcohol: Daily (States she drank somewhere between 1/5 of vodka and a handle in the past 24 hours)
Drug: None
Living: Alone
Employment: Disabled (due to vestibular issues )
Family History
Family History: Other (Denies any family history of gastrointestinal malignancy or inflammatory bowel disease)
Allergies / Home Medications
Allergy/AdvReac Type Severity Reaction Status Date / Time
topiramate [From Topamax] Allergy Itching Verified 11/16/24 18:44
valdecoxib [From Bextra] Allergy Rash Verified 11/16/24 18:44
�Medication �Instructions �Recorded
linagliptin 2.5 mg-metformin 1,000 1 tab PO BID Diabetes 04/02/23
mg tablet (Jentadueto)
gabapentin 300 mg capsule 300 mg PO QID Pain 05/12/23
lisinopril 2.5 mg tablet 2.5 mg PO DAILY Blood Pressure 05/12/23
simvastatin 40 mg tablet 40 mg PO HS High Cholesterol 05/12/23
esomeprazole magnesium 40 mg 40 mg PO DAILY Gastrointestinal 08/28/23
capsule,delayed release (Nexium) Issue
tramadol 50 mg tablet 50 mg PO Q6HPRN PRN moderate pain 10/20/23
cholecalciferol (vitamin D3) 25 25 mcg PO DAILY 10/15/24
mcg (1,000 unit) tablet
cyanocobalamin (vitamin B-12) 1,000 mcg PO DAILY 10/15/24
1,000 mcg tablet
diazepam 5 mg tablet 5 mg PO Q8HPRN PRN anxiety 10/15/24
Review of Systems
-
History Source: Patient
Constitutional: Reports Weight Loss (some wt loss last summer )
EENT: Reports No Symptoms
Respiratory: Reports No Symptoms
Cardiac: Reports No Symptoms
Abdomen/GI: Reports Abdominal Pain, Nausea and Vomiting (with hematemesis )
: Reports No Symptoms
Musculoskeletal: Reports No Symptoms
Skin: Reports No Symptoms
Neurological: Reports Weakness
Endocrine: Reports No Symptoms
Hematologic/Lymphatic: Reports Bleeding
Vital Signs
Temp Pulse Resp BP Pulse Ox
98.4 F 89 14 109/64 92
11/17/24 03:19 11/17/24 06:00 11/17/24 06:00 11/17/24 06:00 11/17/24 08:00
Physical Exam
Exam
General: No Apparent Distress and Other (thin appearing)
HEENT: Normocephalic and Anicteric
Respiratory: Clear
Cardiac: Regular Rhythm
GI: Soft, Non Tender and Non Distended
Musculoskeletal: No Clubbing and No Cyanosis
Skin: Warm and Dry
Neuro: Awake, Alert and AO x 3
Psych: Calm
Results
WBC 11.7 10^3/uL (4.8-10.8) H 11/17/24 04:23
Hgb 9.6 g/dL (12.0-16.0) L 11/17/24 04:23
Hct 28.2 % (37.0-47.0) L 11/17/24 04:23
MCV 81.5 fL (81.0-99.0) 11/17/24 04:23
Plt Count 258 10^3/uL (130-400) 11/17/24 04:23
Absolute Neuts (auto) 5.1 10^3/uL (1.4-6.5) 11/16/24 19:21
Sodium 133 mmol/L (135-145) L 11/17/24 04:23
Potassium 4.6 mmol/L (3.5-5.1) 11/17/24 04:23
Chloride 99 mmol/L (98-107) 11/17/24 04:23
Carbon Dioxide 25 mmol/L (22-30) 11/17/24 04:23
BUN 8 mg/dl (7-17) 11/17/24 04:23
Creatinine 0.6 mg/dL (0.6-1.0) 11/17/24 04:23
Calcium 9.0 mg/dl (8.4-10.2) 11/17/24 04:23
Total Bilirubin 0.5 mg/dl (0.2-1.3) 11/16/24 19:21
AST 36 U/L (14-36) 11/16/24 19:21
ALT 34 U/L (0-35) 11/16/24 19:21
Alkaline Phosphatase 101 U/L (38-126) 11/16/24 19:21
Lipase 86 U/L (23-300) 11/16/24 19:21
Diagnostic Image Results:
11/16/24 CT Abd/pelvis W Iv Cont
1. No significant acute abnormality identified in the abdomen or pelvis, as described above.
Prior GI Procedures:
EGD: none
Colonoscopy: none per chart prior neg cologuard
Assessment / Plan
-
68-year-old female with past medical history of alcoholic hepatitis, chronic pancreatitis, pancreatic pseudocyst, alcohol abuse, tobacco abuse, seizure disorder, anxiety, depression, bipolar disorder, hyperlipidemia, diabetes presents to the
emergency room with abdominal pain and vomiting. She has hx ETOH use with several recent evaluations for falls. In review with patient she has hx ETOH use since age 32 with periods of sobriety and heavy use. She admits to recent [place] stay
for E[place]H rehab with sobriety til September but then had of friends and began to drink again. She admits to recent ETOH use of 1/2 bottle wine daily. She now presents with abdominal pain and vomiting. She initially vomited bile then noted some red
blood. On admission also with abdominal pain 05/04. Ct a/p with IV contrast was completed without any abnormalities. WBC 11,700, hbg 9.6, Na 131 with normal LFT's,lipase, and platelets.
-nausea/vomiting with hematemesis
-abdominal pain with neg CT on admission
-ETOH abuse with recent use
-mild leukocytosis
-hx chronic pancreatitis with prior pseudocyst
other med problems:
-tobacco abuse
-seizure disorder
-anxiety/depression
-bipolar disorder
-hyperlipidemia
-DM
-GERD
-hx ? gastric ulcers per chart
PLAN:
etiology of hematemesis related to MW tear, esophagitis/gastritis with chronic ETOH use, PUD, vs other -- no hx cirrhosis or signs of liver disease with stable labs
plan for EGD today to eval also with hx abdominal pain
NPO
CT as noted
IV PPI BID
monitor for ETOH withdrawal
LFT and lipase normal will add INR
abx per primary team
discussed need for ETOH and tobacco abstinence
pain control per hospitalist
-
-
Thank you for consultation and allowing me to participate in the patient's care. Please call the [facility] physician during the after hours with any questions or concerns.
[2024-11-17 14:49] LABS: Glucose - Point of Care 113 mg/dl (70-99)
[2024-11-17] MEDS: ZOFRAN 4 MG IV (15:28)
[2024-11-17] MEDS: ROCEPHIN 1000 MG IV (17:06)
[2024-11-17] MEDS: NEURONTIN PO (17:07)
[2024-11-17] MEDS: STERILE WATER FOR INJECTION 10 ML IV (17:07)
[2024-11-17] MEDS: NSS (PRESERVATIVE FREE) 0.5 ML IV (17:25)
[2024-11-17] MEDS: ATIVAN 1 MG IV (17:26)
[2024-11-17] MEDS: PHENERGAN 50.25 MG IV (17:41)
--- NOTE | 2024-11-17 18:00 | PTCARENOTE ---
pt received to 2S room 2115 from PACU via stretcher, assisted to stand and ambulated to bathroom. pt voided and assisted to bed, gait steady. pt oriented to room, call kothari and plan of care with verbalized understanding. pt immediately asking for
food since she was starving and c/o nausea at same time. MSAS assessment on arrival is 5. pt stated she was unable to take Lorazepam pill due to nausea. Dr Brizuela made aware and Lorazepam IV provided per SEP. IVF infusing. telemetry placed and
reading SR 80 w/increased HR w/activity. care ongoing.
[2024-11-17 18:09] LABS: Glucose - Point of Care 180 mg/dl (70-99)
[2024-11-17] MEDS: NOVOLOG FLEXPEN-LOW RESISTANCE 1 UNITS SC (18:48)
[2024-11-17] MEDS: THIAMINE INJECTION IV ×2 (19:31→19:39)
[2024-11-17 21:42] LABS: Glucose - Point of Care 110 mg/dl (70-99)
[2024-11-17] MEDS: LIPITOR 20 MG PO (22:45)
[2024-11-18 03:11] VITALS: BP 99/51
[2024-11-18] MEDS: NSS 1000 IV (03:18)
[2024-11-18 06:10] LABS: Hematocrit 24.9 % (37.0-47.0); Hemoglobin 8.2 g/dL (12.0-16.0); Mean Corp Hgb Conc. 32.9 g/dL (33.0-37.0); Mean Corpuscular Hgb 27.8 pg (27.0-31.0); Mean Corpuscular Volume 84.4 fL (81.0-99.0); Mean Platelet Volume 8.9 fL (7.4-10.4); Platelet Count 207 10^3/uL (130-400); Red Blood Cell Count 2.95 10^6/uL (4.20-5.40); Red Cell Dist. Width 16.1 % (11.5-14.5); White Blood Cell Count 7.4 10^3/uL (4.8-10.8)
[2024-11-18] MEDS: DILAUDID 0.5 MG IV ×4 (06:29→19:53)
[2024-11-18 06:34] LABS: Blood Urea Nitrogen 8 mg/dl (7-17); Calcium 8.8 mg/dl (8.4-10.2); Carbon Dioxide 28 mmol/L (22-30); Chloride 103 mmol/L (98-107); Estimated Creatinine Clearance 82 ml/min; Glucose 101 mg/dl (70-99); Potassium 4.1 mmol/L (3.5-5.1); Sodium 134 mmol/L (135-145); eGFR > 60.00
[2024-11-18 07:15] VITALS: BP 108/48
[2024-11-18 07:55] LABS: Glucose - Point of Care 114 mg/dl (70-99)
--- NOTE | 2024-11-18 08:20 | W.PN.GI.CBS2 ---
Today's Communication / Plan
-
ppi bid, advance diet, outpatient gi follow up
Assessment / Plan
-
68-year-old female with past medical history of alcoholic hepatitis, chronic pancreatitis, pancreatic pseudocyst, alcohol abuse, tobacco abuse, seizure disorder, anxiety, depression, bipolar disorder, hyperlipidemia, diabetes presents to the
emergency room with abdominal pain and vomiting. She has hx ETOH use with several recent evaluations for falls. In review with patient she has hx ETOH use since age 32 with periods of sobriety and heavy use. She admits to recent [place] stay
for ETOH rehab with sobriety til September but then had of friends and began to drink again. She admits to recent ETOH use of 1/2 bottle wine daily. She now presents with abdominal pain and vomiting. She initially vomited bile then noted some red
blood. On admission also with abdominal pain 05/04. Ct a/p with IV contrast was completed without any abnormalities. WBC 11,700, hbg 9.6, Na 131 with normal LFT's,lipase, and platelets.
-nausea/vomiting with hematemesis
-abdominal pain with neg CT on admission
-ETOH abuse with recent use
-mild leukocytosis
-hx chronic pancreatitis with prior pseudocyst
other med problems:
-tobacco abuse
-seizure disorder
-anxiety/depression
-bipolar disorder
-hyperlipidemia
-DM
-GERD
-hx ? gastric ulcers per chart
S/p EGD 11/17 with esophageal ulcers and duodenal ulcers
abdominal pain may be from ulcers +/- chronic pain
hematemesis 2/2 esophageal ulcers
Recommendations:
- protonix 40 bid x8 weeks
- repeat egd 8 weeks assess for healing
- avoid etoh
- treatment of etoh withdrawal per primary team
- advance diet
GI will sign off should have follow up in GI office in 4-6 weeks
Subjective
Subjective
Date of Service: November 18, 2024
tolerating clears
abd pain improved
main issue is shakiness from etoh withdrawal
Objective
Data Reviewed
Laboratory Data:
Laboratory Results
11/18/24 05:49
11/18/24 05:49
Laboratory Results
PT Cancelled 11/17/24 10:31
INR Cancelled 11/17/24 10:31
Phosphorus 3.9 mg/dl (2.5-4.5) 11/17/24 04:23
Magnesium 1.9 mg/dl (1.6-2.3) 11/17/24 04:23
Total Bilirubin 0.5 mg/dl (0.2-1.3) 11/16/24 19:21
AST 36 U/L (14-36) 11/16/24 19:21
ALT 34 U/L (0-35) 11/16/24 19:21
Alkaline Phosphatase 101 U/L (38-126) 11/16/24 19:21
Lipase 86 U/L (23-300) 11/16/24 19:21
Vital Signs and I&O:
Vital Signs
Temp Pulse Resp BP Pulse Ox
99.2 F 83 16 99/51 95
11/18/24 03:11 11/18/24 03:11 11/18/24 03:11 11/18/24 03:11 11/18/24 03:11
I&O
11/17/24 11/18/24 11/19/24
06:59 06:59 06:59
Intake Total 662 / 662 1280 / 1280
Balance 662 / 662 1280 / 1280
Physical Exam
Physical Exam
HEENT: Anicteric
GI: Non Distended and Non Tender
[2024-11-18] MEDS: NOVOLOG FLEXPEN-LOW RESISTANCE SC ×2 (08:50→12:32)
[2024-11-18] MEDS: NSS IV (08:56)
[2024-11-18] MEDS: NEURONTIN 300 MG PO ×4 (09:00→21:09)
[2024-11-18] MEDS: FOLVITE 1 MG PO (09:00)
[2024-11-18] MEDS: PROTONIX IV 40 MG IV ×2 (09:00→19:52)
[2024-11-18] MEDS: NSS (PRESERVATIVE FREE) 10 ML IV ×2 (09:00→19:52)
[2024-11-18] MEDS: ZESTRIL 2.5 MG PO (09:01)
[2024-11-18] MEDS: THIAMINE INJECTION IV ×2 (09:01→19:53)
[2024-11-18] MEDS: ATIVAN 1 MG PO (09:12)
--- NOTE | 2024-11-18 09:12 | W.PN.HOSP.TC ---
Today's Communication/Plan
-
PPI. Advance diet as tolerated.
Assessment / Plan
Assessment / Plan
Physical exam:
General: Acutely ill
HEENT: Normocephalic, Atraumatic and Moist Mucous Membranes
Respiratory: Clear to Auscultation; Negative Wheezes, Rales or Rhonchi
Cardiac: Regular Rhythm and S1/S2
GI: Soft, tender and Nondistended
Musculoskeletal: No Clubbing, No Cyanosis and No Edema
Neuro: Awake, Alert and Oriented
Psych: Calm
EGD on 11/17:
Impression: - Multiple plaques in the upper third of the esophagus.
- Esophageal ulcers with no bleeding and no stigmata
of recent bleeding. Biopsied.
- Normal stomach. Biopsied.
- Non-bleeding duodenal ulcers with no stigmata of
bleeding.
A/P:
Acute upper GI bleed:
Due to duodenal ulcer
Status post endoscopy as above
Appreciated GI consult
Hemoglobin 8.2 today
Advancing to regular diet today
IV PPI twice daily
Alcohol use disorder:
Continue alcohol withdrawal protocol
Monitor mental status
Continue thiamine and folate
Abnormal UA, rule out UTI:
Continue IV ceftriaxone
Follow-up cultures
Hyponatremia:
Mild
Monitor sodium
Diabetes mellitus type 2:
Insulin sliding scale
Monitor blood sugar
Hold metformin acute
Hypertension:
On TRISTIAN inhibitor
History of orthostatic hypotension:
Monitor blood pressure closely
Hyperlipidemia:
On statin
DVT prophylaxis:
SCD
CODE STATUS:
Full code
Anticipated Discharge: Within 24 hours
Subjective/Interval History
-
Date of Service: November 18, 2024
Patient feels better overall. No nausea or vomiting
Objective Data
-
Labs:
Laboratory Results
11/18/24
05:49
WBC 7.4
Hgb 8.2 L
Hct 24.9 L
Plt Count 207
Sodium 134 L
Potassium 4.1
Chloride 103
Carbon Dioxide 28
BUN 8
Creatinine 0.6
Glucose 101 H
Calcium 8.8
Vital Signs:
Vital Signs
Temp Pulse Resp BP Pulse Ox
98.4 F 77 16 108/48 98
11/18/24 07:15 11/18/24 07:15 11/18/24 07:15 11/18/24 07:15 11/18/24 07:15
I&O
11/17/24 11/18/24 11/19/24
06:59 06:59 06:59
Intake Total 662 / 662 1280 / 1280
Balance 662 / 662 1280 / 1280
[2024-11-18 11:30] VITALS: BP 116/71
[2024-11-18 11:35] LABS: Glucose - Point of Care 111 mg/dl (70-99)
[2024-11-18 15:00] VITALS: BP 93/54
[2024-11-18] MEDS: ROCEPHIN 1000 MG IV (16:00)
[2024-11-18] MEDS: STERILE WATER FOR INJECTION 10 ML IV (16:00)
[2024-11-18 17:13] LABS: Glucose - Point of Care 189 mg/dl (70-99)
[2024-11-18] MEDS: NOVOLOG FLEXPEN-LOW RESISTANCE 1 UNITS SC (17:30)
[2024-11-18] MEDS: NSS (PRESERVATIVE FREE) 0.5 ML IV (17:50)
[2024-11-18] MEDS: ATIVAN 1 MG IV (17:50)
[2024-11-18 19:20] VITALS: BP 106/63
[2024-11-18] MEDS: LIPITOR 20 MG PO (21:09)
[2024-11-18 21:41] LABS: Glucose - Point of Care 195 mg/dl (70-99)
[2024-11-18 23:54] VITALS: BP 134/80
[2024-11-19] MEDS: DILAUDID 0.5 MG IV ×2 (01:45→06:31)
[2024-11-19 04:13] VITALS: BP 138/75
[2024-11-19 07:35] VITALS: BP 145/81
[2024-11-19 08:24] LABS: Glucose - Point of Care 128 mg/dl (70-99)
[2024-11-19] MEDS: FOLVITE 1 MG PO (08:45)
[2024-11-19] MEDS: PROTONIX IV 40 MG IV (08:45)
[2024-11-19] MEDS: ZESTRIL 2.5 MG PO (08:45)
[2024-11-19] MEDS: NEURONTIN 300 MG PO ×4 (08:45→21:26)
[2024-11-19] MEDS: NSS (PRESERVATIVE FREE) 10 ML IV (08:45)
[2024-11-19] MEDS: THIAMINE INJECTION IV ×2 (08:48→19:40)
[2024-11-19] MEDS: NOVOLOG FLEXPEN-LOW RESISTANCE SC (08:48)
--- NOTE | 2024-11-19 08:55 | W.PN.HOSP.TC ---
Today's Communication/Plan
-
PPI. Pain control.
Assessment / Plan
Assessment / Plan
Physical exam:
General: Acutely ill
HEENT: Normocephalic, Atraumatic and Moist Mucous Membranes
Respiratory: Clear to Auscultation; Negative Wheezes, Rales or Rhonchi
Cardiac: Regular Rhythm and S1/S2
GI: Soft, tender and Nondistended
Musculoskeletal: No Clubbing, No Cyanosis and No Edema
Neuro: Awake, Alert and Oriented
Psych: Calm
EGD on 11/17:
Impression: - Multiple plaques in the upper third of the esophagus.
- Esophageal ulcers with no bleeding and no stigmata
of recent bleeding. Biopsied.
- Normal stomach. Biopsied.
- Non-bleeding duodenal ulcers with no stigmata of
bleeding.
A/P:
Acute upper GI bleed:
Due to duodenal ulcer
Status post endoscopy as above
Appreciated GI consult
Hemoglobin 8.6 today
Advanced to regular diet
Change IV pain medications to oral
IV PPI twice daily changed to oral
Alcohol use disorder:
Continue alcohol withdrawal protocol but improving overall
Monitor mental status
Continue thiamine and folate
Abnormal UA:
Discontinue antibiotics since no growth on cultures
Hyponatremia:
Improving
Add fluid restriction
Monitor sodium
Diabetes mellitus type 2:
Insulin sliding scale
Monitor blood sugar
Hold metformin acute
Hypertension:
On TRISTIAN inhibitor
History of orthostatic hypotension:
Monitor blood pressure closely
Hyperlipidemia:
On statin
DVT prophylaxis:
SCD
CODE STATUS:
Full code
Anticipated Discharge: 24 - 48 hours
Subjective/Interval History
-
Date of Service: November 19, 2024
Patient complains of pain today and has been receiving IV pain medications only. We discussed about discharge planning and she feels that she cannot go home today. No hematemesis or melena.
Objective Data
-
Labs:
Laboratory Results
11/19/24
06:00
WBC Pending
Hgb Pending
Hct Pending
Plt Count Pending
Vital Signs:
Vital Signs
Temp Pulse Resp BP Pulse Ox
100.0 F 100 18 145/81 92
11/19/24 07:35 11/19/24 07:35 11/19/24 07:35 11/19/24 07:35 11/19/24 07:35
I&O
11/18/24 11/19/24 11/20/24
06:59 06:59 06:59
Intake Total 1280 / 1280 1540 / 1540
Balance 1280 / 1280 1540 / 1540
[2024-11-19 10:00] LABS: Hematocrit 26.4 % (37.0-47.0); Hemoglobin 8.6 g/dL (12.0-16.0); Mean Corp Hgb Conc. 32.6 g/dL (33.0-37.0); Mean Corpuscular Hgb 27.2 pg (27.0-31.0); Mean Corpuscular Volume 83.5 fL (81.0-99.0); Mean Platelet Volume 8.4 fL (7.4-10.4); Platelet Count 169 10^3/uL (130-400); Red Blood Cell Count 3.16 10^6/uL (4.20-5.40); Red Cell Dist. Width 15.8 % (11.5-14.5); White Blood Cell Count 8.8 10^3/uL (4.8-10.8)
[2024-11-19 10:25] LABS: Glucose 155 mg/dl (70-99)
[2024-11-19 10:33] LABS: Blood Urea Nitrogen 7 mg/dl (7-17); Calcium 8.5 mg/dl (8.4-10.2); Carbon Dioxide 27 mmol/L (22-30); Chloride 99 mmol/L (98-107); Estimated Creatinine Clearance 82 ml/min; Potassium 3.9 mmol/L (3.5-5.1); Sodium 132 mmol/L (135-145); eGFR > 60.00
[2024-11-19] MEDS: ROXICODONE 10 MG PO ×3 (11:20→21:27)
[2024-11-19 11:35] VITALS: BP 124/62
[2024-11-19 11:57] LABS: Glucose - Point of Care 163 mg/dl (70-99)
[2024-11-19] MEDS: NOVOLOG FLEXPEN-LOW RESISTANCE 1 UNITS SC ×2 (12:49→16:56)
[2024-11-19 15:05] VITALS: BP 103/62
[2024-11-19 16:22] LABS: Glucose - Point of Care 197 mg/dl (70-99)
[2024-11-19] MEDS: PROTONIX 40 MG PO (19:46)
[2024-11-19] MEDS: LIPITOR 20 MG PO (21:26)
[2024-11-19 22:05] LABS: Glucose - Point of Care 170 mg/dl (70-99)
[2024-11-19 23:11] VITALS: BP 133/77
[2024-11-20] MEDS: ROXICODONE 10 MG PO ×3 (01:30→09:30)
[2024-11-20 07:38] VITALS: BP 132/81
[2024-11-20 08:02] LABS: Hematocrit 26.6 % (37.0-47.0); Hemoglobin 8.7 g/dL (12.0-16.0); Mean Corp Hgb Conc. 32.7 g/dL (33.0-37.0); Mean Corpuscular Hgb 27.8 pg (27.0-31.0); Mean Platelet Volume 9.2 fL (7.4-10.4); Platelet Count 187 10^3/uL (130-400); Red Blood Cell Count 3.13 10^6/uL (4.20-5.40); Red Cell Dist. Width 16.2 % (11.5-14.5); White Blood Cell Count 8.6 10^3/uL (4.8-10.8)
[2024-11-20 08:31] LABS: Glucose - Point of Care 169 mg/dl (70-99)
[2024-11-20 09:05] LABS: Blood Urea Nitrogen 5 mg/dl (7-17); Calcium 8.8 mg/dl (8.4-10.2); Carbon Dioxide 32 mmol/L (22-30); Chloride 97 mmol/L (98-107); Estimated Creatinine Clearance 82 ml/min; Glucose 149 mg/dl (70-99); Potassium 3.3 mmol/L (3.5-5.1); Sodium 135 mmol/L (135-145); eGFR > 60.00
[2024-11-20] MEDS: NOVOLOG FLEXPEN-LOW RESISTANCE 1 UNITS SC (09:06)
[2024-11-20] MEDS: FOLVITE 1 MG PO (09:07)
[2024-11-20] MEDS: PROTONIX 40 MG PO (09:07)
[2024-11-20] MEDS: NEURONTIN 300 MG PO ×2 (09:07→12:04)
[2024-11-20] MEDS: ZESTRIL 2.5 MG PO (09:07)
[2024-11-20] MEDS: VITAMIN B1 100 MG PO (09:07)
--- NOTE | 2024-11-20 10:48 | W.PN.HOSP.TC ---
Today's Communication/Plan
-
Discharge
Assessment / Plan
Assessment / Plan
Physical exam:
General: Acutely ill
HEENT: Normocephalic, Atraumatic and Moist Mucous Membranes
Respiratory: Clear to Auscultation; Negative Wheezes, Rales or Rhonchi
Cardiac: Regular Rhythm and S1/S2
GI: Soft, tender and Nondistended
Musculoskeletal: No Clubbing, No Cyanosis and No Edema
Neuro: Awake, Alert and Oriented
Psych: Calm
Acute upper GI bleed:
Due to duodenal ulcer
Status post endoscopy as above, path report pending.
Appreciated GI consult
Hemoglobin 8.7 today, stable
Tolerating regular diet
Continue twice daily Protonix as per GI. Repeat EGD in 8 weeks. Discussed with patient.
Alcohol use disorder:
Continue alcohol withdrawal protocol but improving overall
Monitor mental status
Continue thiamine and folate
Hyponatremia:
Resolved.
Diabetes mellitus type 2:
Insulin sliding scale
Monitor blood sugar
Resume metformin/linagliptin (Jentadueto) on discharge.
Essential hypertension:
On TRISTIAN inhibitor
History of orthostatic hypotension:
Monitor blood pressure closely
Hyperlipidemia:
On statin
Chronic pain syndrome/chronic opiate dependence -on oxycodone as needed at home.
DVT prophylaxis:
SCD
CODE STATUS:
Full code
Dispo -medically stable for discharge. Outpatient follow-up with PCP and GI.
33 minutes spent in discharge process.
Anticipated Discharge: Today
Subjective/Interval History
-
Date of Service: November 20, 2024
Patient seen and examined. Complaining of abdominal discomfort. Did eat breakfast.
Objective Data
-
Labs:
Laboratory Results
11/20/24
07:12
WBC 8.6
Hgb 8.7 L
Hct 26.6 L
Plt Count 187
Sodium 135
Potassium 3.3 L
Chloride 97 L
Carbon Dioxide 32 H
BUN 5 L
Creatinine 0.6
Glucose 149 H
Calcium 8.8
Vital Signs:
Vital Signs
Temp Pulse Resp BP Pulse Ox
99.8 F 94 18 132/81 94
11/20/24 07:38 11/20/24 07:38 11/20/24 07:38 11/20/24 07:38 11/20/24 07:38
I&O
11/19/24 11/20/24 11/21/24
06:59 06:59 06:59
Intake Total 1540 / 1540 1680 / 1680
Balance 1540 / 1540 1680 / 1680
Review of Systems
-
History Source: Patient
All other systems: Reviewed and negative
--- NOTE | 2024-11-20 10:54 | W.DS.TRANS ---
DC Summary - [employer]
-
Discharge Instructions:
Discharge Diagnosis/Procedures Acute gastrointestinal bleed. Duodenal ulcers.
Alcohol use disorder. Hyponatremia.
Diet Low Cholesterol,Restrict fluids to 64 oz
Activity As tolerated
Driving Restrictions No driving for 24 hours
Bathing Restrictions None
Blood Work Please ask PCP to order CBC, BMP within 1 week
Instructions:
Stand-Alone Forms:
Changes to Home Medications: No
Discharge Medications:
DC Medications w/original date entered in [facility] Track
linagliptin 2.5 mg-metformin 1,000 mg tablet (Jentadueto) 1 tab PO BID Diabetes 04/02/23
gabapentin 300 mg capsule 300 mg PO QID Pain 05/12/23
lisinopril 2.5 mg tablet 2.5 mg PO DAILY Blood Pressure 05/12/23
simvastatin 40 mg tablet 40 mg PO HS High Cholesterol 05/12/23
tramadol 50 mg tablet 50 mg PO Q6HPRN PRN moderate pain 10/20/23
cholecalciferol (vitamin D3) 25 mcg (1,000 unit) tablet 25 mcg PO DAILY 10/15/24
cyanocobalamin (vitamin B-12) 1,000 mcg tablet 1,000 mcg PO DAILY 10/15/24
diazepam 5 mg tablet 5 mg PO Q8HPRN PRN anxiety 10/15/24
pantoprazole 40 mg tablet,delayed release (Protonix) 40 mg PO BID #60 tabs 11/19/24
folic acid 1 mg tablet 1 mg PO DAILY #30 tabs 11/20/24
thiamine mononitrate (vit B1) 100 mg tablet 100 mg PO BID #60 tabs 11/20/24
Home Medication Changes
Pending Results: No
[2024-11-20 11:16] LABS: Magnesium 1.3 mg/dl (1.6-2.3)
--- NOTE | 2024-11-20 11:35 | CM ---
Addendum entered by Saritha Gonzalez RN 11/20/24 11:36:
Correction: home with resumption of VN services.
Original Note:
Reviewed the chart notes and spoke with the patient at the bedside. IMM reviewed.
Plan: Discharge to home with no additional needs identified at this time.
[2024-11-20 11:56] VITALS: BP 142/87
[2024-11-20] MEDS: NOVOLOG FLEXPEN-LOW RESISTANCE SC (12:59)
== END 2024-11-20 13:02 | disposition home health service (06) | DRG 381 ==
LOC: 2 SOUTH 09:52
PROVIDERS: Hospitalist; ADMITTING PHYSICIAN Internal Medicine; ATTENDING PHYSICIAN Hospitalist; CONSULT PHYSICIAN Internal Medicine Gastroenterology; EMERGENCY PHYSICIAN Emergency Medicine; FAMILY PHYSICIAN Family Medicine
PROC: 0DB58ZX Excision of Esophagus, Via Natural or Artificial Opening Endoscopic, Diagnostic (ICD-10-PCS; 2024-11-17)
PROC: 0DB68ZX Excision of Stomach, Via Natural or Artificial Opening Endoscopic, Diagnostic (ICD-10-PCS; 2024-11-17)
DX: K22.11 Ulcer of esophagus with bleeding (principal); D62 Acute posthemorrhagic anemia; F10.239 Alcohol dependence with withdrawal, unspecified; E87.1 Hypo-osmolality and hyponatremia; F11.20 Opioid dependence, uncomplicated; K86.1 Other chronic pancreatitis; F02.83 Dementia in other diseases classified elsewhere, unspecified severity, with mood disturbance; F02.84 Dementia in other diseases classified elsewhere, unspecified severity, with anxiety; K26.4 Chronic or unspecified duodenal ulcer with hemorrhage; E11.9 Type 2 diabetes mellitus without complications; I10 Essential (primary) hypertension; E78.00 Pure hypercholesterolemia, unspecified; G89.4 Chronic pain syndrome; K21.9 Gastro-esophageal reflux disease without esophagitis; Y90.8 Blood alcohol level of 240 mg/100 ml or more; G40.909 Epilepsy, unspecified, not intractable, without status epilepticus; F31.9 Bipolar disorder, unspecified; F17.200 Nicotine dependence, unspecified, uncomplicated; Z79.899 Other long term (current) drug therapy; G43.909 Migraine, unspecified, not intractable, without status migrainosus; G47.33 Obstructive sleep apnea (adult) (pediatric); Z79.84 Long term (current) use of oral hypoglycemic drugs
CPT/HCPCS: 88305; 74177; 80048; 80053; 80306; 80307; 81003; 81015; 82077; 82962; 83690; 83735; 84100; 85025; 85027; 88342; 96361; 96374; 96375; 96376; 99285; Q9967

== ENCOUNTER 2024-12-30 04:39 | Emergency (ER) | payer MEDICARE, OTHER, SELFPAY ==
[2024-12-30 04:42] VITALS: BP 100/60
--- NOTE | 2024-12-30 06:07 | ED.GENMED ---
History of Present Illness
General
Chief Complaint: Alcohol Problem
Source: patient
Exam Limitations: none
Time Seen by Provider: 12/30/24 06:02
Nursing documentation reviewed up to this point in time: agreed with
History of Present Illness
History of Present Illness:
69-year-old female drinker smoker requesting help for her alcoholism states her left hand got stuck in the door by EMS, did not complain of shortness of breath but was sleeping desaturated to the 80s when she was snoring, requesting Ativan has been
in rehab before
Past History
Past History
ED Past Medical History: GERD, HTN, Hypercholesterolemia, NIDDM, Seizures, Psychiatric (Depression, Anxiety), Other (Chronic pancreatitis, Ulcers, obstructive sleep apnea, UTi, Bilateral Vestibular loss, Migraines, Neck pain, Coma from fall) and
Other (migraines, hepatitis, alcohol abuse, Bilateral vestibular Loss, Gastritis)
ED Past Surgical History: Tonsilectomy and Other (right breast lumpectomy)
Patient has exhibited threatening behavior?: No
Social History
Tobacco: Smoker
Alcohol: Chronic alcoholic ( Two 5th's of vodka, Denies any alcohol for 3 months as of 05/22/24)
Drug: None
Personal:
Living: detention ([facility])
Employment: Not employed
Family History
Family History: Other (Alzheimer's); Negative Early CAD
Review of Systems
Review of Systems
All Other Systems: Not applicable
Respiratory: Reports cough
ABD/GI: Reports no symptoms
Musculoskeletal: Reports joint pain
Neurological: Reports no symptoms
Phy Exam
Physical Exam
Physical Exam:
Physical Exam
General: no apparent distress, not acutely ill
Neck: No jaundice
Heart: s1/s2 regular rate and rhythm, no murmur. equal radial pulses.
Lungs: Wheezing
Abdomen: Nontender
Neuro: Moves all extremities oriented
Skin: no rash
Psychiatric: Cooperative not tremor
Extremities: Mild tenderness in the left long finger
Scores
Withdrawal Assessment of Alcohol
Withdrawal Assessment Completed?: No
Course
Orders/Labs/Results
Orders:
Orders
12/30/24 05:36
IV Insert/Care/Rem.- Treatment PRN
12/30/24 05:57
Basic Metabolic Panel Urgent
Complete Blood Count/With Diff Urgent
Lipase Urgent
12/30/24 06:06
Electrocardiogram (*1) Urgent
Reason for Study: Shortness of Breath
EKG- Treatment ONCE
Lorazepam [Ativan] 1 mg PO NOW STA
CR Chest - 2 Views Urgent
Comment:
Reason For Exam: sob
Hand, Left 3 View [CR Hand - Left Min 3 Views] Urgent
Comment:
Reason For Exam: truma
12/30/24 08:02
Ipratropium/Albuterol Sulfate [Duoneb] 3 ml INH R NOW STA
12/30/24 08:32
Dexamethasone Sod Phosphate [Decadron] 10 mg IV NOW STA
Doxycycline [Vibramycin] 100 mg PO NOW STA
Abnormal Lab Results
12/30/24
05:57
RBC 3.66 L 10^6/uL
(4.20-5.40)
Hgb 9.6 L g/dL
(12.0-16.0)
Hct 29.7 L %
(37.0-47.0)
MCH 26.2 L pg
(27.0-31.0)
MCHC 32.3 L g/dL
(33.0-37.0)
RDW 18.9 H %
(11.5-14.5)
Plt Count 436 H 10^3/uL
(130-400)
Absolute Monos (auto) 0.8 H 10^3/uL
(0.1-0.6)
Monocytes % 10.7 H %
(1.7-9.3)
Creatinine 0.5 L mg/dL
(0.6-1.0)
Glucose 131 H mg/dl
(70-99)
12/30/24 05:57
12/30/24 05:57
Vital Signs
Initial and Last Documented VS:
Initial Vital Signs
Temp Pulse Resp BP Pulse Ox
98.5 F 93 18 100/60 91
12/30/24 04:42 12/30/24 04:42 12/30/24 04:42 12/30/24 04:42 12/30/24 04:42
Last Documented Vital Signs
Temp Pulse Resp BP Pulse Ox
98.5 F 63 18 100/60 97
12/30/24 04:42 12/30/24 07:34 12/30/24 07:34 12/30/24 04:42 12/30/24 08:34
MDM/Problems Addressed
Differential Diagnosis Includes:
Alcoholism alcohol withdrawal electrolyte abnormality sleep apnea aspiration bronchitis
MDM/Problems Addressed:
Alcoholism,
Chronic conditions affecting care: DM
Acute Exacerbation and/or Progression of Chronic Illness: DM
*Pulse Oximetry
Patient hypoxic: yes
Comment: 88
*EKG
Interpreted by ED Provider?: Yes
Interpretation: normal
Comparison EKG: no comparison EKG present
Heart Rate: 78
Rate: normal
Rhythm: sinus
Ischemia: non-specific ST changes
*[employer] Interpretation
Rate: normal
Interpretation: normal
Heart Rate: 78
Rhythm: sinus
*Critical Care Note
Total Time (30-74mins, 75-104mins- exclusive of procedures): Not Applicable
Update Note
Update Note:
Update alcoholic requesting rehab did transiently desaturate while snoring will check EKG chest x-ray
B cares evaluation
7 AM patient now refusing rehab evaluation
Patient borderline pulse ox which improved with nebulizer will give a dose of steroids and antibiotics after reviewing her chest x-ray could be a small infiltrate
ED Attending Note
-
Portions of this chart may have been created with voice recognition software.� Occasional wrong word or��sound alike� substitutions may have occurred due to the inherent limitations of voice recognition software.
Discharge Plan
Departure
Patient Disposition: Home (Routine Discharge)
Date of Disposition: 12/30/24
Time of Disposition: 08:36
Patient with high blood pressure during this ER visit?: No
Condition: Good
Discharge Problem:
Acute alcoholism, Bronchitis
Instructions: Acute bronchitis in adults, Alcohol Use Disorder (DC)
Prescriptions:
New
doxycycline hyclate 100 mg tablet
100 mg PO BID Qty: 20 0RF
methylprednisolone [Medrol (Mino)] 4 mg tablets,dose pack
See Rx Instructions .ROUTE .COMPLEX Qty: 21 0RF
Rx Instructions:
for 6 days
albuterol sulfate [Ventolin HFA] 90 mcg/actuation HFA aerosol inhaler
2 inh inhalation Q6H PRN (Reason: shortness of breath or wheezing) Qty: 8.5 2RF
No Action
Jentadueto 2.5-1,000 mg Tablet
1 tab PO BID
simvastatin 40 mg tablet
40 mg PO HS
gabapentin 300 mg capsule
300 mg PO QID
lisinopril 2.5 mg tablet
2.5 mg PO DAILY
tramadol 50 mg Tablet
50 mg PO Q6HPRN PRN (Reason: moderate pain)
cyanocobalamin (vitamin B-12) 1,000 mcg Tablet
1,000 mcg PO DAILY
diazepam 5 mg Tablet
5 mg PO Q8HPRN PRN (Reason: anxiety)
cholecalciferol (vitamin D3) 25 mcg (1,000 unit) Tablet
25 mcg PO DAILY
pantoprazole [Protonix] 40 mg tablet,delayed release (DR/EC)
40 mg PO BID Qty: 60 0RF
folic acid 1 mg Tablet
1 mg PO DAILY Qty: 30 0RF
thiamine mononitrate (vit B1) 100 mg Tablet
100 mg PO BID Qty: 60 0RF
Referrals:
UNKNOWN - PT DOES,NOT KNOW [Family Provider]
Interventions
Interventions:
*General Assessment Last Done: 12/30/24 04:42
*Neglect/Abuse Screening Last Done: 12/30/24 04:42
*ED- Fall Risk Assessment Last Done: 12/30/24 04:42
*ED COVID-19 Vaccine History Last Done: 12/30/24 04:42
ED- Neurological Assessment Last Done: 12/30/24 05:29
ED-Psychological Assessment Last Done: 12/30/24 05:29
Discharge Date and Time
Print Language: [id number]
[2024-12-30 06:16] LABS: % Basophils 1.3 % (0-2); % Eosinophils 2.2 % (0-6); % Immature Granulocytes 0.3 % (0-0.5); % Lymphocytes 35.2 % (20.5-51.1); % Monocytes 10.7 % (1.7-9.3); % Neutrophils 50.3 % (42.2-75.2); Absolute Basophils 0.1 10^3/uL (0-0.2); Absolute Eosinophils 0.2 10^3/uL (0-0.7); Absolute Lymphocytes 2.7 10^3/uL (1.2-3.4); Absolute Monocytes 0.8 10^3/uL (0.1-0.6); Absolute Neutrophils 3.9 10^3/uL (1.4-6.5); Hematocrit 29.7 % (37.0-47.0); Hemoglobin 9.6 g/dL (12.0-16.0); Mean Corp Hgb Conc. 32.3 g/dL (33.0-37.0); Mean Corpuscular Hgb 26.2 pg (27.0-31.0); Mean Corpuscular Volume 81.1 fL (81.0-99.0); Nucleated Red Blood Cells % 0 %; Platelet Count 436 10^3/uL (130-400); Red Blood Cell Count 3.66 10^6/uL (4.20-5.40); Red Cell Dist. Width 18.9 % (11.5-14.5); White Blood Cell Count 7.7 10^3/uL (4.8-10.8)
[2024-12-30] MEDS: ATIVAN 1 MG PO (06:19)
[2024-12-30 06:45] LABS: Blood Urea Nitrogen 11 mg/dl (7-17); Calcium 9.3 mg/dl (8.4-10.2); Carbon Dioxide 24 mmol/L (22-30); Chloride 107 mmol/L (98-107); Glucose 131 mg/dl (70-99); Lipase 114 U/L (23-300); Sodium 137 mmol/L (135-145); eGFR > 60.00
[2024-12-30] MEDS: DUONEB 3 ML INH (08:14)
[2024-12-30 08:35] VITALS: BP 124/90
[2024-12-30] MEDS: DECADRON 10 MG IV (08:45)
[2024-12-30] MEDS: VIBRAMYCIN 100 MG PO (08:45)
== END 2024-12-30 09:00 | disposition home or self-care (01) ==
LOC: EMR 04:39
PROVIDERS: Emergency Medicine; EMERGENCY PHYSICIAN Emergency Medicine
DX: J20.9 Acute bronchitis, unspecified (principal); F10.20 Alcohol dependence, uncomplicated; S69.92XA Unspecified injury of left wrist, hand and finger(s), initial encounter; M25.542 Pain in joints of left hand; V89.0XXA Person injured in unspecified motor-vehicle accident, nontraffic, initial encounter; I10 Essential (primary) hypertension; E11.9 Type 2 diabetes mellitus without complications; E78.00 Pure hypercholesterolemia, unspecified; R56.9 Unspecified convulsions; F32.A Depression, unspecified; F41.9 Anxiety disorder, unspecified; G47.33 Obstructive sleep apnea (adult) (pediatric); G43.909 Migraine, unspecified, not intractable, without status migrainosus; M19.90 Unspecified osteoarthritis, unspecified site; Z79.84 Long term (current) use of oral hypoglycemic drugs; F17.200 Nicotine dependence, unspecified, uncomplicated; K86.1 Other chronic pancreatitis; Z87.440 Personal history of urinary (tract) infections
CPT/HCPCS: 99284; 96374; 94640; 71046; 73130; 80048; 83690; 85025; 93005

== ENCOUNTER 2025-01-09 15:07 | Emergency (ER) | payer MEDICARE, OTHER, SELFPAY ==
[2025-01-09 15:12] VITALS: BP 108/65
--- NOTE | 2025-01-09 16:27 | ED.GENMED ---
History of Present Illness
General
Chief Complaint: Alcohol Problem
Source: patient and ambulance crew
Exam Limitations: none
Time Seen by Provider: 01/09/25 16:18
Nursing documentation reviewed up to this point in time: agreed with
History of Present Illness
History of Present Illness:
Patient to ED s/p fall. History of alcohol abuse. States she drank 4 beers today. Fell in her apartment. She states she remembers falling. Denies hitting her head. No LOC. Complains of pain to her left knee, left hip. Multiple bruises noted to
arms and legs. Brought to ED by EMS for eval. Crisis consult requested by [employer] crisis over concerns of her not caring for self, alcohol abuse, frequent falls.
Past History
Past History
ED Past Medical History: GERD, HTN, Hypercholesterolemia, NIDDM, Seizures, Psychiatric (Depression, Anxiety), Other (Chronic pancreatitis, Ulcers, obstructive sleep apnea, UTi, Bilateral Vestibular loss, Migraines, Neck pain, Coma from fall) and
Other (migraines, hepatitis, alcohol abuse, Bilateral vestibular Loss, Gastritis)
ED Past Surgical History: Tonsilectomy and Other (right breast lumpectomy)
Patient has exhibited threatening behavior?: No
Social History
Tobacco: Smoker
Alcohol: Chronic alcoholic ( Two 5th's of vodka, Denies any alcohol for 3 months as of 05/22/24)
Drug: None
Personal:
Living: retirement ([facility])
Employment: Not employed
Family History
Family History: Other (Alzheimer's); Negative Early CAD
Review of Systems
Review of Systems
Allergies reviewed?: Yes
All Other Systems: ROS reviewed and negative except as documented in HPI and ROS
Constitutional: Reports no symptoms
EENT: Reports no symptoms
Respiratory: Reports no symptoms
Cardiac: Reports no symptoms
ABD/GI: Reports no symptoms
: Reports no symptoms
Musculoskeletal: Reports joint pain (pain to left knee and left hip)
Skin: Reports other (multiple bruises old and new to bilateral upper and lower extremities)
Neurological: Reports no symptoms
Psychiatric: Reports no symptoms
Phy Exam
General Physical Exam
General Presentation: no apparent distress
General age: appears stated age
General Skin: warm and dry
General Habitus: normal
General Mental: alert
Eye Exam
Eye Exam: PERRL, EOMI and conjunctiva normal
Pulmonary Exam
Pulmonary Exam: no respiratory distress and chest non tender
Gastrointestinal Exam
Gastrointestinal Exam: non tender and soft
Neurological Exam
Neurological Exam: alert, oriented x3, CN II-XII intact, no motor deficits, no sensory deficits and speech normal
Musculoskeletal Exam
Musculoskeletal Exam: no edema, neuro vasc intact and other (Full nonpainful rom to head, neck, back, upper extremites, RLE)
Skin Exam
Skin Exam: warm/dry, no rash and other (Multiple old and new bruises noted to upper and lower extremities. )
Psychiatric Exam
Psychiatric Exam: normal mood/affect
Scores
Withdrawal Assessment of Alcohol
Withdrawal Assessment Completed?: Not applicable
Course
Orders/Labs/Results
Orders:
Orders
01/09/25 15:50
Crisis Consult Urgent
Reason for Consult: failure to care for self
01/09/25 16:26
Hip, Left 2-3 Views [CR Hip - LT w/wo Pel 2-3 Vw*] Urgent
Comment:
Reason For Exam: fall
Include a pelvis x-ray?: Yes
Knee, Left 4 or More Views [CR Knee - Left 4 Or More View*] Urgent
Comment:
Reason For Exam: fall
01/09/25 16:52
CT Head W/o Iv Contrast Urgent
Comment:
Reason For Exam: fall, intoxicated
Vital Signs
Initial and Last Documented VS:
Initial Vital Signs
Temp Pulse Resp BP Pulse Ox
98.5 F 110 18 108/65 93
01/09/25 15:12 01/09/25 15:12 01/09/25 15:12 01/09/25 15:12 01/09/25 15:12
Last Documented Vital Signs
Temp Pulse Resp BP Pulse Ox
98.5 F 110 18 108/65 93
01/09/25 15:12 01/09/25 15:12 01/09/25 15:12 01/09/25 15:12 01/09/25 15:12
*Radiology
Radiology exam reviewed: radiology read reviewed
*Pulse Oximetry
Patient hypoxic: no
*Critical Care Note
Total Time (30-74mins, 75-104mins- exclusive of procedures): Not Applicable
Update Note
Update Note:
Patient to ED for crisis eval whichwas requested by [employer] order worker. Crisis evaluation completed. Patient has refused [facility] intervention, does not want help with her alcohol issues. 302was declined. SHe denies wanting to hurt self or
others. CLeared by crisis for discharge. She has contacted friend for transportation home and was discharged into their care
ED Attending Note
-
Portions of this chart may have been created with voice recognition software.� Occasional wrong word or��sound alike� substitutions may have occurred due to the inherent limitations of voice recognition software.
Discharge Plan
Departure
Patient Disposition: Home (Routine Discharge)
Date of Disposition: 01/09/25
Time of Disposition: 18:05
Patient with high blood pressure during this ER visit?: No
Condition: Good
Covid-19: Not Applicable
Discharge Problem:
Contusion of hip, Contusion of knee, Head injury, Alcohol intoxication
Instructions: Head injury in adults, Alcohol Use Disorder (DC), Contusion
Prescriptions:
No Action
Jentadueto 2.5-1,000 mg Tablet
1 tab PO BID
simvastatin 40 mg tablet
40 mg PO HS
gabapentin 300 mg capsule
300 mg PO QID
lisinopril 2.5 mg tablet
2.5 mg PO DAILY
tramadol 50 mg Tablet
50 mg PO Q6HPRN PRN (Reason: moderate pain)
cyanocobalamin (vitamin B-12) 1,000 mcg Tablet
1,000 mcg PO DAILY
diazepam 5 mg Tablet
5 mg PO Q8HPRN PRN (Reason: anxiety)
cholecalciferol (vitamin D3) 25 mcg (1,000 unit) Tablet
25 mcg PO DAILY
pantoprazole [Protonix] 40 mg tablet,delayed release (DR/EC)
40 mg PO BID Qty: 60 0RF
folic acid 1 mg Tablet
1 mg PO DAILY Qty: 30 0RF
thiamine mononitrate (vit B1) 100 mg Tablet
100 mg PO BID Qty: 60 0RF
doxycycline hyclate 100 mg tablet
100 mg PO BID Qty: 20 0RF
methylprednisolone [Medrol (Mino)] 4 mg tablets,dose pack
See Rx Instructions .ROUTE .COMPLEX Qty: 21 0RF
Rx Instructions:
for 6 days
albuterol sulfate [Ventolin HFA] 90 mcg/actuation HFA aerosol inhaler
2 inh inhalation Q6H PRN (Reason: shortness of breath or wheezing) Qty: 8.5 2RF
Referrals:
Massimo Mcdaniels MD [Family Provider] - Tomorrow
Interventions
Interventions:
*Risk Screen - Suicide Last Done: 01/09/25 15:15
*General Assessment Last Done: 01/09/25 15:15
*Neglect/Abuse Screening Last Done: 01/09/25 15:15
*ED- Fall Risk Assessment Last Done: 01/09/25 15:15
*ED COVID-19 Vaccine History Last Done: 01/09/25 15:15
*Nursing Disposition Last Done: 01/09/25 18:22
ED- Neurological Assessment Last Done: 01/09/25 15:30
ED-Psychological Assessment Last Done: 01/09/25 15:30
Discharge Date and Time
Discharge Date/Time: 01/09/25 18:22
Print Language: SENEGALESE
== END 2025-01-09 18:22 | disposition home or self-care (01) ==
LOC: EMR 15:07
PROVIDERS: EMERGENCY PHYSICIAN Student in an Organized Health Care Education/Training Program; FAMILY PHYSICIAN Family Medicine
DX: S70.02XA Contusion of left hip, initial encounter (principal); S80.02XA Contusion of left knee, initial encounter; S09.90XA Unspecified injury of head, initial encounter; W19.XXXA Unspecified fall, initial encounter; F10.129 Alcohol abuse with intoxication, unspecified; F17.200 Nicotine dependence, unspecified, uncomplicated
CPT/HCPCS: 99285; 70450; 73502; 73564

== ENCOUNTER 2025-02-13 07:22 | Inpatient (IN) | payer MEDICARE, OTHER, SELFPAY ==
[2025-02-09 10:27] VITALS: BP 125/74
--- NOTE | 2025-02-09 10:37 | ED.GENMED ---
History of Present Illness
General
Chief Complaint: Fall
Source: patient
Exam Limitations: none
Time Seen by Provider: 02/09/25 10:25
History of Present Illness
History of Present Illness:
70yoF with a history of type 2 diabetes, hypertension, hyperlipidemia, bipolar disorder, and tobacco use presenting via EMS for evaluation after a fall. Patient was walking with a rolling walker this morning when she tripped over something and
landed directly on her right hip. She denies any head strike or LOC. Her only current complaint is pain in her right hip. She was unable to bear weight and EMS was called. She states this is the worst pain that she has ever had. Patient does
report a history of memory loss and had a subdural hematoma last year. She had a left hip fracture about 2-3 months ago and had surgery at [place]. No blood thinners.
Past History
Past History
ED Past Medical History: GERD, HTN, Hypercholesterolemia, NIDDM, Seizures, Psychiatric (Depression, Anxiety), Other (Chronic pancreatitis, Ulcers, obstructive sleep apnea, UTi, Bilateral Vestibular loss, Migraines, Neck pain, Coma from fall) and
Other (migraines, hepatitis, alcohol abuse, Bilateral vestibular Loss, Gastritis)
ED Past Surgical History: Tonsilectomy and Other (right breast lumpectomy)
Patient has exhibited threatening behavior?: No
Social History
Tobacco: Smoker
Alcohol: Chronic alcoholic ( Two 5th's of vodka, Denies any alcohol for 3 months as of 05/22/24)
Drug: None
Personal:
Living: assisted ([facility])
Employment: Not employed
Family History
Family History: Other (Alzheimer's); Negative Early CAD
Phy Exam
General Physical Exam
General Presentation: well appearing and no apparent distress
General Skin: warm and dry
General Habitus: normal
General Mental: alert
ENT Exam
ENT Exam: normocephalic and other (No external signs of head trauma. No cervical spine tenderness.)
Eye Exam
Eye Exam: PERRL and conjunctiva normal
Pulmonary Exam
Pulmonary Exam: lungs clear, no respiratory distress, no rales, no crackles and no rhonchi
Gastrointestinal Exam
Gastrointestinal Exam: non tender, soft and non distended
Neurological Exam
Neurological Exam: alert
Angel Coma Scale
Eye Opening: Spontaneous
Verbal Response: Oriented
Motor Response: Obeys Commands
GCS Total Score: 15
Musculoskeletal Exam
Musculoskeletal Exam: other (R hip: No deformity noted. +Tenderness to lateral hip. Patient unable to range hip due to pain. 2+ DP pulse.)
Skin Exam
Skin Exam: normal color and warm/dry
Psychiatric Exam
Psychiatric Exam: normal mood/affect
Course
Orders/Labs/Results
Orders:
Orders
02/09/25 10:35
Basic Metabolic Panel Urgent
Complete Blood Count/With Diff Urgent
HYDROmorphone [Dilaudid] 0.5 mg IV NOW STA
CR Femur - Right Min 2 Vw Urgent
Comment:
Reason For Exam: R hip pain
CR Pelvis - 1 Or 2 Views Urgent
Comment:
Reason For Exam: R hip pain
02/09/25 10:40
CR Lumbar Spine Comp Min 4 Vw* Urgent
Comment:
Reason For Exam: low back pain, fall
02/09/25 10:46
CT Cervical Spine W/o Iv Contr Urgent
Comment:
Reason For Exam: unwitnessed fall
02/09/25 10:47
CT Head W/o Iv Contrast Urgent
Comment:
Reason For Exam: unwitnessed fall
02/09/25 11:14
CT Pelvis W/o Iv Contrast Urgent
Comment:
Reason For Exam: R hip pain after fall
HYDROmorphone [Dilaudid] 0.5 mg IV NOW STA
02/09/25 13:08
[id number] Urgent
Potassium Urgent
02/09/25 13:25
Urinalysis Reflex To Culture Urgent
02/09/25 13:31
HYDROmorphone [Dilaudid] 1 mg IV NOW STA
02/09/25 14:02
Admit/Transfer Patient As Directed
Co-Sign Provider:
Level of Care: Observation services
Assign to:: Medical/Surgical
Physician / Group: britany frazier
Diagnosis: right hip fracture
Reason for Hospitalization: right hip fracture
PRN Pain Medication Management As Directed
May give lesser potent ordered pain med per pt: Yes
preference::
Protocol:: Medication orders for pain may be administered in a
manner that supports deferring to patient preference
when the pt is:
- Requesting an ordered lesser potent pain medication.
Least to most potent pain medications are defined
as: acetaminophen < NSAID < tramadol < opioids
(morphine, oxycodone, hydromorphone).
- Requesting a lesser dose of the same medication IF
ORDERED.
- Requesting a less intrusive route of administration
if both routes are prescribed by the provider (PO <
IV).
02/09/25 14:03
Code Status As Directed
Resuscitation Status: Full Code
Abnormal Lab Results
02/09/25
10:35
WBC 17.2 H 10^3/uL
(4.8-10.8)
Hgb 11.6 L g/dL
(12.0-16.0)
Hct 35.0 L %
(37.0-47.0)
RDW 19.6 H %
(11.5-14.5)
Plt Count 457 H 10^3/uL
(130-400)
Abs Immat Gran (auto) 0.1 H 10^3/uL
(0-0.05)
Absolute Neuts (auto) 13.2 H 10^3/uL
(1.4-6.5)
Absolute Monos (auto) 1.3 H 10^3/uL
(0.1-0.6)
Neutrophils % 77.2 H %
(42.2-75.2)
Lymphocytes % 13.6 L %
(20.5-51.1)
Sodium 134 L mmol/L
(135-145)
Carbon Dioxide 21 L mmol/L
(22-30)
BUN 6 L mg/dl
(7-17)
Creatinine 0.5 L mg/dL
(0.6-1.0)
Glucose 105 H mg/dl
(70-99)
02/09/25 10:35
02/09/25 13:08
Vital Signs
Initial and Last Documented VS:
Initial Vital Signs
Temp Pulse Resp BP Pulse Ox
98.4 F 94 16 125/74 94
02/09/25 10:27 02/09/25 10:27 02/09/25 10:27 02/09/25 10:27 02/09/25 10:27
Last Documented Vital Signs
Temp Pulse Resp BP Pulse Ox
98.4 F 89 16 114/99 94
02/09/25 10:27 02/09/25 14:04 02/09/25 14:04 02/09/25 14:00 02/09/25 14:04
MDM/Problems Addressed
Differential Diagnosis Includes:
70yoF here with R hip pain after a mechanical fall. Denies head strike. VSS. No deformity noted on exam. RLE is neurovascularly intact. Differential diagnosis includes but is not limited to: fracture, dislocation, soft tissue injury
Initial ED plan: Check CBC, CMP, R pelvic/hip x-rays, and CT head/cervical spine as patient is not a reliable historian due to memory loss and hx of alcohol abuse. IV Dilaudid for pain.
*Pulse Oximetry
SaO2: 94
Oxygen Mode of Delivery: Room air
Patient hypoxic: no (94%)
*Critical Care Note
Total Time (30-74mins, 75-104mins- exclusive of procedures): Not Applicable
Update Note
Update Note:
X-rays of hip negative for fractures. CT obtained which confirms a minimally displaced greater trochanteric fracture. Patient requiring multiple doses of Dilaudid for pain control. Orthopedics notified and patient admitted for further management.
ED Attending Note
-
Portions of this chart may have been created with voice recognition software.� Occasional wrong word or��sound alike� substitutions may have occurred due to the inherent limitations of voice recognition software.
Discharge Plan
Departure
Patient Disposition: Admit
Date of Disposition: 02/09/25
Time of Disposition: 13:35
Presentation/result/management discussed w/ accepting MD/DO: Hospitalist
Discharge Problem:
Closed fracture of greater trochanter of right femur
Interventions
Interventions:
*Risk Screen - Suicide Last Done: 02/09/25 10:31
*General Assessment Last Done: 02/09/25 10:31
*Neglect/Abuse Screening Last Done: 02/09/25 10:31
*ED- Fall Risk Assessment Last Done: 02/09/25 10:27
*ED COVID-19 Vaccine History Last Done: 02/09/25 10:30
*Nursing Disposition Last Done: 02/09/25 14:46
ED-Musculoskeletal Assessment Last Done: 02/09/25 10:31
ED- Neurological Assessment Last Done: 02/09/25 10:31
ED-Skin Assessment Last Done: 02/09/25 10:31
[2025-02-09] MEDS: DILAUDID 0.5 MG IV ×2 (10:38→11:18)
[2025-02-09 10:44] LABS: Hematocrit 35.0 % (37.0-47.0); Hemoglobin 11.6 g/dL (12.0-16.0); Mean Corp Hgb Conc. 33.1 g/dL (33.0-37.0); Mean Corpuscular Volume 83.1 fL (81.0-99.0); Nucleated Red Blood Cells % 0 %; Platelet Count 457 10^3/uL (130-400); Red Cell Dist. Width 19.6 % (11.5-14.5)
[2025-02-09 11:30] LABS: Blood Urea Nitrogen 6 mg/dl (7-17); Calcium 9.8 mg/dl (8.4-10.2); Carbon Dioxide 21 mmol/L (22-30); Chloride 102 mmol/L (98-107); Glucose 105 mg/dl (70-99); Sodium 134 mmol/L (135-145); eGFR > 60.00
[2025-02-09 13:00] VITALS: BP 116/67
[2025-02-09 13:29] LABS: ALT (SGPT) 13 U/L (0-35); AST (SGOT) 20 U/L (14-36); Albumin 3.8 g/dl (3.5-5.0); Alkaline Phosphatase 86 U/L (38-126); Potassium 3.5 mmol/L (3.5-5.1); Total Protein 7.0 g/dl (6.3-8.2)
[2025-02-09] MEDS: DILAUDID 1 MG IV (13:39)
--- NOTE | 2025-02-09 13:40 | HPS.HSE ---
Family Physician
-
Family Physician: INTERVIEWE UNKNOWN - PT NOT
Chief Complaint
-
fall
History of Present Illness
70yoF with a history of type 2 diabetes, hypertension, hyperlipidemia, bipolar disorder, and tobacco use presenting via EMS for evaluation after a fall. Patient was walking with a rolling walker this morning when her rollator caught on the corner
of the shelf and fell on her right hip. she was not able to get up from the floor. denied headache dizzy or syncope. she is having lower back pain from the fall. denied fever, chills, cough,congestion, chest pain, sob. denied abdominal pain,n,v. she
has chronic diarrhea. denied dysuria or hematuria.
noted to have right hip fracture. admitting for further management.
Medical History
Past Medical History
Past Medical History: Reports Other
Additional Past Medical History:
Type 2 diabetes
Past Surgical History: Reports Other
Additional Past Surgical History:
Tonsillectomy
Social History
Tobacco: Smoker
Alcohol: None
Drug: None
Personal: Single
Living: Alone
Family History
Family History: Not pertinent
Allergies / Home Medications
Allergies reflects when Allergies were last updated in [employer]
Home Medications with original date entered in [employer]
Allergy/Medication List:
Allergies
Allergy/AdvReac Type Severity Reaction Status Date / Time
topiramate (From Topamax) Allergy Itching Verified 12/30/24 04:41
valdecoxib (From Bextra) Allergy Rash Verified 12/30/24 04:41
Home Medications
linagliptin 2.5 mg-metformin 1,000 mg tablet (Jentadueto) 1 tab PO BID Diabetes 04/02/23
gabapentin 300 mg capsule 300 mg PO QID Pain 05/12/23
lisinopril 2.5 mg tablet 2.5 mg PO DAILY Blood Pressure 05/12/23
simvastatin 40 mg tablet 40 mg PO HS High Cholesterol 05/12/23
tramadol 50 mg tablet 50 mg PO Q6HPRN PRN moderate pain 10/20/23
cholecalciferol (vitamin D3) 25 mcg (1,000 unit) tablet 25 mcg PO DAILY Supplement 10/15/24
cyanocobalamin (vitamin B-12) 1,000 mcg tablet 1,000 mcg PO DAILY Supplement 10/15/24
diazepam 5 mg tablet 5 mg PO Q8HPRN PRN anxiety 10/15/24
pantoprazole 40 mg tablet,delayed release (Protonix) 40 mg PO BID #60 tabs 11/19/24
folic acid 1 mg tablet 1 mg PO DAILY #30 tabs 11/20/24
thiamine mononitrate (vit B1) 100 mg tablet 100 mg PO BID #60 tabs 11/20/24
albuterol sulfate 90 mcg/actuation aerosol inhaler (Ventolin HFA) 2 inh inhalation Q6H PRN shortness of breath or wheezing #8.5 grams 12/30/24
doxycycline hyclate 100 mg tablet 100 mg PO BID #20 tabs 12/30/24
methylprednisolone 4 mg tablets in a dose pack (Medrol (Mino)) See Rx Instructions PO .COMPLEX #21 ea 12/30/24
Review of Systems
-
Constitutional: Reports No Symptoms
EENT: Reports No Symptoms
Respiratory: Reports No Symptoms
Cardiac: Reports No Symptoms
Abdomen/GI: Reports No Symptoms
: Reports No Symptoms
Musculoskeletal: Reports Other (back pain)
Skin: Reports No Symptoms
Neurological: Reports No Symptoms
Endocrine: Reports No Symptoms
Hematologic/Lymphatic: Reports No Symptoms
Psych: Reports No Symptoms
Physical Exam
Vital Signs
Vital Signs
Temp Pulse Resp BP Pulse Ox
98.4 F 99 19 116/67 92
02/09/25 10:27 02/09/25 13:00 02/09/25 13:00 02/09/25 13:00 02/09/25 13:00
Physical Exam
General: Well Developed, Well Nourished and No Apparent Distress
HEENT: NormoCephalic, Moist mucous membranes and Atraumatic
Respiratory: Clear
Cardiac: S1/S2 and Regular Rhythm; No Murmur or Rub
GI: Soft, Non Tender, Non Distended and Normal Bowel Sounds; No Organomegaly
Rectal: Deferred by Provider
Musculoskeletal: No Clubbing, No Cyanosis, No Edema and Other (right LE short)
Skin: No Rash
Neuro: AO x 3 and Nonfocal/grossly intact
Psych: Calm
Laboratory Results
-
02/09/25 10:35
02/09/25 13:08
Laboratory Results
Total Bilirubin 0.6 mg/dl (0.2-1.3) 02/09/25 13:08
AST 20 U/L (14-36) 02/09/25 13:08
ALT 13 U/L (0-35) 02/09/25 13:08
Alkaline Phosphatase 86 U/L (38-126) 02/09/25 13:08
Data Reviewed
-
Diagnostic Radiology: Report Reviewed by me
CT Scan: Image Personally Visualized and interpreted
Lab Data: Labs Reviewed by me
Impression/Plan
-
#right hip fracture
-orthopedics Consulted
-Ct pelvis with the impression of Minimally displaced fracture of the greater trochanter of the right proximal femur. Left-sided intertrochanteric fracture, traversed by a cephalomedullary bridget.Mild wall thickening of the urinary bladder. Please
correlate for symptoms of cystitis.
- Head CT with no acute findings
- Cervical spine CT negative
- Lumbar spine x-ray Compression fracture of the L3 vertebral body, associated with approximately 50% height loss, new compared to prior study dated 07/24/2022. Compression fracture of the superior endplate of L2, associated with 30% height loss,
also new compared to prior study.
- Pelvic x-ray negative
- Femur x-ray negative
-Tylenol, oxy, Dilaudid prn for pain
-as per ortho abduction orthosis and WBAT
-PT/OT consulted
# Leukocytosis likely reactive
- WBC 17.2, patient is afebrile
- Continue to monitor
# Anemia of chronic disease
- Hemoglobin stable at 11.6
- Patient is afebrile
- Continue to monitor
# History of GI bleed secondary to duodenal ulcer
#Diabetes mellitus type 2:
-Insulin sliding scale
-Monitor blood sugar
-hold (Konstantin)
#Essential hypertension:
-lisinopril continued
#Hyperlipidemia:
-On statin
#Chronic pain syndrome/chronic opiate dependence
-on t gabapentin as outpatient
#DVT prophylaxis:
SCD
#Code STATUS:
-Full code
[2025-02-09 14:00] VITALS: BP 114/99
--- NOTE | 2025-02-09 14:14 | W.PN.UPDATE ---
Update Note
Progress Note Update
This note serves as an addendum to the H&P by loom overhauler JONELLE Reshma RUFF
HPI
69F HX ETOH use disorder, UGIB, Non bleeding DU and esophageal ulcer, ACBLA, DMT2 seen at ER:
- EMS for evaluation after a fall.
- walking with a rolling walker this morning when she tripped over something and landed directly on her right hip.
- denies any head strike or LOC.
- pain in her right hip. She was unable to bear weight and EMS was called.
- HX Lt Hip Fx 2- 3months ago s/p ORIF with cephalomedullary bridget.
HX memory loss and had a subdural hematoma last year. She had a left hip fracture about 2-3 months ago and had surgery at
[facility]
Gen: distress with pain , looks uncomfortable
HEENT: anicteric
Neck: supple neck
Lungs: CTA
Cor: RRR S1 S2
Abdomen: benign
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
MS: no edema
Psych:
Relevant Data
WCC 17
Hgb 11.6
Plt 457
Na 134 CO2 21 Cr 0.5 eGFR > [address] Pelvis W/o Iv Contrast
1. Minimally displaced fracture of the greater trochanter of the right proximal femur.
2. Left-sided intertrochanteric fracture, traversed by a cephalomedullary bridget.
3. Mild wall thickening of the urinary bladder. Please correlate for symptoms of cystitis.
CT of the head without contrast.
1. No intracranial hemorrhage, and no displaced skull fracture appreciated.
2. No significant change compared to prior study.
CT Cervical Spine W/o Iv Contr
1. No osseous injury appreciated.
2. Mild degenerative change, without significant change compared to prior study.
Lumbar Spine Comp Min 4 Vw*
1. Compression fracture of the L3 vertebral body, associated with approximately 50% height loss
- new compared to prior study dated 07/24/2022.
2. Compression fracture of the superior endplate of L2, associated with 30% height loss, also new compared to prior study.
Pelvis XR
- changes of recent prior left hip surgery. No suspected acute fracture is appreciated.
R Femur XR
- No fracture or dislocation of the right femur.
11/17/24 EGD
- non bleeding duodenal ulcers, esophageal ulcers with no bleeding and no stigmata of recent bleeds and a normal stomach.
- Pathology is pending
- twice daily Protonix
- to repeat endoscopy in eight weeks
Last hospitalist admission: 11/16/2024 - 11/20/2024
DISCHARGE DIAGNOSES:
1. Acute upper GI bleed.
2. Non bleeding duodenal ulcers.
3. Esophageal ulcers.
4. Acute blood loss anemia.
5. Alcohol use disorder.
6. Hyponatremia.
7. Diabetes mellitus, type 2.
ASSESSMENT & PLAN
Acute R Hip greater trochanter Fx
S/P mechanical fall
HX Left-sided intertrochanteric fracture, traversed by a cephalomedullary bridget.
Per Ortho consult suggested
- just need a abduction orthosis
- can be WBAT.
- If pain controlled, should be good for d/c home and follow up in 1-2 weeks with Ortho
- Fx set protocol for conservative medical approach
New L3 50% vertebral body compresion Fx
- No signs of radicluloppathy
- denied numness and weakness
- No acute bowela nd bladder dysfunction
- Supportive care with acute pain control
- PT/OT
HX UGIB and ACBLA in October 2024 , had EGD
Non bleeding duodenal ulcers, esophageal ulcers with no bleeding and no stigmata October EGD
ETOH use disorder: Nl MCV
- denied recent ETOH use for months
- Low risk alcohol withdrawal protocol but improving overall
- thiamine and folate
Hyponatremia: borderline
Resolved
Diabetes mellitus type 2:
- ISS low
- Hold metformin/linagliptin (Jentadueto)
Essential hypertension:
- On TRISTIAN inhibitor
HX orthostatic hypotension:
- Monitor blood pressure closely
Hyperlipidemia:
On statin
Chronic pain syndrome/chronic opiate dependence
-on oxycodone as needed at home.
DVT Px: SQH
Full code
OBS MS
--- NOTE | 2025-02-09 14:40 | CM ---
CM reviewed chart, patient seen bedside, initial assessment completed. 70yoF with a history of type 2 diabetes, hypertension, hyperlipidemia, bipolar disorder, and tobacco use presenting via EMS for evaluation after a fall.
Patient resides independently at [facility], 6th floor, elevator access. Patient reports history with VN, uses RW for ambulation. Patient denies SNF history. PCP confirmed [facility], pharmacy [facility], confirms prescription coverage.
Patient reports she is followed by a CM at [facility]. CM will continue to follow for all discharge planning needs.
Plan; home, watch for PT/OT evals for recommendations
[2025-02-09 15:45] VITALS: BP 102/46
[2025-02-09] MEDS: TYLENOL 650 MG PO (16:23)
[2025-02-09 16:45] LABS: Glucose - Point of Care 106 mg/dl (70-99)
[2025-02-09] MEDS: NOVOLOG FLEXPEN-LOW RESISTANCE SC (16:47)
[2025-02-09] MEDS: ROXICODONE 5 MG PO (17:18)
[2025-02-09] MEDS: NEURONTIN 300 MG PO ×2 (17:18→21:10)
[2025-02-09] MEDS: LIPITOR 20 MG PO (21:10)
[2025-02-09] MEDS: SENOKOT 17.2 MG PO (21:10)
[2025-02-09] MEDS: COLACE 100 MG PO (21:10)
[2025-02-09] MEDS: TYLENOL PO ×2 (21:10→21:12)
[2025-02-09] MEDS: HEPARIN 5000 UNITS SC (21:10)
[2025-02-09] MEDS: VALIUM 5 MG PO (21:11)
[2025-02-09 21:29] LABS: Glucose - Point of Care 128 mg/dl (70-99)
[2025-02-09 23:07] VITALS: BP 105/60
[2025-02-10] MEDS: TYLENOL PO ×6 (00:15→21:49)
[2025-02-10] MEDS: ROXICODONE 5 MG PO ×5 (01:16→21:50)
[2025-02-10 04:49] LABS: Urine Character Cloudy (Clear)
[2025-02-10 05:07] LABS: Urine Squamous Cell SEEN /LPF (Few)
[2025-02-10 05:08] LABS: Urine Urothelial Cell SEEN /LPF (FEW); Urine White Cell >100 /HPF (0-5)
[2025-02-10 07:20] VITALS: BP 138/76
[2025-02-10 07:25] LABS: Glucose - Point of Care 107 mg/dl (70-99)
[2025-02-10] MEDS: NOVOLOG FLEXPEN-LOW RESISTANCE SC ×2 (08:40→12:05)
[2025-02-10] MEDS: ZESTRIL 2.5 MG PO (08:49)
[2025-02-10] MEDS: PROTONIX 40 MG PO (08:49)
[2025-02-10] MEDS: NEURONTIN 300 MG PO ×4 (08:49→21:50)
[2025-02-10] MEDS: COLACE 100 MG PO ×2 (08:49→21:51)
[2025-02-10] MEDS: HEPARIN 5000 UNITS SC ×2 (08:50→21:51)
[2025-02-10] MEDS: MAG-TAB SR 84 MG PO (08:50)
[2025-02-10] MEDS: SENOKOT 17.2 MG PO ×2 (08:50→21:51)
[2025-02-10 08:51] LABS: Glycohemoglobin (HgbA1c) 5.2 % (4.0-5.6)
[2025-02-10 12:04] LABS: Glucose - Point of Care 123 mg/dl (70-99)
[2025-02-10 15:30] VITALS: BP 108/54
--- NOTE | 2025-02-10 15:30 | W.PN.HOSP.TC ---
Today's Communication/Plan
-
see outlined plan below
Assessment / Plan
Assessment / Plan
Assessment:
Right Hip fracture related to mechanical fall
- Minimally displaced fracture of the greater trochanter of the right proximal femur on CT
- prn pain control
- Ortho consult
- await abduction orthosis from [facility] for safe PT/OT evals
New L3 50% vertebral body compression Fx
- pain control
- check Vit D level
Urinary tract infection
- start Rocephin, day 1 pending culture
Anemia of chronic disease
- Hemoglobin stable at 11.6
- Patient is afebrile
- Continue to monitor
History of GI bleed secondary to duodenal ulcer
Diabetes mellitus type 2
- Insulin sliding scale
- Monitor blood sugar
- hold Jentadueto
Essential hypertension
- lisinopril
Hyperlipidemia
- statin
Chronic pain syndrome/chronic opiate dependence
- gabapentin
DVT ppx: SCDs
Code: Full
Anticipated Discharge: > 48 hours
Subjective/Interval History
-
Date of Service: February 10, 2025
resting comfortably
reports some R hip pain
Objective Data
-
Vital Signs:
Vital Signs
Temp Pulse Resp BP Pulse Ox
98.7 F 69 18 138/76 96
02/10/25 07:20 02/10/25 08:49 02/10/25 07:20 02/10/25 08:49 02/10/25 11:05
I&O
02/09/25 02/10/25 02/11/25
06:59 06:59 06:59
Intake Total 120 / 120 240 / 240
Balance 120 / 120 240 / 240
Physical Exam
-
General: No Apparent Distress
HEENT: Normocephalic and Atraumatic
Cardiac: Regular Rhythm and S1/S2
GI: Soft and Nontender
Musculoskeletal: Other (RLE short. mild knee swelling)
Neuro: AO x 3
Psych: Calm
Data Reviewed
-
Total Time Spent with Patient (in minutes): 42
Labs: Labs Reviewed by me
[2025-02-10 16:15] LABS: Glucose - Point of Care 175 mg/dl (70-99)
[2025-02-10] MEDS: STERILE WATER FOR INJECTION 10 ML IV (16:48)
[2025-02-10] MEDS: ROCEPHIN 1000 MG IV (16:48)
[2025-02-10] MEDS: NOVOLOG FLEXPEN-LOW RESISTANCE 1 UNITS SC (16:49)
[2025-02-10 21:36] LABS: Glucose - Point of Care 190 mg/dl (70-99)
[2025-02-10] MEDS: LIPITOR 20 MG PO (21:51)
[2025-02-10] MEDS: VALIUM 5 MG PO (21:51)
[2025-02-10 23:15] VITALS: BP 105/46
[2025-02-11] MEDS: TYLENOL PO ×7 (00:52→19:59)
[2025-02-11 06:39] LABS: Hematocrit 28.6 % (37.0-47.0); Hemoglobin 9.3 g/dL (12.0-16.0); Mean Corp Hgb Conc. 32.5 g/dL (33.0-37.0); Mean Corpuscular Volume 84.6 fL (81.0-99.0); Platelet Count 245 10^3/uL (130-400); Red Cell Dist. Width 18.6 % (11.5-14.5)
[2025-02-11 06:53] LABS: Blood Urea Nitrogen 14 mg/dl (7-17); Calcium 9.5 mg/dl (8.4-10.2); Carbon Dioxide 25 mmol/L (22-30); Chloride 100 mmol/L (98-107); Estimated Creatinine Clearance 81 ml/min; Glucose 107 mg/dl (70-99); Potassium 3.8 mmol/L (3.5-5.1); Sodium 131 mmol/L (135-145); eGFR > 60.00
[2025-02-11 07:10] VITALS: BP 113/60
[2025-02-11 07:28] LABS: Vitamin D, 25-OH*** 26.2 ng/mL (30-80)
[2025-02-11 07:30] LABS: Glucose - Point of Care 116 mg/dl (70-99)
[2025-02-11] MEDS: DILAUDID 0.5 MG IV ×3 (07:55→20:06)
[2025-02-11] MEDS: NOVOLOG FLEXPEN-LOW RESISTANCE SC ×2 (07:57→11:32)
[2025-02-11] MEDS: PROTONIX 40 MG PO (07:59)
[2025-02-11] MEDS: HEPARIN 5000 UNITS SC ×2 (08:00→19:48)
[2025-02-11] MEDS: NEURONTIN 300 MG PO ×4 (08:00→21:32)
[2025-02-11] MEDS: MAG-TAB SR 84 MG PO (08:00)
[2025-02-11] MEDS: COLACE 100 MG PO (08:00)
[2025-02-11] MEDS: SENOKOT 17.2 MG PO (08:00)
[2025-02-11] MEDS: STERILE WATER FOR INJECTION IV (08:01)
[2025-02-11] MEDS: ZESTRIL PO (08:01)
[2025-02-11] MEDS: DRISDOL (VITAMIN D2) 50000 UNITS PO (08:56)
[2025-02-11] MEDS: ROXICODONE 5 MG PO ×4 (08:57→21:32)
[2025-02-11] MEDS: VALIUM 5 MG PO ×2 (11:09→21:32)
[2025-02-11 11:52] LABS: Glucose - Point of Care 135 mg/dl (70-99)
--- NOTE | 2025-02-11 13:07 | W.PN.HOSP.TC ---
Today's Communication/Plan
-
await abduction orthosis from [facility] for safe PT/OT evals
Assessment / Plan
Assessment / Plan
Assessment:
Right Hip fracture related to mechanical fall
- Minimally displaced fracture of the greater trochanter of the right proximal femur on CT
- prn pain control
- Ortho notified and recommended abduction orthosis from [facility] for safe PT/OT evals. WBAT
New L3 50% vertebral body compression Fx
- pain control
- Vit D 26.2 - replacement started
Gram negative urinary tract infection
- continue Rocephin, day 2 pending culture
Anemia of chronic disease
- Hemoglobin stable at 9.3
- Patient is afebrile
- Continue to monitor
History of GI bleed secondary to duodenal ulcer
Diabetes mellitus type 2
- Insulin sliding scale
- Monitor blood sugar
- hold Jentadueto
Essential hypertension
- lisinopril
Hyperlipidemia
- statin
Chronic pain syndrome/chronic opiate dependence
- gabapentin
DVT ppx: SCDs
Code: Full
Anticipated Discharge: 24 - 48 hours
Subjective/Interval History
-
Date of Service: February 11, 2025
resting comfortably, no complaints
Objective Data
-
Labs:
Laboratory Results
02/11/25 02/11/25
04:33 04:34
WBC 9.7
Hgb 9.3 L
Hct 28.6 L
Plt Count 245 D
Sodium 131 L
Potassium 3.8
Chloride 100
Carbon Dioxide 25
BUN 14
Creatinine 0.6
Glucose 107 H
Calcium 9.5
Vital Signs:
Vital Signs
Temp Pulse Resp BP Pulse Ox
98.5 F 89 18 105/46 98
02/11/25 07:10 02/11/25 08:01 02/11/25 07:10 02/11/25 08:01 02/11/25 07:10
I&O
02/10/25 02/11/25 02/12/25
06:59 06:59 06:59
Intake Total 120 / 120 560 / 560 720 / 720
Output Total 2 / 2
Balance 120 / 120 558 / 558 720 / 720
Physical Exam
-
General: No Apparent Distress
HEENT: Normocephalic and Atraumatic
Respiratory: Negative Wheezes
Cardiac: Regular Rhythm and S1/S2
GI: Soft and Nontender
Neuro: AO x 3
Hematologic / Lymphatic: No Lymphadenopathy
Psych: Calm
Data Reviewed
-
Total Time Spent with Patient (in minutes): 42
Labs: Labs Reviewed by me
[2025-02-11 15:05] VITALS: BP 109/67
[2025-02-11 15:25] VITALS: BP 130/70
[2025-02-11] MEDS: ROCEPHIN 1000 MG IV (16:07)
[2025-02-11 16:55] LABS: Glucose - Point of Care 201 mg/dl (70-99)
[2025-02-11] MEDS: NOVOLOG FLEXPEN-LOW RESISTANCE 2 UNITS SC (16:55)
[2025-02-11] MEDS: COLACE PO (19:48)
[2025-02-11] MEDS: SENOKOT PO (19:48)
[2025-02-11] MEDS: LIPITOR 20 MG PO (21:32)
[2025-02-11 21:36] LABS: Glucose - Point of Care 186 mg/dl (70-99)
[2025-02-11] MEDS: TYLENOL 650 MG PO (23:15)
[2025-02-11 23:28] VITALS: BP 106/48
[2025-02-12] MEDS: DILAUDID 0.5 MG IV ×4 (00:05→23:45)
[2025-02-12] MEDS: COLACE PO ×3 (01:35→20:17)
[2025-02-12] MEDS: SENOKOT PO ×3 (01:35→20:17)
[2025-02-12] MEDS: TYLENOL PO ×5 (03:49→20:17)
[2025-02-12 07:25] VITALS: BP 132/78
[2025-02-12 08:13] LABS: Hematocrit 28.7 % (37.0-47.0); Hemoglobin 9.2 g/dL (12.0-16.0); Mean Corp Hgb Conc. 32.1 g/dL (33.0-37.0); Mean Corpuscular Volume 86.4 fL (81.0-99.0); Platelet Count 345 10^3/uL (130-400); Red Cell Dist. Width 18.6 % (11.5-14.5)
[2025-02-12] MEDS: SENOKOT 17.2 MG PO (08:28)
[2025-02-12] MEDS: TYLENOL 650 MG PO ×2 (08:28→16:45)
[2025-02-12] MEDS: MAG-TAB SR 84 MG PO (08:29)
[2025-02-12] MEDS: ZESTRIL 2.5 MG PO (08:29)
[2025-02-12] MEDS: NEURONTIN 300 MG PO ×4 (08:29→22:30)
[2025-02-12] MEDS: PROTONIX 40 MG PO (08:29)
[2025-02-12] MEDS: COLACE 100 MG PO (08:29)
[2025-02-12] MEDS: HEPARIN 5000 UNITS SC ×2 (08:29→19:45)
--- NOTE | 2025-02-12 08:32 | VNURNOTE ---
Chart reviewed. Patient was DC'ed from SNF and was scheduled to be admitted onto [facility] services. Patient went to prior to [facility] seeing her. PM [facility] referral placed in [facility]. Will watch if DC dispo plans change.
[2025-02-12 08:47] LABS: Glucose - Point of Care 126 mg/dl (70-99)
[2025-02-12 08:48] LABS: Blood Urea Nitrogen 11 mg/dl (7-17); Calcium 9.5 mg/dl (8.4-10.2); Carbon Dioxide 27 mmol/L (22-30); Chloride 100 mmol/L (98-107); Estimated Creatinine Clearance 81 ml/min; Glucose 119 mg/dl (70-99); Potassium 3.9 mmol/L (3.5-5.1); Sodium 132 mmol/L (135-145); eGFR > 60.00
[2025-02-12] MEDS: NOVOLOG FLEXPEN-LOW RESISTANCE SC (08:50)
--- NOTE | 2025-02-12 09:12 | CON.ORTHO ---
Consultation
-
Date/Time Consultation Requested: February 16/0759
Date/Time Consultation Performed: February 16/0815
Requesting Provider: Geni
Performing Provider: Carmella Carey
Reason for Consultation: Right hip fracture
Consultation - Orthopedics
History
History of Present Illness:
70yoF with a history of type 2 diabetes, hypertension, hyperlipidemia, bipolar disorder, and tobacco use presenting via EMS for evaluation after a fall. Patient was walking with a rolling walker this morning when her rollator caught on the corner
of the shelf and fell on her right hip. she was not able to get up from the floor. denied headache dizzy or syncope. plan radiographs in the ED and correlating CT scan did reveal a minimally displaced fracture of her right greater trochanter. It
was also noted that her left hip has been fixated by a cephalomedullary bridget. On further questioning she explains that her left hip surgery was recently done at [facility] (could not remember the name of the surgeon) and that melissa were recently removed.
Due to her x-ray and CT findings regarding the right hip we have been requested in consultation.
Past Medical History:
Type 2 diabetes
HTN
Hyperlipids
Bipolar
Past Surgical History:
Tonsillectomy
Left Hip ORIF ([facility] 2024)
Social History:
Tobacco: Smoker
Alcohol: None
Drug: None
Personal: Single
Living: Alone
Family History:
Family History: Not pertinent
ROS:
12 point negative except for those mentioned in HPI
Allergies / Home Medications
Allergy/AdvReac Type Severity Reaction Status Date / Time
topiramate (From Topamax) Allergy Itching Verified 12/30/24 04:41
valdecoxib (From Bextra) Allergy Rash Verified 12/30/24 04:41
�Medication �Instructions �Recorded
linagliptin 2.5 mg-metformin 1,000 1 tab PO BID Diabetes 04/02/23
mg tablet (Jentadueto)
gabapentin 300 mg capsule 300 mg PO QID 05/12/23
lisinopril 2.5 mg tablet 2.5 mg PO DAILY Blood Pressure 05/12/23
simvastatin 40 mg tablet 40 mg PO HS High Cholesterol 05/12/23
cholecalciferol (vitamin D3) 25 25 mcg PO DAILY Supplement 10/15/24
mcg (1,000 unit) tablet
diazepam 5 mg tablet 5 mg PO Q8HPRN PRN anxiety 10/15/24
ascorbic acid (vitamin C) 500 mg 500 mg PO DAILY 02/09/25
tablet (Vitamin C)
cyanocobalamin (vitamin B-12) 1,000 mcg PO DAILY 02/09/25
1,000 mcg tablet
esomeprazole magnesium 40 mg 40 mg PO DAILY 02/09/25
capsule,delayed release (Nexium)
magnesium oxide 200 mg PO DAILY 02/09/25
vitamin A-vitamin C-vit E-min 1 tab PO DAILY 02/09/25
tablet
Vital Signs / Lab Results
Temp Pulse Resp BP Pulse Ox
98.7 F 78 18 132/78 94
02/12/25 07:25 02/12/25 07:25 02/12/25 07:25 02/12/25 07:25 02/12/25 07:25
02/12/25 07:13
02/12/25 07:13
Assessment / Plan
PE: Afeb. Bedrest. Right hip skin intact. LL equal. Tender to palpation over the greater trochanter. No pain over the hip capsule. No significant pain with logroll. Deferred range of motion due to known fracture. Right knee nontender. Calf soft
and nontender. DNVI RLE
Diagnostics:
Xrays and correlating CT did reveal a minimally displaced fracture of her RIGHT greater trochanter. Cephalomedullary bridget fixation of her left femur was noted which appears in good position without evidence of loosening or failure.
Impression: Minimally displaced RIGHT greater trochanter fracture
Plan: Discussed with the patient at length. She wanted to discuss her left hip in more detail. I told her that those questions would need to be routed to her surgical team at [facility]. However, based on the appearance of her fracture fixation WBAT on a
walker would be recommended. With regards to her right greater trochanter fracture she may also be WBAT on a walker. would avoid active and passive abduction and adduction of the right hip as to not put undue stress on the fracture. PT/OT while
admitted. CM to assist with disposition. Ice to the right hip and pain control. Discussed with Dr. Arechiga. Orthopedics to sign off for now. Please reengage with any pertinent questions pertaining to her RIGHT hip during the remainder of her
admission
--- NOTE | 2025-02-12 09:18 | W.PN.HOSP.TC ---
Today's Communication/Plan
-
await Ur C&S
Ortho consulted
Pain control
incentive spirometry
Assessment / Plan
Assessment / Plan
Assessment:
Right Hip fracture related to mechanical fall
- Minimally displaced fracture of the greater trochanter of the right proximal femur on CT
- prn pain control
- Ortho consult placed, discussed with PA
New L3 50% vertebral body compression Fx
- pain control
- Vit D 26.2 - replacement started
Gram negative urinary tract infection
- continue Rocephin, day 2 pending culture. C&S pending
Anemia of chronic disease
- Hemoglobin stable at 9.3
- Patient is afebrile
- Continue to monitor
History of GI bleed secondary to duodenal ulcer
Diabetes mellitus type 2
- Insulin sliding scale
- Monitor blood sugar
- hold Jentadueto
Essential hypertension
- lisinopril
Hyperlipidemia
- statin
Chronic pain syndrome/chronic opiate dependence
- gabapentin
notified by Physician Adviser to change pt to full admit
DVT ppx: SCDs
Code: Full
Anticipated Discharge: > 48 hours
Subjective/Interval History
-
Date of Service: February 12, 2025
Still with a lot of Rt hip pain
Objective Data
-
Labs:
Laboratory Results
02/12/25
07:13
WBC 8.5
Hgb 9.2 L
Hct 28.7 L
Plt Count 345 D
Sodium 132 L
Potassium 3.9
Chloride 100
Carbon Dioxide 27
BUN 11
Creatinine 0.5 L
Glucose 119 H
Calcium 9.5
Vital Signs:
Vital Signs
Temp Pulse Resp BP Pulse Ox
98.7 F 78 18 132/78 94
02/12/25 07:25 02/12/25 07:25 02/12/25 07:25 02/12/25 07:25 02/12/25 07:25
I&O
02/11/25 02/12/25 02/13/25
06:59 06:59 06:59
Intake Total 560 / 560 2279
Output Total /
Balance 558 / 558 2279
Review of Systems
-
History Source: Patient and Physician (reviewed with ortho PA)
Constitutional: Denies Fever
EENT: Reports No Symptoms Reported
Respiratory: Reports No Symptoms
Cardiac: Reports No Symptoms
Abdomen/GI: Reports No Symptoms
Genitourinary: Reports No Symptoms
Musculoskeletal: Reports Joint Pain
Physical Exam
-
General: Well Developed, Well Nourished and No Apparent Distress
HEENT: Normocephalic, Atraumatic and Moist Mucous Membranes
Respiratory: Rales (bibasilar atelectatic rales)
Cardiac: Regular Rhythm and S1/S2
GI: Soft, Nontender and Nondistended
Musculoskeletal: No Clubbing, No Cyanosis, No Edema and Other (rt lateral hip very tender)
Neuro: Awake, Alert and Oriented
[2025-02-12] MEDS: ROXICODONE 5 MG PO ×2 (11:51→19:45)
[2025-02-12 12:29] LABS: Glucose - Point of Care 197 mg/dl (70-99)
--- NOTE | 2025-02-12 12:32 | CM ---
Addendum entered by Leena Eubanks 02/12/25 12:59:
Referral also sent to [facility].
Original Note:
Chart reviewed and recommendation is for skilled placement options reviewed with patient and patient has selected [facility], referrals sent though [facility]
Plan; Rehab placement.
[2025-02-12] MEDS: NOVOLOG FLEXPEN-LOW RESISTANCE 1 UNITS SC (12:52)
[2025-02-12 15:20] VITALS: BP 140/70
[2025-02-12] MEDS: STERILE WATER FOR INJECTION 10 ML IV (16:45)
[2025-02-12] MEDS: VALIUM 5 MG PO (16:45)
[2025-02-12] MEDS: ROCEPHIN 1000 MG IV (16:45)
[2025-02-12 18:36] LABS: Glucose - Point of Care 244 mg/dl (70-99)
[2025-02-12] MEDS: NOVOLOG FLEXPEN-LOW RESISTANCE 2 UNITS SC (19:07)
[2025-02-12 21:27] LABS: Glucose - Point of Care 230 mg/dl (70-99)
[2025-02-12] MEDS: LIPITOR 20 MG PO (22:30)
[2025-02-12 23:10] VITALS: BP 99/56
[2025-02-13] MEDS: TYLENOL PO ×3 (00:29→17:45)
[2025-02-13] MEDS: ROXICODONE 5 MG PO ×4 (03:58→21:48)
--- NOTE | 2025-02-13 06:17 | DOWNTIME ---
There was a [employer] Team Member Downtime on 02/13/2025 from 0100 to 02/13/2025 at 0220. Downtime documentation of patient's care, including medication administrations, has been reconciled in the electronic record per guidelines. Refer to the
patient's paper chart under the miscellaneous tab to see printed paper medication records and downtime forms.
[2025-02-13 07:48] LABS: Glucose - Point of Care 156 mg/dl (70-99)
[2025-02-13 07:50] VITALS: BP 121/90
[2025-02-13] MEDS: NOVOLOG FLEXPEN-LOW RESISTANCE 1 UNITS SC ×3 (08:04→17:46)
[2025-02-13] MEDS: NEURONTIN 300 MG PO ×4 (08:05→21:20)
[2025-02-13] MEDS: MAG-TAB SR 84 MG PO (08:05)
[2025-02-13] MEDS: COLACE 100 MG PO ×2 (08:05→20:53)
[2025-02-13] MEDS: ZESTRIL 2.5 MG PO (08:05)
[2025-02-13] MEDS: PROTONIX 40 MG PO (08:06)
[2025-02-13] MEDS: HEPARIN SC (08:06)
[2025-02-13] MEDS: VALIUM 5 MG PO ×2 (08:06→21:20)
[2025-02-13] MEDS: SENOKOT 17.2 MG PO ×2 (08:06→20:53)
[2025-02-13] MEDS: TYLENOL 650 MG PO ×3 (08:06→20:53)
--- NOTE | 2025-02-13 08:39 | W.PN.HOSP.TC ---
Addendum entered and electronically signed by Marquise Arechiga MD 02/13/25 10:14:
Ur C&S just resulted. Was planning to dc on short course of Augmentin, fortunately bacteria is sensitive. Will request ID input to confirm this treatment would be appropriate
Original Note:
Today's Communication/Plan
-
change IV abx to oral
Will dc IV Dilaudid, continue prn oral oxycodone
Assessment / Plan
Assessment / Plan
Assessment:
Right Hip fracture related to mechanical fall
- Minimally displaced fracture of the greater trochanter of the right proximal femur on CT
- prn pain control
- Ortho consult placed, discussed with PA, indira input: Impression: Minimally displaced RIGHT greater trochanter fracture
Plan: Discussed with the patient at length. She wanted to discuss her left hip in more detail. I told her that those questions would need to be routed to [facility]. However, based on the appearance of her fracture fixation WBAT on a
walker would be recommended. With regards to her right greater trochanter fracture she may also be WBAT on a walker. would avoid active and passive abduction and adduction of the right hip as to not put undue stress on the fracture. PT/OT while
admitted. CM to assist with disposition. Ice to the right hip and pain control. Discussed with Dr. Arechiga. Orthopedics to sign off for now. Please reengage with any pertinent questions pertaining to her RIGHT hip during the remainder of her
admission
New L3 50% vertebral body compression Fx
- pain control
- Vit D 26.2 - replacement started
Gram negative urinary tract infection
- continue Rocephin, day 3 abx given C&S pending
will change to oral pending final cx
Anemia of chronic disease
- Hemoglobin stable at 9.3
- Patient is afebrile
- Continue to monitor
History of GI bleed secondary to duodenal ulcer
Diabetes mellitus type 2
- Insulin sliding scale
- Monitor blood sugar
- hold Jentadueto
Essential hypertension
- lisinopril
Hyperlipidemia
- statin
Chronic pain syndrome/chronic opiate dependence
- gabapentin
notified by Physician Adviser to change pt to full admit, order placed
Pt agreeable to go to SNF rehab, this would be most appropriate
DVT ppx: SCDs
Code: Full
Anticipated Discharge: 24 - 48 hours
Subjective/Interval History
-
Date of Service: February 13, 2025
Still with a lot of pain
Objective Data
-
Vital Signs:
Vital Signs
Temp Pulse Resp BP Pulse Ox
98.9 F 84 18 121/90 94
02/13/25 07:50 02/13/25 07:50 02/13/25 07:50 02/13/25 07:50 02/13/25 07:50
I&O
02/12/25 02/13/25 02/14/25
06:59 06:59 06:59
Intake Total 2280 / 2280 1160 / 1160
Balance 2280 / 2280 1160 / 1160
Review of Systems
-
History Source: Patient and Physician (reviewed with ortho Papa NDIAYE)
Constitutional: Denies Fever
EENT: Reports No Symptoms Reported
Respiratory: Reports No Symptoms
Cardiac: Reports No Symptoms
Abdomen/GI: Reports No Symptoms
Genitourinary: Reports No Symptoms
Musculoskeletal: Reports Joint Pain
Physical Exam
-
General: Well Developed, Well Nourished and No Apparent Distress
HEENT: Normocephalic, Atraumatic and Moist Mucous Membranes
Respiratory: Negative Rales (bibasilar atelectatic rales have resolved, nursing states has been using IS regularly)
Cardiac: Regular Rhythm and S1/S2
GI: Soft, Nontender and Nondistended
Musculoskeletal: No Clubbing, No Cyanosis, No Edema and Other (rt lateral hip very tender)
Neuro: Awake, Alert and Oriented
[2025-02-13] MEDS: STERILE WATER FOR INJECTION IV (09:04)
[2025-02-13 12:18] LABS: Glucose - Point of Care 158 mg/dl (70-99)
--- NOTE | 2025-02-13 13:06 | CON.ID ---
Consultation
-
Date/Time Consultation Requested: February 13, 2025 1016
Date/Time Consultation Performed: February 13, 2025 1300
Requesting Provider: Dr. Marquise Arechiga
Performing Provider: Dr. Gayatri Majano
Reason for Consultation: ESBL E. coli in urine
Chief Complaint / Past History
Chief Complaint
Fall
History of Present Illness
70-year-old female with history of diabetes mellitus, bipolar disorder who presented to the hospital on February 09 after a mechanical fall February 09. She sustained minimal displaced fracture right proximal femur. Also complaining of some urinary
frequency. Urine analysis positive nitrite 3+ leukocyte esterase more than 100 white blood cells. Urine culture grew ESBL E. coli. She was on ceftriaxone initially then changed to Augmentin today. Patient reports she recently was treated for UTI
for which she could not remember the name of the antibiotic. She continue with urinary frequency. No flank pain. No dysuria. No fevers or chills.
Past History
Additional Past Medical History:
Diabetes mellitus
Hypertension
HLD
Bipolar disorder
History of duodenal ulcer GI bleed
Chronic pain, opiate dependence
Left hip ORIF
Allergy History:
topiramate (From Topamax) Allergy (Verified 12/30/24 04:41)
Itching
valdecoxib (From Bextra) Allergy (Verified 12/30/24 04:41)
Rash
Medications Reviewed: Yes
Current Antibiotics:
Status post ceftriaxone x 3 doses
Augmentin day 1
Social History
Tobacco: Smoker
Alcohol: None
Drug: None
Living: Alone
Family History
Family History: Not Pertinent
Review of Systems
Review of Systems
General: Negative Fever, Chills or Change in Appetite
HEENT: Negative Sinus Problems
Cardiovascular: Negative Chest Pain or Dyspnea
Respiratory: Negative Dyspnea or Cough
Gasteroenterology: Negative Nausea, Vomiting or Diarrhea
Genital / Urological: Negative Flank Pain
All systems: All other systems were reviewed and were negative
Vital Signs
Temp Pulse Resp BP Pulse Ox
98.9 F 84 18 121/90 94
02/13/25 07:50 02/13/25 07:50 02/13/25 07:50 02/13/25 07:50 02/13/25 07:50
Physical Exam
Physical Exam
Constitutional: No Acute Distress and Comfortable
Eyes: No Conjunctival Hemorrhage and Sclera Anicteric
Cardiovascular: Regular Rate and S1/S2
Pulmonary: Clear
Gastrointestinal: Soft, Non Tender and Non Distended
Genito-Urinary: Negative CVA Tenderness
Extremities: Negative Edema
Neurological: Awake and Alert
Lab / Diagnostic Study Results
02/12/25 07:13
02/12/25 07:13
Abs Immat Gran (auto) 0.1 10^3/uL (0-0.05) H 02/09/25 10:35
Absolute Neuts (auto) 13.2 10^3/uL (1.4-6.5) H 02/09/25 10:35
Absolute Lymphs (auto) 2.3 10^3/uL (1.2-3.4) 02/09/25 10:35
Absolute Monos (auto) 1.3 10^3/uL (0.1-0.6) H 02/09/25 10:35
Absolute Basos (auto) 0.1 10^3/uL (0-0.2) 02/09/25 10:35
Immature Gran % 0.5 % (0-0.5) 02/09/25 10:35
Neutrophils % 77.2 % (42.2-75.2) H 02/09/25 10:35
Lymphocytes % 13.6 % (20.5-51.1) L 02/09/25 10:35
Monocytes % 7.5 % (1.7-9.3) 02/09/25 10:35
Eosinophils % 0.6 % (0-6) 02/09/25 10:35
Basophils % 0.6 % (0-2) 02/09/25 10:35
Ur Squamous Epith Cells Seen /LPF (Few) 02/10/25 04:39
Microbiology Results
Micro:
02/10/25 04:39 Urine Culture - Final
Urine Escherichia coli - ESBL
02/09/25 CT Pelvis: Minimally displaced fracture of the greater trochanter of the right proximal femur.
2. Left-sided intertrochanteric fracture, traversed by a cephalomedullary bridget.
Assessment / Plan
# Uncomplicated cystitis with MDRO ESBL-E. coli
- DC Augmentin.
- Treat with Macrobid 100mg po bid x 5 days.
Care Review
Plan reviewed with: Physician (Dr. Arechiga)
[2025-02-13 13:50] VITALS: BP 96/47
[2025-02-13] MEDS: MACROBID 100 MG PO ×2 (13:58→21:20)
--- NOTE | 2025-02-13 14:45 | CM ---
no available beds at [facility] or [facility]. Patient moved from 2 south to 2 north today. CM will continue to look for SNF options.
Plan; SNF
[2025-02-13 15:00] VITALS: BP 104/49
[2025-02-13 17:42] LABS: Glucose - Point of Care 156 mg/dl (70-99)
[2025-02-13] MEDS: HEPARIN 5000 UNITS SC (20:53)
[2025-02-13 21:09] LABS: Glucose - Point of Care 138 mg/dl (70-99)
[2025-02-13] MEDS: LIPITOR 20 MG PO (21:20)
[2025-02-13 23:05] VITALS: BP 134/72
[2025-02-14] MEDS: TYLENOL PO ×7 (01:06→20:33)
[2025-02-14 07:20] VITALS: BP 130/72
[2025-02-14 07:34] LABS: Glucose - Point of Care 150 mg/dl (70-99)
[2025-02-14] MEDS: HEPARIN SC (09:07)
[2025-02-14] MEDS: NEURONTIN 300 MG PO ×4 (09:08→21:40)
[2025-02-14] MEDS: PROTONIX 40 MG PO (09:08)
[2025-02-14] MEDS: NOVOLOG FLEXPEN-LOW RESISTANCE 1 UNITS SC ×2 (09:08→17:21)
[2025-02-14] MEDS: COLACE PO ×2 (09:08→09:18)
[2025-02-14] MEDS: MAG-TAB SR PO ×2 (09:08→09:18)
[2025-02-14] MEDS: MACROBID 100 MG PO ×2 (09:08→20:33)
[2025-02-14] MEDS: SENOKOT PO ×2 (09:08→09:18)
[2025-02-14] MEDS: ZESTRIL 2.5 MG PO (09:08)
[2025-02-14] MEDS: ROXICODONE 5 MG PO ×4 (09:15→21:39)
[2025-02-14] MEDS: VALIUM 5 MG PO ×2 (09:15→21:39)
--- NOTE | 2025-02-14 11:56 | CM ---
Patient seen at bedside
Referrals in for SNF - no beds at [facility]
discussed additional referrals - list given - will give CM other referrals to place in [facility]
will need to obtain ins auth
PLAN: SNF, pending bed availability when stable
[2025-02-14 12:40] LABS: Glucose - Point of Care 253 mg/dl (70-99)
[2025-02-14] MEDS: NOVOLOG FLEXPEN-LOW RESISTANCE 3 UNITS SC (12:41)
--- NOTE | 2025-02-14 13:10 | W.PN.HOSP.TC ---
Today's Communication/Plan
-
await disposition efforts
recheck labs in AM
Assessment / Plan
Assessment / Plan
Assessment:
Right Hip fracture related to mechanical fall
- Minimally displaced fracture of the greater trochanter of the right proximal femur on CT
- prn pain control
- Ortho consult placed, discussed with PA, appreciate input: 'Impression: Minimally displaced RIGHT greater trochanter fracture
Plan: Discussed with the patient at length. She wanted to discuss her left hip in more detail. I told her that those questions would need to be routed to her surgical team at [facility]. However, based on the appearance of her fracture fixation WBAT on a
walker would be recommended. With regards to her right greater trochanter fracture she may also be WBAT on a walker. would avoid active and passive abduction and adduction of the right hip as to not put undue stress on the fracture. PT/OT while
admitted. CM to assist with disposition. Ice to the right hip and pain control. Discussed with Dr. Arechiga. Orthopedics to sign off for now. Please reengage with any pertinent questions pertaining to her RIGHT hip during the remainder of her
admission'
New L3 50% vertebral body compression Fx
- pain control
- Vit D 26.2 - replacement started
Gram negative urinary tract infection
E.Coli - ESBL
input of ID appreciated, pt now on Macrobid
Anemia of chronic disease
- Hemoglobin stable at 9.3
- Patient is afebrile
- Continue to monitor
History of GI bleed secondary to duodenal ulcer 10/2024
Diabetes mellitus type 2
- Insulin sliding scale
- Monitor blood sugar
- hold Jentadueto
Essential hypertension
- lisinopril
Hyperlipidemia
- statin
Chronic pain syndrome/chronic opiate dependence
- gabapentin
notified by Physician Adviser to change pt to full admit, order placed
Pt agreeable to go to SNF rehab, this would be most appropriate, pt was questioning need to go, long discussion, she is once again agreeable to go
Once arrangements completed and prior auth obtained, pt can be dc to SNF rehab. Reviewed with nursing
DVT ppx: SCDs
Code: Full
Anticipated Discharge: 24 - 48 hours
Subjective/Interval History
-
Date of Service: February 14, 2025
Patient questioning whether she needs to go to SNF rehab
Objective Data
-
Vital Signs:
Vital Signs
Temp Pulse Resp BP Pulse Ox
98.2 F 83 16 130/72 93
02/14/25 07:20 02/14/25 07:20 02/14/25 07:20 02/14/25 07:20 02/14/25 07:20
I&O
02/13/25 02/14/25 02/15/25
06:59 06:59 06:59
Intake Total 1160 / 1160 980 / 980
Balance 1160 / 1160 980 / 980
Review of Systems
-
History Source: Patient and Coordinated Provider
Constitutional: Denies Fever
EENT: Reports No Symptoms Reported
Respiratory: Reports No Symptoms
Cardiac: Reports No Symptoms
Abdomen/GI: Reports No Symptoms
Genitourinary: Reports No Symptoms
Musculoskeletal: Reports Joint Pain
Physical Exam
-
General: Well Developed, Well Nourished and No Apparent Distress
HEENT: Normocephalic, Atraumatic and Moist Mucous Membranes
Respiratory: Negative Rales (bibasilar atelectatic rales have resolved, nursing states has been using IS regularly)
Cardiac: Regular Rhythm and S1/S2
GI: Soft, Nontender and Nondistended
Musculoskeletal: No Clubbing, No Cyanosis, No Edema and Other (rt lateral hip very tender)
Neuro: Awake, Alert and Oriented
--- NOTE | 2025-02-14 14:49 | W.PN.ID1 ---
Date of Service
Date of Service: February 14, 2025
Today's Communication
Continue Macrobid 100mg po bid x 5 days through 02/17/25.
Assessment / Plan
# Uncomplicated cystitis with MDRO ESBL-E. coli
- Continue Macrobid 100mg po bid x 5 days through 02/17/25.
# Right prox femur fracture post fall
# Conditions [employer]
Diabetes mellitus
Hypertension
HLD
Bipolar disorder
History of duodenal ulcer GI bleed
Chronic pain, opiate dependence
Left hip ORIF
Chief Complaint
-: UTI
Subjective / Review of Systems
c/o hip fracture pain.
Dysuria/frequency improving
Vital Signs / Physical Exam
Vital Signs
Vital Signs
Temp Pulse Resp BP Pulse Ox
98.2 F 83 16 130/72 93
02/14/25 07:20 02/14/25 07:20 02/14/25 07:20 02/14/25 07:20 02/14/25 07:20
Physical Exam
Constitutional: No Acute Distress and Comfortable
Cardiovascular: Regular Rate and S1/S2
Pulmonary: Clear
Gastrointestinal: Soft, Non Tender, Non Distended and Normal Bowel Sounds
Genito-Urinary: Negative CVA Tenderness
Extremities: Negative Edema
Objective Data
Lab Data
Lab Results
02/12/25 07:13
02/12/25 07:13
Estimated Creat Clear 81 ml/min 02/12/25 07:13
Total Bilirubin 0.6 mg/dl (0.2-1.3) 02/09/25 13:08
AST 20 U/L (14-36) 02/09/25 13:08
ALT 13 U/L (0-35) 02/09/25 13:08
Alkaline Phosphatase 86 U/L (38-126) 02/09/25 13:08
Most recent labs reviewed.
Micro Results:
02/10/25 04:39 Urine Culture - Final
Urine Escherichia coli - ESBL
02/09/25 CT Pelvis: Minimally displaced fracture of the greater trochanter of the right proximal femur.
2. Left-sided intertrochanteric fracture, traversed by a cephalomedullary bridget.
[2025-02-14 15:50] VITALS: BP 106/56
[2025-02-14 17:06] LABS: Glucose - Point of Care 152 mg/dl (70-99)
[2025-02-14] MEDS: HEPARIN 5000 UNITS SC (20:33)
[2025-02-14] MEDS: COLACE 100 MG PO (20:33)
[2025-02-14] MEDS: SENOKOT 17.2 MG PO (20:33)
[2025-02-14 21:07] LABS: Glucose - Point of Care 174 mg/dl (70-99)
[2025-02-14] MEDS: LIPITOR 20 MG PO (21:40)
[2025-02-14 23:23] VITALS: BP 108/75
[2025-02-15] MEDS: TYLENOL PO ×7 (00:27→21:49)
[2025-02-15] MEDS: ROXICODONE 5 MG PO ×5 (01:43→22:01)
[2025-02-15 07:00] VITALS: BP 131/72
[2025-02-15 07:32] LABS: Glucose - Point of Care 133 mg/dl (70-99)
[2025-02-15 07:49] LABS: Hematocrit 29.3 % (37.0-47.0); Hemoglobin 9.6 g/dL (12.0-16.0); Mean Corp Hgb Conc. 32.8 g/dL (33.0-37.0); Mean Corpuscular Volume 85.2 fL (81.0-99.0); Nucleated Red Blood Cells % 0 %; Platelet Count 165 10^3/uL (130-400); Red Cell Dist. Width 17.9 % (11.5-14.5)
[2025-02-15] MEDS: PROTONIX 40 MG PO (08:14)
[2025-02-15] MEDS: VALIUM 5 MG PO (08:15)
[2025-02-15] MEDS: MACROBID 100 MG PO ×2 (08:15→21:52)
[2025-02-15] MEDS: NOVOLOG FLEXPEN-LOW RESISTANCE SC ×3 (08:16→16:21)
[2025-02-15] MEDS: HEPARIN SC (08:23)
[2025-02-15] MEDS: COLACE PO (08:23)
[2025-02-15] MEDS: MAG-TAB SR PO (08:23)
[2025-02-15] MEDS: SENOKOT PO (08:24)
[2025-02-15] MEDS: ZESTRIL 2.5 MG PO (08:26)
[2025-02-15] MEDS: NEURONTIN 300 MG PO ×4 (08:26→22:01)
--- NOTE | 2025-02-15 10:09 | W.PN.HOSP.TC ---
Today's Communication/Plan
-
await CM disposition
Assessment / Plan
Assessment / Plan
Assessment:
Right Hip fracture related to mechanical fall
- Minimally displaced fracture of the greater trochanter of the right proximal femur on CT
s/p left hip fx with cephalomedullary bridget placement at [facility]
- prn pain control. Pt still requiring Oxycodone for pain control
- Ortho consult placed, discussed with ZELDA, appreciate input: 'Impression: Minimally displaced RIGHT greater trochanter fracture
Plan: Discussed with the patient at length. She wanted to discuss her left hip in more detail. I told her that those questions would need to be routed to her surgical team at [facility]. However, based on the appearance of her fracture fixation WBAT on a
walker would be recommended. With regards to her right greater trochanter fracture she may also be WBAT on a walker. would avoid active and passive abduction and adduction of the right hip as to not put undue stress on the fracture. PT/OT while
admitted. CM to assist with disposition. Ice to the right hip and pain control. Discussed with Dr. Arechiga. Orthopedics to sign off for now. Please reengage with any pertinent questions pertaining to her RIGHT hip during the remainder of her
admission'
New L3 50% vertebral body compression Fx
- pain control
- Vit D 26.2 - replacement started
Gram negative urinary tract infection
E.Coli - ESBL
input of ID appreciated, pt now on Macrobid
Anemia of chronic disease
- Hemoglobin stable at 9.3
- Patient is afebrile
- Continue to monitor
History of GI bleed secondary to duodenal ulcer 10/2024
Diabetes mellitus type 2
- Insulin sliding scale
- Monitor blood sugar
- hold Jentadueto
Essential hypertension
- lisinopril
Hyperlipidemia
- statin
Chronic pain syndrome/chronic opiate dependence
- gabapentin
notified by Physician Adviser to change pt to full admit, order placed
Pt agreeable to go to SNF rehab, this would be most appropriate, pt was questioning need to go, long discussion, she is once again agreeable to go
Once arrangements completed and prior auth obtained, pt can be dc to SNF rehab. Reviewed with nursing. Awaiting input from CM for potential dc to follow
DVT ppx: SCDs
Code: Full
Anticipated Discharge: 24 - 48 hours
Subjective/Interval History
-
Date of Service: February 15, 2025
Patient still with significant pain
Objective Data
-
Labs:
Laboratory Results
02/15/25 02/15/25
06:32 09:14
WBC 7.1
Hgb 9.6 L
Hct 29.3 L
Plt Count 165 D
Sodium Cancelled Pending
Potassium Cancelled Pending
Chloride Cancelled Pending
Carbon Dioxide Cancelled Pending
BUN Cancelled Pending
Creatinine Cancelled Pending
Glucose Cancelled Pending
Calcium Cancelled Pending
Vital Signs:
Vital Signs
Temp Pulse Resp BP Pulse Ox
98.7 F 84 20 131/72 92
02/15/25 07:00 02/15/25 08:26 02/15/25 07:00 02/15/25 08:26 02/15/25 07:00
I&O
02/14/25 02/15/25 02/16/25
06:59 06:59 06:59
Intake Total 980 / 980 1080 / 1080
Balance 980 / 980 1080 / 1080
Review of Systems
-
History Source: Patient and Coordinated Provider
Constitutional: Denies Fever
EENT: Reports No Symptoms Reported
Respiratory: Reports No Symptoms
Cardiac: Reports No Symptoms
Abdomen/GI: Reports No Symptoms
Genitourinary: Reports No Symptoms
Musculoskeletal: Reports Joint Pain (Right hip)
Physical Exam
-
General: Well Developed, Well Nourished and No Apparent Distress
HEENT: Normocephalic, Atraumatic and Moist Mucous Membranes
Respiratory: Negative Rales (bibasilar atelectatic rales have resolved, nursing states has been using IS regularly)
Cardiac: Regular Rhythm and S1/S2
GI: Soft, Nontender and Nondistended
Musculoskeletal: No Clubbing, No Cyanosis, No Edema and Other (rt lateral hip very tender)
Neuro: Awake, Alert and Oriented
[2025-02-15 11:48] LABS: Blood Urea Nitrogen 7 mg/dl (7-17); Calcium 8.8 mg/dl (8.4-10.2); Carbon Dioxide 29 mmol/L (22-30); Chloride 102 mmol/L (98-107); Estimated Creatinine Clearance 81 ml/min; Glucose 139 mg/dl (70-99); Potassium 3.7 mmol/L (3.5-5.1); Sodium 136 mmol/L (135-145); eGFR > 60.00
[2025-02-15 12:29] LABS: Glucose - Point of Care 110 mg/dl (70-99)
[2025-02-15 15:00] VITALS: BP 130/70
[2025-02-15 16:21] LABS: Glucose - Point of Care 106 mg/dl (70-99)
[2025-02-15 20:59] LABS: Glucose - Point of Care 169 mg/dl (70-99)
[2025-02-15] MEDS: HEPARIN 5000 UNITS SC (21:51)
[2025-02-15] MEDS: COLACE 100 MG PO (21:52)
[2025-02-15] MEDS: SENOKOT 17.2 MG PO (21:52)
[2025-02-15] MEDS: LIPITOR 20 MG PO (22:01)
[2025-02-15 23:19] VITALS: BP 120/64
[2025-02-16] MEDS: TYLENOL PO ×8 (00:15→23:05)
[2025-02-16 07:20] VITALS: BP 135/67
[2025-02-16 07:26] LABS: Glucose - Point of Care 155 mg/dl (70-99)
--- NOTE | 2025-02-16 09:22 | CM ---
Plan: Patient stable for discharge to SNF pending bed availability and authorization approval
Referrals to [facility], Rah Diaz, and [facility] denied; additional referrals sent [facility] Sanjay Singh [facility], and [facility]
[2025-02-16] MEDS: NOVOLOG FLEXPEN-LOW RESISTANCE 1 UNITS SC (09:50)
[2025-02-16] MEDS: PROTONIX 40 MG PO (09:51)
[2025-02-16] MEDS: ZESTRIL 2.5 MG PO (09:51)
[2025-02-16] MEDS: NEURONTIN 300 MG PO ×4 (09:51→22:42)
[2025-02-16] MEDS: HEPARIN 5000 UNITS SC ×2 (09:52→20:43)
[2025-02-16] MEDS: MACROBID 100 MG PO ×2 (09:52→20:43)
[2025-02-16] MEDS: COLACE 100 MG PO (09:52)
[2025-02-16] MEDS: SENOKOT 17.2 MG PO ×2 (09:52→20:43)
[2025-02-16] MEDS: MAG-TAB SR 84 MG PO (09:52)
[2025-02-16] MEDS: ROXICODONE 5 MG PO ×4 (09:55→22:42)
[2025-02-16] MEDS: VALIUM 5 MG PO ×2 (10:27→20:43)
--- NOTE | 2025-02-16 10:36 | W.PN.HOSP.TC ---
Today's Communication/Plan
-
await disposition
Assessment / Plan
Assessment / Plan
Assessment:
Right Hip fracture related to mechanical fall
- Minimally displaced fracture of the greater trochanter of the right proximal femur on CT
s/p left hip fx with cephalomedullary bridget placement at [facility]
- prn pain control. Pt still requiring Oxycodone for pain control
- Ortho consult placed, discussed with ZELDA, appreciate input: 'Impression: Minimally displaced RIGHT greater trochanter fracture
Plan: Discussed with the patient at length. She wanted to discuss her left hip in more detail. I told her that those questions would need to be routed to her surgical team at [facility]. However, based on the appearance of her fracture fixation WBAT on a
walker would be recommended. With regards to her right greater trochanter fracture she may also be WBAT on a walker. would avoid active and passive abduction and adduction of the right hip as to not put undue stress on the fracture. PT/OT while
admitted. CM to assist with disposition. Ice to the right hip and pain control. Discussed with Dr. Arechiga. Orthopedics to sign off for now. Please reengage with any pertinent questions pertaining to her RIGHT hip during the remainder of her
admission'
New L3 50% vertebral body compression Fx
- pain control
- Vit D 26.2 - replacement started
Gram negative urinary tract infection
E.Coli - ESBL
input of ID appreciated, pt now on Macrobid, received 7 out of 10 doses
Anemia of chronic disease
- Hemoglobin stable at 9.3
- Patient is afebrile
- Continue to monitor
History of GI bleed secondary to duodenal ulcer 10/2024
Diabetes mellitus type 2
- Insulin sliding scale
- Monitor blood sugar
- hold Jentadueto
Essential hypertension
- lisinopril
Hyperlipidemia
- statin
Chronic pain syndrome/chronic opiate dependence
- gabapentin
notified by Physician Adviser to change pt to full admit, order placed
Pt agreeable to go to SNF rehab, this would be most appropriate, pt was questioning need to go, long discussion, she is once again agreeable to go
Once arrangements completed and prior auth obtained, pt can be dc to SNF rehab. Reviewed with nursing. Awaiting input from CM for potential dc to follow
DVT ppx: SCDs
Code: Full
Anticipated Discharge: 24 - 48 hours
Subjective/Interval History
-
Date of Service: February 16, 2025
Patient is most concerned that she continues to receive her 'pain medications'
Objective Data
-
Vital Signs:
Vital Signs
Temp Pulse Resp BP Pulse Ox
98.4 F 79 18 135/67 93
02/16/25 07:20 02/16/25 07:20 02/16/25 07:20 02/16/25 07:20 02/16/25 07:20
I&O
02/15/25 02/16/25 02/17/25
06:59 06:59 06:59
Intake Total 1080 / 1080 1410 / 1410
Balance 1080 / 1080 1410 / 1410
Review of Systems
-
History Source: Patient and Coordinated Provider
Constitutional: Denies Fever
EENT: Reports No Symptoms Reported
Respiratory: Reports No Symptoms
Cardiac: Reports No Symptoms
Abdomen/GI: Reports No Symptoms
Genitourinary: Reports No Symptoms
Musculoskeletal: Reports Joint Pain (Right hip)
Physical Exam
-
General: Well Developed, Well Nourished and No Apparent Distress
HEENT: Normocephalic, Atraumatic and Moist Mucous Membranes
Respiratory: Negative Rales (bibasilar atelectatic rales have resolved, nursing states has been using IS regularly)
Cardiac: Regular Rhythm and S1/S2
GI: Soft, Nontender and Nondistended
Musculoskeletal: No Clubbing, No Cyanosis, No Edema and Other (rt lateral hip very tender)
Neuro: Awake, Alert and Oriented
[2025-02-16 12:15] LABS: Glucose - Point of Care 149 mg/dl (70-99)
[2025-02-16] MEDS: NOVOLOG FLEXPEN-LOW RESISTANCE SC (13:08)
--- NOTE | 2025-02-16 13:41 | W.PN.ID1 ---
Date of Service
Date of Service: February 16, 2025
Today's Communication
Continue Macrobid through tomorrow.
ID will sign off.
Assessment / Plan
# Uncomplicated cystitis with MDRO ESBL-E. coli
- Continue Macrobid 100mg po bid x 5 days through 02/17/25.
# Right prox femur fracture post fall
ID will sign off.
# Conditions [employer]YSIOLOG[employer] CHEMI[employer]
Diabetes mellitus
Hypertension
HLD
Bipolar disorder
History of duodenal ulcer GI bleed
Chronic pain, opiate dependence
Left hip ORIF
Chief Complaint
-: UTI
Vital Signs / Physical Exam
Vital Signs
Vital Signs
Temp Pulse Resp BP Pulse Ox
98.4 F 79 18 135/67 93
02/16/25 07:20 02/16/25 07:20 02/16/25 07:20 02/16/25 07:20 02/16/25 07:20
Physical Exam
Constitutional: No Acute Distress
Cardiovascular: Regular Rate and S1/S2
Pulmonary: Clear
Gastrointestinal: Soft, Non Tender, Non Distended and Normal Bowel Sounds
Genito-Urinary: Negative CVA Tenderness
Extremities: Negative Edema
Objective Data
Lab Data
Lab Results
02/15/25 06:32
02/15/25 11:18
Estimated Creat Clear 81 ml/min 02/15/25 11:18
Total Bilirubin 0.6 mg/dl (0.2-1.3) 02/09/25 13:08
AST 20 U/L (14-36) 02/09/25 13:08
ALT 13 U/L (0-35) 02/09/25 13:08
Alkaline Phosphatase 86 U/L (38-126) 02/09/25 13:08
Most recent labs reviewed.
Micro Results:
02/10/25 04:39 Urine Culture - Final
Urine Escherichia coli - ESBL
02/09/25 CT Pelvis: Minimally displaced fracture of the greater trochanter of the right proximal femur.
2. Left-sided intertrochanteric fracture, traversed by a cephalomedullary bridget.
[2025-02-16 14:04] VITALS: BP 128/68; PULSE 82; O2SAT 94
[2025-02-16 15:32] VITALS: BP 101/51
--- NOTE | 2025-02-16 17:42 | PTCARENOTE ---
Patient tearful at times, also angry an uncooperative at times. Patient refused to wear hip brace when she is in bed. Patient did tolerate sitting in chair for 90 minutes.
[2025-02-16 18:16] LABS: Glucose - Point of Care 204 mg/dl (70-99)
[2025-02-16] MEDS: NOVOLOG FLEXPEN-LOW RESISTANCE 2 UNITS SC (18:34)
[2025-02-16] MEDS: COLACE PO ×2 (20:43→20:47)
[2025-02-16 21:18] LABS: Glucose - Point of Care 165 mg/dl (70-99)
[2025-02-16] MEDS: LIPITOR 20 MG PO (22:42)
[2025-02-16 23:48] VITALS: BP 141/77
[2025-02-17] MEDS: TYLENOL PO ×5 (03:58→23:01)
[2025-02-17] MEDS: ROXICODONE 5 MG PO ×5 (06:03→23:45)
[2025-02-17 07:26] VITALS: BP 123/69
[2025-02-17 07:32] LABS: Glucose - Point of Care 135 mg/dl (70-99)
[2025-02-17] MEDS: NOVOLOG FLEXPEN-LOW RESISTANCE SC ×3 (08:13→17:35)
[2025-02-17] MEDS: PROTONIX 40 MG PO (08:54)
[2025-02-17] MEDS: MACROBID 100 MG PO ×2 (08:54→19:43)
[2025-02-17] MEDS: COLACE PO ×2 (08:54→19:42)
[2025-02-17] MEDS: ZESTRIL 2.5 MG PO (08:54)
[2025-02-17] MEDS: MAG-TAB SR PO (08:54)
[2025-02-17] MEDS: HEPARIN 5000 UNITS SC ×2 (08:55→19:43)
[2025-02-17] MEDS: NEURONTIN 300 MG PO ×4 (08:55→21:43)
[2025-02-17] MEDS: TYLENOL 650 MG PO (08:55)
[2025-02-17] MEDS: SENOKOT PO ×2 (08:55→19:44)
--- NOTE | 2025-02-17 10:35 | W.PN.HOSP.TC ---
Today's Communication/Plan
-
Awaiting disposition, pt is still receiving oxycodone prn and she is most concerned that this continue post dc to SNF
Assessment / Plan
Assessment / Plan
Assessment:
Right Hip fracture related to mechanical fall
- Minimally displaced fracture of the greater trochanter of the right proximal femur on CT
s/p left hip fx with cephalomedullary bridget placement at [facility]
- prn pain control. Pt still requiring Oxycodone for pain control
- Ortho consult placed, discussed with PA, appreciate input: 'Impression: Minimally displaced RIGHT greater trochanter fracture
Plan: Discussed with the patient at length. She wanted to discuss her left hip in more detail. I told her that those questions would need to be routed to her surgical team at [facility]. However, based on the appearance of her fracture fixation WBAT on a
walker would be recommended. With regards to her right greater trochanter fracture she may also be WBAT on a walker. would avoid active and passive abduction and adduction of the right hip as to not put undue stress on the fracture. PT/OT while
admitted. CM to assist with disposition. Ice to the right hip and pain control. Discussed with Dr. Arechiga. Orthopedics to sign off for now. Please reengage with any pertinent questions pertaining to her RIGHT hip during the remainder of her
admission'
New L3 50% vertebral body compression Fx
- pain control
- Vit D 26.2 - replacement started
Gram negative urinary tract infection
E.Coli - ESBL
input of ID appreciated, pt now on Macrobid, received 9 out of 10 doses
Anemia of chronic disease
- Hemoglobin stable at 9.3-->9.6
- Patient is afebrile
- Continue to monitor
History of GI bleed secondary to duodenal ulcer 10/2024
Diabetes mellitus type 2
- Insulin sliding scale
- Monitor blood sugar
- hold Jentadueto
Essential hypertension
- lisinopril
Hyperlipidemia
- statin
Chronic pain syndrome/chronic opiate dependence
- gabapentin
notified by Physician Adviser to change pt to full admit, order placed
Pt agreeable to go to SNF rehab, this would be most appropriate, pt was questioning need to go, long discussion, she is once again agreeable to go
Once arrangements completed and prior auth obtained, pt can be dc to SNF rehab. Reviewed with nursing. Awaiting input from CM for potential dc to follow
DVT ppx: SCDs
Code: Full
Anticipated Discharge: > 48 hours
Subjective/Interval History
-
Date of Service: February 17, 2025
Still with significant pain in rt hip and bilateral knees
Objective Data
-
Vital Signs:
Vital Signs
Temp Pulse Resp BP Pulse Ox
98.3 F 76 18 123/69 95
02/17/25 07:26 02/17/25 07:26 02/17/25 07:26 02/17/25 07:26 02/17/25 07:26
I&O
02/16/25 02/17/25 02/18/25
06:59 06:59 06:59
Intake Total 1410 / 1410 1200 / 1200
Balance 1410 / 1410 1200 / 1200
Review of Systems
-
History Source: Patient and Coordinated Provider
Constitutional: Denies Fever
EENT: Reports No Symptoms Reported
Respiratory: Reports No Symptoms
Cardiac: Reports No Symptoms
Abdomen/GI: Reports No Symptoms
Genitourinary: Reports No Symptoms
Musculoskeletal: Reports Joint Pain (Right hip)
Physical Exam
-
General: Well Developed, Well Nourished and No Apparent Distress
HEENT: Normocephalic, Atraumatic and Moist Mucous Membranes
Respiratory: Negative Rales (bibasilar atelectatic rales have resolved, nursing states has been using IS regularly)
Cardiac: Regular Rhythm and S1/S2
GI: Soft, Nontender and Nondistended
Musculoskeletal: No Clubbing, No Cyanosis, No Edema and Other (rt lateral hip very tender)
Neuro: Awake, Alert and Oriented
[2025-02-17] MEDS: VALIUM 5 MG PO ×2 (11:30→19:43)
[2025-02-17 12:53] LABS: Glucose - Point of Care 113 mg/dl (70-99)
[2025-02-17 15:25] VITALS: BP 125/75
[2025-02-17 17:23] LABS: Glucose - Point of Care 139 mg/dl (70-99)
[2025-02-17] MEDS: LIPITOR 20 MG PO (21:43)
[2025-02-17 22:08] LABS: Glucose - Point of Care 137 mg/dl (70-99)
[2025-02-17 22:51] VITALS: BP 130/82
[2025-02-18] MEDS: TYLENOL PO ×5 (03:07→20:14)
[2025-02-18] MEDS: ROXICODONE 5 MG PO ×5 (04:57→20:45)
[2025-02-18] MEDS: VALIUM 5 MG PO ×3 (05:40→22:46)
[2025-02-18 07:15] VITALS: BP 119/60
[2025-02-18 07:28] LABS: Glucose - Point of Care 149 mg/dl (70-99)
[2025-02-18] MEDS: NOVOLOG FLEXPEN-LOW RESISTANCE SC (07:30)
--- NOTE | 2025-02-18 08:33 | W.PN.HOSP.TC ---
Today's Communication/Plan
-
Await disposition
add Tramadol
Assessment / Plan
Assessment / Plan
Assessment:
Right Hip fracture related to mechanical fall
- Minimally displaced fracture of the greater trochanter of the right proximal femur on CT
s/p left hip fx with cephalomedullary bridget placement at [facility]
- prn pain control. Pt still requiring Oxycodone for pain control, will add Tramadol for less intense pain
- Ortho consult placed, discussed with PA, appreciate input: 'Impression: Minimally displaced RIGHT greater trochanter fracture
Plan: Discussed with the patient at length. She wanted to discuss her left hip in more detail. I told her that those questions would need to be routed to her surgical team at [facility]. However, based on the appearance of her fracture fixation WBAT on a
walker would be recommended. With regards to her right greater trochanter fracture she may also be WBAT on a walker. would avoid active and passive abduction and adduction of the right hip as to not put undue stress on the fracture. PT/OT while
admitted. CM to assist with disposition. Ice to the right hip and pain control. Discussed with Dr. Arechiga. Orthopedics to sign off for now. Please reengage with any pertinent questions pertaining to her RIGHT hip during the remainder of her
admission'
New L3 50% vertebral body compression Fx
- pain control
- Vit D 26.2 - replacement started
Gram negative urinary tract infection
E.Coli - ESBL treated
input of ID appreciated, completed course of Macrobid,
Anemia of chronic disease
- Hemoglobin stable at 9.3-->9.6
- Patient is afebrile
- Continue to monitor
History of GI bleed secondary to duodenal ulcer 10/2024
Diabetes mellitus type 2
- Insulin sliding scale
- Monitor blood sugar
- hold Jentadueto
Essential hypertension
- lisinopril
Hyperlipidemia
- statin
Chronic pain syndrome/chronic opiate dependence
- gabapentin continued
notified by Physician Adviser to change pt to full admit, order placed
Pt agreeable to go to SNF rehab, this would be most appropriate, pt was questioning need to go, long discussion, she is once again agreeable to go
Once arrangements completed and prior auth obtained, pt can be dc to SNF rehab. Reviewed with nursing. Awaiting input from CM for potential dc to follow
DVT ppx: SCDs
Code: Full
Anticipated Discharge: 24 - 48 hours
Subjective/Interval History
-
Date of Service: February 18, 2025
Pt not happy that still waiting for disposition
Objective Data
-
Vital Signs:
Vital Signs
Temp Pulse Resp BP Pulse Ox
99.2 F 77 16 119/60 96
02/18/25 07:15 02/18/25 07:15 02/18/25 07:15 02/18/25 07:15 02/18/25 07:15
I&O
02/17/25 02/18/25 02/19/25
06:59 06:59 06:59
Intake Total 1200 / 1200 1200 / 1200
Balance 1200 / 1200 1200 / 1200
Review of Systems
-
History Source: Patient and Coordinated Provider
Constitutional: Denies Fever
EENT: Reports No Symptoms Reported
Respiratory: Reports No Symptoms
Cardiac: Reports No Symptoms
Abdomen/GI: Reports No Symptoms
Genitourinary: Reports No Symptoms
Musculoskeletal: Reports Joint Pain (Right hip)
Physical Exam
-
General: Well Developed, Well Nourished and No Apparent Distress
HEENT: Normocephalic, Atraumatic and Moist Mucous Membranes
Respiratory: Negative Rales (bibasilar atelectatic rales have resolved, nursing states has been using IS regularly)
Cardiac: Regular Rhythm and S1/S2
GI: Soft, Nontender and Nondistended
Musculoskeletal: No Clubbing, No Cyanosis, No Edema and Other (rt lateral hip very tender)
Neuro: Awake, Alert and Oriented
[2025-02-18] MEDS: PROTONIX 40 MG PO (08:57)
[2025-02-18] MEDS: ZESTRIL 2.5 MG PO (08:57)
[2025-02-18] MEDS: NEURONTIN 300 MG PO ×4 (08:57→22:50)
[2025-02-18] MEDS: MAG-TAB SR 84 MG PO (08:57)
[2025-02-18] MEDS: COLACE PO ×2 (08:58→20:14)
[2025-02-18] MEDS: HEPARIN 5000 UNITS SC ×2 (08:58→20:13)
[2025-02-18] MEDS: SENOKOT PO (08:58)
[2025-02-18] MEDS: DRISDOL (VITAMIN D2) 50000 UNITS PO (09:33)
[2025-02-18 11:20] VITALS: BP 125/70; PULSE 83; O2SAT 94
[2025-02-18 11:41] LABS: Glucose - Point of Care 154 mg/dl (70-99)
[2025-02-18] MEDS: NOVOLOG FLEXPEN-LOW RESISTANCE 1 UNITS SC (13:55)
--- NOTE | 2025-02-18 14:58 | PTCARENOTE ---
Bret avalos was called on pt this shift, she had a friend come over with her personal wheelchair and started getting out of the room, she stated that 'she will go out to lunch with him come back'; nurse tried stopping her and telling that while in
the hospital you can't leave and come back, you need a doctors order to discharge you. Security came, doctor Geni came and able to talk to patient. She stayed, friend left no other issues noted.
[2025-02-18 15:20] VITALS: BP 101/58
[2025-02-18 17:33] LABS: Glucose - Point of Care 222 mg/dl (70-99)
[2025-02-18] MEDS: NOVOLOG FLEXPEN-LOW RESISTANCE 2 UNITS SC (17:43)
[2025-02-18] MEDS: SENOKOT 17.2 MG PO (20:12)
[2025-02-18 21:54] LABS: Glucose - Point of Care 161 mg/dl (70-99)
[2025-02-18] MEDS: LIPITOR 20 MG PO (22:46)
[2025-02-18 23:06] VITALS: BP 113/58
[2025-02-19] MEDS: TYLENOL PO ×7 (00:09→20:38)
[2025-02-19] MEDS: ROXICODONE 5 MG PO ×5 (00:42→20:39)
[2025-02-19] MEDS: MELATONIN 5 MG PO (03:01)
[2025-02-19 07:05] VITALS: BP 110/61
[2025-02-19 07:50] LABS: Glucose - Point of Care 154 mg/dl (70-99)
[2025-02-19] MEDS: NEURONTIN 300 MG PO ×4 (08:14→22:05)
[2025-02-19] MEDS: PROTONIX 40 MG PO (08:14)
[2025-02-19] MEDS: ZESTRIL 2.5 MG PO (08:14)
[2025-02-19] MEDS: SENOKOT 17.2 MG PO ×2 (08:14→20:39)
[2025-02-19] MEDS: MAG-TAB SR 84 MG PO (08:15)
[2025-02-19] MEDS: NOVOLOG FLEXPEN-LOW RESISTANCE 1 UNITS SC ×2 (08:15→16:29)
[2025-02-19] MEDS: HEPARIN 5000 UNITS SC ×2 (08:15→20:39)
[2025-02-19] MEDS: COLACE 100 MG PO ×2 (08:15→20:39)
[2025-02-19] MEDS: VALIUM 5 MG PO ×2 (08:23→16:28)
--- NOTE | 2025-02-19 09:57 | PTCARENOTE ---
pt aaox3. impulsive. states pain in right leg and feeling anxious. meds given as ordered. bed alarm on pt
[2025-02-19] MEDS: ULTRAM 50 MG PO (11:13)
[2025-02-19 11:29] VITALS: BP 106/75; PULSE 86; O2SAT 91
--- NOTE | 2025-02-19 11:40 | CM ---
Addendum entered by Alexi Kiser 02/19/25 14:54:
Pt is requested [facility] that is sister facility for [facility] because she can smoke there.
A referral to [facility] made, pt is accepted for admission tomorrow.
[facility] and she confirmed that pt is approved for SNF level of care at [facility] from today 02/19/25 till 02/21/25 with NRD and LCD 01/25/25. Auth is: [id number]. Reviewer More, fax for clinical:
[phone].
Auth information forwarded to liajuvencio Avalos.
D/C plan: [facility] tomorrow 02/20/25.
Original Note:
CM follwoing re: discharge planning.
reviewed pt's chart, met with pt.
According to MD pt is medically stbale to be discharged today. Pt is aware, expressed her agreement. Pt is informed that [facility] and [facility] offered a bed and pt preferred [facility].
CM spoke to [facility] liaison Bailey and she confirmed they do have a bed available and pt is accepted for admission today and an auth for [facility] level of care requested.
CM initiated an auth for SNF level of care at [facility] from [facility] [phone] , pending reference number: [id number]. Requested pt's clinical faxed to [facility] at [phone].
Awaiting for an auth.
D/C plan: [facility] when an auth available, hopefully today
CM will follow to assist pt with discharge to [facility].
[2025-02-19 11:43] LABS: Glucose - Point of Care 205 mg/dl (70-99)
--- NOTE | 2025-02-19 11:45 | W.PN.HOSP.TC ---
Today's Communication/Plan
-
dc to SNF; possible today if auth obtained
Assessment / Plan
Assessment / Plan
Assessment:
Right Hip fracture related to mechanical fall
- Minimally displaced fracture of the greater trochanter of the right proximal femur on CT
s/p left hip fx with cephalomedullary bridget placement at [facility]
- prn pain control. Pt still requiring Oxycodone for pain control, will add Tramadol for less intense pain
- Ortho consult placed, discussed with PA, appreciate input: 'Impression: Minimally displaced RIGHT greater trochanter fracture
Plan: Discussed with the patient at length. She wanted to discuss her left hip in more detail. I told her that those questions would need to be routed to her surgical team at [facility]. However, based on the appearance of her fracture fixation WBAT on a
walker would be recommended. With regards to her right greater trochanter fracture she may also be WBAT on a walker. would avoid active and passive abduction and adduction of the right hip as to not put undue stress on the fracture. PT/OT while
admitted. CM to assist with disposition. Ice to the right hip and pain control. Discussed with Dr. Arechiga. Orthopedics to sign off for now. Please reengage with any pertinent questions pertaining to her RIGHT hip during the remainder of her
admission'
New L3 50% vertebral body compression Fx
- pain control
- Vit D 26.2 - replacement started
Gram negative urinary tract infection
E.Coli - ESBL treated
input of ID appreciated, completed course of Macrobid,
Anemia of chronic disease
- Hemoglobin stable at 9.3-->9.6
- Patient is afebrile
- Continue to monitor
History of GI bleed secondary to duodenal ulcer 10/2024
Diabetes mellitus type 2
- Insulin sliding scale
- Monitor blood sugar
- resume Jentadueto at discharge
Essential hypertension
- lisinopril
Hyperlipidemia
- statin
Chronic pain syndrome/chronic opiate dependence
- gabapentin continued
DVT ppx: SCDs
Code: Full
More than 30 minutes spent in discharge including
Final examination of the patient
Summarizing hospital stay
Instructions for continuing care to all relevant caregivers
Preparation of discharge records, prescriptions, and referral forms
Total time spent (in minutes): 41
Anticipated Discharge: Today
Subjective/Interval History
-
Date of Service: February 19, 2025
agreeable to SNF dc today
pain is controlled
Objective Data
-
Vital Signs:
Vital Signs
Temp Pulse Resp BP Pulse Ox
99.7 F 73 14 110/64 95
02/19/25 10:59 02/19/25 08:14 02/19/25 07:05 02/19/25 08:14 02/19/25 07:05
I&O
02/18/25 02/19/25 02/20/25
06:59 06:59 06:59
Intake Total 1200 / 1200 880 / 880
Output Total 600 / 600
Balance 1200 / 1200 280 / 280
Physical Exam
-
General: No Apparent Distress
HEENT: Normocephalic and Atraumatic
Respiratory: Negative Wheezes
Cardiac: Regular Rhythm and S1/S2
GI: Soft
Neuro: AO x 3
Psych: Calm
Data Reviewed
-
Total Time Spent with Patient (in minutes): 41
Labs: Labs Reviewed by me
[2025-02-19] MEDS: NOVOLOG FLEXPEN-LOW RESISTANCE 2 UNITS SC (11:54)
[2025-02-19 15:00] VITALS: BP 110/55
[2025-02-19 16:30] LABS: Glucose - Point of Care 172 mg/dl (70-99)
[2025-02-19] MEDS: LIPITOR 20 MG PO (22:02)
[2025-02-19 22:06] LABS: Glucose - Point of Care 232 mg/dl (70-99)
[2025-02-19 23:16] VITALS: BP 112/56
[2025-02-20] MEDS: TYLENOL PO ×4 (00:32→10:21)
[2025-02-20] MEDS: MELATONIN 6 MG PO (00:55)
[2025-02-20] MEDS: VALIUM 5 MG PO ×2 (00:55→08:50)
[2025-02-20] MEDS: ROXICODONE 5 MG PO ×3 (00:57→11:52)
--- NOTE | 2025-02-20 06:43 | FALL ---
At 0620, pt bed alarm set off and found patient transferring from BSC to side of bed attempting to sit, but slid off and onto her buttocks. this RN witnessed incident and aided the pt to the floor. Pt does not c/o pain. VSS- afebrile, HR 78, BP
131/68, pox 94% room air. [place] TAPE CUTTER notified and Nursing supervisor dental laboratory. Incident report completed.
At 0637, [place] TAPE CUTTER assessed pt and notified this RN that she will remove Melatonin. This RN explained that pt continued to set off bed alarm throughout the night. Fall precautions in place.
[2025-02-20 07:00] VITALS: BP 124/67
[2025-02-20 07:11] LABS: Glucose - Point of Care 136 mg/dl (70-99)
[2025-02-20] MEDS: NOVOLOG FLEXPEN-LOW RESISTANCE SC ×2 (07:13→12:11)
--- NOTE | 2025-02-20 07:16 | W.PN.UPDATE ---
Update Note
Progress Note Update
Rn reports patient had a witnessed fall incident, patient states she was moving herself from bedside commode to bed and slipped backward towards the bed and was gently placed on the floor by the nurses. Patient states she did not hurt her self, no
new bruises cuts noted, able to move legs without any difficulty. Advised fall precautions and to wear socks with science analyst, while stepping out of the bed. Patient verbalized understanding. no new interventions at present. stable VS.
[2025-02-20] MEDS: ZESTRIL 2.5 MG PO (07:56)
[2025-02-20] MEDS: PROTONIX 40 MG PO (07:56)
[2025-02-20] MEDS: NEURONTIN 300 MG PO ×2 (07:56→13:10)
[2025-02-20] MEDS: MAG-TAB SR 84 MG PO (07:57)
[2025-02-20] MEDS: COLACE PO (07:57)
[2025-02-20] MEDS: SENOKOT PO (07:57)
[2025-02-20] MEDS: HEPARIN 5000 UNITS SC (07:58)
--- NOTE | 2025-02-20 10:05 | CM ---
CM following re: discharge planning.
Reviewed pt's chart, met with pt.
Discharge order noted. pt is aware, expressed her agreement with discharge. IMM reviewed, placed on chart, pt has a copy. Pt stated she is looking forward to get therapy at [facility].
Pt is approved by [facility] for SNF level of care at [facility] from 02/19/25 till 02/21/25 with NRD and LCD 01/25/25. Auth is: [id number]. Reviewer More, fax for clinical: [phone].
arranged ambulance transport BLS with crop picker time 1:00 p.m. PMNC completed and left with .
[facility] nursing report: [phone]
Discharge instructions fax: [phone]
D/C plan: [facility].
[2025-02-20 12:04] LABS: Glucose - Point of Care 152 mg/dl (70-99)
--- NOTE | 2025-02-20 12:55 | W.PN.HOSP.TC ---
Today's Communication/Plan
-
dc to SNF
Assessment / Plan
Assessment / Plan
Assessment:
Right Hip fracture related to mechanical fall
- Minimally displaced fracture of the greater trochanter of the right proximal femur on CT
s/p left hip fx with cephalomedullary bridget placement at [facility]
- prn pain control. Pt still requiring Oxycodone for pain control, will add Tramadol for less intense pain
- Ortho consult placed, discussed with PA, appreciate input: 'Impression: Minimally displaced RIGHT greater trochanter fracture
Plan: Discussed with the patient at length. She wanted to discuss her left hip in more detail. I told her that those questions would need to be routed to her surgical team at [facility]. However, based on the appearance of her fracture fixation WBAT on a
walker would be recommended. With regards to her right greater trochanter fracture she may also be WBAT on a walker. would avoid active and passive abduction and adduction of the right hip as to not put undue stress on the fracture. PT/OT while
admitted. CM to assist with disposition. Ice to the right hip and pain control. Discussed with Dr. Arechiga. Orthopedics to sign off for now. Please reengage with any pertinent questions pertaining to her RIGHT hip during the remainder of her
admission'
New L3 50% vertebral body compression Fx
- pain control
- Vit D 26.2 - replacement started
Gram negative urinary tract infection
E.Coli - ESBL treated
input of ID appreciated, completed course of Macrobid,
Anemia of chronic disease
- Hemoglobin stable at 9.3-->9.6
- Patient is afebrile
- Continue to monitor
History of GI bleed secondary to duodenal ulcer 10/2024
Diabetes mellitus type 2
- Insulin sliding scale
- Monitor blood sugar
- resume Jentadueto at discharge
Essential hypertension
- lisinopril
Hyperlipidemia
- statin
Chronic pain syndrome/chronic opiate dependence
- gabapentin continued
DVT ppx: SCDs
Code: Full
More than 30 minutes spent in discharge including
Final examination of the patient
Summarizing hospital stay
Instructions for continuing care to all relevant caregivers
Preparation of discharge records, prescriptions, and referral forms
Total time spent (in minutes): 42
Anticipated Discharge: Today
Subjective/Interval History
-
Date of Service: February 20, 2025
noted gradual fall to floor earlier today. No new complaints
for SNF transfer today
Objective Data
-
Vital Signs:
Vital Signs
Temp Pulse Resp BP Pulse Ox
98.7 F 74 20 124/67 92
02/20/25 07:00 02/20/25 07:00 02/20/25 07:00 02/20/25 07:00 02/20/25 07:00
I&O
02/19/25 02/20/25 02/21/25
06:59 06:59 06:59
Intake Total 880 / 880 1540 / 1540
Output Total 600 / 600
Balance 280 / 280 1540 / 1540
Physical Exam
-
General: No Apparent Distress
HEENT: Normocephalic
Respiratory: Clear to Auscultation; Negative Wheezes
Cardiac: Regular Rhythm and S1/S2
GI: Soft and Nontender
Genito-urinary: No Costovertebral Tender
Neuro: AO x 3
Psych: Calm
Data Reviewed
-
Total Time Spent with Patient (in minutes): 42
Labs: Labs Reviewed by me
--- NOTE | 2025-02-20 12:56 | W.DS.TRANS ---
DC Summary - Program Project Analyst
-
Discharge Instructions:
Discharge Diagnosis/Procedures Minimally displaced fracture of the greater
trochanter of the right proximal femur
Diet Regular
Activity As tolerated
Additional Activity WBAT on a walker. avoid active and passive
abduction and adduction of the right hip as to
not put undue stress on the fracture
Other Services PT,OT
Instructions:
Stand-Alone Forms:
Changes to Home Medications: No
Discharge Medications:
DC Medications w/original date entered in [employer]
linagliptin 2.5 mg-metformin 1,000 mg tablet (Jentadueto) 1 tab PO BID Diabetes 04/02/23
gabapentin 300 mg capsule 300 mg PO QID Neurological Condition 05/12/23
lisinopril 2.5 mg tablet 2.5 mg PO DAILY Blood Pressure 05/12/23
simvastatin 40 mg tablet 40 mg PO HS High Cholesterol 05/12/23
cholecalciferol (vitamin D3) 25 mcg (1,000 unit) tablet 25 mcg PO DAILY Supplement 10/15/24
ascorbic acid (vitamin C) 500 mg tablet (Vitamin C) 500 mg PO DAILY Supplement 02/09/25
cyanocobalamin (vitamin B-12) 1,000 mcg tablet 1,000 mcg PO DAILY Supplement 02/09/25
esomeprazole magnesium 40 mg capsule,delayed release (Nexium) 40 mg PO DAILY Gastrointestinal Issue 02/09/25
magnesium oxide 200 mg PO DAILY Supplement 02/09/25
vitamin A-vitamin C-vit E-min tablet 1 tab PO DAILY Supplement 02/09/25
diazepam 5 mg tablet 5 mg PO Q8HPRN PRN anxiety #6 tabs 02/19/25
docusate sodium 100 mg capsule 100 mg PO BID #60 caps 02/19/25
oxycodone 5 mg tablet 5 mg PO Q4HPRN PRN moderate pain #10 tabs 02/19/25
sennosides 8.6 mg tablet (Kadie-javon) 17.2 mg (2 x 8.6 mg) PO BID #60 tabs 02/19/25
Home Medication Changes
Pending Results: No
Total time spent discharging patient (in min): 41
[2025-02-20 13:36] VITALS: BP 120/68
== END 2025-02-20 14:16 | DRG 689 ==
LOC: 2 NORTH 07:22
PROVIDERS: Internal Medicine; Physician Assistant; Registered Nurse; ADMITTING PHYSICIAN Internal Medicine; ATTENDING PHYSICIAN Internal Medicine; CONSULT PHYSICIAN Internal Medicine Infectious Disease; CONSULT PHYSICIAN Orthopaedic Surgery; EMERGENCY PHYSICIAN Emergency Medicine
DX: N30.90 Cystitis, unspecified without hematuria (principal); S72.111A Displaced fracture of greater trochanter of right femur, initial encounter for closed fracture; M48.56XA Collapsed vertebra, not elsewhere classified, lumbar region, initial encounter for fracture; F11.20 Opioid dependence, uncomplicated; E87.1 Hypo-osmolality and hyponatremia; Z16.12 Extended spectrum beta lactamase (ESBL) resistance; I10 Essential (primary) hypertension; E78.00 Pure hypercholesterolemia, unspecified; F31.9 Bipolar disorder, unspecified; E11.9 Type 2 diabetes mellitus without complications; W01.0XXA Fall on same level from slipping, tripping and stumbling without subsequent striking against object, initial encounter; D63.8 Anemia in other chronic diseases classified elsewhere; G89.4 Chronic pain syndrome; G43.909 Migraine, unspecified, not intractable, without status migrainosus; G47.33 Obstructive sleep apnea (adult) (pediatric); K21.9 Gastro-esophageal reflux disease without esophagitis; F17.200 Nicotine dependence, unspecified, uncomplicated; F10.10 Alcohol abuse, uncomplicated; I95.1 Orthostatic hypotension; B96.20 Unspecified Escherichia coli [E. coli] as the cause of diseases classified elsewhere; Z87.19 Personal history of other diseases of the digestive system; Z87.81 Personal history of (healed) traumatic fracture
CPT/HCPCS: 70450; 72110; 72125; 72170; 72192; 73552; 80048; 80076; 81003; 81015; 82306; 82962; 83036; 84132; 85025; 85027; 87077; 87086; 87186; 96374; 96376; 97116; 97163; 97167; 97530; 97535; 99285

== ENCOUNTER 2025-03-10 17:15 | Inpatient (IN) | payer MEDICARE, OTHER, SELFPAY ==
[2025-03-10] VITALS (21 sets, daily range): BP systolic 106–231; BP diastolic 55–115
--- NOTE | 2025-03-10 14:57 | EDRN ---
Dr. Raya and respiratory and multiple RN's and techs at the pts bedside, attempting ultrasound PIV, Dr. Raya is placing IO for access
--- NOTE | 2025-03-10 15:03 | EDRN ---
20 mg etomidate and 50mg rocuronium given for RSI at 1503. 7.5 ETT 21 @lip. + color change for end tidal.
[2025-03-10 15:07] LABS: Hematocrit 41.0 % (37.0-47.0); Hemoglobin 13.6 g/dL (12.0-16.0); Mean Corp Hgb Conc. 33.2 g/dL (33.0-37.0); Mean Corpuscular Volume 84.0 fL (81.0-99.0); Nucleated Red Blood Cells % 0 %; Platelet Count 360 10^3/uL (130-400); Red Cell Dist. Width 16.5 % (11.5-14.5)
--- NOTE | 2025-03-10 15:13 | ED.GENMED ---
History of Present Illness
General
Chief Complaint: Change in Mental Status
Source: ambulance crew
Time Seen by Provider: 03/10/25 14:43
History of Present Illness
History of Present Illness:
70-year-old female brought to the emergency room by ambulance after a neighbor found her unresponsive on the bathroom floor. Unknown when the patient was last observed at her baseline. Medics state that she did not really respond to their stimuli.
Review of patient's chart here at this time reveals that she has had multiple ER visits and hospitalizations mostly related to alcohol use disorder and falls. Her most recent hospitalization was a couple weeks ago for a greater trochanteric
fracture on the right. Due to patient's diminished responsiveness she is unable to provide any history. Nursing staff noted the patient is not protecting her airway, seemed to vomit some liquid material and gag or choke on it. They noted that she
was hypoxic on arrival.
Past History
Past History
ED Past Medical History: GERD, HTN, Hypercholesterolemia, NIDDM, Seizures, Psychiatric (Depression, Anxiety), Other (Chronic pancreatitis, Ulcers, obstructive sleep apnea, UTi, Bilateral Vestibular loss, Migraines, Neck pain, Coma from fall) and
Other (migraines, hepatitis, alcohol abuse, Bilateral vestibular Loss, Gastritis)
ED Past Surgical History: Tonsilectomy and Other (right breast lumpectomy)
Patient has exhibited threatening behavior?: No
Social History
Tobacco: Smoker
Alcohol: Chronic alcoholic ( Two 5th's of vodka, Denies any alcohol for 3 months as of 05/22/24)
Drug: None
Personal:
Living: snf ([facility])
Employment: Not employed
Family History
Family History: Other (Alzheimer's); Negative Early CAD
Phy Exam
Physical Exam
Physical Exam:
General: Eyes open to painful stimulus and she does somewhat localize to the Yankauer being placed in the back of her mouth to suction. However she does not respond in any verbal way. She does not follow any commands.
Vitals: unremarkable
Head: Atraumatic
Eyes: Pupils equal, EOMI
Throat: Airway intact, no exudates copious secretions
Neck: Trachea midline
Lungs: Clear and equal b/l
Heart: Regular rate, no murmurs
Abd: Soft, no apparent tenderness, no pulsatile mass
Neuro: Does not follow commands but does not appear to have a facial droop or other obvious signs of focality
Skin: Warm, dry, no rash
Extremities: pulses equal b/l, 1+ edema
Course
Orders/Labs/Results
Orders:
Orders
03/10/25 14:55
Electrocardiogram (*1) Urgent
Reason for Study: Other
Other Reason for Exam: Respiratory Distress
Cardiac Monitoring- Treatment ONCE
EKG- Treatment ONCE
IV Insert/Care/Rem.- Treatment PRN
CR Chest Portable - 1 View Urgent
Comment:
Reason For Exam: respiratory distress
Reason Study Needs to be Portable: Patient Unstable
O2 Therapy [RESP] Urgent
Titrate/Wean O2 to maintain O2 sat greater than (%): 93
Special Instructions: TO MAINTAIN CONTINUOUS O2 SATS >/= 93%
Pulse Ox/cont/shift [RESP] Urgent
Quantity: 1
Special Instructions: continuous pulse ox
03/10/25 14:59
Acetaminophen Urgent
Alcohol Urgent
Complete Blood Count/With Diff Urgent
Comprehensive Metabolic Panel Urgent
Lactic Acid Q4H
Comment: WITH 1ST SET OF BLOOD CULTURES,CANCEL 2ND LACTIC ACID IF FIRST <2
NT-proBNP Urgent
Prothrombin Time Urgent
Salicylate Urgent
Triglycerides Urgent
Comment: ADD ON
Troponin I Urgent
03/10/25 15:03
Etomidate [Amidate] 20 mg IV NOW STA
03/10/25 15:04
FentaNYL 1,000 MCG/100 ML [Sublimaze] 1,000 mcg in 100 ml .ROUTE .STK-MED
Propofol 1,000,000 Mcg/100 ml [Diprivan] 1,000,000 mcg in 100 ml .ROUTE .STK-MED
03/10/25 15:14
Add On- LAB Urgent
Tests Added?: salicylate level
CT Head W/o Iv Contrast Urgent
Comment:
Reason For Exam: altered mental status
FentaNYL 1,000 MCG/100 ML [Sublimaze] 1,000 mcg in 100 ml IV NOW
Indication:: Deep Sedation
Begin Infusion:: Now
Goal:: RASS </= -3, BIS 40-60, ventilator synchrony
Maximum dose in mcg/hr:: 300
Initial Dose in mcg/hr:: 50
Titration Instructions:: Titrate Q30 min until ventilator synchrony, RASS or BIS goal is met.
Titration Instructions:: If RASS >/= -2 or BIS > 60 or ventilator dyssynchrony:
Titration Instructions:: administer bolus dose and increase infusion by 25 mcg/hr.
Titration Instructions:: Administer analgesia bolus dose(s) & titrate analgesia prior to
Titration Instructions:: adjusting sedation.
Over-sedation Instructions:: if BIS < 40 and pt is synchronous with ventilator, decrease infusion by
Over-sedation Instructions:: 25 mcg/hr every 2 hours until BIS = 40-60.
Over-sedation Instructions:: Do not wean infusion to off if patient is receiving a continuous NMBA or
Over-sedation Instructions:: has received a bolus dose of NMBA within the past 3 hours.
Notify provider:: immediately if pt exhibits signs/symptoms of chest wall rigidity,
Notify provider:: hemodynamic instability, or agitation/pain despite maximum dosing.
Additional Instructions:: Patient MUST be mechanically ventilated.
Fentanyl Citrate/Pf [Sublimaze] 50 mcg IV [id number] PRN
Fentanyl Citrate/Pf [Sublimaze] 65 mcg IV NOW STA
Propofol 1,000,000 Mcg/100 ml [Diprivan] 1,000,000 mcg in 100 ml IV NOW
Indication:: Light Sedation
Begin Infusion:: Now
Goal:: RASS 0 to -2
Maximum dose in mcg/kg/min:: 50
Initial dose based on RASS:: Yes
If RASS is:: +1 or pt hemodynamically unstable (SBP < 90mmHg), initiate at 10 mcg/kg/min
If RASS is:: +2, initiate at 20 mcg/kg/min
If RASS is:: greater than or equal to +3, initiate at 30 mcg/kg/min
Titration Instructions:: Titrate by 5-10 mcg/kg/min every 5 minutes until RASS 0 to -2 achieved.
Taper Instructions:: If RASS is at or below goal for 4 consecutive hours decrease infusion by
Taper Instructions:: 5-10 mcg/kg/min every 2 hours to off.
Over-sedation Instructions:: If CPOT 0-2 (at goal) AND RASS -3 to -5 (below goal) decrease sedative by
Over-sedation Instructions:: 50% first. If pain score remains at goal and RASS remains below goal in
Over-sedation Instructions:: 1 hour, decrease opioid infusion by 50%.
Notify provider:: immediately if patient exhibits signs/symptoms of propofol-related
Notify provider:: infusion syndrome.
Additional Instructions:: Patient MUST be mechanically ventilated and MUST receive analgesia.
03/10/25 15:16
0.9% Sodium Chloride 500 ml [Nss] 500 ml IV BOLUS
03/10/25 15:19
CR Chest Portable - 1 View Urgent
Comment:
Reason For Exam: tube placement
Reason Study Needs to be Portable: Patient Unstable
03/10/25 15:27
DIETARY IP CONSULT Routine
Reason for Consult: intubated
03/10/25 15:42
Fentanyl, Urine Urgent
Urinalysis Reflex To Culture Urgent
Date Specimen was Collected: 03/10/25
Time Specimen was Collected: 15:40
Urine Drug Abuse Screen Urgent
Date Specimen was Collected: 03/10/25
Time Specimen was Collected: 15:40
Urine Microscopic Reflex Cult Urgent
Urine Culture Urgent
TEREZA Source: U
Specimen Description:
Date Specimen was Collected: 03/10/25
Time Specimen was Collected: 15:40
03/10/25 15:43
Restraints - Non Violent As Directed
Justification-Patient:: 2-Protective Intervention
Restraint Type-: Soft Limb-L&R Wrist/4rail
Apply From (date): 03/10/25
Apply from (time): 15:43
Remove (date): 03/11/25
Remove (time): 23:59
03/10/25 16:14
Propofol [Diprivan] 60 mg IV NOW STA
03/10/25 16:27
Admit/Transfer Patient As Directed
Co-Sign Provider:
Level of Care: Inpatient admission
Assign to:: ICU
Physician / Group: antoniy
Diagnosis: overdose
Reason for Hospitalization: overdose
Expected length of stay greater than two midnights?: Yes
ELOS- Estimated Length of Stay in days: 3
I certify the patient meets the requirements for IP care: Yes
PRN Pain Medication Management As Directed
May give lesser potent ordered pain med per pt: Yes
preference::
Protocol:: Medication orders for pain may be administered in a
manner that supports deferring to patient preference
when the pt is:
- Requesting an ordered lesser potent pain medication.
Least to most potent pain medications are defined
as: acetaminophen < NSAID < tramadol < opioids
(morphine, oxycodone, hydromorphone).
- Requesting a lesser dose of the same medication IF
ORDERED.
- Requesting a less intrusive route of administration
if both routes are prescribed by the provider (PO <
IV).
03/10/25 16:28
Code Status As Directed
Resuscitation Status: Full Code
03/10/25 16:35
Women'S Studies Professor Consult Routine
Consulting Provider: Yani Grant
Was physician already notified: Yes
03/10/25 16:46
ABG [Arterial Blood Gas] Urgent
%Oxygen/Room Air: 50
03/10/25 17:26
Acetaminophen [Tylenol/Feverall] 650 mg RECTAL Q4HPRN PRN
Bisacodyl [Dulcolax] 10 mg RECTAL [id number] PRN
Dextrose 50%-Water [Dextrose 50% Syringe] 12.5 grams IV [id number] PRN
Docusate W/Senna [Senokot-S] 1 tablet PO BIDPRN PRN
Glucagon [GlucaGen] 1 mg IM PRN PRN
Insulin Aspart Corrective Low [Novolog Flexpen-Low Resistance] See Protocol SC AC
Polyethylene Glycol Powder [Miralax] 17 grams PO DAILYPRN PRN
03/10/25 17:26
Activity As Directed
Activity Level: As Tolerated
Bedside Glucose Monitoring As Directed
Frequency: AC&HS
Additional Instructions:: Change to q6h if pt on TPN, tube feeding or not eating
Vital Signs As Directed
Frequency: Per unit guidelines
DX Deep Vein Thrombosis Video Routine
03/10/25 18:00
Enoxaparin Sodium [Lovenox] 40 mg SC QPM
Piperacillin/Tazo 3.375 Gram [Zosyn] 3.375 gram in 50 ml IV Q6H
03/11/25 Breakfast
NPO
Reason for opting out of Television Maintenance Man order writing: Provider Decision
Allow oral meds: No
Allow clear liquids: No
NPO with Ice Chips: No
Glycohemoglobin (HgbA1c) IN AM
Abnormal Lab Results
03/10/25 03/10/25 03/10/25
14:59 15:42 16:46
RDW 16.5 H %
(11.5-14.5)
pCO2 47 H mmHg
(32-35)
HCO3 28.5 H mmol/L
(21-28)
ABG O2 Sat (Measured) 98.7 H %
(94-98)
Glucose 142 H mg/dl
(70-99)
Calcium 10.9 H mg/dl
(8.4-10.2)
Total Protein 9.2 H g/dl
(6.3-8.2)
Triglycerides 171 H mg/dl
(10-149)
Leukocyte Esterase Rfl 3+ A
(Negative)
Urine WBC (Reflex) 11-15 A /HPF
(0-5)
Urine Bacteria (Reflex) Few A
(Negative)
Urine Albumin (Reflex) 1+ A
(Neg - Trace)
Salicylates < 1.0 L mg/dl
(2.0-20.0)
Acetaminophen < 10 L ug/ml
(10-30)
U Benzodiazepines Scrn Positive H
(Negative)
03/10/25 14:59
03/10/25 14:59
Vital Signs
Initial and Last Documented VS:
Initial Vital Signs
Pulse Resp Pulse Ox
67 18 100
03/10/25 14:46 03/10/25 14:46 03/10/25 14:46
Last Documented Vital Signs
Temp Pulse Resp BP Pulse Ox
97.8 F 81 16 109/66 99
03/10/25 19:14 03/10/25 19:45 03/10/25 19:45 03/10/25 19:30 03/10/25 20:13
Procedures
Intubations
Procedure completed by: Myself
Method of Intubation: glidescope
Tube size (cm): 8.0
Placement confirmed by: auscutation, CXR, capnography, placement corrected and direct visualization
Breath sounds after intubation: right greater than left
MDM/Problems Addressed
Differential Diagnosis Includes:
Subdural, intracranial hemorrhage, alcohol intoxication, medication overdose (suicidal or accidental), alcohol withdrawal with seizures
MDM/Problems Addressed:
Patient presents with decreased mental status, not protecting her airway and not following commands. Decision made to intubate her to protect her airway and facilitate testing such as CT scan etc. The patient accomplished without much difficulty.
CT shows no acute intracranial malady. Labs are unremarkable really. No significant electrolyte abnormalities. Urinalysis not consistent with a urinary tract infection. Alcohol level is 0. She does test positive for benzos. We did not
administer benzos here though perhaps there is a cross reaction. Overall the patient's presentation seems most consistent with a overdose either intentional or inadvertent. Patient's airway was protected with intubation. She has remained
hemodynamically stable. ET tube ultimately taped at 20 cm at the teeth. No other significant abnormalities on chest x-ray. Patient will be mated to the intensive care unit.
*Radiology
Radiology exam reviewed: preliminary read by ED provider (No acute abnormality to my review of patient chest x-ray. No pneumothorax. ET tube thought to be just above the maureen on the first x-ray and well above the maureen on the second x-ray.)
*Pulse Oximetry
SaO2: 78
Oxygen Mode of Delivery: Room air
Patient hypoxic: yes
*EKG
Interpreted by ED Provider?: Yes
Interpretation: abnormal
Heart Rate: 116
Rate: tachycardiac
Rhythm: sinus tachycardia
[place]: normal axis
Interval: normal interval
QRS Pattern: normal QRS
Ischemia: no ischemia
*Cost Accounting Manager Interpretation
Rate: tachycardiac
Interpretation: abnormal
Heart Rate: 116
Rhythm: sinus tachycardia
*Critical Care Note
Total Time (30-74mins, 75-104mins- exclusive of procedures): 42 min
comment:
Critical care statement: A total of 42 minutes of critical care time was provided for this patient. This includes management of unstable vital signs, evaluation of the patient at bedside, reviewing the patient's pertinent medical records, discussion
with consultants, review of old EKGs and review of pertinent medical records. This time with separate from time utilized to perform the aforementioned documented procedures
ED Attending Note
-
Portions of this chart may have been created with voice recognition software.� Occasional wrong word or��sound alike� substitutions may have occurred due to the inherent limitations of voice recognition software.
Discharge Plan
Departure
Patient Disposition: Admit
Date of Disposition: 03/10/25
Time of Disposition: :
Admit to: ICU
Presentation/result/management discussed w/ accepting MD/DO: Hospitalist
Condition: Serious
Discharge Problem:
Altered mental status, Respiratory failure
Interventions
Interventions:
*General Assessment Last Done: 03/10/25 14:46
*Neglect/Abuse Screening Last Done: 03/10/25 14:46
*Nursing Disposition Last Done: 03/10/25 17:41
ED- Pulmonary Assessment Last Done: 03/10/25 16:30
ED- Neurological Assessment Last Done: 03/10/25 14:50
ED Swallowing Screen Last Done: 03/10/25 14:50
Discharge Date and Time
Discharge Date/Time: 03/10/25 17:30
[2025-03-10] MEDS: SUBLIMAZE 100 IV (15:15)
[2025-03-10] MEDS: DIPRIVAN 100 IV (15:15)
[2025-03-10 15:20] LABS: INR 1.04; PT 13.9 Sec (11.4-14.6)
[2025-03-10 15:25] LABS: ALT (SGPT) 11 U/L (0-35); AST (SGOT) 22 U/L (14-36); Acetaminophen < 10 ug/ml (10-30); Albumin 4.9 g/dl (3.5-5.0); Alkaline Phosphatase 113 U/L (38-126); Blood Urea Nitrogen 9 mg/dl (7-17); Calcium 10.9 mg/dl (8.4-10.2); Carbon Dioxide 23 mmol/L (22-30); Chloride 101 mmol/L (98-107); Glucose 142 mg/dl (70-99); Potassium 4.6 mmol/L (3.5-5.1); Sodium 135 mmol/L (135-145); Total Protein 9.2 g/dl (6.3-8.2); eGFR > 60.00
[2025-03-10] MEDS: NSS 500 IV (15:35)
[2025-03-10 15:37] LABS: Troponin I < 0.012 ng/ml
[2025-03-10 15:53] LABS: Urine Character Clear (Clear)
[2025-03-10] MEDS: SUBLIMAZE 50 MCG IV (15:55)
[2025-03-10 16:26] LABS: Urine Red Blood Cell 0-2 /HPF (0-2)
--- NOTE | 2025-03-10 16:26 | HPS.HSE ---
Family Physician
-
Family Physician:
Chief Complaint
-
found unresponsive
History of Present Illness
I could not get any information from the patient is unresponsive
Information gathered by chart review and speaking with the ER staff and EMS
HPI
69F HX Bipolar disorder, ETOH use disorder, Chr opiated depdent pain syndrome, DMT2 , HX ESBL E Coli UTI, UGIB, Non bleeding DU and esophageal ulcer, ACBLA, seen at ER:
- was found unresponsive on the floor by neighbour
- unresponsive to pain stimuli prior to arrival per EMS
- coughed and aspirating vomits on arrival
- unable to answer questions
Prescription monitoring program
- Baclofen 10mg TID ( 15 tabs ) - filled as of 03/09/25
- Diazepam 5mg q8h PRN (30 tabs) - filled as of 02/24/25
Medical History
Past Medical History
Past Medical History: Reports HTN, NIDDM and Other
Additional Past Medical History:
ETOH use disorder, Chronic pain syndrome/chronic opiate dependence , HX UGIB and ACBLA in October 2024 HX uncomplicated cystitis with MDRO ESBL-E. Coli, HX orthostatic hypotension:
Past Surgical History: Reports Other
Additional Past Surgical History:
Tonsillectomy
Social History
Tobacco: Smoker
Alcohol: Former
Drug: None
Personal: Single
Living: Alone
Family History
Family History: Not pertinent
Allergies / Home Medications
Allergies reflects when Allergies were last updated in [facility].
Home Medications with original date entered in [facility]
Allergy/Medication List:
Allergies
Allergy/AdvReac Type Severity Reaction Status Date / Time
topiramate (From Topamax) Allergy Itching Verified 12/30/24 04:41
valdecoxib (From Bextra) Allergy Rash Verified 12/30/24 04:41
Home Medications
linagliptin 2.5 mg-metformin 1,000 mg tablet (Jentadueto) 1 tab PO BID Diabetes 04/02/23
gabapentin 300 mg capsule 300 mg PO QID Pain 05/12/23
lisinopril 2.5 mg tablet 2.5 mg PO DAILY Blood Pressure 05/12/23
simvastatin 40 mg tablet 40 mg PO HS High Cholesterol 05/12/23
tramadol 50 mg tablet 50 mg PO Q6HPRN PRN moderate pain 10/20/23
cholecalciferol (vitamin D3) 25 mcg (1,000 unit) tablet 25 mcg PO DAILY Supplement 10/15/24
cyanocobalamin (vitamin B-12) 1,000 mcg tablet 1,000 mcg PO DAILY Supplement 10/15/24
diazepam 5 mg tablet 5 mg PO Q8HPRN PRN anxiety 10/15/24
pantoprazole 40 mg tablet,delayed release (Protonix) 40 mg PO BID #60 tabs 11/19/24
folic acid 1 mg tablet 1 mg PO DAILY #30 tabs 11/20/24
thiamine mononitrate (vit B1) 100 mg tablet 100 mg PO BID #60 tabs 11/20/24
albuterol sulfate 90 mcg/actuation aerosol inhaler (Ventolin HFA) 2 inh inhalation Q6H PRN shortness of breath or wheezing #8.5 grams 12/30/24
doxycycline hyclate 100 mg tablet 100 mg PO BID #20 tabs 12/30/24
methylprednisolone 4 mg tablets in a dose pack (Medrol (Mino)) See Rx Instructions PO .COMPLEX #21 ea 12/30/24
Review of Systems
-
Unable to obtain full review of systems at this time due to: Patient Intubation
Physical Exam
Vital Signs
Vital Signs
Temp Pulse Resp BP Pulse Ox
97.2 F 103 11 171/94 97
03/10/25 15:38 03/10/25 16:00 03/10/25 16:00 03/10/25 16:00 03/10/25 15:38
Physical Exam
General: Intubated
HEENT: NormoCephalic and Anicteric
Respiratory: Other (symmetric )
Cardiac: S1/S2 and Regular Rhythm
GI: Soft
Musculoskeletal: No Edema
Neuro: Other (sedated and intubated )
Laboratory Results
-
03/10/25 14:59
03/10/25 14:59
Laboratory Results
PT 13.9 Sec (11.4-14.6) 03/10/25 14:59
INR 1.04 03/10/25 14:59
Lactic Acid Cancelled 03/10/25 19:00
Total Bilirubin 0.6 mg/dl (0.2-1.3) 03/10/25 14:59
AST 22 U/L (14-36) 03/10/25 14:59
ALT 11 U/L (0-35) 03/10/25 14:59
Alkaline Phosphatase 113 U/L (38-126) 03/10/25 14:59
Troponin I < 0.012 ng/ml 03/10/25 14:59
Data Reviewed
-
Diagnostic Radiology: Image Personally Visualized and interpreted
CT Scan: Image Personally Visualized and interpreted
Medical Tests (Nuc Med, Echo, EKG etc): Report Reviewed by me
Lab Data: Labs Reviewed by me
Impression/Plan
-
Unremarkable CBC, BMP
BG 142
Calcium 10.9
TP 9.2, Alb 4.9
proBNP 259
TPNI < 0.012
LA
TG
UDS: POS BZD
Pending Salicylate level
NEG ETOH
NEG UA
EKG
SINUS TACHYCARDIA
OTHERWISE NORMAL ECG
WHEN COMPARED WITH ECG OF 30-Dec-2024 06:22,
NO SIGNIFICANT CHANGE WAS FOUND
CXR; pending fial report
HCT: pending fial report
11/17/24 EGD
- non bleeding duodenal ulcers, esophageal ulcers with no bleeding and no stigmata of recent bleeds and a normal stomach.
- Pathology is pending
- twice daily Protonix
- to repeat endoscopy in eight weeks
Last hospitalist admission: DATE OF ADMISSION: 02/13/2025 -DATE OF DISCHARGE: 02/20/2025
DC Dxs
1. Right hip fracture related to a mechanical fall. Conservativemanagement with pain control and physical therapy as per
Orthopedics.
2. New L3-50 percent vertebral body compression fracture. Continuepain control and vitamin D replacement.
3. E. coli ESBL UTI treated with Macrobid per ID.
4. Anemia of chronic disease.
5. HX GI bleed secondary to duodenal ulcer in October 2024.
6. Type 2 diabetes.
7. Essential hypertension.
8. Hyperlipidemia.
9. Chronic pain syndrome and chronic opiate dependence.
ASSESSMENT & PLAN
Pending Rx reconciliation
Unresponsive patient who is unable to protect AW 2/2 presumed profound TME
- Differential precipitants: likely DIE MOUNTER suppressant Meds OD vs. ETOH vs. less likely metabolic or infective
- vomits and aspirated Concern for aspiration pneumonitis per EMS HX
- unresponsive to pain stimuli prior to arrival per EMS
- intubated and vent at ER ( s/p fentanyl , propofol )
- Empiric IV BS ABx - vancomycin and Zosyn
- HCT to r/o acute DIE MOUNTER event such as ICH, massive CVA
- portable CXR
,
Of note: per Prescription monitoring program
- noted Baclofen 10mg TID ( 15 tabs ) - filled as of 03/09/25
- noted Diazepam 5mg q8h PRN (30 tabs) - filled as of 02/24/25
- Hold Baclofen, Diazepam, gabapentin, oxycodone due to profound encephalopathy
HX uncomplicated cystitis with MDRO ESBL-E. Coli
- HX ABx : IV CFTX,PO Augmentin then PO Macrobid on last admission
Recent HX L3 50% vertebral body compression Fx on last admission
- on OP supportive care
HX UGIB and ACBLA in October 2024 - per EGD -Non bleeding duodenal ulcers, esophageal ulcers with no bleeding and no stigmata October EGD
Anemia of chronic disease
- current Hgb 13.6 strongly suspect hemoconcentrated
- Baseline Hgb is in low to mid 9s
- trend Hgb in response to IVF
ETOH use disorder: Nl MCV ( suspect bi-phasic anemia )
- NEG ETOH level
- denied recent ETOH use for months in prior admission H & P
DMT2
- ISS low
- Hold metformin/linagliptin (Jentadueto)
Essential hypertension:
- hold TRISTIAN inhibitor
Hyperlipidemia:
- on PUBLIC RELATIONS CONSULTANT statin
DVT Px: LMWH
Full code
ICU
Total Critical Care Time_55____ minutes.
I was immediately available to the patient and staff. I personally examined, reviewed labs, diagnostic images/reports, interpretations, treatment plans, discussed patient care with other providers and family or caregivers (if patient is unable to
make decisions), entered orders as appropriate and documented the medical record.
[2025-03-10] MEDS: DIPRIVAN 60 MG IV (16:27)
[2025-03-10 16:28] LABS: Salicylate < 1.0 mg/dl (2.0-20.0)
[2025-03-10] MEDS: AMIDATE 20 MG IV (16:35)
[2025-03-10 16:53] LABS: B.E. 2.8 mmol/L; HCO3 28.5 mmol/L (21-28); O2 Saturation % 98.7 % (94-98); PCO2 47 mmHg (32-35); PO2 98 mmHg (83-108)
--- NOTE | 2025-03-10 17:31 | PHANOTE ---
med rec tech: meds entered are from most recent pharmacy fills and notes from last visit to physician
[2025-03-10 17:41] LABS: Triglycerides 171 mg/dl (10-149)
--- NOTE | 2025-03-10 18:00 | PTCARENOTE ---
Received patient from ED, ET to vent on FiO2 50%, Unresponsive, RASS -5, Pupils fixed @2mm, on Propofol drip @50mcg/kg/min and Fentanyl drip @100mcg/hr, NSR, BP WNL, NPO, Soft Abdomen, Cornell in place draining yellow urine.
[2025-03-10 18:07] LABS: Glucose - Point of Care 150 mg/dl (70-99)
[2025-03-10] MEDS: ZOSYN 50 IV ×2 (18:10→23:29)
[2025-03-10] MEDS: LOVENOX 40 MG SC (18:10)
[2025-03-10] MEDS: NOVOLOG FLEXPEN-LOW RESISTANCE SC (18:11)
[2025-03-10] MEDS: VANCOCIN 530 MG IV (18:47)
[2025-03-10 20:03] LABS: B.E. 0 mmol/L; HCO3 23.8 mmol/L (21-28); O2 Saturation % 99.2 % (94-98); PCO2 35 mmHg (32-35); PO2 99 mmHg (83-108)
--- NOTE | 2025-03-10 21:00 | PTCARENOTE ---
Assumed care of pt at 1900. Received pt intubated, #7.5 ETT 20cm at [facility], AC 16/450/40/5. Received pt on Propofol at 30mcg/kg/min and Fentanyl at 100mg/hr. Pt unresponsive/RASS -5 at start of shift. Started weaning sedation shortly before 1999, see
med titration flowsheets on worklist for details. SR on monitor. Assessment as documented in nursing shift assessment flowsheet.
--- NOTE | 2025-03-10 21:32 | PHA.VAN.IN ---
Assessment
- Assessment
Renal Function: Appears similar to baseline
Maximum Temperature: 97.8
Minimum Temperature: 97.2
Concomitant Antimicrobials: piperacillin-tazobactam
AUC Dosing Plan
- Dosing Variables
Dosing Weight (kg): 64.2
Dosing CrCl (ml/min): 81
Vd coefficient (L/kg): 0.7
- Empiric Dosing
Initial / Loading Dose: vanc 1500 mg 03/10 18:47
Maintenance Regimen: vanc 750 mg q12h
Estimated AUC (mcg*h/mL): 483
Estimated Peak (mcg*h/mL): 28.9
Estimated Trough (mcg/ml): 13.2
Estimated Half Life (H): 9.7
- Monitoring
No levels ordered at this time: consider in the upcoming days
MRSA Screen: Ordered per protocol (PCR)
Pharmacokinetics Vancomycin I
- -
Patient Age: 70
Patient Sex: Male
Vancomycin Day #: 1
Indication: Pulmonary/Respiratory
Requesting Provider: NICK Quick
Pertinent Antimicrobial Allergies:
no pertinent allergies
Height / Weight:
Height 5 ft 5 in
Actual Weight 64.2 kg
Pertinent Past Medical History: recent admissions for alcohol use disorder
- Vital Signs / Lab Results
Temp Pulse Resp BP Pulse Ox
97.8 F 81 16 109/66 99
03/10/25 19:14 03/10/25 19:45 03/10/25 19:45 03/10/25 19:30 03/10/25 20:13
Lab Results - Hematology
03/10/25
14:59
WBC 8.4
Lab Results - Chemistry
03/10/25
14:59
BUN 9
Creatinine 0.6
Albumin 4.9
03/10/25 03/10/25
14:59 19:00
Lactic Acid 1.9 Cancelled
Lab Results - Urine
03/10/25
15:42
Urine Nitrite (Reflex) Negative
Leukocyte Esterase Rfl 3+ A
Urine WBC (Reflex) 11-15 A
Ur Squamous Epith Cells 11-15
Urine Bacteria (Reflex) Few A
[2025-03-10 23:20] LABS: Glucose - Point of Care 140 mg/dl (70-99)
[2025-03-11] VITALS (26 sets, daily range): BP systolic 91–151; BP diastolic 43–115; BMI 21.6
--- NOTE | 2025-03-11 00:21 | PTCARENOTE ---
Midnight assessment unchanged. Propofol weaned off by 2229, Fentanyl now down to 50mcg/hr. Pt with + corneals, + cough, weak gag, eyes flutter to tactile stimuli, started coughing when bonilla care done but beyond that has not responded with any other
care (mouth care, turns, etc). Trace movement noted to all 4 extremities, pt will not open eyes to command, will not follow commands.
[2025-03-11] MEDS: LR 500 IV ×2 (01:55→08:55)
[2025-03-11] MEDS: LR 1000 IV ×3 (02:52→23:22)
[2025-03-11 04:12] LABS: Blood Urea Nitrogen 10 mg/dl (7-17); Calcium 9.2 mg/dl (8.4-10.2); Carbon Dioxide 23 mmol/L (22-30); Chloride 105 mmol/L (98-107); Estimated Creatinine Clearance 81 ml/min; Glucose 145 mg/dl (70-99); Magnesium 1.3 mg/dl (1.6-2.3); Potassium 4.1 mmol/L (3.5-5.1); Sodium 135 mmol/L (135-145); eGFR > 60.00
[2025-03-11] MEDS: MAGNESIUM SULFATE 50 IV (04:27)
[2025-03-11] MEDS: SUBLIMAZE 50 MCG IV ×4 (04:27→13:32)
[2025-03-11] MEDS: PRECEDEX 100 IV (04:35)
[2025-03-11] MEDS: SUBLIMAZE 100 IV (05:15)
[2025-03-11 05:27] LABS: Glucose - Point of Care 143 mg/dl (70-99)
--- NOTE | 2025-03-11 05:31 | PTCARENOTE ---
Assessment mostly unchanged. Pt waking up more--has remained off Propofol, and Fentanyl turned off at approx 0115. Pt was calm until around 0420 when AM care being done--started coughing non-stop and alarming high peak pressures, copious amounts of
secretions both orally and via ETT, pt attempting to reach for tube and sit up. Opened eyes slightly, does not follow commands. Fentanyl bolus given, drip restarted, Precedex drip started. See EMAR and med titration flowsheets for details. CHG cloth
bath done and linens changed. Mag rider administered for low Mag on AM labs. Pt's urine output has been suboptimal this shift, LR bolus administered given at around 0200 and LR @75ml/hr started, see EMAR.
[2025-03-11] MEDS: ZOSYN 50 IV ×3 (06:00→17:50)
[2025-03-11] MEDS: VANCOCIN 150 IV ×2 (06:36→18:25)
[2025-03-11] MEDS: NOVOLOG FLEXPEN-LOW RESISTANCE SC ×3 (07:00→17:38)
--- NOTE | 2025-03-11 07:06 | CON.INTV ---
Consultation
Consultation Request
Date/Time Consultation Requested: 03/10/2025
Date/Time Consultation Performed: 03/11/2025
Medical History
-
Chief Complaint: Altered mental status
History of Present Illness:
Patient currently intubated, mechanically ventilated and sedated, history obtained from chart review and discussed with other healthcare providers. Reportedly patient has history of bipolar disorder, history of alcoholism and chronic opioid use who
was found unresponsive on the floor by neighbor. EMS brought the patient to the emergency room where coughing and vomiting with potential aspiration was noted. Patient was unable to protect airway and was intubated in the emergency room for airway
protection. Subsequently she was admitted to the ICU for further evaluation and beer merchant consultation was requested.
Past Medical History
Past Medical History: Reports HTN, NIDDM and Other
Additional Past Medical History:
ETOH use disorder, Chronic pain syndrome/chronic opiate dependence , HX UGIB and ACBLA in October 2024 HX uncomplicated cystitis with MDRO ESBL-E. Coli, HX orthostatic hypotension:
Past Surgical History: Reports Other
Additional Past Surgical History:
Tonsillectomy
Social History
Tobacco: Smoker
Alcohol: Former
Drug: None
Personal: Single
Living: Alone
Family History
Family History: Not pertinent
Allergies / Home Medications
Allergies
Allergy/AdvReac Type Severity Reaction Status Date / Time
topiramate (From Topamax) Allergy Itching Verified 12/30/24 04:41
valdecoxib (From Bextra) Allergy Rash Verified 12/30/24 04:41
Home Medications
�Medication �Instructions �Recorded �Confirmed �Last Taken �Type
linagliptin 2.5 mg-metformin 1,000 1 tab PO BID Diabetes 04/02/23 02/09/25 02/08/25 History
mg tablet (Jentadueto)
gabapentin 300 mg capsule 300 mg PO QID Neurological 05/12/23 02/09/25 02/08/25 History
Condition
lisinopril 2.5 mg tablet 2.5 mg PO DAILY Blood Pressure 05/12/23 02/09/25 02/08/25 History
simvastatin 40 mg tablet 40 mg PO HS High Cholesterol 05/12/23 02/09/25 02/08/25 History
esomeprazole magnesium 40 mg 40 mg PO DAILY Gastrointestinal 02/09/25 02/09/25 02/08/25 History
capsule,delayed release (Nexium) Issue
diazepam 5 mg tablet 5 mg PO Q8HPRN PRN anxiety #6 tabs 02/19/25 Unknown Rx
oxycodone 5 mg tablet 5 mg PO Q4HPRN PRN moderate pain 02/19/25 Unknown Rx
#10 tabs
albuterol sulfate 90 mcg/actuation 2 inh inhalation R Q6HPRN PRN sob 03/10/25 Unknown History
aerosol inhaler
baclofen 10 mg tablet 10 mg PO TIDPRN PRN spasms 03/10/25 Unknown History
Review of Systems
-
Unable to Obtain full review of systems at this time due to: Patient Intubation
Vitals / Labs / Diagnostic Testing
Vital Signs
Temp Pulse Resp BP Pulse Ox
99.1 F 82 16 91/45 99
03/11/25 03:05 03/11/25 06:04 03/11/25 06:04 03/11/25 06:04 03/11/25 04:18
Lab Data
03/10/25 14:59
03/11/25 03:33
Laboratory Results
03/10/25 03/10/25 03/10/25
14:59 16:46 19:59
PT 13.9
INR 1.04
pH 7.39 7.44
pCO2 47 H 35
pO2 98 99
HCO3 28.5 H 23.8
O2 Delivery Level
Diagnostic Testing:
Physical Exam
-
HEENT: Normocephalic
Cardiovascular: S1/S2
Respiratory: Clear
GI: Soft
Neurology: Other (Drowsy, starting to wake up)
Skin: Warm
General: Comfortable
Assessment
-
#1. Acute metabolic encephalopathy,
- Concern for polypharmacy, drug overdose. Patient takes diazepam and baclofen as per prescription monitoring program. In addition home medications include gabapentin and tramadol and ?Oxycodone.
- Urine toxicology screen positive for benzodiazepines. CT head in the emergency room unremarkable, no major electrolyte abnormality noted
- EKG reviewed, sinus tachycardia WV, QTc 417, continue telemetry monitoring
- High-dose thiamine with prior history of alcoholism
- LR bolus 500 mL, increase maintenance fluids to 100 mL/h, blood pressure borderline low
#2. Acute respiratory failure, inability to protect airway
- Patient intubated due to encephalopathy and inability to protect airway
- ABG 7.44/35/99 on 450/16/40%/5
- Weaned off propofol and fentanyl, continue Precedex, SAT/SBT with the goal to extubate today
- Patient starting to wake up, once more awake and alert, placed on pressure support
#3. ? Pulmonary nodule, PRASHANT 1.1 cm.
- CT chest for further evaluation
#4. LLL pneumonia vs atelectasis, concern for Aspiration
- Patient is afebrile, normal WBC count
- Purulent output noted from ET tube
- Continue antibiotics for now, await CT chest, low threshold to discontinue antibiotics
Other medical diagnoses.
- ESBL E. Coli in urine culture (01/2025)
- Hypomagnesemia
- History of vertebral compression fracture
- History of Esophageal and duodenal ulcer, October 2024
- Hypertension, hyperlipidemia
- Diabetes mellitus
- Chronic pain syndrome, chronic opiate use
Critical Care time 65 mins -- The patient is admitted for acute critical illness for the treatment of vital organ failure and/or prevention of further life-threatening conditions. Total care includes time spent in review of history, physical exam,
medications, hemodynamic/ventilator parameters, laboratory data, imaging and discussion with house staff, pharmacy, respiratory therapy, dosier operator, and nursing.
Data:
CXR 02/2025: 1. Endotracheal tube projects over the trachea approximately 6 cm above the maureen.
2. Patchy opacity at the left lung base, which may represent pneumonia, aspiration, or subsegmental atelectasis. Small left pleural effusion may also be present.
3. 1.1 cm nodular opacity projected over the left upper lung zone. This may be artifactual, however follow-up chest x-ray and/or chest CT is recommended to exclude pulmonary nodule.
CT head 02/2025: No acute intracranial abnormality noted. No acute intracranial hemorrhage.
Left frontal lobe mild encephalomalacia and cortical atrophy, possibly reflecting old infarct or posttraumatic changes from remote injury the proper clinical setting.
Mild cortical atrophy.
--- NOTE | 2025-03-11 07:30 | PTCARENOTE ---
07:00, Received patient ET to Vent on FiO2 40%, Responded to deep pain stimuli, RASS -4 on Fentanyl Drip @50mcg/hr and Precedex Drip @0.2mcg/kg/hr, Right pupil brisk @2mm and Left pupil sluggish @2mm, on B/L wrist restraints, NSR, BP soft, NPO,
Corn[place] in place.
07:30, Standby Fentanyl and Precedex drips to perform SAT.
[2025-03-11] MEDS: THIAMINE INJECTION 255 MG IV ×3 (08:23→23:22)
[2025-03-11] MEDS: PROTONIX IV 40 MG IV (08:27)
[2025-03-11] MEDS: NSS (PRESERVATIVE FREE) 10 ML IV (08:27)
--- NOTE | 2025-03-11 08:30 | PHA.VAN.FU ---
Vancomycin Assessment / Plan
- Assessment
Renal Function: Stable
In the past 24 hrs, patient has been: Afebrile
Concomitant Antimicrobials: Piperacillin-tazobactam
- Dosing Plan
Continue: Vanc 750mg IV q12H
- Monitoring Plan
No level(s) ordered at this time: Consider levels after 03/12 1800 dose
- Follow Up
Pharmacy will continue to follow.
Vancomycin Follow UP
- -
Patient Age: 70
Patient Sex: Male
Vancomycin Day #: 2
Indication: Pulmonary/Respiratory
Requesting Provider: NICK Quick
Pertinent Antimicrobial Allergies:
no pertinent allergies
Height / Weight:
Height 5 ft 5 in
Actual Weight 58.9 kg
Pertinent Past Medical History: recent admissions for alcohol use disorder
- Vital Signs / Lab Results
Temp Pulse Resp BP Pulse Ox
98.1 F 76 21 109/48 99
03/11/25 07:21 03/11/25 07:38 03/11/25 07:38 03/11/25 07:38 03/11/25 08:00
Lab Results - Hematology
03/10/25
14:59
WBC 8.4
Lab Results - Chemistry
03/10/25 03/11/25
14:59 03:33
BUN 9 10
Creatinine 0.6 0.6
Estimated Creat Clear 81
Albumin 4.9
03/10/25 03/10/25
14:59 19:00
Lactic Acid 1.9 Cancelled
Lab Results - Urine
03/10/25
15:42
Urine Nitrite (Reflex) Negative
Leukocyte Esterase Rfl 3+ A
Ur Squamous Epith Cells 11-15
[2025-03-11 11:47] LABS: Glucose - Point of Care 129 mg/dl (70-99)
--- NOTE | 2025-03-11 12:11 | CM ---
registered nurse hh case manager reviewed patient's chart and met with patient and spoke with nursing, patient is currently requiring ventilator assistance, prior to admission patient lived at [facility] apartments was independent with adl's and used a walker with
ambulation, per chart patient has a history of, Etoh use, opioid dependance, and bipolar, psychiatry consult is pending.
Patient was discharged to a care home facility [facility] on 02/20/25.
PCP Dr. Morris
Pharmacy: [facility]
--- NOTE | 2025-03-11 12:30 | PTCARENOTE ---
Reassessed the patient, agitated and coughing on the vent, RASS +2, eyes tracked briefly when calling her name, not following any commands. Back on Precedex gtt and PRN Fentanyl Bolus given.
--- NOTE | 2025-03-11 14:00 | W.PN.HOSP.TC ---
Today's Communication/Plan
-
Vent mx per conduit bender
CW emp abx
Watch for alcohol withdrawal
Assessment / Plan
Assessment / Plan
Unresponsive patient who is unable to protect AW 2/2 presumed profound TME
- Differential precipitants: likely FISH HOUSEKEEPER suppressant Meds OD vs. ETOH vs. less likely metabolic or infective
- vomits and aspirated Concern for aspiration pneumonitis per EMS HX
- unresponsive to pain stimuli prior to arrival per EMS
- intubated and vent at ER ( s/p fentanyl , propofol )
- cw Empiric IV BS ABx - vancomycin and Zosyn ;CXR with left basal opacity and PRASHANT nodule
- HCT neg for acute FISH HOUSEKEEPER event such as ICH, massive CVA
- Currently getting wean off sedation ; cw vent per conduit bender
,
Of note: per Prescription monitoring program
- noted Baclofen 10mg TID ( 15 tabs ) - filled as of 03/09/25
- noted Diazepam 5mg q8h PRN (30 tabs) - filled as of 02/24/25
- Hold Baclofen, Diazepam, gabapentin, oxycodone due to profound encephalopathy
HX uncomplicated cystitis with MDRO ESBL-E. Coli
- HX ABx : IV CFTX,PO Augmentin then PO Macrobid on last admission
Recent HX L3 50% vertebral body compression Fx on last admission
- on OP supportive care
HX UGIB and ACBLA in October 2024 - per EGD -Non bleeding duodenal ulcers, esophageal ulcers with no bleeding and no stigmata October EGD
Anemia of chronic disease
- current Hgb 13.6 strongly suspect hemoconcentrated
- Baseline Hgb is in low to mid 9s
- trend Hgb in response to IVF
ETOH use disorder: Nl MCV ( suspect bi-phasic anemia )
- NEG ETOH level
- denied recent ETOH use for months in prior admission H & P
- watch for withdrawal
HypoMg -replete
DMT2
- ISS low
- Hold metformin/linagliptin (Jentadueto)
Essential hypertension:
- hold TRISTIAN inhibitor
Hyperlipidemia:
- on PAIRER INSPECTOR statin
Thyroid
Total time spent on today's encounter was 52 minutes which included time spent in counseling the patient/family regarding diagnosis and treatment plan as listed above, goals of care, and symptom management. Case was discussed with nursing staff,
specialists, and care coordinators/case management. All labs and imaging personally reviewed by me. Remainder the time spent in detailed review of previous records, lab data, imaging, and other medical provider documentation.
DVT Px: LMWH
Full code
ICU
Anticipated Discharge: > 48 hours
Subjective/Interval History
-
Date of Service: March 11, 2025
Intubated on vent.
She is getting sedation weaned off and just on Precedex. She is alert and seems to follow simple commands but not all the commands. She is moving all 4 limbs.
Objective Data
-
Labs:
Laboratory Results
03/11/25
03:33
Sodium 135
Potassium 4.1
Chloride 105
Carbon Dioxide 23
BUN 10
Creatinine 0.6
Glucose 145 H
Calcium 9.2 D
Vital Signs:
Vital Signs
Temp Pulse Resp BP Pulse Ox
97.7 F 75 16 109/50 100
03/11/25 11:18 03/11/25 12:00 03/11/25 12:00 03/11/25 12:00 03/11/25 12:00
I&O
03/10/25 03/11/25 03/12/25
06:59 06:59 06:59
Intake Total 1642.2 / 1725.1 1473.1 / 1473.1
Output Total 227 / 232 185 / 185
Balance 1415.2 / 1493.1 1288.1 / 1288.1
Physical Exam
-
General: Negative Respiratory Distress
Respiratory: Clear to Auscultation (Anteriorly) and Non Labored Respirations; Negative Accessory Resp Muscle Use
Cardiac: Regular Rhythm, S1/S2 and Tachycardic
GI: Soft
Neuro: Awake and Alert
Psych: Anxious (nervous looking)
Data Reviewed
-
Labs: Labs Reviewed by me
--- NOTE | 2025-03-11 14:15 | PTCARENOTE ---
Extubated @14:15, on NC 2L, SpO2 @98%. Mental status unchanged, noted intermittent muscle spasms.
--- NOTE | 2025-03-11 17:09 | PTCARENOTE ---
Reassessed the patient, A&O to own name, not following commands, anxious/agitated, legs moving to the side of bed, not redirectable, continue on B/L soft wrist restraints, Bed alarm on, NC 2L, ST on the monitor, BP WNL.
[2025-03-11 17:45] LABS: Glucose - Point of Care 150 mg/dl (70-99)
[2025-03-11] MEDS: LOVENOX 40 MG SC (17:50)
--- NOTE | 2025-03-11 19:57 | PTCARENOTE ---
Assumed care of pt at 1900. Pt is awake, will look at who is speaking to her, but only briefly and then will stare off into space, has had no verbal response, will not follow commands. GCS = 10. Able to move all extremities equally, pt has been
moving constantly in the bed, not attempting to get OOB but unable to sit still. ST 110s on monitor. SpO2 97-99% on 2LNC. Pt with rhonchi, insp/exp wheezing throughout and noted to have heavy breathing and tachypnea at times. See nursing shift
assessment flowsheet for full physical assessment details. Pt currently in b/l soft wrist restraints with x4 siderails up, bed alarm activated.
[2025-03-11] MEDS: DUONEB 3 ML INH (21:13)
[2025-03-11 23:43] LABS: Glucose - Point of Care 150 mg/dl (70-99)
[2025-03-12] VITALS (18 sets, daily range): BP systolic 113–159; BP diastolic 71–92; BMI 22.2
--- NOTE | 2025-03-12 00:05 | PTCARENOTE ---
Midnight assessment unchanged. Pt still with coarse lung sounds and some wheezing, has had hyperpnea most of the shift. Remains on 2LNC with SpO2 98%. Pt remains non-verbal and not following commands. Restraints removed. Pt able to reposition
herself in bed. CHG cloth bath done and linens changed. Urine output improving. ST 110s on monitor. Bed alarm activated.
[2025-03-12] MEDS: ZOSYN 50 IV ×2 (00:27→06:13)
[2025-03-12 03:49] LABS: Hematocrit 29.0 % (37.0-47.0); Hemoglobin 9.8 g/dL (12.0-16.0); Mean Corp Hgb Conc. 33.8 g/dL (33.0-37.0); Mean Corpuscular Volume 83.3 fL (81.0-99.0); Platelet Count 247 10^3/uL (130-400); Red Cell Dist. Width 15.8 % (11.5-14.5)
[2025-03-12 04:15] LABS: Blood Urea Nitrogen 7 mg/dl (7-17); Calcium 9.0 mg/dl (8.4-10.2); Carbon Dioxide 26 mmol/L (22-30); Chloride 100 mmol/L (98-107); Estimated Creatinine Clearance 81 ml/min; Glucose 134 mg/dl (70-99); Magnesium 1.3 mg/dl (1.6-2.3); Potassium 2.8 mmol/L (3.5-5.1); Sodium 131 mmol/L (135-145); eGFR > 60.00
[2025-03-12] MEDS: VANCOCIN 150 IV (05:09)
[2025-03-12] MEDS: KCL 270 MEQ IV ×2 (05:18→09:34)
[2025-03-12] MEDS: MAGNESIUM SULFATE 50 IV (05:18)
--- NOTE | 2025-03-12 05:24 | PTCARENOTE ---
0400 assessment mostly unchanged. Pt has been awake the entire night. At this point pt will respond verbally by saying 'yeah' in response to questions, even questions that are not yes/no. When asked her name, she has stated 'yeah' or 'nine nine
nine' or something garbled and incomprehensible. Still not following commands, but is lying calmly in the bed and has been cooperative with care. Breathing pattern unchanged, pt removed her O2 and is maintaining a SpO2 of 94% on RA. ST 110s on
monitor.
[2025-03-12] MEDS: DUONEB 3 ML INH (07:43)
--- NOTE | 2025-03-12 07:48 | W.PN.INTV ---
Today's Communication / Plan
Recommendations
Discontinue antibiotics
Hold off on CT chest for now given questionable aspiration/chemical pneumonitis
Eventual outpatient CT chest. Chest x-ray as clinically indicated
Follow white count
Continue to monitor mental status
Speech and swallow evaluation
Consider restarting baclofen at low-dose, follow clinically
Okay for transfer out of ICU. Pulmonary will continue to follow briefly
Assessment
-
#1. Acute metabolic encephalopathy,
- Concern for polypharmacy, drug overdose. Patient takes diazepam and baclofen as per prescription monitoring program. In addition home medications include gabapentin and tramadol and ?Oxycodone.
- Urine toxicology screen positive for benzodiazepines. CT head in the emergency room unremarkable, no major electrolyte abnormality noted
- EKG reviewed, sinus tachycardia MD, QTc 417, continue telemetry monitoring
- High-dose thiamine with prior history of alcoholism
- Blood pressures responded to IV fluids, currently normotensive
- Consider restarting baclofen at low-dose once cleared from speech and swallow
#2. Acute respiratory failure, inability to protect airway
- Patient intubated due to encephalopathy and inability to protect airway, extubated 03/11
- Presently on room air
- Maintain off sedation, avoid narcotics
-Head of bed elevated
#3. ? Pulmonary nodule, PRASHANT 1.1 cm.
- CT chest for further evaluation
- would pursue this as an outpatient, especially concern for recent aspiration event
#4. LLL pneumonia vs atelectasis, concern for Aspiration
- Patient is afebrile
- Will discontinue antibiotics
- Obtain chest x-ray as clinically indicated
- Follow white count
Other medical diagnoses.
- ESBL E. Coli in urine culture (01/2025)
- Hypomagnesemia
- History of vertebral compression fracture
- History of Esophageal and duodenal ulcer, October 2024
- Hypertension, hyperlipidemia
- Diabetes mellitus
- Chronic pain syndrome, chronic opiate use
DVT prophylaxis: Remains on enoxaparin
GI prophylaxis: Not indicated
Reviewed with critical care nursing, respiratory care, pharmacy
Reviewed with primary service
Okay for transfer out of ICU. Pulmonary will continue to follow briefly
Data:
CXR 02/2025: 1. Endotracheal tube projects over the trachea approximately 6 cm above the maureen.
2. Patchy opacity at the left lung base, which may represent pneumonia, aspiration, or subsegmental atelectasis. Small left pleural effusion may also be present.
3. 1.1 cm nodular opacity projected over the left upper lung zone. This may be artifactual, however follow-up chest x-ray and/or chest CT is recommended to exclude pulmonary nodule.
CT head 02/2025: No acute intracranial abnormality noted. No acute intracranial hemorrhage.
Left frontal lobe mild encephalomalacia and cortical atrophy, possibly reflecting old infarct or posttraumatic changes from remote injury the proper clinical setting.
Mild cortical atrophy.
Subjective Dataa
Subjective Data
Date of Service:
Date of Service: March 12, 2025
Subjective:
Patient is conversant on room air. Answering questions but remains confused. Continues to apologize. She does follow commands and is able to speak short sentences. She denies shortness of breath, chest pain, nausea, abdominal pain
Objective Data
Data Reviewed
Vital Signs / I&O / Oxygen:
Vital Signs
Temp Pulse Resp BP Pulse Ox
99 F 109 19 146/73 93
03/12/25 07:15 03/12/25 06:00 03/12/25 06:00 03/12/25 06:00 03/12/25 06:00
Intake and Output
03/11/25 03/12/25 03/13/25
06:59 06:59 06:59
Intake Total 1642.2 / 1725.1 4100.6 / 4100.6
Output Total 227 / 232 2885 / 2885
Balance 1415.2 / 1493.1 1215.6 / 1215.6
SaO2 [A/C] 100
SaO2 93
Nasal Cannula flow liters per 2
minute
Physical Exam
General: Comfortable
HEENT: Normocephalic and Anicteric
Cardiovascular: S1-S2, Regular Rhythm, Murmur (n), Rub (n) and Peripheral Edema (n)
Respiratory: Wheeze (n), Crackles (n), Rhonchi (n) and Non-Labored Respirations
GI: Soft, Non Distended and Non Tender
Neurology: Awake, Alert, No Motor Deficits (Moves all extremities) and Other (She remains disoriented, does not know she is in the hospital, does not know the year)
Skin: Good Color, Cyanosis (n) and Jaundice (n)
Labs/Micro/Reports
Lab Data
03/12/25 03:04
03/12/25 03:04
Microbiology
03/11/25 03:33 Nose Nasal Screen MRSA (PCR) - Final
MRSA not detected - performed by PCR methodology.
[2025-03-12] MEDS: NSS (PRESERVATIVE FREE) 10 ML IV (08:42)
[2025-03-12] MEDS: PROTONIX IV 40 MG IV (08:42)
[2025-03-12] MEDS: THIAMINE INJECTION 255 MG IV ×2 (08:43→16:27)
[2025-03-12] MEDS: NOVOLOG FLEXPEN-LOW RESISTANCE SC ×3 (08:59→15:29)
[2025-03-12 09:09] LABS: Glucose - Point of Care 148 mg/dl (70-99)
--- NOTE | 2025-03-12 09:23 | PHA.VAN.FU ---
Vancomycin Assessment / Plan
- Assessment
Renal Function: SCR Decreasing
WBC's are: Trending Up (piperacillin/tazobactam)
In the past 24 hrs, patient has been: Afebrile
- Dosing Plan
Continue: vancomycin 750 mg Q12H
- Monitoring Plan
Peak Level: 03/12 2100
Trough Level: 03/13 0530
- Follow Up
Pharmacy will continue to follow.
Vancomycin Follow UP
- -
Patient Age: 70
Patient Sex: Male
Vancomycin Day #: 3
Indication: Pulmonary/Respiratory
Requesting Provider: NICK Quick
Pertinent Antimicrobial Allergies:
no pertinent allergies
Height / Weight:
Height 5 ft 5 in
Actual Weight 60.4 kg
Pertinent Past Medical History: recent admissions for alcohol use disorder
- Vital Signs / Lab Results
Temp Pulse Resp BP Pulse Ox
99 F 104 16 150/84 98
03/12/25 07:15 03/12/25 08:00 03/12/25 08:00 03/12/25 08:00 03/12/25 08:00
Lab Results - Hematology
03/10/25 03/12/25
14:59 03:04
WBC 8.4 13.3 H
Lab Results - Chemistry
03/10/25 03/11/25 03/12/25
14:59 03:33 03:04
BUN 9 10 7
Creatinine 0.6 0.6 0.5 L
Estimated Creat Clear 81 81
Albumin 4.9
03/10/25 03/10/25
14:59 19:00
Lactic Acid 1.9 Cancelled
Microbiology Results
03/11/25 03:33 Nasal Screen MRSA (PCR) - Final
Nose MRSA not detected - performed by PCR methodology.
--- NOTE | 2025-03-12 09:36 | W.PN.HOSP.TC ---
Today's Communication/Plan
-
MRI of the brain
Transferred to telemetry
Assessment / Plan
Assessment / Plan
Change in mental status with confusion.
Patient admitted with unresponsiveness concerned about probably medication related encephalopathy
Currently remains confused. She is not hypoxic and hemodynamically stable.
On admission CT head showed left frontal lobe encephalomalacia. Today she is nonfocal neurologically.
On admission she was also noted to have no metabolic encephalopathy. There was a concern for possible aspiration pneumonia but I doubt that this causing her encephalopathy.
Urine drug screen was negative for narcotics but was positive for benzos. She was is on diazepam. Alcohol screen was negative on admission. Diazepam is a longer acting agent and could be playing some role if she had taken too much but with left
frontal encephalomalacia raising concern for prior infarct will get an MRI of the brain to rule out any stroke.
Unclear baseline but noted to be living alone which makes me think she is probably somewhat functional.
Status post VDRF
Patient was intubated for airway protection eventually came in with unresponsiveness. Currently respiratory hawkins stable. Extubated 03/11
Possible aspiration pneumonia
- vomits and aspirated Concern for aspiration pneumonitis per EMS HX
- unresponsive to pain stimuli prior to arrival per EMS
- cw Empiric IV Zosyn ;CXR with left basal opacity and PRASHANT nodule.
-MRSA screen negative-DC vancomycin
Left upper lobe nodule-further evaluation per pulmonary
HX uncomplicated cystitis with MDRO ESBL-E. Coli
- HX ABx : IV CFTX,PO Augmentin then PO Macrobid on last admission
Recent HX L3 50% vertebral body compression Fx on last admission
- on OP supportive care
HX UGIB and ACBLA in October 2024 - per EGD -Non bleeding duodenal ulcers, esophageal ulcers with no bleeding and no stigmata October EGD
Anemia of chronic disease
- current Hgb 9.8 at her baseline
- Baseline Hgb is in low to mid 9s
ETOH use disorder: Nl MCV ( suspect bi-phasic anemia )
- NEG ETOH level
- denied recent ETOH use for months in prior admission H & P
- watch for withdrawal
Hypokalemia-replete
DMT2
- ISS low
- Hold metformin/linagliptin (Jentadueto)
Essential hypertension:
- hold TRISTIAN inhibitor
Hyperlipidemia:
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
Discussed with RN and entry level recruiter
Total time spent on today's encounter was 52 minutes which included time spent in counseling the patient/family regarding diagnosis and treatment plan as listed above, goals of care, and symptom management. Case was discussed with nursing staff,
specialists, and care coordinators/case management. All labs and imaging personally reviewed by me. Remainder the time spent in detailed review of previous records, lab data, imaging, and other medical provider documentation.
DVT Px: LMWH
Full code
Transfer to telemetry
Anticipated Discharge: > 48 hours
Subjective/Interval History
-
Date of Service: March 12, 2025
Patient extubated yesterday and currently on room air. No respiratory distress noted.
She is alert and oriented to self only.
She can tell me where she is, where she lives, or her address. She cannot remember the event preceding the hospitalization.
She keeps saying' I am sorry' repeatedly. She is tearful.
She follows all commands without agitation.
Cooperative with exam.
Voicing no specific complaints.
Denies headache, limb weakness.
No nausea or vomiting.
Says short of breath but when asked second time she says no
She told she lives with the family but according to the chart she lives alone in [place]
Objective Data
-
Labs:
Laboratory Results
03/12/25
03:04
WBC 13.3 H
Hgb 9.8 L D
Hct 29.0 L
Plt Count 247 D
Sodium 131 L
Potassium 2.8 L D
Chloride 100
Carbon Dioxide 26
BUN 7
Creatinine 0.5 L
Glucose 134 H
Calcium 9.0
Vital Signs:
Vital Signs
Temp Pulse Resp BP Pulse Ox
99 F 102 13 113/71 96
03/12/25 07:15 03/12/25 09:00 03/12/25 09:00 03/12/25 09:00 03/12/25 09:35
I&O
03/11/25 03/12/25 03/13/25
06:59 06:59 06:59
Intake Total 1642.2 / 1725.1 4100.6 / 4293.1 682.5 / 682.5
Output Total 227 / 232 2885 / 3195 930 / 930
Balance 1415.2 / 1493.1 1215.6 / 1098.1 -247.5 / -247.5
Review of Systems
-
Unable to obtain full review of systems at this time due to: Other (Cognitive impairment)
Physical Exam
-
General: Comfortable
Respiratory: Clear to Auscultation and Non Labored Respirations; Negative Accessory Resp Muscle Use
Cardiac: Regular Rhythm, S1/S2 and Tachycardic
GI: Soft and Nontender
Musculoskeletal: No Edema
Neuro: Awake, Alert, Oriented (Self only) and No Motor Deficits; Negative Tremors, Sedated, Slurred Speech or Facial Droop
Psych: Calm and Confused; Negative Agitated
Data Reviewed
-
Labs: Labs Reviewed by me
--- NOTE | 2025-03-12 09:56 | PTCARENOTE ---
Patient downgraded to tele level. VSS.
[2025-03-12] MEDS: LR 1000 IV ×2 (12:36→19:14)
[2025-03-12 12:54] LABS: Glucose - Point of Care 123 mg/dl (70-99)
--- NOTE | 2025-03-12 13:10 | PTOTSP ---
Speech Language Pathology
Pt seen for clinical bedside swallow evaluation. P.O. trials of puree, regular solids, and thin liquids provided. Adequate mastication, bolus formation, and A-P transit noted. Frequently following swallow, quick inhalation noted with stridor,
followed by dry throat clear. No change in vocal quality or any coughing noted. Pt is at risk for dysphagia secondary to recent extubation.
Recommend:
(1) Regular solids/thin liquids
(2) General aspiration precautions
(3) Meds as tolerated
(4) Will consider instrumental swallowing assessment if any difficulty noted with P.O. intake
(5) SENIOR TELECOMMUNICATIONS CONSULTANT to continue to follow
--- NOTE | 2025-03-12 13:44 | PTCARENOTE ---
Rec'd care of patient at 0700. Patient alert. Confused and forgetful. Speech nonsensical at times. Communication improving throughout shift. Following commands appropriately. MAEx4. Anxious and tearful, stating 'I'm sorry' repeatedly. Emotional
support provided. ST on tele. Rate in the 100-110's. Lung sounds cta on RA. Occasional cough; non-productive. +BS. No BM. Cornell removed. Incontinent of a large amount of urine saturating bed. Complete bed bath provided. Cleared by speech therapy for
regular diet. Bed alarm on and safe environment maintained. See worklist for full assessment and care.
[2025-03-12 15:34] LABS: Glucose - Point of Care 140 mg/dl (70-99)
[2025-03-12] MEDS: LOVENOX 40 MG SC (17:12)
[2025-03-12] MEDS: LIPITOR 20 MG PO (17:12)
--- NOTE | 2025-03-12 18:19 | PTCARENOTE ---
Patient increasingly agitated. Yelling at staff. Cursing. Hospitalist notified. Order for PRN Diazepam obtained.
[2025-03-12] MEDS: VALIUM 2 MG PO (19:14)
[2025-03-12] MEDS: ZOFRAN 4 MG IV (20:27)
[2025-03-12 21:38] LABS: Glucose - Point of Care 168 mg/dl (70-99)
--- NOTE | 2025-03-12 21:56 | PTCARENOTE ---
Assumed care of pt at 1900. Pt is awake, alert to self and place, forgetful, does not reorient well. Asks for the same things repeatedly, yelling out. Has asked multiple times for the bedpan, most recently asked for bedpan and within 10 seconds had
thrown it on the floor. Argumentative at times. Emotionally labile, crying randomly at times. Mostly continent but will try to remove the bedpan herself creating a mess, has been cleaned up twice so far this shift, linens and gown changed. Given PRN
diazepam at start of shift. ST 110s on monitor. SpO2 97% on RA. See nursing shift assessment flowsheet for full physical assessment details. Pt currently watching a movie, bed alarm activated. Telemetry LOC.
[2025-03-13] VITALS (8 sets, daily range): BP systolic 101–158; BP diastolic 63–107
[2025-03-13] MEDS: THIAMINE INJECTION 255 MG IV ×4 (00:01→23:33)
[2025-03-13] MEDS: VALIUM 2 MG PO ×3 (02:57→23:33)
[2025-03-13 05:42] LABS: Hematocrit 30.4 % (37.0-47.0); Hemoglobin 10.2 g/dL (12.0-16.0); Mean Corp Hgb Conc. 33.6 g/dL (33.0-37.0); Mean Corpuscular Volume 82.8 fL (81.0-99.0); Platelet Count 257 10^3/uL (130-400); Red Cell Dist. Width 15.2 % (11.5-14.5)
--- NOTE | 2025-03-13 05:46 | PTCARENOTE ---
Pt has not slept all shift, has been repeatedly on and off the bed richardson in addition to saturating the bed with urine and requiring at least 3 full bed changes this shift. Constantly yelling out and has repeated requests for small things. Will get
agitated when not answered immediately. Medicated x2 this shift with PRN Valium, did have x1 episode of emesis after eating a bite of a roll that was several hours leftover from dinner. Has been ST on monitor throughout the shift.
[2025-03-13 06:07] LABS: Blood Urea Nitrogen 2 mg/dl (7-17); Calcium 9.5 mg/dl (8.4-10.2); Carbon Dioxide 25 mmol/L (22-30); Chloride 101 mmol/L (98-107); Estimated Creatinine Clearance 81 ml/min; Glucose 139 mg/dl (70-99); Magnesium 1.4 mg/dl (1.6-2.3); Potassium 3.2 mmol/L (3.5-5.1); Sodium 132 mmol/L (135-145); Triglycerides 117 mg/dl (10-149); eGFR > 60.00
--- NOTE | 2025-03-13 06:34 | PTCARENOTE ---
Martin text sent to house provider Shahriar ROMERO regarding pt's K+ and Mag levels from this AM's labs. Awaiting orders.
--- NOTE | 2025-03-13 07:39 | W.PN.INTV ---
Today's Communication / Plan
Recommendations
PT/OT, continue management per primary service
Reviewed chest x-ray findings with patient at length, nodule
Reviewed risk for lung cancer
Reviewed importance of tobacco cessation
Would recommend outpatient CT chest ION. Information left in chart
Would recommend outpatient pulmonary follow-up. Information left in chart
We will sign off. Please call with questions
Assessment
-
#1. Acute metabolic encephalopathy,
- Concern for polypharmacy, drug overdose. Patient takes diazepam and baclofen as per prescription monitoring program. In addition home medications include gabapentin and tramadol and ?Oxycodone.
- Urine toxicology screen positive for benzodiazepines. CT head in the emergency room unremarkable, no major electrolyte abnormality noted
- EKG reviewed, sinus tachycardia AR, QTc 417, continue telemetry monitoring
- High-dose thiamine with prior history of alcoholism, decrease per protocol
- Blood pressures responded to IV fluids, currently normotensive
- Consider restarting baclofen at low-dose once cleared from speech and swallow
- Mental status has improved significantly
#2. Acute respiratory failure, inability to protect airway
- Patient intubated due to encephalopathy and inability to protect airway, extubated 03/11
- Presently on room air
- Maintain off sedation, avoid narcotics
- Head of bed elevated
#3. ? Pulmonary nodule, PRASHANT 1.1 cm[address]
- CT chest for further evaluation
- would pursue this as an outpatient, especially concern for recent aspiration event
- Patient does have a history of smoking, has cut down to 2 cigarettes a day. Discussed that she would be considered high risk for lung cancer
- Recommend outpatient CT chest with pulmonary follow-up. Discussed importance of this. She will follow-up with her primary as well
- Given recent aspiration event, CT chest at this time would not be helpful
#4. LLL pneumonia vs atelectasis, concern for Aspiration
- Patient is afebrile
- Will discontinue antibiotics
- Obtain chest x-ray as clinically indicated
- Follow white count
Other medical diagnoses.
- ESBL E. Coli in urine culture (01/2025)
- Hypomagnesemia
- History of vertebral compression fracture
- History of Esophageal and duodenal ulcer, October 2024
- Hypertension, hyperlipidemia
- Diabetes mellitus
- Chronic pain syndrome, chronic opiate use
DVT prophylaxis: Remains on enoxaparin
GI prophylaxis: Not indicated
We will sign off
Please call with questions
Data:
CXR 02/2025: 1. Endotracheal tube projects over the trachea approximately 6 cm above the maureen.
2. Patchy opacity at the left lung base, which may represent pneumonia, aspiration, or subsegmental atelectasis. Small left pleural effusion may also be present.
3. 1.1 cm nodular opacity projected over the left upper lung zone. This may be artifactual, however follow-up chest x-ray and/or chest CT is recommended to exclude pulmonary nodule.
CT head 02/2025: No acute intracranial abnormality noted. No acute intracranial hemorrhage.
Left frontal lobe mild encephalomalacia and cortical atrophy, possibly reflecting old infarct or posttraumatic changes from remote injury the proper clinical setting.
Mild cortical atrophy.
Subjective Dataa
Subjective Data
Date of Service:
Date of Service: March 13, 2025
Subjective:
Patient appears to be much improved. She is now oriented, conversing, answering questions. She has some mild shortness of breath but otherwise denies chest pain, abdominal pain, nausea.
Objective Data
Data Reviewed
Vital Signs / I&O / Oxygen:
Vital Signs
Temp Pulse Resp BP Pulse Ox
98.4 F 79 17 142/85 97
03/13/25 07:16 03/13/25 05:09 03/13/25 05:09 03/13/25 05:09 03/13/25 00:00
Intake and Output
03/12/25 03/13/25 03/14/25
06:59 06:59 06:59
Intake Total 4100.6 / 4293.1 3682.5 / 3682.5
Output Total 2885 / 3195 1110 / 1110
Balance 1215.6 / 1098.1 2572.5 / 2572.5
SaO2 [A/C] 100
SaO2 97
Nasal Cannula flow liters per 2
minute
Physical Exam
General: Comfortable
HEENT: Normocephalic and Anicteric
Cardiovascular: S1-S2, Regular Rhythm, Murmur (n), Rub (n) and Peripheral Edema (n)
Respiratory: Wheeze (n), Crackles (n), Rhonchi (n) and Non-Labored Respirations
GI: Soft, Non Distended and Non Tender
Neurology: Awake, Alert, Oriented and No Motor Deficits (Moves all extremities)
Skin: Good Color, Cyanosis (n) and Jaundice (n)
Labs/Micro/Reports
Lab Data
03/13/25 05:31
03/13/25 05:31
Microbiology
03/10/25 15:42 Urine Urine Culture - Preliminary
Gram negative bacilli
03/11/25 03:33 Nose Nasal Screen MRSA (PCR) - Final
MRSA not detected - performed by PCR methodology.
[2025-03-13 07:50] LABS: Glucose - Point of Care 130 mg/dl (70-99)
[2025-03-13] MEDS: LR 1000 IV (08:32)
[2025-03-13] MEDS: NOVOLOG FLEXPEN-LOW RESISTANCE SC ×3 (08:46→17:14)
[2025-03-13] MEDS: KCL 270 MEQ IV (08:50)
[2025-03-13] MEDS: MAGNESIUM SULFATE 102 GRAMS IV (08:51)
[2025-03-13] MEDS: NSS (PRESERVATIVE FREE) 10 ML IV (09:08)
[2025-03-13] MEDS: PROTONIX IV 40 MG IV (09:08)
--- NOTE | 2025-03-13 09:18 | W.PN.HOSP.TC ---
Today's Communication/Plan
-
MRI of the brain
Straight cath urine specimen and repeat urine culture
PT OT eval
Assessment / Plan
Assessment / Plan
Patient admitted with unresponsiveness concerned about probably medication related encephalopathy
Patient seems to recollect the event of the fall and she attributes to mechanical fall. She does not remember much of the events after the fall and she thinks may be concussion related. Apart from subjective symptom of word finding difficulty
nonneurological today.
Had to know what happened.
Continue on monitor technician.
Get an MRI of the brain to rule out any acute events. She has findings of encephalomalacia on the CT head but she denies any prior history of strokes.
Urine drug screen was negative for narcotics but was positive for benzos. She was is on diazepam. Alcohol screen was negative on admission. Patient denies excessive use of Valium.' I do not want to be addicted to medication and there is still
large quantity of Valium left in the pillbox'
Status post VDRF
Patient was intubated for airway protection eventually came in with unresponsiveness. Currently respiratory hawkins stable. Extubated 03/11
Possible aspiration pneumonia
- vomits and aspirated Concern for aspiration pneumonitis per EMS HX
- unresponsive to pain stimuli prior to arrival per EMS
- CXR with left basal opacity and PRASHANT nodule. Afebrile and no respiratory symptoms. Agree with the pulmonary to hold on antibiotics.
Left upper lobe nodule-further evaluation per pulmonary-outpatient repeat imaging recommended
HX uncomplicated cystitis with MDRO ESBL-E. Coli
- HX ABx : IV CFTX,PO Augmentin then PO Macrobid on last admission
Positive urinalysis-patient has mild pyuria-culture shows nonsignificant bacteriuria which may be contamination. She has no dysuria but has frequency of urine. She had prior history of ESBL E. coli in the urine. Clinically not supportive of
infection. Best way to rule out is a straight cath specimen which is ordered.
Recent HX L3 50% vertebral body compression Fx on last admission
- on OP supportive care
HX UGIB and ACBLA in October 2024 - per EGD -Non bleeding duodenal ulcers, esophageal ulcers with no bleeding and no stigmata October EGD
Anemia of chronic disease
- current Hgb 9.8 at her baseline
- Baseline Hgb is in low to mid 9s
ETOH use disorder: Nl MCV ( suspect bi-phasic anemia )
- NEG ETOH level
- denied recent ETOH use for months in prior admission H & P
- watch for withdrawal
Generalized anxiety disorder-uses as needed Valium. Declines any psychiatry eval for now.
Hypokalemia-replete
Hypomagnesemia-replace
DMT2
- ISS low
- Hold metformin/linagliptin (Jentadueto)
Essential hypertension:
- Restart TRISTIAN inhibitor
Hyperlipidemia:
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
Discussed with RN
DVT Px: LMWH
Full code
Transfer to telemetry
Anticipated Discharge: 24 - 48 hours
Subjective/Interval History
-
Date of Service: March 13, 2025
The patient is much more alert and conversive.
She is oriented to place month in the ER but not the date.
She remembers the fall. She says it was more mechanical fall. She says she was trying to get out of the shower and fell down and might of hit something in the bathroom. She thinks she may have concussion.
Denies taking excessive diazepam. She says the bottle is full she occasionally uses them. Does not use any pain medication. Her right hip pain is okay.
Since the fall she has noticed some word finding difficulty.
Denies any limb weakness or tingling numbness in the hands or legs.
No nausea vomiting today. Denies any shortness of breath.
No chest pain or lightheadedness.
She takes Valium for anxiety. She is is mostly under control and declines to see a psychiatrist.
No dysuria but she think she has frequency. She is on IV fluids.
Objective Data
-
Labs:
Laboratory Results
03/13/25
05:31
WBC 10.6
Hgb 10.2 L
Hct 30.4 L
Plt Count 257
Sodium 132 L
Potassium 3.2 L
Chloride 101
Carbon Dioxide 25
BUN 2 L
Creatinine 0.4 L
Glucose 139 H
Calcium 9.5
Vital Signs:
Vital Signs
Temp Pulse Resp BP Pulse Ox
98.4 F 79 17 142/85 97
03/13/25 07:16 03/13/25 05:09 03/13/25 05:09 03/13/25 05:09 03/13/25 00:00
I&O
03/12/25 03/13/25 03/14/25
06:59 06:59 06:59
Intake Total 4100.6 / 4293.1 3682.5 / 3682.5
Output Total 2885 / 3195 1110 / 1110
Balance 1215.6 / 1098.1 2572.5 / 2572.5
Physical Exam
-
General: Comfortable
HEENT: Other (Bruise on the right cheek from the fall without bleeding.)
Respiratory: Clear to Auscultation and Non Labored Respirations; Negative Accessory Resp Muscle Use
Cardiac: Regular Rhythm and S1/S2; Negative Tachycardic
GI: Soft and Nontender
Musculoskeletal: Negative No Edema
Neuro: AO x 3 and No Motor Deficits; Negative Tremors, Slurred Speech or Facial Droop
Psych: Calm; Negative Confused or Agitated
Data Reviewed
-
Labs: Labs Reviewed by me
[2025-03-13 10:40] LABS: Urine Character Clear (Clear)
[2025-03-13 11:26] LABS: Urine Urothelial Cell 0-2 /LPF (FEW)
[2025-03-13 11:27] LABS: Urine White Cell 0-2 /HPF (0-5)
[2025-03-13] MEDS: NEURONTIN 300 MG PO ×3 (11:58→21:03)
[2025-03-13] MEDS: ZESTRIL 2.5 MG PO (11:58)
[2025-03-13 12:03] LABS: Glucose - Point of Care 109 mg/dl (70-99)
--- NOTE | 2025-03-13 12:23 | PTCARENOTE ---
Pt st cath for urine specimen as ordered. Tolerated well. Urine clear. Pt also premedicated for anxiety for MRI. Pt agitated when asked to walk to stretcher saying 'I can't walk'. Eventually, pt stood and pivoted to stretcher. Received call
once pt in MRI that she refused, which she denied when she arrived back on unit saying 'they had to reschedule me'. Pt with great encouragement, pt walked back to stretcher using walker and 2 people standing by. She was very agitated and almost
aggressive and defensive when she was told she is not allowed to hurt staff.
--- NOTE | 2025-03-13 13:58 | CS.PSYCHR ---
Consult Summary - Psychiatry
-
Called to see patient due to concern for capacity for medical decision making. Chart reviewed (extensive records here and at [facility]) spoke with nursing staff and sister by phone (in [place].) Seen today by me.
70 yo woman found down after ? fall, one of many. Required intubation to protect airway. CT head shows encephalomalacia, sister report brain bleed following fall some months ago (has also had hip fx.) Now extubated, wants to go see her family
physician for further care, considering signing out.
Today was refusing necessary tests
Well known to crisis center staff, friend had tried to get 302 commitment two months ago due to falls/poor self care, denied by county stating that all was alcohol related. Has extensive history of alcohol rehab stays, per sister does well when has
sober time (six months ago was doing well.)
Llives alone, has many throw rugs which sister has tried to get her to remove.
x 2, one son in [place], estranged (pt had abandoned him when her marriage to his father fell apart.)
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
Extensive outpatient care, mainly related to depression and substance use disorder.
Outpatient meds related to back pain (has had compression fx as well as hip fx) baclofen, valium, gabapentin, oxycodone, lipitor, zocor, lisinopril, nexium
Has been given bipolar diagnosis at times but appears mainly to be alcohol and personality disorder, now complicated by dementia Denies allergies
On exam pt is lying in bed, stating she does not want to see psychiatrist. Tells me her name and gives inaccurate age. Knows date of , knows current year, but angrily refutss age ('I'm 53, stop trying to trip me up! Call my sister!) I
repeatedly (patiently) went through progression from 1954 to 2024, but unwilling to say she was any older than 59. Unwilling to participate in other elements of formal mental status exam. Mood good, affect slightly constricted.
Denies having trouble with alcohol but willing to stop using anyway. Denies having psychiatric illness, no insight. Denies having refused testing.
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 Alcohol use disorder, borderline personality disorder
Lacks capacity for medical decision making, sister Alejandra Dennis agrees to be surrogate decision maker. Would appreciate a call from case management to help with discharge planning.
--- NOTE | 2025-03-13 14:37 | PN.CDI ---
CDI
- -
CDI:
Physician Documentation Request
Admit Date: 03/10/25 17:15
Dear Doctor Umair,
Clinical Indicators:
Patient admitted with medication related encephalopathy.
IVF: LR
Sodium levels:
03/12/25 03/13/25
03:04 05:31
Sodium 131 L 132 L
Based on the above, could you clarify in the progress notes, the appropriate diagnosis, if significant, that supports the above abnormalities and additional evaluation, monitoring and/or treatment rendered:
Hyponatremia
Abnormal lab values, clinically insignificant
Other
Use of terms such as suspected, likely, concern for, or probable (associated with a specific diagnosis that is being evaluated, monitored, or treated as if it exists) are acceptable and can be coded in the inpatient setting, when documented at the
time of discharge.
Thank you,
ROCHELLE Casas RN
CDI Specialist
available via tiger text
Please use your independent medical judgment in providing your response.
[2025-03-13] MEDS: LIORESAL 10 MG PO ×2 (15:43→23:41)
--- NOTE | 2025-03-13 16:09 | CM ---
Addendum entered by Aureliano Vo 03/14/25 09:33:
This CM discussed below with Motivational Speaker. [facility] CM is not to call Protective services in reference to patient. The [facility] authority should assume that responsibility since they have all the information and are expressing concerns. RELL Fong
notified.
Original Note:
Received call from RELL Fong ([phone]) from [facility]. She expressed concerns if patient is suitable to return to her apartment at [facility]. She has been having falls resulting in spinal compression fx, hip fx
and head injury. Also has signed out of health care facilities. Patient has been reported to the [facility] ([phone]). She requested that [facility] call and report the hospitalization to Protective Services. CM will discuss with
Motivational Speaker and Director. [facility] psychiatrist has examined and evaluated patient for capacity and has deemed patient LACKS CAPACITY for medical decision making. Psychiatrist discussed with sister, May Dennis ([phone]), who lives in [place].
May is willing to be surrogate decision maker. Discharge POC: TBD.
[2025-03-13] MEDS: LIPITOR 20 MG PO (17:13)
[2025-03-13] MEDS: ROXICODONE 5 MG PO (17:13)
[2025-03-13] MEDS: LOVENOX 40 MG SC (17:14)
[2025-03-13 17:20] LABS: Glucose - Point of Care 129 mg/dl (70-99)
--- NOTE | 2025-03-13 18:25 | PTCARENOTE ---
Report called to [facility] who will assume care of pt upon transfer. Pt medicated for low back pain prior to transfer. Pt also c/o dry nose and cough and requested flonase and cough medicine. Dr Block contacted and orders obtained.
[2025-03-13] MEDS: OCEAN, SALINE MIST 1 SPRAYS NASAL (19:57)
[2025-03-13] MEDS: MUCINEX 600 MG PO (19:58)
[2025-03-13 21:29] LABS: Glucose - Point of Care 212 mg/dl (70-99)
[2025-03-14] VITALS (8 sets, daily range): BP systolic 108–130; BP diastolic 57–77; PULSE 86
[2025-03-14] MEDS: OCEAN, SALINE MIST 1 SPRAYS NASAL (00:05)
--- NOTE | 2025-03-14 02:39 | DOWNTIME ---
There was a [employer]ter Downtime on 03/14/2025 from 0100 to 03/14/2025 at 0235. Downtime documentation of patient's care, including medication administrations, has been reconciled in the electronic record per guidelines. Refer to the
patient's paper chart under the miscellaneous tab to see printed paper medication records and downtime forms.
[2025-03-14] MEDS: SAFETUSSIN DM (SUGAR/ALCOHOL FREE) 100 MG PO ×3 (03:45→21:29)
[2025-03-14 07:59] LABS: Glucose - Point of Care 139 mg/dl (70-99)
[2025-03-14] MEDS: ZESTRIL 2.5 MG PO (07:59)
[2025-03-14] MEDS: MUCINEX 600 MG PO ×2 (07:59→20:04)
[2025-03-14] MEDS: NEURONTIN 300 MG PO ×4 (07:59→21:29)
[2025-03-14] MEDS: PROTONIX 40 MG PO (07:59)
[2025-03-14] MEDS: NOVOLOG FLEXPEN-LOW RESISTANCE SC ×3 (07:59→17:36)
[2025-03-14] MEDS: THIAMINE INJECTION 255 MG IV (08:00)
[2025-03-14] MEDS: VALIUM 2 MG PO ×2 (08:06→21:29)
[2025-03-14 09:18] LABS: Hematocrit 38.8 % (37.0-47.0); Hemoglobin 12.8 g/dL (12.0-16.0); Mean Corp Hgb Conc. 33.0 g/dL (33.0-37.0); Mean Corpuscular Volume 84.0 fL (81.0-99.0); Platelet Count 244 10^3/uL (130-400); Red Cell Dist. Width 15.8 % (11.5-14.5)
[2025-03-14] MEDS: LIORESAL 10 MG PO ×2 (10:21→21:29)
[2025-03-14 12:13] LABS: Glucose - Point of Care 148 mg/dl (70-99)
--- NOTE | 2025-03-14 12:30 | W.PN.UPDATE ---
Update Note
Progress Note Update
patient seen chart reviewed. discussed with dr kavitha vasquez who saw patient yesterday and dm. dr vasquez felt she was did not have capacity for decision making yesterday as she was confused and telling him that she was 53 year old. today she is
more with it cognitively and was able to have a reasonably coherent conversation with me. she does have some issue with name recall and i do not agree with her decision to go home but it is my impression she has capacity to make her own decisions
even if i do not agree with them. she denies that she is actively drinking. there was no etoh noted on admit. she does however have scrips for valium and opiates as per pcmp. she used four 2 mg tabs yesterday (was getting 5 mg at home) she denies
that she has been abusing them but clearly these are not in her best interest. there is the reality that she also takes baclofen gabapentin as well which can be sedating and she has vestibular issues which she cites as the reason for her falls. cm
tells me there had been some question as to whether she can return to [place]. cm will followup on that. if she returns home she should hav vna and a med alert bracelet as this is not the first time she has fallen. she is going to have an mri later
today. patient also expressed concern about lung nodule. she believes she has been told she has 'cancer' that is not clear to me definitively from the chart.
[2025-03-14] MEDS: ROXICODONE 5 MG PO ×2 (12:37→17:59)
--- NOTE | 2025-03-14 13:23 | W.PN.HOSP.TC ---
Today's Communication/Plan
-
MRI brain
DC planning
Assessment / Plan
Assessment / Plan
Patient admitted with unresponsiveness concerned about probably medication related encephalopathy
Patient seems to recollect the event of the fall and she attributes to mechanical fall. She does not remember much of the events after the fall and she thinks may be concussion related. Apart from subjective symptom of word finding difficulty
nonneurological yesterday and today her speech is fluent which was also fluent yesterday.
Hard to know what happened.
Continue on monitoring engineer.
Get an MRI of the brain to rule out any acute events. She has findings of encephalomalacia on the CT head but she denies any prior history of strokes.
Urine drug screen was negative for narcotics but was positive for benzos. She is on diazepam. Alcohol screen was negative on admission. Patient denies excessive use of Valium.' I do not want to be addicted to medication and there is still large
quantity of Valium left in the pillbox'
Status post VDRF
Patient was intubated for airway protection eventually came in with unresponsiveness. Currently respiratory hawkins stable. Extubated 03/11
Possible aspiration pneumonia
- vomits and aspirated Concern for aspiration pneumonitis per EMS HX
- unresponsive to pain stimuli prior to arrival per EMS
- CXR with left basal opacity and PRASHANT nodule. Afebrile and no respiratory symptoms. Agree with the pulmonary to hold on antibiotics.
Left upper lobe nodule-further evaluation per pulmonary-outpatient repeat imaging recommended
HX uncomplicated cystitis with MDRO ESBL-E. Coli
- HX ABx : IV CFTX,PO Augmentin then PO Macrobid on last admission
Positive urinalysis-patient has mild pyuria-culture shows nonsignificant bacteriuria which may be contamination. She has no dysuria but has frequency of urine. She had prior history of ESBL E. coli in the urine. Clinically not supportive of
infection. Best way to rule out is a straight cath specimen which is ordered - it shows no pyuria. Hold on any abx tx.
Recent HX L3 50% vertebral body compression Fx on last admission
- on OP supportive care
HX UGIB and ACBLA in October 2024 - per EGD -Non bleeding duodenal ulcers, esophageal ulcers with no bleeding and no stigmata October EGD
Anemia of chronic disease
- current Hgb 9.8 at her baseline
- Baseline Hgb is in low to mid 9s
ETOH use disorder: Nl MCV ( suspect bi-phasic anemia )
- NEG ETOH level
- denied recent ETOH use for months in prior admission H & P
- watch for withdrawal
Generalized anxiety disorder-uses as needed Valium. Ongoing eval by psychiatrist including medical decision making.
Hypokalemia-replete
Hypomagnesemia-replace
DMT2
- ISS low
- Hold metformin/linagliptin (Jentadueto)
Essential hypertension:
- Restart TRISTIAN inhibitor
Hyperlipidemia:
- on ADJUNCT NURSING FACULTY statin
Discussed with RN
DVT Px: LMWH
Full code
Transfer to telemetry
Anticipated Discharge: Within 24 hours
Subjective/Interval History
-
Date of Service: March 14, 2025
Voicing no specific complaints and inquiring about discharge.
She is alert and oriented place, month and the year.
When asked if she said she was 53 to the psychiatrist states that she did. She was questioning why the psychiatrist was fixated on that point.
Today she will tell me the date of and she is 70.
Told about the role of MRI brain and finding the diagnosis of her unresponsiveness. Today she is agreeable.
Objective Data
-
Labs:
Laboratory Results
03/14/25 03/14/25
09:00 10:37
WBC 8.1
Hgb 12.8 D
Hct 38.8
Plt Count 244
Sodium Cancelled Pending
Potassium Cancelled Pending
Chloride Cancelled Pending
Carbon Dioxide Cancelled Pending
BUN Cancelled Pending
Creatinine Cancelled Pending
Glucose Cancelled Pending
Calcium Cancelled Pending
Vital Signs:
Vital Signs
Temp Pulse Resp BP Pulse Ox
98.1 F 84 19 122/65 99
03/14/25 11:00 03/14/25 11:00 03/14/25 11:00 03/14/25 11:00 03/14/25 11:00
I&O
03/13/25 03/14/25 03/15/25
06:59 06:59 06:59
Intake Total 3682.5 / 3782.5 1405.0 / 1405.0
Output Total 1110 / 1110
Balance 2572.5 / 2672.5 1405.0 / 1405.0
Physical Exam
-
General: Comfortable
Respiratory: Non Labored Respirations; Negative Accessory Resp Muscle Use
Cardiac: Regular Rhythm and S1/S2
GI: Soft
Musculoskeletal: No Edema
Neuro: AO x 3; Negative No Motor Deficits, Tremors, Slurred Speech or Facial Droop
Psych: Calm
Data Reviewed
-
Labs: Labs Reviewed by me
--- NOTE | 2025-03-14 15:06 | CM ---
Patient seen at bedside
Dr. Eduardo saw patient today
she has capacity to make her own decisions
await PT/OT evals
MRI today
CM called sister May Dennis ([phone]) - updated
states patient does not have a POA
CM called RELL Fong ([phone]) from [facility]
stated she had concerns with her living independently, will let her know after therapy evals
PLAN: TBD, CM to follow for discharge planning
--- NOTE | 2025-03-14 16:23 | PTCARENOTE ---
Pt , Kumar, called unit. Pt informed this RN that she would like to take phone call. Kumar phone # [phone].
[2025-03-14 16:41] LABS: Glucose - Point of Care 149 mg/dl (70-99)
[2025-03-14] MEDS: LIPITOR 20 MG PO (18:00)
[2025-03-14] MEDS: LOVENOX 40 MG SC (18:01)
[2025-03-14 21:46] LABS: Glucose - Point of Care 198 mg/dl (70-99)
[2025-03-15] MEDS: ROXICODONE 5 MG PO (01:35)
[2025-03-15 02:45] VITALS: BP 140/72
[2025-03-15 07:44] LABS: Glucose - Point of Care 138 mg/dl (70-99)
[2025-03-15] MEDS: NOVOLOG FLEXPEN-LOW RESISTANCE SC (07:47)
[2025-03-15 07:52] VITALS: BP 123/60
[2025-03-15] MEDS: NEURONTIN 300 MG PO ×4 (08:11→21:16)
[2025-03-15] MEDS: MUCINEX 600 MG PO (08:11)
[2025-03-15] MEDS: ZESTRIL 2.5 MG PO (08:12)
[2025-03-15] MEDS: PROTONIX 40 MG PO (08:12)
[2025-03-15] MEDS: THIAMINE INJECTION 250 MG IV (08:12)
[2025-03-15] MEDS: LIORESAL 10 MG PO ×3 (08:19→21:26)
[2025-03-15] MEDS: VALIUM 2 MG PO ×2 (08:20→21:16)
[2025-03-15 10:50] VITALS: BP 136/68
--- NOTE | 2025-03-15 11:07 | W.PN.UPDATE ---
Update Note
Progress Note Update
patient seen chart reviewed. discussed with nursing. mrs gottlieb was very sleepy this am. she (and nursing) told me she did not sleep at night. she asked for valium this am and received it which is presumably most of the cause for her sleepiness
this am. she has used one valium daily for the past two days. valium has long acting metabolites which can cause mentation issues in the elderly. the dose has been reduced since coming to and the frequency. she is also using oxycodone for pain.
will further reduce the frequency of valium to q 12 h and hopefully eventually it will be wa'ed. would also try to minimize the use of opiates. some question of snf or home w vna according to nursing. would recommend snf. consider remeron q hs
for sleep. i am however reluctant to add more medication especially sedating meds to her regimen.
[2025-03-15 12:04] LABS: Glucose - Point of Care 199 mg/dl (70-99)
[2025-03-15] MEDS: NOVOLOG FLEXPEN-LOW RESISTANCE 1 UNITS SC ×2 (12:37→17:04)
--- NOTE | 2025-03-15 13:55 | CM ---
Patient seen at bedside along with Nakia Escudero from [facility] ([phone])
per Nakia they started the process for in home waiver program for caregivers. Nakia also updated patient will need med alert bracelet and she will also get this for the patient.
PT rec HH vs. SNF
Patient was agreeable to go to SNF 'for 2 weeks'
options discussed - referrals in [facility] for [facility], [facility] entered
WILL NEED TO OBTAIN AUTH once bed secured
Updated RELL Fong ([phone]) from [facility]
CM to update Kayla once bed secured which facility she will be going
PLAN: SNF, pending acceptance/bed availability, will need ins auth once bed secured
--- NOTE | 2025-03-15 14:26 | W.PN.HOSP.TC ---
Today's Communication/Plan
-
DC planning
Assessment / Plan
Assessment / Plan
Patient admitted with unresponsiveness concerned about probably medication related encephalopathy
Patient seems to recollect the event of the fall and she attributes to mechanical fall. She does not remember much of the events after the fall and she thinks may be concussion related. Apart from subjective symptom of word finding difficulty
nonneurological yesterday and today her speech is fluent which was also fluent yesterday.
Hard to know what happened.
No obvious arrhythmia
MRI of the brain no acute stroke or bleeding
Urine drug screen was negative for narcotics but was positive for benzos. She is on diazepam. Alcohol screen was negative on admission. Patient denies excessive use of Valium.' I do not want to be addicted to medication and there is still large
quantity of Valium left in the pillbox'
Not using much of Valium which is now decreased by psych for sedation
Status post VDRF
Patient was intubated for airway protection eventually came in with unresponsiveness. Currently respiratory hawkins stable. Extubated 03/11
Possible aspiration pneumonia
- vomits and aspirated Concern for aspiration pneumonitis per EMS HX
- unresponsive to pain stimuli prior to arrival per EMS
- CXR with left basal opacity and PRASHANT nodule. Afebrile and no respiratory symptoms. Agree with the pulmonary to hold on antibiotics.
Left upper lobe nodule-further evaluation per pulmonary-outpatient repeat imaging recommended.Pt made aware about the findings today again -she tells me she is planning on following with lung doctors at [facility] as his PCP is also at [facility].
Advised to quit smoking which she is planning to do going forward
HX uncomplicated cystitis with MDRO ESBL-E. Coli
- HX ABx : IV CFTX,PO Augmentin then PO Macrobid on last admission
Positive urinalysis-patient has mild pyuria-culture shows nonsignificant bacteriuria which may be contamination. She has no dysuria but has frequency of urine. She had prior history of ESBL E. coli in the urine. Clinically not supportive of
infection. Best way to rule out is a straight cath specimen which is ordered - it shows no pyuria. Hold on any abx tx.
Recent HX L3 50% vertebral body compression Fx on last admission
- on OP supportive care
HX UGIB and ACBLA in October 2024 - per EGD -Non bleeding duodenal ulcers, esophageal ulcers with no bleeding and no stigmata October EGD
Anemia of chronic disease
- current Hgb 9.8 at her baseline
- Baseline Hgb is in low to mid 9s
ETOH use disorder: Nl MCV ( suspect bi-phasic anemia )
- NEG ETOH level
- denied recent ETOH use for months in prior admission H & P
- No evidence of withdrawal
Generalized anxiety disorder-uses as needed Valium. Psych following
DMT2
- ISS low
- Resuem metformin/linagliptin (Jentadueto) on dc
Essential hypertension:
- Restart TRISTIAN inhibitor
Hyperlipidemia:
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
Discussed with RN
DVT Px: LMWH
Full code
Medically stable for dc to rehab
Pt agreeable to go to rehab and CM is looking into places
Anticipated Discharge: Within 24 hours
Subjective/Interval History
-
Date of Service: March 15, 2025
No specific complaint.
Today she is alert and oriented x 3.
Had MRI of the brain yesterday which showed no stroke.
She is all committed now to quit alcohol and tobacco smoking going forward. She wants feel good and live healthy.
She has agreed to go to rehab for 2 weeks.
She plans to get back to her independent living and currently hold. She is considering changing the carpet as it is clumpy and might be leading on to falls.
Objective Data
-
Vital Signs:
Vital Signs
Temp Pulse Resp BP Pulse Ox
97.6 F 61 18 136/68 96
03/15/25 10:50 03/15/25 10:50 03/15/25 10:50 03/15/25 10:50 03/15/25 10:50
I&O
03/14/25 03/15/25 03/16/25
06:59 06:59 06:59
Intake Total 1405.0 / 1405.0 1575 / 1575
Balance 1405.0 / 1405.0 1575 / 1575
Physical Exam
-
General: Comfortable
HEENT: Moist Mucous Membranes
Respiratory: Clear to Auscultation and Non Labored Respirations; Negative Accessory Resp Muscle Use
Cardiac: Regular Rhythm and S1/S2
Neuro: AO x 3, No Motor Deficits, Slurred Speech and Facial Droop
Psych: Calm (Pleasant); Negative Confused or Agitated
Data Reviewed
-
MRI: Report Reviewed by me (brain)
[2025-03-15 14:59] VITALS: BP 137/65
[2025-03-15] MEDS: SAFETUSSIN DM (SUGAR/ALCOHOL FREE) 100 MG PO (15:44)
--- NOTE | 2025-03-15 15:51 | PTCARENOTE ---
This pt. told this nurse she lost her purse. This nurse asked this pt. when she lost it and according to her the last time she remembers it was in the ED. This nurse looked around pt. room and found her insurance card and ID in room. This nurse
called security to update them regarding the situation. Security looked for her purse in ED, but it is unknown if this pt. even came in with purse. Pt. updated regarding information.
[2025-03-15 16:35] LABS: Glucose - Point of Care 179 mg/dl (70-99)
[2025-03-15] MEDS: LOVENOX 40 MG SC (17:01)
[2025-03-15] MEDS: LIPITOR 20 MG PO (17:03)
[2025-03-15] MEDS: MUCINEX PO ×2 (19:59→20:04)
[2025-03-15 21:56] LABS: Glucose - Point of Care 171 mg/dl (70-99)
[2025-03-15 23:05] VITALS: BP 128/64
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
[2025-03-16 07:13] LABS: Glucose - Point of Care 148 mg/dl (70-99)
[2025-03-16] MEDS: NOVOLOG FLEXPEN-LOW RESISTANCE SC ×2 (07:17→11:31)
[2025-03-16 07:34] VITALS: BP 148/96
[2025-03-16] MEDS: NEURONTIN 300 MG PO ×3 (07:42→17:14)
[2025-03-16] MEDS: ZESTRIL 2.5 MG PO (07:43)
[2025-03-16] MEDS: LIORESAL 10 MG PO ×2 (07:44→15:49)
[2025-03-16] MEDS: PROTONIX 40 MG PO (07:44)
[2025-03-16] MEDS: MUCINEX 600 MG PO (07:44)
[2025-03-16] MEDS: THIAMINE INJECTION 250 MG IV (07:45)
--- NOTE | 2025-03-16 10:55 | W.PN.UPDATE ---
Update Note
Progress Note Update
case discussed with dr plummer. the patient is likely leaving today. since she was seen by dr vasquez early in her stay her mental status has improved. she is fully oriented. she is aware of medical issues and recommended treatments. in my opinioh she
has capacity for medical decision making. it is my understanding that she will be referred to snf for two weeks. this is in process. area office on aging will help secure a med alert bracelet for her.
[2025-03-16 11:30] LABS: Glucose - Point of Care 131 mg/dl (70-99)
[2025-03-16] MEDS: VALIUM 2 MG PO (11:49)
--- NOTE | 2025-03-16 12:49 | W.PN.UPDATE ---
Update Note
Progress Note Update
patient seen chart reviewed. spoke with nskamran plummer and sent a text to cm. the patient is in an ornery mood today. she is not keen on going to snf in the first place and further incensed that she cannot go home to get some clothes before she goes.
i told her i would ask cm if that were possible if she has someone to come and get her and transport her to home and then to snf. she is not particularly keen on hospitals and health facilities in general and wants home lexie however as stated she
does agree to go to snf and hopefully work on strength and balance. 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
mg rather than five mg.
--- NOTE | 2025-03-16 12:58 | W.PN.HOSP.TC ---
Today's Communication/Plan
-
DC
Assessment / Plan
Assessment / Plan
Patient admitted with unresponsiveness concerned about probably medication related encephalopathy
Patient seems to recollect the event of the fall and she attributes to mechanical fall. She does not remember much of the events after the fall and she thinks may be concussion related.
Hard to know what happened.
No obvious arrhythmia
MRI of the brain no acute stroke or bleeding
Urine drug screen was negative for narcotics but was positive for benzos. She is on diazepam. Alcohol screen was negative on admission. Patient denies excessive use of Valium.' I do not want to be addicted to medication and there is still large
quantity of Valium left in the pillbox'
Not using much of Valium which is now decreased by psych for sedation
Status post VDRF
Patient was intubated for airway protection eventually came in with unresponsiveness. Currently respiratory hawkins stable. Extubated 03/11
Possible aspiration pneumonia
- vomits and aspirated Concern for aspiration pneumonitis per EMS HX
- unresponsive to pain stimuli prior to arrival per EMS
- CXR with left basal opacity and PRASHANT nodule. Afebrile and no respiratory symptoms. Agree with the pulmonary to hold on antibiotics.
Left upper lobe nodule-further evaluation per pulmonary-outpatient repeat imaging recommended.Pt made aware about the findings today again -she tells me she is planning on following with lung doctors at [facility] as his PCP is also at [facility].
Advised to quit smoking which she is planning to do going forward
HX uncomplicated cystitis with MDRO ESBL-E. Coli
- HX ABx : IV CFTX,PO Augmentin then PO Macrobid on last admission
Positive urinalysis-patient has mild pyuria-culture shows nonsignificant bacteriuria which may be contamination. She has no dysuria but has frequency of urine. She had prior history of ESBL E. coli in the urine. Clinically not supportive of
infection. Best way to rule out is a straight cath specimen which is ordered - it shows no pyuria. Hold on any abx tx.
Recent HX L3 50% vertebral body compression Fx on last admission
- on OP supportive care
HX UGIB and ACBLA in October 2024 - per EGD -Non bleeding duodenal ulcers, esophageal ulcers with no bleeding and no stigmata October EGD
Anemia of chronic disease
- current Hgb 9.8 at her baseline
- Baseline Hgb is in low to mid 9s
ETOH use disorder: Nl MCV ( suspect bi-phasic anemia )
- NEG ETOH level
- denied recent ETOH use for months in prior admission H & P
- No evidence of withdrawal
Generalized anxiety disorder-uses as needed Valium. Psych following
DMT2
- ISS low
- Resuem metformin/linagliptin (Jentadueto) on dc
Essential hypertension:
- Restart TRISTIAN inhibitor
Hyperlipidemia:
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
Discussed with RN
DVT Px: LMWH
Full code
Medically stable for dc to rehab
Anticipated Discharge: Today
Subjective/Interval History
-
Date of Service: March 16, 2025
No overnight events
Voices no specific complaints
Not happy about the being restricted with her transfers and mobility
Objective Data
-
Vital Signs:
Vital Signs
Temp Pulse Resp BP Pulse Ox
97.8 F 87 16 148/96 97
03/16/25 07:34 03/16/25 07:43 03/16/25 07:34 03/16/25 07:43 03/16/25 08:31
I&O
03/15/25 03/16/25 03/17/25
06:59 06:59 06:59
Intake Total 1575 / 1575 960 / 960
Balance 1575 / 1575 960 / 960
Physical Exam
-
General: Comfortable
Respiratory: Non Labored Respirations; Negative Accessory Resp Muscle Use
Cardiac: Regular Rhythm and S1/S2; Negative Tachycardic
Neuro: AO x 3
Psych: Calm; Negative Confused
[2025-03-16 15:16] VITALS: BP 144/96
[2025-03-16 16:21] LABS: Glucose - Point of Care 194 mg/dl (70-99)
--- NOTE | 2025-03-16 16:57 | CM ---
Spoke with patient who stated that she is agreeable to SNF. She [facility] like [facility] or [facility]. Spoke with Leena in admissions who confirmed ability to accept patient whenever auth is received.
NPI#s [id number] for facility and for [id number]
Will need to start auth process.
Spoke with Daysi adrian's RN who stated that she will make patient aware of acceptance at [facility].
Plan: Case management will continue to follow and assist with discharge planning. [facility] upon obtaining auth.
[2025-03-16] MEDS: LOVENOX 40 MG SC (17:14)
[2025-03-16] MEDS: LIPITOR 20 MG PO (17:14)
[2025-03-16] MEDS: NOVOLOG FLEXPEN-LOW RESISTANCE 1 UNITS SC (17:14)
[2025-03-16] MEDS: MUCINEX PO (19:42)
[2025-03-16 21:23] LABS: Glucose - Point of Care 120 mg/dl (70-99)
[2025-03-16] MEDS: NEURONTIN PO ×2 (21:31)
[2025-03-16 23:00] VITALS: BP 149/77
[2025-03-17 07:39] LABS: Glucose - Point of Care 123 mg/dl (70-99)
[2025-03-17 07:50] VITALS: BP 126/78
[2025-03-17] MEDS: ZESTRIL 2.5 MG PO (09:08)
[2025-03-17] MEDS: NOVOLOG FLEXPEN-LOW RESISTANCE SC ×2 (09:08→12:02)
[2025-03-17] MEDS: PROTONIX 40 MG PO (09:08)
[2025-03-17] MEDS: NEURONTIN 300 MG PO (09:08)
[2025-03-17] MEDS: THIAMINE INJECTION 250 MG IV (09:10)
[2025-03-17] MEDS: MUCINEX PO (09:10)
[2025-03-17] MEDS: LIORESAL 10 MG PO (09:14)
[2025-03-17] MEDS: VALIUM 2 MG PO (09:19)
--- NOTE | 2025-03-17 10:56 | PTCARENOTE ---
patient verbalizing wanting to leave AMA. pt forgetful, confused at times. will wax and wane and one moment she will say her correct age and birthday and then the next minute, she will say that she's 47 and her month is August. pt unaware
of what medications she is on or dosage and attempted medication education with med names, dosage, frequency and reason for. She did receive PRN Valium for c/o anxiety/agitation and PRN Bentyl for spasms with some relief. Impulsive frequently OOB
in hallway with rolling walker by self. gait steady. She is frequently turning off bed alarm when it sounds and reinforced not to do this as we need to prevent falls and she should have supervision with walker. pt said, 'NO I don't, 'I'll do what
I want!'. Dr. Block notified and requested that PT and psychiatry see her to see if she is safe to go home instead of facility. will continue to monitor.
[2025-03-17 11:47] LABS: Glucose - Point of Care 136 mg/dl (70-99)
--- NOTE | 2025-03-17 11:57 | W.PN.UPDATE ---
Update Note
Progress Note Update
Patient now wants to go back home, has a friend who was visiting and who told me he would take her. Patient is in good mood, denies being depressed or anxious. She agrees to go for rehab tomorrow but insists on going home first. Cognitively she is
oriented to all spheres but has diminished immediate recall.
At this point I no not believe we can hold her involuntarily so hopefully she will be able to be admitted tomorrow to the rehab from home.
--- NOTE | 2025-03-17 12:20 | PTCARENOTE ---
Dr. Gordon verbalized that patient is medically competent and can sign out AMA if she decides to. pt wanting to sign AMA form. her friend ELISEO is here and she reports that he will transport her home.
--- NOTE | 2025-03-17 13:00 | PTCARENOTE ---
Cheikh Smiley trying to call patient's friend Kumar or ELISEO but unable to locate numbers. pt verbalized that she did not want her sister Alejandra called, who is listed as Emergency Contact.
--- NOTE | 2025-03-17 13:21 | CM ---
Addendum entered by Claribel Tyson 03/17/25 14:34:
[employer] called
Kev [id number]-[id number]
Addendum entered by Claribel Tyson 03/17/25 14:16:
Left message for Daya Ramírez [facility] authority [phone]
also left message for Usha Key [phone]
Original Note:
Patient seen at bedside
agitated - wants to leave
patient had her friend Royal to come bring her home
discussed [facility] accepted, discussed auth processs, declines SNF
will accept VN - spoke with [facility] xiomy Carter regarding this referral
Referral added in [facility]
Left message with Nakia Escudero at [facility]
PLAN: [facility]
[2025-03-17] MEDS: NEURONTIN PO (13:29)
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
--- NOTE | 2025-03-17 13:31 | W.PN.HOSP.TC ---
Addendum entered and electronically signed by Link Block MD 03/18/25 15:31:
Na 131-132 suggestive of hyponatremia
Original Note:
Today's Communication/Plan
-
DC
Assessment / Plan
Assessment / Plan
Patient admitted with unresponsiveness concerned about probably medication related encephalopathy
Patient seems to recollect the event of the fall and she attributes to mechanical fall. She does not remember much of the events after the fall and she thinks may be concussion related.
Hard to know what happened.
No obvious arrhythmia
MRI of the brain no acute stroke or bleeding
Urine drug screen was negative for narcotics but was positive for benzos. She is on diazepam. Alcohol screen was negative on admission. Patient denies excessive use of Valium.' I do not want to be addicted to medication and there is still large
quantity of Valium left in the pillbox'
Advised to stay away from Valium or anyother sedative hypnotics
Status post VDRF
Patient was intubated for airway protection eventually came in with unresponsiveness. Currently respiratory hawkins stable. Extubated 03/11
Possible aspiration pneumonia
- vomits and aspirated Concern for aspiration pneumonitis per EMS HX
- unresponsive to pain stimuli prior to arrival per EMS
- CXR with left basal opacity and PRASHANT nodule. Afebrile and no respiratory symptoms. Agree with the pulmonary to hold on antibiotics.
Left upper lobe nodule-further evaluation per pulmonary-outpatient repeat imaging recommended.Pt made aware about the findings today again -she tells me she is planning on following with lung doctors at [facility] as his PCP is also at [facility].
Advised to quit smoking which she is planning to do going forward. Today again reiterates her plan of going to [facility] for her pulm follow up
HX uncomplicated cystitis with MDRO ESBL-E. Coli
- HX ABx : IV CFTX,PO Augmentin then PO Macrobid on last admission
Positive urinalysis-patient has mild pyuria-culture shows nonsignificant bacteriuria which may be contamination. She has no dysuria but has frequency of urine. She had prior history of ESBL E. coli in the urine. Clinically not supportive of
infection. Best way to rule out is a straight cath specimen which is ordered - it shows no pyuria. Hold on any abx tx.
Recent HX L3 50% vertebral body compression Fx on last admission
- on OP supportive care
HX UGIB and ACBLA in October 2024 - per EGD -Non bleeding duodenal ulcers, esophageal ulcers with no bleeding and no stigmata October EGD
Anemia of chronic disease
- current Hgb 9.8 at her baseline
- Baseline Hgb is in low to mid 9s
ETOH use disorder: Nl MCV ( suspect bi-phasic anemia )
- NEG ETOH level
- denied recent ETOH use for months in prior admission H & P
- No evidence of withdrawal
Generalized anxiety disorder-uses as needed Valium. Psych following
DMT2
- ISS low
- Resuem metformin/linagliptin (Jentadueto) on dc
Essential hypertension:
- Restart TRISTIAN inhibitor
Hyperlipidemia:
- on [employer] statin
Discussed with RN
DVT Px: LMWH
Full code
Medically stable for dc
Appt psychiatry input - stable for dc from their standpoint.
Patient is declining rehab. Encouraged her to have placed a home health which she is agreeable to
Anticipated Discharge: Today
Subjective/Interval History
-
Date of Service: March 17, 2025
Pt today tells me she wants to go home. Not interested in rehab.
She was irritable and upset that she cant go home. Explained to her that medically and from psych standpoint ok for home and PT was recommending SNF.
Code purple was called as she wanted to leave.
Noted her to be walking with walker without loss of balance.
Objective Data
-
Vital Signs:
Vital Signs
Temp Pulse Resp BP Pulse Ox
98.2 F 88 16 126/78 96
03/17/25 07:50 03/17/25 07:50 03/17/25 07:50 03/17/25 07:50 03/17/25 07:50
I&O
03/16/25 03/17/25 03/18/25
06:59 06:59 06:59
Intake Total 960 / 960 1800 / 1800
Balance 960 / 960 1800 / 1800
Physical Exam
-
General: Comfortable
Respiratory: Clear to Auscultation and Non Labored Respirations; Negative Accessory Resp Muscle Use
Cardiac: Regular Rhythm and S1/S2; Negative Tachycardic
Neuro: AO x 3
Psych: Calm; Negative Confused
--- NOTE | 2025-03-17 13:43 | W.DCSUMMARY ---
Discharge Summary
Discharge Data
Date of Admission: 03/10/25
Date of Discharge: 03/17/25
-
Pending Results: No
Hospital Course
Primary diagnosis:
Unresponsive episode suspected acute metabolic encephalopathy from polypharmacy
Acute respiratory failure, inability to protect airways
Left upper lobe 1.1 cm pulmonary nodule
Generalized anxiety disorder
Secondary diagnosis:
History of ESBL E. coli urinary tract infection
History of vertebral compression fractures
History of upper GI bleed
Anemia of chronic disease
Alcohol use disorder
Diabetes mellitus type 2
Essential hypertension
Hospital course:
Patient was found unresponsive on the floor by the neighbor. When the EMS brought patient to the hospital she was coughing and vomiting with the potential concern for aspiration. She was unable to protect airway so she got intubated. She has
history of anxiety disorder, bipolar disorder, history of alcoholism and chronic opiate use. Urine drug screen was only showing diazepam which she takes. Initial evaluation and subsequent evaluation with an MRI of the brain showed no evidence of
acute stroke or intracranial events. There was no major metabolic disturbances. Concern was medication related encephalopathy. No obvious infection. There was concern that maybe aspiration pneumonitis but did not need antibiotics.
She was seen by psychiatry for her mood dysfunction. They discouraged her to use Valium which is a high risk medication at her age. They thought she was competent medical decision making capacity. Did not prescribe any medication from this
standpoint.
Initial tests imaging showed a left upper lobe nodule and patient is aware about it. Advised to follow with pulmonary and she is debating between local cut off machine operator versus cut off machine operator at [facility].
She was seen by PT and they recommended rehab but she declined rehab and she went home with home services.
Patient advised to quit alcohol and tobacco use going forward.
Consultants on board:
Pulmonary-Cheo Kaplan
Psychiatry-Marianne Bains
Discharge Plan
-
Patient Disposition: Home with Home Care
Discharge Diagnosis/Procedures: Unresponsive episode of unclear etiology. Status post VDRF for airway protection alcohol use disorder, generalized anxiety disorder
Diet: Diabetic, Carb Controlled
Activity: As tolerated
Driving Restrictions: Not until seen by your Dr
Bathing Restrictions: None
Other Services: VN and PT
Referrals:
Cheo Marcelino MD [Active, Pulmonary Medicine]
Referral Note: recommend ct chest ION as op
should be obtained by primary physician
recommend pulm f/u in 6 weeks
HIGH risk for lung cancer. needs additional testing
UNKNOWN - PT DOES,NOT KNOW [Family Provider] - in less than 1 week
Prescriptions:
New
thiamine mononitrate (vit B1) 100 mg Tablet
100 mg PO BID Qty: 60 0RF
Continued
Jentadueto 2.5-1,000 mg Tablet
1 tab PO BID
simvastatin 40 mg tablet
40 mg PO HS
gabapentin 300 mg capsule
300 mg PO QID
lisinopril 2.5 mg tablet
2.5 mg PO DAILY
esomeprazole magnesium [Nexium] 40 mg Capsule,Delayed Release(Dr/Ec)
40 mg PO DAILY
baclofen 10 mg tablet
10 mg PO TIDPRN PRN (Reason: spasms)
Patient Comments:
5-day supply dispensed 03/09/25
albuterol sulfate 90 mcg/actuation HFA aerosol inhaler
2 inh INHALATION R Q6HPRN PRN (Reason: sob)
Discontinued
oxycodone 5 mg Tablet
5 mg PO Q4HPRN PRN (Reason: moderate pain) Qty: 10 0RF
Patient Comments:
20-day supply dispensed 02/23/25, 3-day supply dispensed 02/24/25
diazepam 5 mg Tablet
5 mg PO Q8HPRN PRN (Reason: anxiety) Qty: 6 0RF
Patient Comments:
29-day supply dispensed 02/23/25, 10-day supply dispensed 02/24/25
Discharge Orders:
Discharge Patient (As Directed); Ordered 03/17/25
Ordered By: Link Block
Discharge Date and Time
Print Language: UKRAINIAN
[2025-03-17 14:19] VITALS: BP 128/83
--- NOTE | 2025-03-17 14:58 | PTCARENOTE ---
Original Note:
Cheikh Smiley, nursing information systems coordinator calling for [facility] to transport patient home.
--- NOTE | 2025-03-17 15:00 | PTCARENOTE ---
Cheikh Smiley, nursing staffing coordinator calling for [facility] to transport patient home.
== END 2025-03-17 14:56 | disposition home health service (06) | DRG 91 ==
LOC: 3 WEST ACU 17:15
PROVIDERS: Nurse Practitioner Primary Care; ADMITTING PHYSICIAN Internal Medicine; ATTENDING PHYSICIAN Internal Medicine; CONSULT PHYSICIAN Internal Medicine; CONSULT PHYSICIAN Psychiatry & Neurology Psychiatry; EMERGENCY PHYSICIAN Emergency Medicine
PROC: 5A1935Z Respiratory Ventilation, Less than 24 Consecutive Hours (ICD-10-PCS; 2025-03-10)
PROC: 0BH17EZ Insertion of Endotracheal Airway into Trachea, Via Natural or Artificial Opening (ICD-10-PCS; 2025-03-10)
DX: G92.8 Other toxic encephalopathy (principal); J69.0 Pneumonitis due to inhalation of food and vomit; J96.00 Acute respiratory failure, unspecified whether with hypoxia or hypercapnia; F11.20 Opioid dependence, uncomplicated; F10.188 Alcohol abuse with other alcohol-induced disorder; E87.1 Hypo-osmolality and hyponatremia; F02.84 Dementia in other diseases classified elsewhere, unspecified severity, with anxiety; F02.83 Dementia in other diseases classified elsewhere, unspecified severity, with mood disturbance; Z99.11 Dependence on respirator [ventilator] status; T42.4X5A Adverse effect of benzodiazepines, initial encounter; Y92.009 Unspecified place in unspecified non-institutional (private) residence as the place of occurrence of the external cause; R29.6 Repeated falls; F17.200 Nicotine dependence, unspecified, uncomplicated; G89.4 Chronic pain syndrome; E11.9 Type 2 diabetes mellitus without complications; E78.00 Pure hypercholesterolemia, unspecified; F31.9 Bipolar disorder, unspecified; F41.1 Generalized anxiety disorder; G43.909 Migraine, unspecified, not intractable, without status migrainosus; G47.33 Obstructive sleep apnea (adult) (pediatric); I10 Essential (primary) hypertension; K21.9 Gastro-esophageal reflux disease without esophagitis; M54.2 Cervicalgia; D63.8 Anemia in other chronic diseases classified elsewhere; G93.89 Other specified disorders of brain; R91.1 Solitary pulmonary nodule; F60.3 Borderline personality disorder; E87.6 Hypokalemia; E83.42 Hypomagnesemia; Z60.2 Problems related to living alone; Z87.440 Personal history of urinary (tract) infections; Z87.11 Personal history of peptic ulcer disease; Z87.19 Personal history of other diseases of the digestive system; Z88.8 Allergy status to other drugs, medicaments and biological substances; Z87.311 Personal history of (healed) other pathological fracture; Z86.19 Personal history of other infectious and parasitic diseases
CPT/HCPCS: 31500; 36600; 51702; 70450; 70551; 71045; 80048; 80053; 80143; 80179; 80306; 80307; 81003; 81015; 82077; 82805; 82962; 83605; 83735; 83880; 84100; 84478; 84484; 85025; 85027; 85610; 87077; 87086; 87186; 87641; 92526; 92610; 93005; 94002; 94003; 94640; 96365; 96366; 96367; 96375; 97162; 97167; 97530; 97535; 99291; 99406

== ENCOUNTER 2025-03-26 11:52 | Emergency (ER) | payer MEDICARE, OTHER, SELFPAY ==
[2025-03-26] VITALS (9 sets, daily range): BP systolic 92–119; BP diastolic 45–99; BMI 23.7
[2025-03-26 12:28] LABS: Hematocrit 34.0 % (37.0-47.0); Hemoglobin 11.2 g/dL (12.0-16.0); Mean Corp Hgb Conc. 32.9 g/dL (33.0-37.0); Mean Corpuscular Volume 83.7 fL (81.0-99.0); Nucleated Red Blood Cells % 0 %; Platelet Count 397 10^3/uL (130-400); Red Cell Dist. Width 15.4 % (11.5-14.5)
[2025-03-26 12:37] LABS: ALT (SGPT) 15 U/L (0-35); AST (SGOT) 31 U/L (14-36); Acetaminophen < 10 ug/ml (10-30); Albumin 4.1 g/dl (3.5-5.0); Alkaline Phosphatase 91 U/L (38-126); Blood Urea Nitrogen 12 mg/dl (7-17); Calcium 10.4 mg/dl (8.4-10.2); Carbon Dioxide 29 mmol/L (22-30); Chloride 100 mmol/L (98-107); Estimated Creatinine Clearance 61 ml/min; Glucose 153 mg/dl (70-99); Potassium 3.9 mmol/L (3.5-5.1); Salicylate < 1.0 mg/dl (2.0-20.0); Sodium 137 mmol/L (135-145); Total Protein 7.6 g/dl (6.3-8.2); eGFR > 60.00
--- NOTE | 2025-03-26 12:51 | ED.MUSCINJ ---
HPI-Injury
General
Chief Complaint: Fall
Source: patient
Exam Limitations: none
Time Seen by Provider: 03/26/25 12:35
History of Present Illness-Injury
Initial Injury comments:
70-year-old female presents via EMS from home after a fall. Her neighbor found her on the ground. She states she was down for couple hours. She denies any injury from the fall. She was just too weak to get up. Initially she was hypoxic and
placed on oxygen. She is not typically on oxygen. She has no complaints offer. Of note, there was an empty bottle of oxycodone found near the patient. Patient denies taking these medications. She denies any thoughts of harming herself.
Past History
Past History
ED Past Medical History: GERD, HTN, Hypercholesterolemia, NIDDM, Seizures, Psychiatric (Depression, Anxiety), Other (Chronic pancreatitis, Ulcers, obstructive sleep apnea, UTi, Bilateral Vestibular loss, Migraines, Neck pain, Coma from fall) and
Other (migraines, hepatitis, alcohol abuse, Bilateral vestibular Loss, Gastritis)
ED Past Surgical History: Tonsilectomy and Other (right breast lumpectomy)
Patient has exhibited threatening behavior?: No
Social History
Tobacco: Smoker
Alcohol: Chronic alcoholic ( Two 5th's of vodka, Denies any alcohol for 3 months as of 05/22/24)
Drug: None
Personal:
Living: detention ([facility])
Employment: Not employed
Family History
Family History: Other (Alzheimer's); Negative Early CAD
Phy Exam
Physical Exam
Physical Exam:
General: Well-appearing female no acute respiratory distress
ENT: Normocephalic pupils equal round reactive to light
Heart: Regular rate and rhythm
Lungs: Clear no wheeze
Musculoskeletal exam: No deformity no tenderness to the spine
Neurologic exam: Alert and oriented x 3. Ambulatory. No facial asymmetry or unilateral deficit
Injury Course
Orders/Labs/Results
Orders:
Orders
03/26/25 11:59
EKG [Electrocardiogram (*1)] Urgent
Reason for Study: Syncope
EKG- Treatment ONCE
03/26/25 12:09
CT Head W/o Iv Contrast Urgent
Comment:
Reason For Exam: unwitnessed fall
03/26/25 12:15
Acetaminophen Urgent
Alcohol Urgent
Complete Blood Count/With Diff Urgent
Comprehensive Metabolic Panel Urgent
Creatine Phosphokinase Urgent
Comment: ADD
Salicylate Urgent
03/26/25 12:37
Add On- LAB Urgent
Tests Added?: alcohol level, cpk
03/26/25 18:11
Drug Screen, Urine [Urine Drug Abuse Screen] Urgent
Date Specimen was Collected: 03/26/25
Time Specimen was Collected: 18:08
Abnormal Lab Results
03/26/25
12:15
WBC 11.1 H 10^3/uL
(4.8-10.8)
RBC 4.06 L 10^6/uL
(4.20-5.40)
Hgb 11.2 L g/dL
(12.0-16.0)
Hct 34.0 L %
(37.0-47.0)
MCHC 32.9 L g/dL
(33.0-37.0)
RDW 15.4 H %
(11.5-14.5)
Absolute Neuts (auto) 7.2 H 10^3/uL
(1.4-6.5)
Absolute Monos (auto) 0.9 H 10^3/uL
(0.1-0.6)
Glucose 153 H mg/dl
(70-99)
Calcium 10.4 H mg/dl
(8.4-10.2)
Creatine Kinase 327 H U/L
(30-135)
Salicylates < 1.0 L mg/dl
(2.0-20.0)
Acetaminophen < 10 L ug/ml
(10-30)
03/26/25 12:15
03/26/25 12:15
MDM/Problems Addressed
Differential Diagnosis Includes:
Patient presents after a fall. She is denying thoughts of harming himself. Concern was brought up from EMS but empty pill bottle. She denies taking these. She does not know where the medications went. Patient will be observed. Initially she
required oxygen however the oxygen was turned off and she is no longer hypoxic.
*Pulse Oximetry
SaO2: 79
Oxygen Mode of Delivery: Room air
Patient hypoxic: no
*Critical Care Note
Total Time (30-74mins, 75-104mins- exclusive of procedures): Not Applicable
Update Note
Update Note:
Patient has been evaluated and observed. She was taken off oxygen and is no longer hypoxic. She is alert she is ambulatory she is denying thoughts of harming herself. No acute findings noted in the workup. No indication for admission. Stable
for discharge
ED Attending Note
-
Portions of this chart may have been created with voice recognition software.� Occasional wrong word or��sound alike� substitutions may have occurred due to the inherent limitations of voice recognition software.
Discharge Plan
Departure
Patient Disposition: Home (Routine Discharge)
Date of Disposition: 03/26/25
Time of Disposition: 18:24
Patient with high blood pressure during this ER visit?: No
Discharge Problem:
Fall
Instructions: Preventing falls in adults
Prescriptions:
No Action
Jentadueto 2.5-1,000 mg Tablet
1 tab PO BID
simvastatin 40 mg tablet
40 mg PO HS
gabapentin 300 mg capsule
300 mg PO TID
lisinopril 2.5 mg tablet
2.5 mg PO DAILY
esomeprazole magnesium [Nexium] 40 mg Capsule,Delayed Release(Dr/Ec)
40 mg PO DAILY
albuterol sulfate 90 mcg/actuation HFA aerosol inhaler
2 inh INHALATION R Q6HPRN PRN (Reason: sob)
baclofen 20 mg tablet
20 mg PO TID
diazepam 5 mg tablet
5 mg PO Q8HPRN PRN (Reason: ANXIETY)
nitrofurantoin monohyd/m-cryst 100 mg capsule
100 mg PO BID
Rx Instructions:
STARTED 03/21/25 X7 DAYS
oxycodone 10 mg tablet
10 mg PO Q6HPRN PRN (Reason: PAIN)
Rx Instructions:
START 03/23/25 #28 X7 DAYS SUPPLY
thiamine HCl (vitamin B1) 100 mg Tablet
100 mg PO BID
Referrals:
Massimo Mcdaniels MD [Family Provider]
Activity Restrictions/Additional Instructions:
Please return here if needed otherwise follow-up with your doctor
Interventions
Interventions:
*Risk Screen - Suicide Last Done: 03/26/25 12:00
*General Assessment Last Done: 03/26/25 12:00
*Neglect/Abuse Screening Last Done: 03/26/25 12:00
*ED- Fall Risk Assessment Last Done: 03/26/25 12:00
*ED COVID-19 Vaccine History Last Done: 03/26/25 12:00
ED-Musculoskeletal Assessment Last Done: 03/26/25 12:04
ED- Neurological Assessment Last Done: 03/26/25 12:04
ED-Skin Assessment Last Done: 03/26/25 12:04
Discharge Date and Time
Print Language: SWEDISH
== END 2025-03-26 19:09 | disposition home or self-care (01) ==
LOC: EMR 11:52
PROVIDERS: Physician Assistant; EMERGENCY PHYSICIAN Emergency Medicine; FAMILY PHYSICIAN Family Medicine
DX: Z04.3 Encounter for examination and observation following other accident (principal); W19.XXXA Unspecified fall, initial encounter; I10 Essential (primary) hypertension; E11.9 Type 2 diabetes mellitus without complications; E78.00 Pure hypercholesterolemia, unspecified; F17.200 Nicotine dependence, unspecified, uncomplicated; G47.33 Obstructive sleep apnea (adult) (pediatric)
CPT/HCPCS: 99284; 70450; 80053; 80143; 80179; 80306; 80307; 82077; 82550; 85025; 93005

== ENCOUNTER 2025-03-27 21:37 | Inpatient (IN) | payer MEDICARE, OTHER, SELFPAY ==
[2025-03-27] VITALS (8 sets, daily range): BP systolic 101–121; BP diastolic 44–90; BMI 23.7; BMI 22.7
--- NOTE | 2025-03-27 18:07 | ED.GENMED ---
History of Present Illness
<Bryson Hardwick PA-C - Last Filed: 03/27/25 20:04>
General
Chief Complaint: Change in Mental Status
Source: patient
Exam Limitations: none
Time Seen by Provider: 03/27/25 17:53
History of Present Illness
History of Present Illness:
70-year-old female presents for evaluation. She was found down again by the neighbor unresponsive EMS was called. She was here yesterday found down by neighbor yesterday. She was alert and oriented throughout her stay here yesterday and requested
to go home. Drug screen yesterday positive for opioids and oxycodone and benzodiazepines. Patient minimally responsive to verbal stimuli here. Not talking.
Past History
<Bryson Hardwick PA-C - Last Filed: 03/27/25 20:04>
Past History
ED Past Medical History: GERD, HTN, Hypercholesterolemia, NIDDM, Seizures, Psychiatric (Depression, Anxiety), Other (Chronic pancreatitis, Ulcers, obstructive sleep apnea, UTi, Bilateral Vestibular loss, Migraines, Neck pain, Coma from fall) and
Other (migraines, hepatitis, alcohol abuse, Bilateral vestibular Loss, Gastritis)
ED Past Surgical History: Tonsilectomy and Other (right breast lumpectomy)
Patient has exhibited threatening behavior?: No
Social History
Tobacco: Smoker
Alcohol: Chronic alcoholic ( Two 5th's of vodka, Denies any alcohol for 3 months as of 05/22/24)
Drug: None
Personal:
Living: long term ([facility])
Employment: Not employed
Family History
Family History: Other (Alzheimer's); Negative Early CAD
Phy Exam
<Bryson Hardwick PA-C - Last Filed: 03/27/25 20:04>
Physical Exam
Physical Exam:
General: Well-developed female minimally responsive
HEENT normal cephalic pupils measuring 2 to 3 mm nonreactive to light bilaterally
Heart: Regular rate and rhythm
Lungs: No obvious wheeze or rales
Neurologic exam: Responsive verbal stimuli opens eyes but does not speak. Will not lift arms or legs up.
Ext: No cyanosis
Course
<Bryson Hardwick PA-C - Last Filed: 03/27/25 20:04>
Orders/Labs/Results
Orders:
Orders
03/27/25 17:51
Electrocardiogram (*1) Urgent
Reason for Study: Other
Other Reason for Exam: Possible Sepsis
EKG- Treatment ONCE
03/27/25 18:01
CT Cervical Spine W/o Iv Contr Urgent
Comment:
Reason For Exam: fall
CT Head W/o Iv Contrast Urgent
Comment:
Reason For Exam: fall
03/27/25 18:02
CR Chest Portable - 1 View Urgent
Comment:
Reason For Exam: hypoxic
Reason Study Needs to be Portable: Patient Unstable
03/27/25 18:08
Alcohol Urgent
Complete Blood Count/With Diff Urgent
Comprehensive Metabolic Panel Urgent
03/27/25 19:30
Arterial Blood Gas Urgent
%Oxygen/Room Air: room air
03/27/25 19:48
Levetiracetam Injectable [Keppra] 1,000 mg IV NOW STA
diazePAM [Valium Injection] 10 mg .ROUTE .STK-MED ONE
diazePAM [Valium Injection] 5 mg IV NOW STA
03/27/25 19:57
Levetiracetam Injectable [Keppra] 1,000 mg .ROUTE .STK-MED ONE
03/27/25 20:00
EEG [Rapid Point of Care EEG (ED/ICU ONLY)] Q1H
Indications for use:: Altered Mental Status
03/27/25 20:06
Levetiracetam Injectable [Keppra] 1,000 mg IV NOW STA
Abnormal Lab Results
03/27/25 03/27/25
18:08 19:30
WBC 11.5 H 10^3/uL
(4.8-10.8)
MCHC 31.8 L g/dL
(33.0-37.0)
RDW 15.4 H %
(11.5-14.5)
Abs Immat Gran (auto) 0.1 H 10^3/uL
(0-0.05)
Absolute Neuts (auto) 9.9 H 10^3/uL
(1.4-6.5)
Absolute Lymphs (auto) 1.0 L 10^3/uL
(1.2-3.4)
Neutrophils % 86.3 H %
(42.2-75.2)
Lymphocytes % 8.3 L %
(20.5-51.1)
pCO2 37 H mmHg
(32-35)
pO2 70 L mmHg
(83-108)
Glucose 154 H mg/dl
(70-99)
Calcium 10.6 H mg/dl
(8.4-10.2)
Total Protein 8.3 H g/dl
(6.3-8.2)
03/27/25 18:08
03/27/25 18:08
Vital Signs
Initial and Last Documented VS:
Initial Vital Signs
Temp Pulse Resp Pulse Ox
99.6 F 107 28 89
03/27/25 17:44 03/27/25 17:44 03/27/25 17:44 03/27/25 17:44
Last Documented Vital Signs
Temp Pulse Resp BP Pulse Ox
99.6 F 91 25 109/45 97
03/27/25 18:04 03/27/25 20:00 03/27/25 20:00 03/27/25 20:00 03/27/25 20:00
<Arthur Coburn, DO - Last Filed: 03/27/25 20:17>
Orders/Labs/Results
Orders:
Orders
03/27/25 17:51
Electrocardiogram (*1) Urgent
Reason for Study: Other
Other Reason for Exam: Possible Sepsis
EKG- Treatment ONCE
03/27/25 18:01
CT Cervical Spine W/o Iv Contr Urgent
Comment:
Reason For Exam: fall
CT Head W/o Iv Contrast Urgent
Comment:
Reason For Exam: fall
03/27/25 18:02
CR Chest Portable - 1 View Urgent
Comment:
Reason For Exam: hypoxic
Reason Study Needs to be Portable: Patient Unstable
03/27/25 18:08
Alcohol Urgent
Complete Blood Count/With Diff Urgent
Comprehensive Metabolic Panel Urgent
03/27/25 19:30
Arterial Blood Gas Urgent
%Oxygen/Room Air: room air
03/27/25 19:48
Levetiracetam Injectable [Keppra] 1,000 mg IV NOW STA
diazePAM [Valium Injection] 10 mg .ROUTE .STK-MED ONE
diazePAM [Valium Injection] 5 mg IV NOW STA
03/27/25 19:57
Levetiracetam Injectable [Keppra] 1,000 mg .ROUTE .STK-MED ONE
03/27/25 20:00
EEG [Rapid Point of Care EEG (ED/ICU ONLY)] Q1H
Indications for use:: Altered Mental Status
03/27/25 20:06
Levetiracetam Injectable [Keppra] 1,000 mg IV NOW STA
Abnormal Lab Results
03/27/25 03/27/25
18:08 19:30
WBC 11.5 H 10^3/uL
(4.8-10.8)
MCHC 31.8 L g/dL
(33.0-37.0)
RDW 15.4 H %
(11.5-14.5)
Abs Immat Gran (auto) 0.1 H 10^3/uL
(0-0.05)
Absolute Neuts (auto) 9.9 H 10^3/uL
(1.4-6.5)
Absolute Lymphs (auto) 1.0 L 10^3/uL
(1.2-3.4)
Neutrophils % 86.3 H %
(42.2-75.2)
Lymphocytes % 8.3 L %
(20.5-51.1)
pCO2 37 H mmHg
(32-35)
pO2 70 L mmHg
(83-108)
Glucose 154 H mg/dl
(70-99)
Calcium 10.6 H mg/dl
(8.4-10.2)
Total Protein 8.3 H g/dl
(6.3-8.2)
03/27/25 18:08
03/27/25 18:08
Vital Signs
Initial and Last Documented VS:
Initial Vital Signs
Temp Pulse Resp Pulse Ox
99.6 F 107 28 89
03/27/25 17:44 03/27/25 17:44 03/27/25 17:44 03/27/25 17:44
Last Documented Vital Signs
Temp Pulse Resp BP Pulse Ox
99.6 F 91 25 109/45 97
03/27/25 18:04 03/27/25 20:00 03/27/25 20:00 03/27/25 20:00 03/27/25 20:00
Brianlt;Bryson Hardwick PA-C - Last Filed: 03/27/25 20:04>
MDM/Problems Addressed
Differential Diagnosis Includes:
Patient presented via EMS for unresponsive found on ground by neighbor. Patient here frequently for similar presentations. Order CT of the head and cervical spine. Evaluate for intracranial hemorrhage or fracture. Currently without any
supplemental oxygen the patient is oxygenating at 92% on room air. Consider aspiration vs seizure versus intoxication or accidental overdose. She is opioid dependent.
Labs pending. Discussed with emergency room attending
<Bryson Hardwick PA-C - Last Filed: 03/27/25 20:04>
*Pulse Oximetry
SaO2: 95
Oxygen Mode of Delivery: Room air
Patient hypoxic: no
*Critical Care Note
Total Time (30-74mins, 75-104mins- exclusive of procedures): Not Applicable
<Arthur Coburn DO - Last Filed: 03/27/25 20:17>
*Radiology
Radiology exam reviewed: radiology read reviewed
*Critical Care Note
Total Time (30-74mins, 75-104mins- exclusive of procedures): 75
<Bryson Hardwick PA-C - Last Filed: 03/27/25 20:04>
Update Note
Update Note:
CT head without acute intracranial hemorrhage. Alcohol level negative. Patient still altered. Consider seizure. Cerebella plied shows greater than 93% seizure activity. Valium and Keppra ordered. Discussed with emergency room attending. Still
protecting her airway. Emergency room attending spoke with neurology. Will admit to hospital
<Arthur Coburn DO - Last Filed: 03/27/25 20:17>
Update Note
Update Note:
CT head without acute intracranial hemorrhage. Alcohol level negative. Patient still altered. Consider seizure. Cerebella plied shows greater than 93% seizure activity. Valium and Keppra ordered. Discussed with emergency room attending. Still
protecting her airway. Emergency room attending spoke with neurology. Will admit to hospital
8 PM, cerebella positive for seizures, imaging noted, no alcohol given benzos and Keppra with resolution of seizures based on cerebella, ABG noted
Neurology hospitalist oil bay technician notified
ED Attending Note
<Bryson Hardwick PA-C - Last Filed: 03/27/25 20:04>
-
Portions of this chart may have been created with voice recognition software.� Occasional wrong word or��sound alike� substitutions may have occurred due to the inherent limitations of voice recognition software.
<Arthur Coburn DO - Last Filed: 03/27/25 20:17>
ED Attending Note
Patient seen and examined by attending physician: Yes
I performed the substantive portion of visit, reviewed & personally made and approve the management plan that is documented in note by myself or JONELLE.: Yes
ED Attending Note:
Update 4 PM seen with PA examined independently 70-year-old female apparently found down history of chronic pain syndrome benzo use alcoholism possibly aspirated
Discharge Plan
Departure
Patient Disposition: Admit
Date of Disposition: 03/27/25
Time of Disposition: 20:04
Presentation/result/management discussed w/ accepting MD/DO: Hospitalist
Discharge Problem:
Seizure
Prescriptions:
No Action
Jentadueto 2.5-1,000 mg Tablet
1 tab PO BID
simvastatin 40 mg tablet
40 mg PO HS
gabapentin 300 mg capsule
300 mg PO TID
lisinopril 2.5 mg tablet
2.5 mg PO DAILY
esomeprazole magnesium [Nexium] 40 mg Capsule,Delayed Release(Dr/Ec)
40 mg PO DAILY
albuterol sulfate 90 mcg/actuation HFA aerosol inhaler
2 inh INHALATION R Q6HPRN PRN (Reason: sob)
baclofen 20 mg tablet
20 mg PO TID
diazepam 5 mg tablet
5 mg PO Q8HPRN PRN (Reason: ANXIETY)
nitrofurantoin monohyd/m-cryst 100 mg capsule
100 mg PO BID
Rx Instructions:
STARTED 03/21/25 X7 DAYS
oxycodone 10 mg tablet
10 mg PO Q6HPRN PRN (Reason: PAIN)
Rx Instructions:
START 03/23/25 #28 X7 DAYS SUPPLY
thiamine HCl (vitamin B1) 100 mg Tablet
100 mg PO BID
Referrals:
Massimo Mcdaniels MD [Family Provider]
Interventions
Interventions:
*Risk Screen - Suicide Last Done: 03/27/25 17:44
*General Assessment Last Done: 03/27/25 17:44
*Neglect/Abuse Screening Last Done: 03/27/25 17:44
*ED- Fall Risk Assessment Last Done: 03/27/25 17:44
*ED COVID-19 Vaccine History Last Done: 03/27/25 17:44
ED- Pulmonary Assessment Last Done: 03/27/25 18:00
ED- Neurological Assessment Last Done: 03/27/25 17:44
ED- Cardiac Assessment Last Done: 03/27/25 18:00
Discharge Date and Time
Print Language: TRINIDADIAN
[2025-03-27 18:18] LABS: Hematocrit 37.7 % (37.0-47.0); Hemoglobin 12.0 g/dL (12.0-16.0); Mean Corp Hgb Conc. 31.8 g/dL (33.0-37.0); Mean Corpuscular Volume 84.9 fL (81.0-99.0); Nucleated Red Blood Cells % 0 %; Platelet Count 343 10^3/uL (130-400); Red Cell Dist. Width 15.4 % (11.5-14.5)
[2025-03-27 18:29] LABS: ALT (SGPT) 15 U/L (0-35); AST (SGOT) 26 U/L (14-36); Albumin 4.6 g/dl (3.5-5.0); Alkaline Phosphatase 90 U/L (38-126); Blood Urea Nitrogen 11 mg/dl (7-17); Calcium 10.6 mg/dl (8.4-10.2); Carbon Dioxide 24 mmol/L (22-30); Chloride 100 mmol/L (98-107); Glucose 154 mg/dl (70-99); Potassium 4.2 mmol/L (3.5-5.1); Sodium 138 mmol/L (135-145); Total Protein 8.3 g/dl (6.3-8.2); eGFR > 60.00
[2025-03-27 19:41] LABS: B.E. 1.1 mmol/L; HCO3 25.1 mmol/L (21-28); O2 Saturation % 96.5 % (94-98); PCO2 37 mmHg (32-35); PO2 70 mmHg (83-108)
[2025-03-27] MEDS: VALIUM INJECTION 5 MG IV ×2 (19:50→22:23)
[2025-03-27] MEDS: KEPPRA 1000 MG IV ×2 (19:55→20:08)
--- NOTE | 2025-03-27 20:36 | HPS.HSE ---
Family Physician
-
Family Physician: Massimo Mcdaniels
Chief Complaint
-
Altered mental status
History of Present Illness
This is a 70-year-old female with past medical history significant for hypertension, GERD, hyperlipidemia, yqh-zzzvuow-rmkmbfhaa diabetes, depression anxiety, obstructive sleep apnea multiple UTIs and chronic alcohol abuse drinking 2/5 of vodka
daily but denies alcohol use as of 3 months based on last notes who presents to the emergency department after being found down by neighbor again.
She was found down the previous day. At this time EMS was called. She had been previously alert and oriented throughout ED stay the previous day and requested to return home. At drug screen was positive for opiates and oxycodone as well as
benzodiazepine. On arrival to the emergency department patient was responsive to painful stimuli and minimally responsive to verbal stimuli. No spontaneous activity. She was seen to be having slow rhythmic movements concerning for seizure.
According to previous hospitalization for altered mental status, notes indicated that she was seen by psych for mood disorder. Use of Valium was discouraged due to high risk at her age. No new medications were prescribed.
Measurement of seizure activity by bedside EEG shows high percentage.
She was hemodynamically stable with a blood pressure of 109/45, pulse rate was 96 temperature was 99.6 and she was satting 97%. ECG shows a normal sinus rhythm at a rate of 82.
White count was 11.5 rest of the CBC was unremarkable. Electrolytes BUN/creatinine were normal. Glucose was normal. Blood gas was 7 point 4/37/23.
Alcohol level was negative.
Chest x-ray shows no acute infiltrate. CT of the head shows no acute intracranial process. CT of the C-spine was negative.
Medical History
Past Medical History
Past Medical History: Reports HTN, NIDDM and Other
Additional Past Medical History:
ETOH use disorder, Chronic pain syndrome/chronic opiate dependence , HX UGIB and ACBLA in October 2024 HX uncomplicated cystitis with MDRO ESBL-E. Coli, HX orthostatic hypotension:
Past Surgical History: Reports Other
Additional Past Surgical History:
Tonsillectomy
Social History
Tobacco: Smoker
Alcohol: Former
Drug: None
Personal: Single
Living: Alone
Family History
Family History: Not pertinent
Allergies / Home Medications
Allergies reflects when Allergies were last updated in [employer].
Home Medications with original date entered in [employer]
Allergy/Medication List:
Allergies
Allergy/AdvReac Type Severity Reaction Status Date / Time
topiramate (From Topamax) Allergy Itching Verified 12/30/24 04:41
valdecoxib (From Bextra) Allergy Rash Verified 12/30/24 04:41
Home Medications
linagliptin 2.5 mg-metformin 1,000 mg tablet (Jentadueto) 1 tab PO BID Diabetes 04/02/23
gabapentin 300 mg capsule 300 mg PO QID Pain 05/12/23
lisinopril 2.5 mg tablet 2.5 mg PO DAILY Blood Pressure 05/12/23
simvastatin 40 mg tablet 40 mg PO HS High Cholesterol 05/12/23
tramadol 50 mg tablet 50 mg PO Q6HPRN PRN moderate pain 10/20/23
cholecalciferol (vitamin D3) 25 mcg (1,000 unit) tablet 25 mcg PO DAILY Supplement 10/15/24
cyanocobalamin (vitamin B-12) 1,000 mcg tablet 1,000 mcg PO DAILY Supplement 10/15/24
diazepam 5 mg tablet 5 mg PO Q8HPRN PRN anxiety 10/15/24
pantoprazole 40 mg tablet,delayed release (Protonix) 40 mg PO BID #60 tabs 11/19/24
folic acid 1 mg tablet 1 mg PO DAILY #30 tabs 11/20/24
thiamine mononitrate (vit B1) 100 mg tablet 100 mg PO BID #60 tabs 11/20/24
albuterol sulfate 90 mcg/actuation aerosol inhaler (Ventolin HFA) 2 inh inhalation Q6H PRN shortness of breath or wheezing #8.5 grams 12/30/24
doxycycline hyclate 100 mg tablet 100 mg PO BID #20 tabs 12/30/24
methylprednisolone 4 mg tablets in a dose pack (Medrol (Mino)) See Rx Instructions PO .COMPLEX #21 ea 12/30/24
Review of Systems
-
Unable to obtain full review of systems at this time due to: Patient Non-verbal
Physical Exam
Vital Signs
Vital Signs
Temp Pulse Resp BP Pulse Ox
99.6 F 91 25 109/45 97
03/27/25 18:04 03/27/25 20:00 03/27/25 20:00 03/27/25 20:00 03/27/25 20:00
Physical Exam
General: Other (sedated after antiseizure meds)
HEENT: NormoCephalic and Anicteric
Respiratory: Other (symmetric )
Cardiac: S1/S2 and Regular Rhythm
GI: Soft
Musculoskeletal: No Edema
Neuro: Other (sedated)
Laboratory Results
-
03/27/25 18:08
03/27/25 18:08
Laboratory Results
pH 7.44 (7.35-7.45) 03/27/25 19:30
pCO2 37 mmHg (32-35) H 03/27/25 19:30
pO2 70 mmHg (83-108) L 03/27/25 19:30
HCO3 25.1 mmol/L (21-28) 03/27/25 19:30
Total Bilirubin 0.6 mg/dl (0.2-1.3) 03/27/25 18:08
AST 26 U/L (14-36) 03/27/25 18:08
ALT 15 U/L (0-35) 03/27/25 18:08
Alkaline Phosphatase 90 U/L (38-126) 03/27/25 18:08
Data Reviewed
-
Diagnostic Radiology: Report Reviewed by me
CT Scan: Report Reviewed by me
Medical Tests (Nuc Med, Echo, EKG etc): Image Personally Visualized and interpreted
Lab Data: Labs Reviewed by me
Old Records: Reviewed
Impression/Plan
-
IMPRESSION:
70-year-old female with past medical history significant for hypertension, hyperlipidemia, mur-qpwnrvj-vrswdkzxd diabetes, apparent history of seizures, prior history of alcohol dependence, recurrent admissions for altered mental status thought to
be secondary to medications requiring intubation in the past who now presents to the emergency department after being found down and there is found to have nonepileptic seizures. She is currently somnolent but arousable. Seizure appears to have
been terminated with antiepileptic drugs. The seizure burden went from 90% to 0% on the monitor. She still remains poorly responsive and somnolent.
PLAN:
Nonconvulsive status epilepticus-past medical history indicates history of seizures (? withdrawal). EtOH level negative. Possibly benzodiazepine withdrawal. CT of the head without any acute intracranial process.
-Admit to ICU
-N.p.o. for now
-Dextrose containing IV fluid
-Thiamine, folic acid
-Continue seizure monitor
-Keppra 1 g every 12
-Valium as needed seizure
-MRI in a.m.
-Neurology consultation
-Sliding scale insulin
-Fashion Stylist aware and consulted
DVT prophylaxis�Lovenox subcu
CODE STATUS�full code
[2025-03-27 22:50] LABS: Glucose - Point of Care 112 mg/dl (70-99)
--- NOTE | 2025-03-27 23:00 | PTCARENOTE ---
Resumed care of pt this evening. Received pt minimally responsive. Pt is currently non verbal. Pt on cerebell and is currently reading 0% suspected seizure activity.
[2025-03-27] MEDS: NOVOLOG FLEXPEN-LOW RESISTANCE SC (23:04)
[2025-03-27] MEDS: D5LR 1000 IV (23:15)
[2025-03-28] VITALS (21 sets, daily range): BP systolic 108–139; BP diastolic 46–86; BMI 23.0
[2025-03-28] MEDS: VALIUM INJECTION 5 MG IV (05:07)
--- NOTE | 2025-03-28 05:45 | PTCARENOTE ---
Cerebell alarming 95% suspected seizure activity. Greg ROMERO, notified. Valium and keppra administered by this RN.
[2025-03-28 05:49] LABS: Hematocrit 36.2 % (37.0-47.0); Hemoglobin 11.6 g/dL (12.0-16.0); Mean Corp Hgb Conc. 32.0 g/dL (33.0-37.0); Mean Corpuscular Volume 84.0 fL (81.0-99.0); Platelet Count 327 10^3/uL (130-400); Red Cell Dist. Width 15.5 % (11.5-14.5)
--- NOTE | 2025-03-28 05:52 | W.PN.UPDATE ---
Update Note
Progress Note Update
510 AM notified by bedside nurse that patient is having 100% seizure burden on Ceribell EEG. 5 mg of prn Valium was given. On assessment after valium, Patient is reactive to pain and pushes away you away and this most alert she has been all night.
Ceribell now reading 57%. Neuro recommending giving addition 2000 mg of Keppra.
[2025-03-28] MEDS: KEPPRA 2000 MG IV (05:54)
[2025-03-28 06:01] LABS: Ammonia < 9 umol/L (9-30)
[2025-03-28 06:17] LABS: Blood Urea Nitrogen 9 mg/dl (7-17); Calcium 10.1 mg/dl (8.4-10.2); Carbon Dioxide 27 mmol/L (22-30); Chloride 102 mmol/L (98-107); Estimated Creatinine Clearance 71 ml/min; Glucose 175 mg/dl (70-99); HDL Cholesterol 66 mg/dl; LDL Cholesterol, Calculated 113 mg/dl; Magnesium 1.3 mg/dl (1.6-2.3); Potassium 4.2 mmol/L (3.5-5.1); Sodium 141 mmol/L (135-145); Very Low Density Lipoprotein 24 mg/dl (0-30); eGFR > 60.00
[2025-03-28] MEDS: MAGNESIUM SULFATE 50 IV (06:33)
[2025-03-28] MEDS: NOVOLOG FLEXPEN-LOW RESISTANCE 1 UNITS SC (06:34)
[2025-03-28 06:46] LABS: TSH 2.03 uIU/ml (0.47-4.68)
[2025-03-28 07:05] LABS: Vitamin B12 333 pg/ml (239-931)
--- NOTE | 2025-03-28 07:29 | CON.INTV ---
Consultation
Consultation Request
Date/Time Consultation Requested: 22:30 03/27/25
Date/Time Consultation Performed: 7:00 03/28/25
Medical History
-
History of Present Illness:
70yoF PMH HTN, GERD, HLD, NIDD, Depression/anxiety, HEMANT, chronic alcohol abuse presenting with nonconvulsive, epileptic seizure on EEG.
Per chart, pt has hx frequent falls presenting to ED from home at [facility]. Most recent hospitalization required intubation due to inability to maintain airway. Prior falls have been implicated with alcohol use. UDS this admission demonstrates
opiates and benzodiazepines, both of which she is prescribed.
Today, pt in unable to answer questions. Nursing describes the ability to respond appropriately to earlier today.
Past Medical History
Past Medical History: GERD, HTN, Hypercholesterolemia, NIDDM and Psychiatric
Social History
Alcohol: Chronic Alcoholic
Living: Alone ([facility])
Allergies / Home Medications
Allergies
Allergy/AdvReac Type Severity Reaction Status Date / Time
topiramate (From Topamax) Allergy Itching Verified 12/30/24 04:41
valdecoxib (From Bextra) Allergy Rash Verified 12/30/24 04:41
Home Medications
�Medication �Instructions �Recorded �Confirmed �Last Taken �Type
linagliptin 2.5 mg-metformin 1,000 1 tab PO BID Diabetes 04/02/23 03/26/25 03/25/25 18:00 History
mg tablet (Jentadueto)
gabapentin 300 mg capsule 300 mg PO TID Neurological 05/12/23 03/26/25 03/25/25 History
Condition
lisinopril 2.5 mg tablet 2.5 mg PO DAILY Blood Pressure 05/12/23 03/26/25 03/18/25 History
simvastatin 40 mg tablet 40 mg PO HS High Cholesterol 05/12/23 03/26/25 03/25/25 History
esomeprazole magnesium 40 mg 40 mg PO DAILY Gastrointestinal 02/09/25 03/26/25 02/08/25 History
capsule,delayed release (Nexium) Issue
albuterol sulfate 90 mcg/actuation 2 inh inhalation R Q6HPRN PRN sob 03/10/25 03/26/25 Unknown History
aerosol inhaler
baclofen 20 mg tablet 20 mg PO TID Muscle Spasms 03/26/25 03/26/25 03/25/25 History
diazepam 5 mg tablet 5 mg PO Q8HPRN PRN ANXIETY 03/26/25 03/26/25 03/25/25 History
nitrofurantoin 100 mg PO BID Urinary Issue 03/26/25 03/26/25 Unknown History
monohydrate/macrocrystals 100 mg
capsule
oxycodone 10 mg tablet 10 mg PO Q6HPRN PRN PAIN 03/26/25 03/26/25 03/25/25 History
thiamine HCl (vitamin B1) 100 mg 100 mg PO BID Supplement 03/26/25 03/26/25 Unknown History
tablet
Review of Systems
-
Unable to Obtain full review of systems at this time due to: Other (AMS)
Vitals / Labs / Diagnostic Testing
Vital Signs
Temp Pulse Resp BP Pulse Ox
99.7 F 91 21 132/62 100
03/28/25 04:10 03/28/25 07:00 03/28/25 07:00 03/28/25 07:00 03/28/25 07:00
Lab Data
03/28/25 05:32
03/28/25 05:32
Laboratory Results
03/27/25
19:30
pH 7.44
pCO2 37 H
pO2 70 L
HCO3 25.1
O2 Delivery Level
Diagnostic Testing:
Physical Exam
-
HEENT: Normocephalic, Anicteric and Moist Mucous Membranes
Cardiovascular: S1/S2 and Regular Rhythm
Respiratory: Clear and Non-Labored Respirations
GI: Soft
Neurology: Awake and Alert (mumbling incoherently, does not answer questions appropriately )
Skin: Warm and Dry
General: Comfortable
Exam:
Pt sitting up in bed mumbling incoherently. Unable to perform neuro exam or follow commands.
Assessment
-
70yoF PMH chronic alcohol use and frequent falls presenting with seizures found on EEG.
Pt was found to be seizing in ED and keppra loaded. Cerebell alerted of 100% seizure at around 5am this morning. Keppra and valium given, successfully aborting seizure. Nurses were able to communicate with her and report alertness at that time. CT
head negative for intracranial abnormalities. MRI 03/14/2025 demonstrated no new abnormalities.
AFVSS. Mild leukocytosis. UDS positive for her prescription medications: benzodiazepines and opioids. ECG normal.
This morning, pt is sitting in bed noncommunicative. Differential includes structural or chemical causes of seizures. Due to negative CT this admission and recent MRI with no intracranial abnormalities, structural cause seems less likely. Lung
nodule noted on CXR last admission with outpt f/u recommended. Due to recent scans, very low suspicion for metastatic dx. UDS + for benzodiazepine so less likely withdrawal symptom from alcohol or benzodiazepines. Unknown adherence to home baclofen,
withdrawal could be implicated in seizures.
Plan:
Neuro:
Awake, AMS. 20% seizure burden on cerebell when examined this morning.
Continue Keppra. PRN Valium
Continue Thiamine. Hx chronic alcohol use.
Continuous EEG
Neurology following
Restart home baclofen.
Pulm:
VBG WNL. Maintaining airway.
On 2L NC. Wean appropriately.
Continue home albuterol.
Lung nodule noted on CXR last admission. Monitor for changes in symptoms. F/u outpt.
Cardio:
ECG normal. RRR.
Hemodynamically stable.
GI:
NPO. Aspiration risk currently.
If mental status improves, we can consider advancing diet
Continue home PPI
Place Dobhoff for PO medications.
:
Stable kidney function
Monitor I+O
Nursing reports concentrated urine. 1L bolus followed by maintenance LR
UA to evaluate source of leukocytosis
ID:
Hold antibiotics.
Trend leukocytosis. Monitor for acute signs of infection
Endocrine:
Continue home synthroid
NIDDM
DVT prophylaxis: Lovenox
GI prophylaxis: home PPI
--- NOTE | 2025-03-28 07:42 | W.RAPID.EEG ---
Rapid EEG
-
Procedure Date: 03/27/25
Results:
Near continuous status epilepticus with approximately 1.5/s generalizing discharges demonstrated.
Immediate clinical correlation advised.
--- NOTE | 2025-03-28 07:46 | CON.INTV ---
Consultation
Consultation Request
Date/Time Consultation Requested: 03/28/2025-7 AM
Date/Time Consultation Performed: 03/28/2025-7:30 AM
Requesting Provider: Hospitalist
Performing Provider: Dr. Cruz
Reason for Consultation: Status epilepticus/ICU management
Medical History
-
Chief Complaint: Seizures
History of Present Illness:
70-year-old smoking female with a history of hypertension, hyperlipidemia, GERD, diabetes, depression, anxiety, obstructive sleep apnea with recurrent UTIs and chronic alcohol abuse who states she has not drank alcohol in the last 3 months and
presented to the emergency room being found down by neighbor and noted to have significant seizures in the emergency room requiring 5 of Valium and Keppra load with intermittent ongoing seizures-tear down man consulted for status epilepticus/critical
care management 03/28/2025. Seizure burden has decreased significantly overnight, however, there is still considerable amount of seizure activity. The patient is confused and inappropriate in answering questions. She is unreliable for a thorough
review of systems but she is in no respiratory distress.
Past Medical History
Past Medical History: None (Hypertension. Hyperlipidemia. GERD. Cigarette smoker. Diabetes. Depression. Anxiety. HEMANT. Recurrent UTIs. Chronic alcohol abuse. Chronic pain syndrome/chronic opiate dependence. Upper GI bleed October 2024.
Orthostatic hypotension. Tonsillectomy.)
Social History
Tobacco: Smoker
Alcohol: Former
Drug: None
Personal: Single
Living: Alone
Occupational Exposures: No known asbestos exposure
Environmental Exposures: No known tuberculosis exposure
Family History
Family History: Reviewed & Not Pertinent
Allergies / Home Medications
Allergies
Allergy/AdvReac Type Severity Reaction Status Date / Time
topiramate (From Topamax) Allergy Itching Verified 12/30/24 04:41
valdecoxib (From Bextra) Allergy Rash Verified 12/30/24 04:41
Home Medications
�Medication �Instructions �Recorded �Confirmed �Last Taken �Type
linagliptin 2.5 mg-metformin 1,000 1 tab PO BID Diabetes 04/02/23 03/26/25 03/25/25 18:00 History
mg tablet (Jentadueto)
gabapentin 300 mg capsule 300 mg PO TID Neurological 05/12/23 03/26/25 03/25/25 History
Condition
lisinopril 2.5 mg tablet 2.5 mg PO DAILY Blood Pressure 05/12/23 03/26/25 03/18/25 History
simvastatin 40 mg tablet 40 mg PO HS High Cholesterol 05/12/23 03/26/25 03/25/25 History
esomeprazole magnesium 40 mg 40 mg PO DAILY Gastrointestinal 02/09/25 03/26/25 02/08/25 History
capsule,delayed release (Nexium) Issue
albuterol sulfate 90 mcg/actuation 2 inh inhalation R Q6HPRN PRN sob 03/10/25 03/26/25 Unknown History
aerosol inhaler
baclofen 20 mg tablet 20 mg PO TID Muscle Spasms 03/26/25 03/26/25 03/25/25 History
diazepam 5 mg tablet 5 mg PO Q8HPRN PRN ANXIETY 03/26/25 03/26/25 03/25/25 History
nitrofurantoin 100 mg PO BID Urinary Issue 03/26/25 03/26/25 Unknown History
monohydrate/macrocrystals 100 mg
capsule
oxycodone 10 mg tablet 10 mg PO Q6HPRN PRN PAIN 03/26/25 03/26/25 03/25/25 History
thiamine HCl (vitamin B1) 100 mg 100 mg PO BID Supplement 03/26/25 03/26/25 Unknown History
tablet
Review of Systems
-
Unable to Obtain full review of systems at this time due to: Other (Per HPI)
Vitals / Labs / Diagnostic Testing
Vital Signs
Temp Pulse Resp BP Pulse Ox
99.8 F 91 21 132/62 100
03/28/25 07:37 03/28/25 07:00 03/28/25 07:00 03/28/25 07:00 03/28/25 07:00
Lab Data
03/28/25 05:32
03/28/25 05:32
Laboratory Results
03/27/25
19:30
pH 7.44
pCO2 37 H
pO2 70 L
HCO3 25.1
O2 Delivery Level
Diagnostic Testing:
Physical Exam
-
Exam:
well-nourished and well-developed in no apparent distress
HEENT-atraumatic, normocephalic
Neck-supple, no JVD, no bruit
Heart-regular rate and rhythm-no murmurs, rubs or gallops
Chest-diminished breath sounds with rare crackles and no wheezes
Back-no tenderness
Abdomen-soft, nontender, nondistended, no hepatosplenomegaly
Extremities-no cyanosis, clubbing, edema and good peripheral pulses
Integument-intact, no rashes, lesions or ecchymosis
Neurology-alert, not oriented, nonfocal motor and sensory exam
Assessment
-
70-year-old smoking female with a history of hypertension, hyperlipidemia, GERD, diabetes, depression, anxiety, obstructive sleep apnea with recurrent UTIs and chronic alcohol abuse who states she has not drank alcohol in the last 3 months and
presented to the emergency room being found down by neighbor and noted to have significant seizures in the emergency room requiring 5 of Valium and Keppra load with intermittent ongoing seizures-tear down man consulted for status epilepticus/critical
care management 03/28/2025.
Status epilepticus-differential includes primary seizure disorder, structural STATE ATTORNEY abnormality, alcohol withdrawal, baclofen withdrawal, benzodiazepine withdrawal
Hypomagnesemia
Diabetes
Leukocytosis
Mild rwhyeg-jpjlzvziif-plctkyaxet 11.6
Hyperglycemia
Conditions present prior to admission:
Recent admission 03/10--unresponsive episode suspected acute metabolic encephalopathy from polypharmacy, left upper lobe 1.1 cm pulmonary nodule
Hypertension.
Hyperlipidemia.
GERD.
Cigarette smoker.
Diabetes.
Depression.
Anxiety.
HEMANT.
Recurrent UTIs-including ESBL E. coli
Chronic alcohol abuse.
Chronic pain syndrome/chronic opiate dependence.
Compression fracture
Anemia of chronic disease
Upper GI bleed October 2024.
Orthostatic hypotension.
History of left 6th, 7th and 8th rib fractures
Tonsillectomy.
Plan
Patient will be admitted to medical intensive care unit for close observation
Supplemental oxygen as needed
Aspiration precautions
BiPAP if needed
Intubate and mechanically ventilate to protect airways if necessary
CT head summarized below
Brain MRI pending
EEG continuous
Neurology evaluation
Benzodiazepine and Keppra load
Might require additional agents as continues to have 20% seizure burden
Neurology evaluation
Ativan as needed
Ativan drip if needed
Additional antiepileptics to be considered include fosphenytoin, and valproic acid
If refractory seizures then consider phenobarbital and Lacosamide
Monitor blood sugars
Insulin supplementation as needed
Replace electrolytes
DVT prophylaxis-on Lovenox
GI prophylaxis-on pantoprazole
Early nutrition with aspiration precautions
Early mobilization
Smoking cessation counseling
Nicotine patch if needed
Recently discharged from hospital and seen by from our group who recommended outpatient CT chest ION as well as biopsy and pulmonary mocajw-qn-wht did not make follow-up appointment-most recent CT chest October 2024 without nodules or
masses and most recent chest x-ray without obvious nodule
Critical care statement: A total of 65 minutes of critical care time was provided for this patient today. This includes management of unstable vital signs, evaluation of the patient at bedside, reviewing the patient's pertinent medical records
including radiographs, microbiology, laboratory evaluations, and discussion with primary team, consultants, pharmacy, critical care nursing and charge nurse.
Diagnostic data:
Chest x-ray 05/07/2023-mild chronic scarring right lower lobe, mild cardiomegaly
Chest x-ray 11/17-small to moderate left pleural effusion
Chest x-ray 03/10/2025-endotracheal tube in satisfactory position, possible nodular opacification over left scapula measuring 1.2 cm
Chest x-ray 03/27/2025-no acute cardiopulmonary abnormalities
CT chest 10/27/24-moderate left pleural effusion, fractures involving left sixth seventh eighth ribs
CT abdomen and pelvis 11/12/2024-visualized portions of the lung bases are unremarkable, no significant abnormalities in the abdomen or pelvis
CT head 03/10/2025-no acute intracranial abnormalities, left frontal lobe mild encephalomalacia possibly reflecting old infarct or posttraumatic changes
CT head 03/26/2025-no acute intracranial abnormalities
CT head 03/27/2025-no acute intracranial abnormalities
Brain MRI 03/14/2025-no acute intracranial abnormalities
Data Reviewed
-
EKG: Report reviewed by me
Radiology: Image personally visualized and interpreted and Report reviewed by me
CT Scan: Image personally visualized and interpreted and Report reviewed by me
MRI: Report reviewed by me
Medical Tests (Nuc Med, Echo etc): Report reviewed by me
Labs: Labs reviewed by me
Old Records: Reviewed
Critical Care Time (in minutes): 65
--- NOTE | 2025-03-28 08:10 | W.PN.HOSP.TC ---
Today's Communication/Plan
-
see plan
Assessment / Plan
Assessment / Plan
IMPRESSION:
70-year-old female with past medical history significant for hypertension, hyperlipidemia, vhn-hejizra-wcoyivbhq diabetes, apparent history of seizures, prior history of alcohol dependence, recurrent admissions for altered mental status thought to
be secondary to medications requiring intubation in the past who now presents to the emergency department after being found down and is found to have nonepileptic seizures.
Cervical Spine CT
IMPRESSION:
No acute osseous abnormality.
Multilevel moderate degenerative changes.
HEAD CT
IMPRESSION:
No acute intracranial abnormality noted.
CXR
IMPRESSION:
No acute cardiopulmonary abnormality.
PLAN:
Nonconvulsive status epilepticus-past medical history indicates history of seizures (? withdrawal). EtOH level negative. Possibly benzodiazepine withdrawal. CT of the head without any acute intracranial process.
-Admitted to ICU
-npo
-Keppra 1 g every 12
-Per Neurology, Lacosamide added this AM for continued discharges by EEG
-continue EEG monitoring
-F/U drug screen
-Valium as needed seizure
-D5 NS
-Thiamine, folic acid
-MRI in a.m.
-Neurology consultation
-Electric Powerline Examiner Consultation
Hypomagnesemia
-repletion
NIDDM
-Sliding scale insulin
DVT prophylaxis�Lovenox subcu
CODE STATUS�full code
51 minutes spent on patient care
Anticipated Discharge: > 48 hours
Subjective/Interval History
-
Date of Service: March 28, 2025
alert, confused
Objective Data
-
Labs:
Laboratory Results
03/28/25
05:32
WBC 14.5 H
Hgb 11.6 L
Hct 36.2 L
Plt Count 327
Sodium 141
Potassium 4.2
Chloride 102
Carbon Dioxide 27
BUN 9
Creatinine 0.5 L
Glucose 175 H
Calcium 10.1
Vital Signs:
Vital Signs
Temp Pulse Resp BP Pulse Ox
99.8 F 91 21 132/62 100
03/28/25 07:37 03/28/25 07:00 03/28/25 07:00 03/28/25 07:00 03/28/25 07:00
Review of Systems
-
Unable to obtain full review of systems at this time due to: Patient Non-verbal
Physical Exam
-
General: No Apparent Distress and Other (alert but confused, not following commands )
HEENT: PERRLA
Respiratory: Negative Wheezes
Cardiac: Regular Rhythm and S1/S2
GI: Soft and Nontender
Musculoskeletal: No Edema
Skin: Warm and Dry; Negative Rash
Neuro: Awake; Negative Oriented
Psych: Confused
Data Reviewed
-
Diagnostic Radiology: Report Reviewed by me
Labs: Labs Reviewed by me
--- NOTE | 2025-03-28 08:48 | CON.NEURO4 ---
Addendum entered and electronically signed by Tommie Peres MD 03/28/25 10:53:
Studies reviewed.
I have personally examined the patient. I reviewed and agree with the TAMPING MACHINE OPERATOR's Note.
My addenda:
Awake, not alert, minimally and intermittently interactive. No acute distress.
Speech dysarthric, reduced output.
Does not follow most requests. No tremor.
Extra-ocular movements grossly intact. Withdraws from painful stimulation in all extremities
Facial movements full and symmetric. Hearing intact to normal conversational volume.
Normal UE movements bilaterally.
Neck: full ROM.
Chest: no dyspnea
Heart: no JVD
Ext: (-) Clubbing, (-) Cyanosis, (-) Edema
IMPRESSIONS/RECOMMENDATIONS:
Abrupt onset of change in mental status
Rapid EEG evaluation indicated status epilepticus which is confirmed by examination currently
Provide additional levetiracetam 2000 mg IV now for a total load of 4000 mg
Add second agent in the form of lacosamide, with loading of 200 mg IV followed by 200 mg twice a day
Check continuous EEG monitoring if greater than 1 hour EEG shows continued abnormalities
Check MRI of brain
Check urine drug screen
Provide thiamine
Consider addition of phenobarbital
Consider lumbar puncture
Total Critical Care Time=�35 minutes.
The neurological system is affected and the action required by me to prevent further deterioration or potential was control over the item listed first in the Impressions and Recommendations section of this note.
I was present and personally examined the patient.� I discussed patient care with other professional health care providers.
Will continue to follow patient.
Original Note:
Consultation - Neurology 4
-
CONSULTING PHYSICIAN: Tommie Peres MD
REFERRING PHYSICIAN: Hospitalists/Dr. Pittman
DICTATED BY: NICK Justice
DATE/TIME OF REQUEST: 03/27/25
DATE/TIME OF CONSULTATION: 03/28/25
Reason for Consultation: Seizure
History of Present Illness:
This is a 70-year-old female who has presented to the hospital on 03/27/25 with report of being found unresponsive by her neighbor. She was in the ER the day before on 03/26/25 with the same report, but returned to her baseline while here and was
discharged home. Urine drug screen was positive for opioids and oxycodone. On arrival yesterday (03/27/25), patient was only responsive to painful stimuli and was noted to be having slow rhythmic body movements concerning for seizure. [facility] EEG
monitor was placed on the patient and demonstrated 100% seizure burden. She was given diazepam 5mg and levetiracetam 2000mg x1, with reduction in seizure burden reading to 0%. Overnight, the percentage increased to 100% and she was given an
additional 2000mg of levetiracetam. This morning (03/28/25), patient is opening eyes to voice but is not providing appropriate verbal responses. Unable to assess a review of systems due to aphasia. She had an MRI brain completed on 03/14/25 during a
previous hospitalization due to confusion and it was negative for any acute abnormalities. It does not appear that she has previously been evaluated by our Neurology service.
Past Medical History: HTN, HLD, NIDDM, alcohol use, opioid dependence, seizures, anxiety, depression, chronic pancreatitis, gastritis, gastric ulcers, HEMANT, migraines, hepatitis.
Surgical History: R breast biopsy, tonsillectomy.
Family History: Reviewed and noncontributory.
Social History: Current smoker, alcohol abuse, opioid/benzo abuse.
Allergies: Topiramate, valdecoxib.
Home Medications: See below.
Review of Symptoms:
Per the HPI. I am unable to obtain a complete review of systems�because of patient's inability to provide history.
Physical Exam:
The patient is afebrile, abdomen is nondistended, breathing is unlabored, skin is warm and dry, no edema.
Neurologic Examination:
The patient is drowsy, opens eyes to voice. She does not follow any commands or answer questions appropriately. There is severe aphasia, no dysarthria. On cranial nerve assessment, pupils are 3 mm bilateral, round and reactive to light and
accommodation. TREVOR visual nelson. TREVOR EOMs, gaze is midline. There is no apparent facial asymmetry. Hearing seems intact bilaterally to normal conversation volume. TREVOR tongue. Does not follow commands to assess motor strength, withdraws briskly in
all four extremities to pain, moves all extremities spontaneously. TREVOR drift. No involuntary movement noted. Deep tendon reflexes are 3+ right upper and lower and 2+ left upper and lower extremities and Babinski is absent bilaterally. Increased tone
RUE. TREVOR sensation and double simultaneous. TREVOR coordination.
Lab Results: See below.
Neuro Imaging:
1. CT Head 03/27/25: No acute intracranial abnormality noted.
2. MRI Brain 03/14/25: No acute intracranial abnormality. Chronic findings, as detailed above.
Differentials for the patient's presentation include:
1. Status epilepticus, non-refractory, in the setting of opioid/benzo dependence/abuse and chronic alcohol abuse.
2. Low vitamin B12 level.
Patient has the following risk factors for their symptoms: opioid/benzo abuse/dependence, chronic alcohol abuse
Recommendations:
-Continue levetiracetam 1000mg every 12 hours.
-Lacosamide 200mg IV every 12 hours.
-MRI brain noncontrast pending.
-Ordering continuous EEG.
-Continue thiamine 100mg daily
-Continue cyanocobalamin 1000mcg daily.
-Neurological checks per unit guidelines.
-DVT prophylaxis.
Discussed patient care with: Dr. Peres, nursing staff, patient unable to participate in conversation
Vital Signs and Labs
-
Vital Signs and Labs:
Vital Signs
Temp Pulse Resp BP Pulse Ox
99.8 F 91 21 132/62 100
03/28/25 07:37 03/28/25 07:00 03/28/25 07:00 03/28/25 07:00 03/28/25 07:00
Lab Results
03/28/25 05:32
03/28/25 05:32
Sodium 141 mmol/L (135-145) 03/28/25 05:32
Potassium 4.2 mmol/L (3.5-5.1) 03/28/25 05:32
BUN 9 mg/dl (7-17) 03/28/25 05:32
Glucose 175 mg/dl (70-99) H 03/28/25 05:32
Calcium 10.1 mg/dl (8.4-10.2) 03/28/25 05:32
LDL Cholesterol, Calc 113 mg/dl 03/28/25 05:32
Vitamin B12 333 pg/ml (239-931) 03/28/25 05:32
Ur Buprenorphine Negative (Negative) 03/28/25 08:11
Medications
-
Active Medications
Generic Name Dose Route Start Last Admin
Trade Name Freq PRN Reason Stop Dose Admin
Acetaminophen 650 mg 03/27/25 22:30
Acetaminophen 650 Mg Rectal Suppository RECTAL 04/24/25 22:29
Q4HPRN PRN
mild pain/NEWTON/temp> 100.4F
Albuterol/Ipratropium 3 ml 03/27/25 22:30
Ipratropium 0.5/Albuterol 3 Mg (3 Ml Ampul) INH
R Q4HPRN PRN
shortness of breath
Protocol
Bisacodyl 10 mg 03/27/25 22:30
Bisacodyl 10 Mg Rectal Suppository RECTAL 04/24/25 22:29
[id number] PRN
constipation
Cyanocobalamin 100 mcg 03/28/25 08:00 03/28/25 08:58
Cyanocobalamin (1000 Mcg/Ml) 1 Ml Vial IM 03/30/25 08:01 100 mcg
DAILY ALEXANDRE Administration
Dextrose 12.5 grams 03/27/25 23:00
Dextrose 50% (0.5 Grams/Ml) 50 Ml Syringe IV 04/24/25 22:59
[id number] PRN
hypoglycemia
Protocol
Diazepam 5 mg 03/27/25 22:13 03/28/25 05:07
Diazepam 10 Mg/2 Ml Inj IV 04/24/25 22:12 5 mg
Q6HPRN PRN Administration
seizure
Enoxaparin Sodium 40 mg 03/28/25 18:00
Enoxaparin Sodium 40 Mg/0.4 Ml Syringe SC 04/25/25 17:59
QPM ALEXANDRE
Glucagon 1 mg 03/27/25 23:00
Glucagon 1 Mg Vial IM 04/24/25 22:59
PRN PRN
hypoglycemia - no IV access
Protocol
Dextrose/Lactated Ringer's 1,000 mls @ 75 mls/hr 03/27/25 22:30 03/27/25 23:15
D5lr IV 1,000 mls
.[id number] ALEXANDRE Administration
Insulin Aspart 0 units 03/28/25 00:00 03/28/25 06:34
Insulin Aspart Low Resistance 300 Units/3 Ml Pen.Injctr SC 04/25/25 00:00 1 units
Q6 ALEXANDRE Administration
Protocol
Lacosamide 200 mg 03/28/25 16:00
Lacosamide (10 Mg/Ml) 200 Mg/20 Ml Vial IV 04/11/25 15:59
Q12H ALEXANDRE
Levetiracetam 1,000 mg 03/28/25 08:00 03/28/25 08:53
Levetiracetam (100 Mg/Ml) 500 Mg/5 Ml Vial IV 04/25/25 07:59 1,000 mg
Q12 ALEXANDRE Administration
Ondansetron HCl 4 mg 03/27/25 22:30
Ondansetron 4 Mg/2 Ml Vial IV 04/24/25 22:29
Q6HPRN PRN
nausea and vomiting
Pantoprazole Sodium 40 mg 03/28/25 08:00 03/28/25 08:54
Pantoprazole Sodium 40 Mg/10 Ml Vial IV 04/25/25 07:59 40 mg
DAILY ALEXANDRE Administration
Sodium Chloride 0 flush 03/27/25 23:00
Sodium Chloride 0.9% (Flush) Syringe IV 04/24/25 22:59
PER PROTOCOL ALEXANDRE
Sodium Chloride 10 ml 03/28/25 08:00 03/28/25 08:54
Sodium Chloride 0.9% (Preservative Free) 10 Ml Vial IV 04/25/25 07:59 10 ml
DAILY ALEXANDRE Administration
Thiamine HCl 100 mg 03/28/25 08:00 03/28/25 08:54
Thiamine (100 Mg/Ml) 2 Ml Vial IV 04/25/25 07:59 100 mg
DAILY ALEXANDRE Administration
Home Medications
�Medication �Instructions �Recorded
linagliptin 2.5 mg-metformin 1,000 1 tab PO BID Diabetes 04/02/23
mg tablet (Jentadueto)
gabapentin 300 mg capsule 300 mg PO TID Neurological 05/12/23
Condition
lisinopril 2.5 mg tablet 2.5 mg PO DAILY Blood Pressure 05/12/23
simvastatin 40 mg tablet 40 mg PO HS High Cholesterol 05/12/23
esomeprazole magnesium 40 mg 40 mg PO DAILY Gastrointestinal 02/09/25
capsule,delayed release (Nexium) Issue
albuterol sulfate 90 mcg/actuation 2 inh inhalation R Q6HPRN PRN sob 03/10/25
aerosol inhaler
baclofen 20 mg tablet 20 mg PO TID Muscle Spasms 03/26/25
diazepam 5 mg tablet 5 mg PO Q8HPRN PRN ANXIETY 03/26/25
nitrofurantoin 100 mg PO BID Urinary Issue 03/26/25
monohydrate/macrocrystals 100 mg
capsule
oxycodone 10 mg tablet 10 mg PO Q6HPRN PRN PAIN 03/26/25
thiamine HCl (vitamin B1) 100 mg 100 mg PO BID Supplement 03/26/25
tablet
[2025-03-28] MEDS: KEPPRA 1000 MG IV ×2 (08:53→21:41)
[2025-03-28] MEDS: THIAMINE INJECTION 100 MG IV (08:54)
[2025-03-28] MEDS: PROTONIX IV 40 MG IV (08:54)
[2025-03-28] MEDS: NSS (PRESERVATIVE FREE) 10 ML IV (08:54)
[2025-03-28] MEDS: CYANOCOBALAMIN 100 MCG IM (08:58)
--- NOTE | 2025-03-28 09:00 | VNURNOTE ---
Chart reviewed. Patient is current with [facility]. Will continue to follow hospital course and DC plans.
[2025-03-28] MEDS: VIMPAT 200 MG IV ×2 (09:28→17:29)
[2025-03-28 09:44] LABS: Urine Character Cloudy (Clear)
[2025-03-28 10:56] LABS: Urine Red Blood Cell 0-2 /HPF (0-2); Urine Squamous Cell 0-2 /LPF (Few); Urine White Cell 0-2 /HPF (0-5)
[2025-03-28] MEDS: LR 1000 IV ×2 (11:31→17:29)
[2025-03-28] MEDS: NOVOLOG FLEXPEN-LOW RESISTANCE SC ×3 (11:45→23:33)
[2025-03-28 11:48] LABS: Glucose - Point of Care 138 mg/dl (70-99)
[2025-03-28] MEDS: VALIUM INJECTION IV (11:52)
--- NOTE | 2025-03-28 12:16 | PTCARENOTE ---
Pt does not follow commands. Says yes/no/help/stop at times but otherwise speech garbled and unintelligible. All other assessments unchanged.
2 IVs infiltrated. Difficulty finding IV access. PICC requested.
Heading to MRI at this time.
--- NOTE | 2025-03-28 14:34 | CM ---
Bipolar, Opioid, Benzo and ETOH abuse. Initial assessment completed via multiple admissions to [facility]. Patient unable to participate in assessment. Patient resides in a 6th floor apartment in elevator building at [facility]. 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 No other DME. Current services with [facility]. Saw patient x2 since last admission. PCP is Dr. Massimo Mcdaniels. Pharmacy is [facility] in [place]. Discharge POC: TBD. Multiple admissions.
--- NOTE | 2025-03-28 14:35 | EEG.RPT ---
Electroencephalogram Report
Recording
Date of EE03/28/25
Type of EEG: Routine
Length of EEG recordin minutes
Done with Video Recording: Yes
Patient Status: Inpatient
Recording Conditions: Awake and Drowsy
Hyperventilation Performed: No
Photic Stimulation Performed: Yes
Report
GREATER THAN 1 HOUR REPORT
GREATER THAN 1 HOUR EEG INTERPRETATION:
Severely abnormal EEG for age in wakefulness through drowsiness due to nearly continuous 2/s generalizing discharge discharges disrupting the background
CLINICAL CORRELATION:
This study was suggestive of a generalizing cortical abnormality best demonstrated in drowsiness. This abnormality is epileptiform and suggestive of status epilepticus.
Clinical correlation is advised.
METHODS:
A 21 channel digitized electroencephalogram (EEG) was performed at the bedside in the intensive care unit. The 10/20 international system of electrode placement was used with ECG and lateral/vertical eye movements recorded. Video was recorded.
Persyst quantitative EEG analysis was utilized.
ELECTROENCEPHALOGRAPHER IMPRESSION(S):
Quality of study
Fair�good, limited by muscle artifact
Background
No organized background was demonstrated
Sleep
Drowsiness present
Photic Stimulation
Failed to activate the record.
ECG
Normal sinus rhythm
Abnormal Findings
Nearly continuously demonstrated were generalizing bursts of rhythmic delta activity (GPEDs) 2/s frequency of medium to high amplitudes
[2025-03-28] MEDS: PHENOBARBITAL 97.5 MG IV ×2 (15:11→21:41)
--- NOTE | 2025-03-28 17:00 | PTCARENOTE ---
Pt appears more alert. Follows some commands. One word answers or does not reply to questions. All other assessments unchanged.
[2025-03-28] MEDS: LIORESAL 20 MG TUBE ×2 (17:29→21:41)
[2025-03-28] MEDS: LOVENOX 40 MG SC (17:29)
[2025-03-28 19:01] LABS: Glucose - Point of Care 122 mg/dl (70-99)
--- NOTE | 2025-03-28 21:00 | PTCARENOTE ---
Continuous EEG in place. Pt continues to be minimally responsive.
[2025-03-28 23:42] LABS: Glucose - Point of Care 126 mg/dl (70-99)
[2025-03-29] VITALS (49 sets, daily range): BP systolic 76–143; BP diastolic 31–103; BMI 23.5
[2025-03-29] MEDS: VIMPAT 200 MG IV ×3 (04:30→16:44)
[2025-03-29 04:47] LABS: Hematocrit 30.7 % (37.0-47.0); Hemoglobin 9.8 g/dL (12.0-16.0); Mean Corp Hgb Conc. 31.9 g/dL (33.0-37.0); Mean Corpuscular Volume 84.8 fL (81.0-99.0); Nucleated Red Blood Cells % 0 %; Platelet Count 288 10^3/uL (130-400); Red Cell Dist. Width 15.3 % (11.5-14.5)
[2025-03-29 05:08] LABS: ALT (SGPT) 11 U/L (0-35); AST (SGOT) 17 U/L (14-36); Albumin 3.2 g/dl (3.5-5.0); Alkaline Phosphatase 61 U/L (38-126); Blood Urea Nitrogen 8 mg/dl (7-17); Calcium 9.5 mg/dl (8.4-10.2); Carbon Dioxide 31 mmol/L (22-30); Chloride 105 mmol/L (98-107); Estimated Creatinine Clearance 71 ml/min; Glucose 115 mg/dl (70-99); Magnesium 1.4 mg/dl (1.6-2.3); Potassium 3.7 mmol/L (3.5-5.1); Sodium 140 mmol/L (135-145); Total Protein 6.1 g/dl (6.3-8.2); eGFR > 60.00
[2025-03-29] MEDS: NOVOLOG FLEXPEN-LOW RESISTANCE SC ×3 (05:10→18:22)
[2025-03-29] MEDS: MAGNESIUM SULFATE 100 IV (05:44)
--- NOTE | 2025-03-29 07:35 | W.PN.INTV ---
Today's Communication / Plan
Recommendations
Antiepileptics
Continuous EEG
May need to intubate if midazolam drip initiated
Brain MRI with contrast to rule out brain mass/tumor
Assessment
-
70-year-old smoking female with a history of hypertension, hyperlipidemia, GERD, diabetes, depression, anxiety, obstructive sleep apnea with recurrent UTIs and chronic alcohol abuse who states she has not drank alcohol in the last 3 months and
presented to the emergency room being found down by neighbor and noted to have significant seizures in the emergency room requiring 5 of Valium and Keppra load with intermittent ongoing seizures-machine packaging technician consulted for status epilepticus/critical
care management 03/28/2025.
Status epilepticus-differential includes primary seizure disorder, structural CONTRACT CLERK [employer]LE abnormality, alcohol withdrawal, baclofen withdrawal, benzodiazepine withdrawal
Hypomagnesemia
Diabetes
Leukocytosis
Mild pwrnnh-kgmfuifqmf-blknbysloy 11.6
Hyperglycemia
Conditions present prior to admission:
Recent admission 03/10--unresponsive episode suspected acute metabolic encephalopathy from polypharmacy, left upper lobe 1.1 cm pulmonary nodule
Hypertension.
Hyperlipidemia.
GERD.
Cigarette smoker.
Diabetes.
Depression.
Anxiety.
HEMANT.
Recurrent UTIs-including ESBL E. coli
Chronic alcohol abuse.
Chronic pain syndrome/chronic opiate dependence.
Compression fracture
Anemia of chronic disease
Upper GI bleed October 2024.
Orthostatic hypotension.
History of left 6th, 7th and 8th rib fractures
Tonsillectomy.
Plan
Patient will be admitted to medical intensive care unit for close observation
Supplemental oxygen as needed
Aspiration precautions
BiPAP if needed
Intubate and mechanically ventilate to protect airways if necessary-especially if additional antiepileptics are started the decrease respiratory drive
CT head summarized below
Brain MRI 03/28/2025-stable focal encephalomalacia in the left frontal lobe anteriorly, no new suspicious abnormalities, mild right maxillary sinus mucosal thickening
EEG continuous
Neurology evaluation
Benzodiazepine and Keppra load
Might require additional agents as continues to have 20% seizure burden
Neurology evaluation ongoing-neurology feels there may be a mass in the left frontal area that would be better seen with MRI brain with contrast
Repeat brain MRI with contrast 03/29/2025
Ativan as needed
Midazolam drip may be initiated-might require intubation for this
Currently on Keppra, Vimpat, phenobarbital
Baclofen reinitiated
Additional antiepileptics to be considered include fosphenytoin, and valproic acid and lacosamide
Monitor blood sugars
Insulin supplementation as needed
Replace electrolytes
DVT prophylaxis-on Lovenox
GI prophylaxis-on pantoprazole
Early nutrition with aspiration precautions
Early mobilization
Smoking cessation counseling once more awake and not postictal
Nicotine patch if needed
Recently discharged from hospital and seen by from our group who recommended outpatient CT chest ION as well as biopsy and pulmonary [id number] did not make follow-up appointment-most recent CT chest October 2024 without nodules or
masses and most recent chest x-ray without obvious nodule
Critical care statement: A total of 50 minutes of critical care time was provided for this patient today. This includes management of unstable vital signs, evaluation of the patient at bedside, reviewing the patient's pertinent medical records
including radiographs, microbiology, laboratory evaluations, and discussion with primary team, consultants, pharmacy, critical care nursing and charge nurse.
Diagnostic data:
Chest x-ray 05/07/2023-mild chronic scarring right lower lobe, mild cardiomegaly
Chest x-ray 11/17-small to moderate left pleural effusion
Chest x-ray 03/10/2025-endotracheal tube in satisfactory position, possible nodular opacification over left scapula measuring 1.2 cm
Chest x-ray 03/27/2025-no acute cardiopulmonary abnormalities
CT chest 10/27/24-moderate left pleural effusion, fractures involving left sixth seventh eighth ribs
CT abdomen and pelvis 11/12/2024-visualized portions of the lung bases are unremarkable, no significant abnormalities in the abdomen or pelvis
CT head 03/10/2025-no acute intracranial abnormalities, left frontal lobe mild encephalomalacia possibly reflecting old infarct or posttraumatic changes
CT head 03/26/2025-no acute intracranial abnormalities
CT head 03/27/2025-no acute intracranial abnormalities
Brain MRI 03/14/2025-no acute intracranial abnormalities-especially if additional
Subjective Dataa
Subjective Data
Date of Service:
Date of Service: March 29, 2025
Chief Complaint: Office Services Associate Follow Up and Pulmonary Follow Up
Subjective:
Opens eyes, follows some commands, answers 'I am okay' to all my questioning, no respiratory distress
Review of Systems
General: Other (Per HPI)
Objective Data
Data Reviewed
Vital Signs / I&O / Oxygen:
Vital Signs
Temp Pulse Resp BP Pulse Ox
98.4 F 83 23 139/74 99
03/29/25 04:29 03/29/25 06:00 03/29/25 06:00 03/29/25 06:00 03/29/25 06:00
Intake and Output
03/28/25 03/29/25 03/30/25
06:59 06:59 06:59
Intake Total 1675 / 1675
Output Total 520 / 520
Balance 1155 / 1155
SaO2 99
Nasal Cannula flow liters per 2
minute
Physical Exam
General: Respiratory Distress (n) and Comfortable
HEENT: Normocephalic, Anicteric and Moist Mucous Membranes
Cardiovascular: Regular Rhythm
Respiratory: Wheeze (n), Crackles (n), Non-Labored Respirations, Accessory Resp Muscle Use (n) and Stridor (n)
GI: Soft, Non Distended and Non Tender
Neurology: Alert and No Motor Deficits
Skin: Warm, Good Color (n), Cyanosis (n) and Jaundice (n)
Labs/Micro/Reports
Lab Data
03/29/25 04:24
03/29/25 04:24
--- NOTE | 2025-03-29 07:52 | W.PN.HOSP.TC ---
Today's Communication/Plan
-
see plan
Assessment / Plan
Assessment / Plan
IMPRESSION:
70-year-old female with past medical history significant for hypertension, hyperlipidemia, knd-ewberzd-okohdrzxj diabetes, apparent history of seizures, prior history of alcohol dependence, recurrent admissions for altered mental status thought to
be secondary to medications requiring intubation in the past who now presents to the emergency department after being found down and is found to have nonepileptic seizures.
Cervical Spine CT
IMPRESSION:
No acute osseous abnormality.
Multilevel moderate degenerative changes.
HEAD CT
IMPRESSION:
No acute intracranial abnormality noted.
CXR
IMPRESSION:
No acute cardiopulmonary abnormality.
MRI
IMPRESSION:
No acute intracranial abnormality noted.
PLAN:
Nonconvulsive status epilepticus-past medical history indicates history of seizures (? withdrawal). EtOH level negative. UTox positive for Oxycodone and Benzodiazepines
-CT Head about without bleed
-Admitted to ICU
-MRI results above, no acute abnormality
-NPO, LR @ 75
-continuous EEG
-s/p Keppra 4G load; continue Keppra 1 g every 12
-continue Lacosamide 200mg BID
-phenobarb added on afternoon 03/28
-03/29: patient continuing to seize; per neurology will need to consider intubation with Midazolam drip
-appreciate Neurology and Bleach Boiler Filler consults
Hypomagnesemia
-repletion
NIDDM
-Sliding scale insulin
DVT prophylaxis�Lovenox subcu
CODE STATUS�full code
51 minutes spent on patient care
Anticipated Discharge: > 48 hours
Subjective/Interval History
-
Date of Service: March 29, 2025
confused
Objective Data
-
Labs:
Laboratory Results
03/29/25
04:24
WBC 11.6 H
Hgb 9.8 L
Hct 30.7 L
Plt Count 288
Sodium 140
Potassium 3.7
Chloride 105
Carbon Dioxide 31 H
BUN 8
Creatinine 0.5 L
Glucose 115 H
Calcium 9.5
Total Bilirubin 0.7
AST 17
ALT 11
Alkaline Phosphatase 61
Vital Signs:
Vital Signs
Temp Pulse Resp BP Pulse Ox
98.4 F 83 23 139/74 99
03/29/25 04:29 03/29/25 06:00 03/29/25 06:00 03/29/25 06:00 03/29/25 06:00
I&O
03/28/25 03/29/25 03/30/25
06:59 06:59 06:59
Intake Total 1675 / 1675
Output Total 520 / 520
Balance 1155 / 1155
Review of Systems
-
Unable to obtain full review of systems at this time due to: Patient Non-verbal
History Source: Patient
Physical Exam
-
General: Other (confused, EEG on)
HEENT: Other (dobhoff in place)
Respiratory: Negative Wheezes
Cardiac: Regular Rhythm and S1/S2
GI: Soft and Nontender
Neuro: Awake; Negative Oriented
Psych: Confused
Data Reviewed
-
Diagnostic Radiology: Report Reviewed by me
Labs: Labs Reviewed by me
--- NOTE | 2025-03-29 07:54 | EEGC.RPT ---
Continuous EEG Report
Recording
Start Date of Data Reviewed: 03/28/25
Start Time of Data Reviewed: 13:30
End Date of Data Reviewed: 03/29/25
End Time of Data Reviewed: 07:00
Type of EEG: Continuous
Done with Video Recording: Yes
Study Sequence: Initiation of Study
Electrocardiogram: Unremarkable
Report
Continuous EEG monitoring report:
Severely abnormal EEG for age in wakefulness through drowsiness due to nearly intermittent 2/s generalizing discharge discharges disrupting the background, which was disrupted for numerous hours during the study and then worsening again at the end
of the study.
CLINICAL CORRELATION:
This study was suggestive of a generalizing cortical abnormality which showed improvement over the prior day. The abnormality was epileptiform and suggestive of refractory status epilepticus.
Clinical correlation is advised.
METHODS:
A 21 channel digitized electroencephalogram (EEG) was performed at the bedside in the intensive care unit. The 10/20 international system of electrode placement was used with ECG and lateral/vertical eye movements recorded. Video was recorded.
Persyst quantitative EEG analysis was utilized.
ELECTROENCEPHALOGRAPHER IMPRESSION(S):
Quality of study
Good
Background
No organized background was demonstrated
Sleep
Drowsiness present
Photic Stimulation
Failed to activate the record.
ECG
Normal sinus rhythm
Abnormal Findings
At the beginning of the study, nearly continuously demonstrated were generalizing bursts of rhythmic delta activity (GPEDs) 2/s frequency of medium to high amplitudes were demonstrated, until the below demonstrated change where a theta background
appeared.
The theta background was again replaced
At approximately 2400 hrs., page 3719 of the study at which time the near continuous generalizing periodic discharges were demonstrated again of varying amplitude and frequency.
[2025-03-29] MEDS: PHENOBARBITAL 97.5 MG IV ×2 (08:03→08:31)
[2025-03-29] MEDS: KEPPRA 1000 MG IV ×2 (08:06→19:50)
[2025-03-29] MEDS: PROTONIX IV 40 MG IV (08:06)
[2025-03-29] MEDS: NSS (PRESERVATIVE FREE) 10 ML IV (08:06)
[2025-03-29] MEDS: CYANOCOBALAMIN 100 MCG IM (08:07)
[2025-03-29] MEDS: THIAMINE INJECTION 100 MG IV (08:07)
[2025-03-29] MEDS: LIORESAL 20 MG TUBE (08:08)
--- NOTE | 2025-03-29 08:45 | W.PN.INTV ---
Documented by User: Ying Hall MD, Resident 03/29/25 10:53
Today's Communication / Plan
Recommendations
plan reviewed with attending
Assessment
-
70yoF PMH chronic alcohol use and frequent falls presenting with seizures found on EEG. Continued AMS.
Pt was found to be seizing in ED and keppra loaded. Cerebell alerted of 100% seizure at around 5am this morning. Keppra and valium given, successfully aborting seizure. Nurses were able to communicate with her and report alertness at that time. CT
head negative for intracranial abnormalities. MRI 03/14/2025 demonstrated no new abnormalities but consistent L frontal lobe edema.
AFVSS. Mild leukocytosis. UDS positive for her prescription medications: benzodiazepines and opioids. ECG normal.
This morning, pt is sitting in bed noncommunicative.
Plan:
Neuro:
Awake, AMS.
Continue Keppra, lacosamide, phenobarbital. PRN Valium
Continue Thiamine. Hx chronic alcohol use.
Continuous EEG
Neurology following. Recommended monitoring EEG if pt continues seizing, consider intubating for benzodiazepines loading
Restart home baclofen.
MRI with contrast to further evaluate abnormality on sca.
Pulm:
VBG WNL. Maintaining airway.
On 2L NC. Wean appropriately.
Continue home albuterol.
Lung nodule noted on CXR last admission. Monitor for changes in symptoms. F/u outpt.
Monitor end tidal Co2.
Cardio:
ECG normal. RRR.
Hemodynamically stable.
GI:
NPO. Aspiration risk currently.
If mental status improves, we can consider advancing diet
Continue home PPI
Place Dobhoff for PO medications.
:
Stable kidney function
Monitor I+O
Nursing reports concentrated urine. 1L bolus followed by maintenance LR
UA to evaluate source of leukocytosis
ID:
Hold antibiotics.
Trend leukocytosis. Monitor for acute signs of infection
Endocrine:
Continue home synthroid
NIDDM
DVT prophylaxis: Lovenox
GI prophylaxis: home PPI
Subjective Dataa
Subjective Data
Date of Service:
Date of Service: March 29, 2025
Subjective:
Pt awakens to voice today. Does not answer questions appropriately.
Objective Data
Data Reviewed
Vital Signs / I&O / Oxygen:
Vital Signs
Temp Pulse Resp BP Pulse Ox
98.5 F 83 23 139/74 99
03/29/25 07:30 03/29/25 06:00 03/29/25 06:00 03/29/25 06:00 03/29/25 06:00
Intake and Output
03/28/25 03/29/25 03/30/25
06:59 06:59 06:59
Intake Total 1675 / 1675
Output Total 520 / 520
Balance 1155 / 1155
SaO2 99
Nasal Cannula flow liters per 2
minute
Physical Exam
General: Comfortable
HEENT: Normocephalic and Anicteric
Cardiovascular: S1-S2
Respiratory: Clear
GI: Soft
Neurology: Awake (awakens to voice, does not follow commands) and No Motor Deficits
Skin: Warm and Dry
Labs/Micro/Reports
Lab Data
03/29/25 04:24
03/29/25 04:24

Documented by User: Dat Cruz MD 03/29/25 13:06
Today's Communication / Plan
Recommendations
Plan reviewed with attending
I reviewed this patient's case independently and in conjunction with the resident. I personally performed the ortez components of the evaluation and management of this critically ill patient, including the history, physical exam, and medical
decision-making. I was present during the ortez portions of care, reviewed the resident's documentation, and participated in the ongoing management of this patient requiring critical care. I confirm the medical necessity of these services. I
agree with documented assessment and plan
Dat Cruz MD, [facility], [facility]
[2025-03-29] MEDS: LR 1000 IV (09:01)
--- NOTE | 2025-03-29 09:32 | W.PN.NEURO.1 ---
Addendum entered and electronically signed by Tommie Peres MD 03/29/25 14:57:
Studies reviewed.
I have personally examined the patient. I reviewed and agree with the CHANGE AGENT's Note.
My addenda:
Minimally responsive. No acute distress.
Mute
Does not follow most requests. No tremor.
Extra-ocular movements grossly intact. No withdrawal from painful stimulation in any extremities
Unable to assess hearing
No spontaneous movements.
Neck: full ROM.
Chest: no dyspnea
Heart: no JVD
Ext: (-) Clubbing, (-) Cyanosis, (-) Edema
IMPRESSIONS/RECOMMENDATIONS:
Abrupt onset of change in mental status
Rapid EEG evaluation indicated status epilepticus which was confirmed by continuous EEG monitoring started on 03/28/2025
Continue levetiracetam 1000 mg twice a day
Given additional bolus of lacosamide with routine dosing of 2000 mg twice a day
Initiated phenobarbital with loading dose also provided
Patient must be considered for intubation followed by additional agents to control seizures
Continue continuous EEG monitoring
Will continue to follow patient.
Original Note:
Today's Communication / Plan
-
.
Neuro Assessment/Plan
Assessment
IMPRESSIONS/RECOMMENDATIONS:
Abrupt onset of change in mental status
Rapid EEG evaluation indicated status epilepticus which is confirmed by continuous EEG, readings continue to demonstrate refractory status epilepticus.
MRI brain 03/28/25: Abnormal area in the left frontal lobe anteriorly, possible mass effect per Neurology review.
EEG 03/29/25: This study was suggestive of a generalizing cortical abnormality which showed improvement over the prior day. The abnormality was epileptiform and suggestive of refractory status epilepticus.
Plan
-Repeat MRI brain with contrast to further evaluate left frontal lobe abnormality.
-Continue levetiracetam 1000mg IV q12 hours
-Continue lacosamide 200mg IV q12hrs
-Continue phenobarbital 65mg BID.
-Will likely require intubation for further medication to suppress seizure activity.
-Continue IV thiamine replacement.
-Vitamin B12 level is low at 333, continue cyanocobalamin 1000mcg daily.
-DVT prophylaxis.
Subjective/Objective
Subjective Data
Date of Service: March 29, 2025
Continuous EEG remains abnormal. Patient is minimally responsive due to sedation from anti seizure medications.
Objective Data
Vital Signs
Temp Pulse Resp BP Pulse Ox
98.5 F 83 23 139/74 99
03/29/25 07:30 03/29/25 06:00 03/29/25 06:00 03/29/25 06:00 03/29/25 06:00
Lab Results
03/29/25 04:24
03/29/25 04:24
Sodium 140 mmol/L (135-145) 03/29/25 04:24
Potassium 3.7 mmol/L (3.5-5.1) 03/29/25 04:24
BUN 8 mg/dl (7-17) 03/29/25 04:24
Glucose 115 mg/dl (70-99) H 03/29/25 04:24
Calcium 9.5 mg/dl (8.4-10.2) 03/29/25 04:24
LDL Cholesterol, Calc 113 mg/dl 03/28/25 05:32
Vitamin B12 333 pg/ml (239-931) 03/28/25 05:32
Ur Buprenorphine Negative (Negative) 03/28/25 08:11
Patient Allergies
topiramate (From Topamax) Allergy (Verified 12/30/24 04:41)
Itching
valdecoxib (From Bextra) Allergy (Verified 12/30/24 04:41)
Rash
Review of Systems
-
Unable to obtain full review of systems at this time due to: Lethargy
Physical Exam
-
General: Wearing Oxygen
Eyes: PERRLA
HEENT: Normocephalic and Atraumatic
Respiratory: No Dyspnea
GI: Non-distended
Psych: Unable to Assess
Extended Neurological Exam
Mood & Affect: Unable to Assess
Attention Span & Concentration: Other (obtunded)
Memory: Unable to Assess
Tremor: Hand Tremor Absent and Head Tremor Absent
Involuntary Movement: None
Speech: Unable to Assess
Cranial Nerve II: Left Eye: Unable to Assess
Cranial Nerve II: Right Eye: Unable to Assess
Cranial Nerves III, IV, : Extraocular Movement: Unable to Assess
Cranial Nerve V: Facial Sensation: Unable to Assess
Cranial Nerve VII: Facial Symmetry: Unable to Assess
Cranial Nerve VIII: Hearing: Unable to Assess
Cranial Nerves IX, X: Palate Movement: Unable to Assess
Cranial Nerve XI: Shoulder Shrug: Unable to Assess
Cranial Nerve XII: Tongue Protusion: Unable to Assess
Muscle Strength, Overall: Other (no response to pain in all 4 extremities)
Pronator Drift: Unable to Assess
Deep Tendon Reflexes: Trace Throughout
Cold Sensation: Unable to Assess
Vibration Sensation: Unable to Assess
Touch Sensation: Negative Withdrawal to Pain
Coordination: Unable to Assess
Babinski Sign: Absent Bilaterally
Gait & Station: Unable to Assess
Data Reviewed
-
CT Head: Report Reviewed and Image Reviewed
MRI Head: Report Reviewed and Image Reviewed
EEG: Report Reviewed
Labs: Report Reviewed
Reviewed with: Physician and Nurse
Medications
-
Active Medications
Generic Name Dose Route Start Last Admin
Trade Name Freq PRN Reason Stop Dose Admin
Acetaminophen 650 mg 03/27/25 22:30
Acetaminophen 650 Mg Rectal Suppository RECTAL 04/24/25 22:29
Q4HPRN PRN
mild pain/NEWTON/temp> 100.4F
Albuterol/Ipratropium 3 ml 03/27/25 22:30
Ipratropium 0.5/Albuterol 3 Mg (3 Ml Ampul) INH
R Q4HPRN PRN
shortness of breath
Protocol
Baclofen 20 mg 03/28/25 16:00 03/29/25 08:08
Baclofen 20 Mg Tablet TUBE 04/25/25 15:59 20 mg
TID ALEXANDRE Administration
Bisacodyl 10 mg 03/27/25 22:30
Bisacodyl 10 Mg Rectal Suppository RECTAL 04/24/25 22:29
[id number] PRN
constipation
Cyanocobalamin 100 mcg 03/28/25 08:00 03/29/25 08:07
Cyanocobalamin (1000 Mcg/Ml) 1 Ml Vial IM 03/30/25 08:01 100 mcg
DAILY ALEXANDRE Administration
Dextrose 12.5 grams 03/27/25 23:00
Dextrose 50% (0.5 Grams/Ml) 50 Ml Syringe IV 04/24/25 22:59
[id number] PRN
hypoglycemia
Protocol
Diazepam 5 mg 03/27/25 22:13 03/28/25 05:07
Diazepam 10 Mg/2 Ml Inj IV 04/24/25 22:12 5 mg
Q6HPRN PRN Administration
seizure
Enoxaparin Sodium 40 mg 03/28/25 18:00 03/28/25 17:29
Enoxaparin Sodium 40 Mg/0.4 Ml Syringe SC 04/25/25 17:59 40 mg
QPM ALEXANDRE Administration
Glucagon 1 mg 03/27/25 23:00
Glucagon 1 Mg Vial IM 04/24/25 22:59
PRN PRN
hypoglycemia - no IV access
Protocol
Lactated Ringer's 1,000 mls @ 75 mls/hr 03/28/25 18:00 03/29/25 09:01
Lr IV 1,000 mls
.[id number] ALEXANDRE Administration
Insulin Aspart 0 units 03/28/25 00:00 03/29/25 11:45
Insulin Aspart Low Resistance 300 Units/3 Ml Pen.Injctr SC 04/25/25 00:00 Not Given
Q6 ALEXANDRE
Protocol
Lacosamide 200 mg 03/28/25 16:00 03/29/25 04:30
Lacosamide (10 Mg/Ml) 200 Mg/20 Ml Vial IV 04/11/25 15:59 200 mg
Q12H ALEXANDRE Administration
Levetiracetam 1,000 mg 03/28/25 08:00 03/29/25 08:06
Levetiracetam (100 Mg/Ml) 500 Mg/5 Ml Vial IV 04/25/25 07:59 1,000 mg
Q12 ALEXANDRE Administration
Ondansetron HCl 4 mg 03/27/25 22:30
Ondansetron 4 Mg/2 Ml Vial IV 04/24/25 22:29
Q6HPRN PRN
nausea and vomiting
Pantoprazole Sodium 40 mg 03/28/25 08:00 03/29/25 08:06
Pantoprazole Sodium 40 Mg/10 Ml Vial IV 04/25/25 07:59 40 mg
DAILY ALEXANDRE Administration
Phenobarbital Sodium 65 mg 03/29/25 20:00
Phenobarbital (65 Mg/Ml) 1 Ml Vial IV 04/26/25 19:59
BID ALEXANDRE
Sodium Chloride 0 flush 03/27/25 23:00
Sodium Chloride 0.9% (Flush) Syringe IV 04/24/25 22:59
PER PROTOCOL ALEXANDRE
Sodium Chloride 10 ml 03/28/25 08:00 03/29/25 08:06
Sodium Chloride 0.9% (Preservative Free) 10 Ml Vial IV 04/25/25 07:59 10 ml
DAILY ALEXANDRE Administration
Thiamine HCl 100 mg 03/28/25 08:00 03/29/25 08:07
Thiamine (100 Mg/Ml) 2 Ml Vial IV 04/25/25 07:59 100 mg
DAILY ALEXANDRE Administration
Home Medications
�Medication �Instructions �Recorded
linagliptin 2.5 mg-metformin 1,000 1 tab PO BID Diabetes 04/02/23
mg tablet (Jentadueto)
gabapentin 300 mg capsule 300 mg PO TID Neurological 05/12/23
Condition
lisinopril 2.5 mg tablet 2.5 mg PO DAILY Blood Pressure 05/12/23
simvastatin 40 mg tablet 40 mg PO HS High Cholesterol 05/12/23
esomeprazole magnesium 40 mg 40 mg PO DAILY Gastrointestinal 02/09/25
capsule,delayed release (Nexium) Issue
albuterol sulfate 90 mcg/actuation 2 inh inhalation R Q6HPRN PRN sob 03/10/25
aerosol inhaler
baclofen 20 mg tablet 20 mg PO TID Muscle Spasms 03/26/25
diazepam 5 mg tablet 5 mg PO Q8HPRN PRN ANXIETY 03/26/25
nitrofurantoin 100 mg PO BID Urinary Issue 03/26/25
monohydrate/macrocrystals 100 mg
capsule
oxycodone 10 mg tablet 10 mg PO Q6HPRN PRN PAIN 03/26/25
thiamine HCl (vitamin B1) 100 mg 100 mg PO BID Supplement 03/26/25
tablet
--- NOTE | 2025-03-29 09:43 | PTCARENOTE ---
report received, assessments per work list. patient nonverbal, making groaning noises. no overt seizure activity, continuous eeg in place. received TT from neurologist that per eeg patient having seizures. orders received. mitts maintained for
patient safety. arms and legs rigid with stimulation. monitor nsr. moist cough, orally suctions for moderate amount white clear secretions. dobhoff placement verified. patent for medications. left 2 lumen picc patent with good blood returns.
incontinent alok urine. lungs with rhonchi. neurologist, graphics software engineer at bedside. patient for repeat MRI. safe environment maintained
[2025-03-29] MEDS: PHENOBARBITAL 112 MG IV (09:58)
--- NOTE | 2025-03-29 11:04 | PTCARENOTE ---
patient sedate post phenobarb load. end tidal monitoring in place. blood pressures per work list. TT to securities settlement processor and hospitalist to update
[2025-03-29] MEDS: LR 500 IV (11:15)
[2025-03-29 11:49] LABS: Glucose - Point of Care 123 mg/dl (70-99)
--- NOTE | 2025-03-29 12:35 | PTCARENOTE ---
Addendum entered by Rita Palma RN 03/29/25 13:44:
patient now DNR status.
Original Note:
hypotensive, fluid bolus administered per orders. patient reassessed. responsive to deep pain. increased oral secretions. drooling. grunting respirations at times. lungs with rhonchi bilaterally. weak cough. slight gag. inspector fuel hose in to assess
@1145. TT to inspector fuel hose and hospitalist to update.
--- NOTE | 2025-03-29 13:06 | W.PN.UPDATE ---
Update Note
Progress Note Update
Reevaluated the patient several times throughout the morning-respiratory rate variable, saturations 96 to 99% on 4 L, respiratory rate varies but around 27
Having difficulties managing secretions
Continue to monitor saturations and end-tidal CO2
Antiepileptics and sedating medications are being adjusted
Dr. Cruz called patient's sister Alejandra Dennis [phone]-she lives in [place] and is the only contact and person around that has any interest in helping patient as everyone else as outlined below has been estranged
The patient is 1 of 5 children-2 females and 3 males-1 male has past, both her parents have passed
Other 2 brothers are now estranged and have no contact with her
Alejandra is the only 1 that remotely keeps in touch with her, states that she has very poor quality of life, cannot take care of herself, has repetitive falls, and has no quality of life and smokes and drinks in the bathroom all day
We discussed what Stefania the patient would want and what Alejandra her Radha good would want for her if she was in the current situation-I outlined her current medical status including status epilepticus, mental decline, potential for brain tumor,
excetra
After lengthy discussion she would not want CPR, defibrillation, or coding of any sort and would not want intubation and mechanical ventilation as this would prolong the inevitable and she had very poor quality of life
She would like continued supportive care including antiepileptics and diagnostics but would not likely consent to brain surgery or brain biopsy
We will respect her wishes-continue to keep comfortable, adjust antiepileptic medications as needed, obtain MRI, however, we will not perform CPR, defibrillation, etc. or intubate her if she declines
Of note the patient's sister Alejandra recently had pituitary adenoma resected transsphenoidal and is very apprehensive of flying in their plane at altitude and unlikely to fly back to [place] because of these issues
Dr. Cruz reviewed with critical care nursing and case management
Total time spent thus far in critical care management including reevaluations and coordination of care-95 minutes
--- NOTE | 2025-03-29 14:32 | CM ---
Patient now DNR/DNI. Continuous EEG shows status epilepticus, O2 increased to 4L, . Repeat MRI today. Discharge POC: TBD based on medical progression.
--- NOTE | 2025-03-29 15:46 | W.PN.UPDATE ---
Update Note
Progress Note Update
Dr. Cruz spoke to estranged son-Kumar who lives in [place]-#[phone]. Updated on mother's current clinical situation. He agrees with no CPR, DNR status and no intubation
He would like to visit with her perhaps tomorrow. Freely admits he does not have a great relationship with her and has not been in touch for quite some time.
He still would like his aunt to be first contact, however, if there was a change in her status he would also like to be called.
--- NOTE | 2025-03-29 16:01 | PTCARENOTE ---
Addendum entered by Rita Palma RN 03/29/25 17:25:
sedate after vimpat. awaiting read on xray for dobhoff placement verification. TT to medication tech, alerting her to room change. when TT earlier this afternoon re:scheduled MRI, she stated on tiger text she would return this afternoon@1700 to reapply
Original Note:
patient Dobbhoff removed and taken off continuous eeg for MRI. taken to MRI, required oxygen up to 6 liters during study. when out of mri, patient noted to have copious foamy pink secretions from mouth. suctioned when in department. returned to ICU,
chief vendor quality updated. Dobbhoff reinserted by Diamond BENTLEY. xray pending. patient more 'awake'. grimacing, moaning. localizes discomfort. mitts maintained for patient safety
[2025-03-29] MEDS: LIORESAL TUBE ×2 (17:25→23:15)
[2025-03-29] MEDS: LOVENOX 40 MG SC (17:47)
[2025-03-29 18:27] LABS: Glucose - Point of Care 147 mg/dl (70-99)
--- NOTE | 2025-03-29 19:08 | PTCARENOTE ---
hypotensive, reviewed with intesivist AMMONIA TECHNICIAN. report to oncoming RN. orders received
[2025-03-29] MEDS: LR 250 IV (19:10)
[2025-03-29] MEDS: NEO-SYNEPHRINE 250 IV (19:50)
[2025-03-29] MEDS: PHENOBARBITAL 65 MG IV (19:50)
--- NOTE | 2025-03-29 20:00 | PTCARENOTE ---
Addendum entered by Pat Paz RN 03/30/25 00:21:
On continuous EEG monitoring.
Original Note:
Assumed care. Patient received lying in bed with eyes closed, sonorous respirations. She is without apparent signs of distress or discomfort. Noted that SBP 77, MAP 44. Greg DENNY notified, new orders received. 250cc LR bolus given per order, BP
remains low. Neosynephrine started at 20mcg per order, titrated for MAP > 65, see MAR and worklist. See home assessment nurse charted on worklist flowsheet. She does not open eyes to any stimuli, she withdraws to noxious stimuli noted by biting down with
suctioning. However, no spontaneous movement noted of extremities. BBS clear after oral suctioning--otherwise, unable to auscultate with sonorous/snoring respirations. Suctioned for Oral secretions, moderate blood tinged clear white. Teeth poor with
dental caries noted. S1S2 regular with positive murmur. SR with 1st degree AVB on CM. Purewick catheter in place. Repositioned every 2 hours. Bilateral mitt restraints in place, checked and retied every 2 hours. Dobhoff NGT via left nare taped in
place, flushed every 4 hours. Bed in low and locked position, bed alarm on. Frequent bedside rounding.
[2025-03-30] VITALS (39 sets, daily range): BP systolic 94–146; BP diastolic 41–94; BMI 24.2
[2025-03-30 00:10] LABS: Glucose - Point of Care 105 mg/dl (70-99)
--- NOTE | 2025-03-30 00:15 | PTCARENOTE ---
No change in patient's physical assessment. Remains obtunded with withdrawal to noxious/painful stimuli. Bilateral pupils ERRL, more brisk. No seizure activity witnessed. Positive cough reflex, positive gag. Oral suctioning prn. HNV and dry.
[2025-03-30] MEDS: LR 1000 IV ×2 (00:33→13:45)
--- NOTE | 2025-03-30 02:00 | PTCARENOTE ---
Complete cares given with CHG cloth bath. Complete linen change. Patient incontinent of large amount of urine during cares, urine foul smelling. Purewick changed. Oral cares and suctioning for large amount of thick hannon secretions. Some movement
noted of BUEs but non purposeful. Rigid extremities with passive ROM. BP stable on Neosynephrine at 20mcg.
[2025-03-30] MEDS: VIMPAT 200 MG IV ×2 (03:32→15:52)
--- NOTE | 2025-03-30 04:00 | PTCARENOTE ---
At approx 0330, noted that patient's respiratory rate is more tachypneic in the low 30s. Continuous EEG monitoring with ? increased waveform activity. No clonic clonic movements noted. Rest of Neuro assessment remains unchanged. Rest of physical
assessment is unchanged. Am labs drawn from Left dual lumen PICC. Oral care. Repositioned. Bilateral mitts checked. Afebrile, VSS.
[2025-03-30 04:54] LABS: Hematocrit 29.5 % (37.0-47.0); Hemoglobin 9.8 g/dL (12.0-16.0); Mean Corp Hgb Conc. 33.2 g/dL (33.0-37.0); Mean Corpuscular Volume 83.3 fL (81.0-99.0); Nucleated Red Blood Cells % 0 %; Platelet Count 284 10^3/uL (130-400); Red Cell Dist. Width 14.8 % (11.5-14.5)
[2025-03-30 05:20] LABS: Blood Urea Nitrogen 5 mg/dl (7-17); Calcium 8.6 mg/dl (8.4-10.2); Carbon Dioxide 31 mmol/L (22-30); Chloride 102 mmol/L (98-107); Estimated Creatinine Clearance 71 ml/min; Glucose 105 mg/dl (70-99); Magnesium 1.4 mg/dl (1.6-2.3); Potassium 3.2 mmol/L (3.5-5.1); Sodium 136 mmol/L (135-145); eGFR > 60.00
--- NOTE | 2025-03-30 05:30 | PTCARENOTE ---
Labs noted--Mag 1.4, K 3.2. Greg DENNY notified, new orders received. See MAR for replenishment.
[2025-03-30] MEDS: KCL ELIXIR 40 MEQ TUBE ×2 (05:40→11:07)
[2025-03-30] MEDS: MAGNESIUM SULFATE 100 IV (05:40)
--- NOTE | 2025-03-30 06:53 | PTCARENOTE ---
Report given verbally to oncoming shift, Nona BENTLEY. Bedside rounds complete. Questions answered.
--- NOTE | 2025-03-30 07:34 | W.PN.INTV ---
Today's Communication / Plan
Recommendations
Antiepileptics continue
Wean pressors
Begin nasogastric feedings
Family updated extensively on 03/29/2025
Prognosis guarded
Now DNR/DNI
Assessment
-
70-year-old smoking female with a history of hypertension, hyperlipidemia, GERD, diabetes, depression, anxiety, obstructive sleep apnea with recurrent UTIs and chronic alcohol abuse who states she has not drank alcohol in the last 3 months and
presented to the emergency room being found down by neighbor and noted to have significant seizures in the emergency room requiring 5 of Valium and Keppra load with intermittent ongoing seizures-mobile product manager consulted for status epilepticus/critical
care management 03/28/2025.
Status epilepticus-differential includes primary seizure disorder, structural PREPAROLE COUNSELING AIDE abnormality, alcohol withdrawal, baclofen withdrawal, benzodiazepine withdrawal
Hypomagnesemia
Diabetes
Leukocytosis
Mild aghyti-jsftdtchni-hbsumaoxqr 11.6
Hyperglycemia
Conditions present prior to admission:
Recent admission 03/10--unresponsive episode suspected acute metabolic encephalopathy from polypharmacy, left upper lobe 1.1 cm pulmonary nodule
Hypertension.
Hyperlipidemia.
GERD.
Cigarette smoker.
Diabetes.
Depression.
Anxiety.
HEMANT.
Recurrent UTIs-including ESBL E. coli
Chronic alcohol abuse.
Chronic pain syndrome/chronic opiate dependence.
Compression fracture
Anemia of chronic disease
Upper GI bleed October 2024.
Orthostatic hypotension.
Recurrent falls
History of left 6th, 7th and 8th rib fractures
Tonsillectomy.
Plan
Respiratory status occasionally tenuous-increased rate, pink frothy fluid,
Supplemental oxygen as needed-currently on 3 L - 96% saturation
Aspiration precautions
BiPAP if needed
Nebulizers as needed
The patient is not to be intubated-now DNI/DNR
Chest x-ray 03/29/2025-left basilar atelectasis, no CHF
CT head summarized below
Brain MRI 03/28/2025-stable focal encephalomalacia in the left frontal lobe anteriorly, no new suspicious abnormalities, mild right maxillary sinus mucosal thickening
Brain MRI 03/29/2025 with contrast-no evidence for frontal lobe mass, favored findings reflect encephalomalacia and gliosis from remote injury or chronic infarct
EEG continuous continues
Thiamine continues
Neurology evaluation ongoing-reviewed correspondence
Benzodiazepine and Keppra and phenobarbital load
Diazepam as needed
Currently on Keppra, Vimpat, phenobarbital
Baclofen reinitiated
Additional antiepileptics to be considered include fosphenytoin, and valproic acid and lacosamide
Monitor blood sugars
Insulin supplementation as needed
Replace electrolytes
Norepinephrine as needed
DVT prophylaxis-on Lovenox
GI prophylaxis-on pantoprazole
Nasogastric feedings to begin
Bedside range of motion
Smoking cessation counseling once more awake and not postictal
Nicotine patch if needed
Recently discharged from hospital and seen by from our group who recommended outpatient CT chest ION as well as biopsy and pulmonary [id number] did not make follow-up appointment-most recent CT chest October 2024 without nodules or
masses and most recent chest x-ray without obvious nodule
Critical care statement: A total of 45 minutes of critical care time was provided for this patient today. This includes management of unstable vital signs, evaluation of the patient at bedside, reviewing the patient's pertinent medical records
including radiographs, microbiology, laboratory evaluations, and discussion with primary team, consultants, pharmacy, critical care nursing and charge nurse.
Family discussions
Dr. Cruz called patient's sister Alejandra Dennis [phone]-she lives in [place] on 03/29/2025 and is the only contact and person around that has any interest in helping patient as everyone else as outlined below has been estranged
The patient is 1 of 5 children-2 females and 3 males-1 male has past, both her parents have passed
Other 2 brothers are now estranged and have no contact with her
Alejandra is the only 1 that remotely keeps in touch with her, states that she has very poor quality of life, cannot take care of herself, has repetitive falls, and has no quality of life and smokes and drinks in the bathroom all day
We discussed what Stefania the patient would want and what Alejandra her Radha good would want for her if she was in the current situation-I outlined her current medical status including status epilepticus, mental decline, potential for brain tumor,
excetra
After lengthy discussion she would not want CPR, defibrillation, or coding of any sort and would not want intubation and mechanical ventilation as this would prolong the inevitable and she had very poor quality of life
She would like continued supportive care including antiepileptics and diagnostics but would not likely consent to brain surgery or brain biopsy
We will respect her wishes-continue to keep comfortable, adjust antiepileptic medications as needed, obtain MRI, however, we will not perform CPR, defibrillation, etc. or intubate her if she declines
Of note the patient's sister Alejandra recently had pituitary adenoma resected transsphenoidal and is very apprehensive of flying in their plane at altitude and unlikely to fly back to [place] because of these issues
Dr. Cruz spoke to estranged son-Lacey on 03/29/2025 kelin who lives in [place]-#[phone]. Updated on mother's current clinical situation. He agrees with no CPR, DNR status and no intubation
He would like to visit with her perhaps tomorrow. Freely admits he does not have a great relationship with her and has not been in touch for quite some time.
He still would like his aunt to be first contact, however, if there was a change in her status he would also like to be called.
Diagnostic data:
Chest x-ray 05/07/2023-mild chronic scarring right lower lobe, mild cardiomegaly
Chest x-ray 11/17-small to moderate left pleural effusion
Chest x-ray 03/10/2025-endotracheal tube in satisfactory position, possible nodular opacification over left scapula measuring 1.2 cm
Chest x-ray 03/27/2025-no acute cardiopulmonary abnormalities
CT chest 10/27/24-moderate left pleural effusion, fractures involving left sixth seventh eighth ribs
CT abdomen and pelvis 11/12/2024-visualized portions of the lung bases are unremarkable, no significant abnormalities in the abdomen or pelvis
CT head 03/10/2025-no acute intracranial abnormalities, left frontal lobe mild encephalomalacia possibly reflecting old infarct or posttraumatic changes
CT head 03/26/2025-no acute intracranial abnormalities
CT head 03/27/2025-no acute intracranial abnormalities
Brain MRI 03/14/2025-no acute intracranial abnormalities-especially if additional
Subjective Dataa
Subjective Data
Date of Service:
Date of Service: March 30, 2025
Chief Complaint: Other Sports Coach Or Instructor Follow Up and Pulmonary Follow Up
Subjective:
Still unresponsive, intermittent seizures, review of systems unobtainable
Review of Systems
General: Other (Per HPI)
Objective Data
Data Reviewed
Vital Signs / I&O / Oxygen:
Vital Signs
Temp Pulse Resp BP Pulse Ox
97.5 F 100 30 132/65 96
03/30/25 07:31 03/30/25 07:00 03/30/25 07:00 03/30/25 07:00 03/30/25 07:00
Intake and Output
03/29/25 03/30/25 03/31/25
06:59 06:59 06:59
Intake Total 1675 / 1675 3140 / 3140
Output Total 520 / 520 450 / 450
Balance 1155 / 1155 2690 / 2690
SaO2 96
Nasal Cannula flow liters per 3
minute
Physical Exam
General: Respiratory Distress (n) and Comfortable
HEENT: Normocephalic, Anicteric and Moist Mucous Membranes
Cardiovascular: Regular Rhythm
Respiratory: Wheeze (n), Crackles (n), Non-Labored Respirations, Accessory Resp Muscle Use (n) and Stridor (n)
GI: Soft, Non Distended and Non Tender
Neurology: Alert and No Motor Deficits
Skin: Warm, Good Color (n), Cyanosis (n) and Jaundice (n)
Labs/Micro/Reports
Lab Data
03/30/25 04:38
03/30/25 04:38
Microbiology
03/28/25 08:11 Urine Urine Culture - Preliminary
Gram negative bacilli
[2025-03-30] MEDS: CYANOCOBALAMIN 100 MCG IM (07:35)
[2025-03-30] MEDS: NSS (PRESERVATIVE FREE) 10 ML IV (07:36)
[2025-03-30] MEDS: KEPPRA 1000 MG IV ×2 (07:36→08:12)
[2025-03-30] MEDS: THIAMINE INJECTION 100 MG IV (07:36)
[2025-03-30] MEDS: PROTONIX IV 40 MG IV (07:36)
[2025-03-30] MEDS: PHENOBARBITAL 65 MG IV (07:37)
[2025-03-30] MEDS: LIORESAL TUBE (07:37)
--- NOTE | 2025-03-30 07:46 | EEGC.RPT ---
Continuous EEG Report
Recording
Start Date of Data Reviewed: 03/29/25
Start Time of Data Reviewed: 07:00
End Date of Data Reviewed: 03/30/25
End Time of Data Reviewed: 07:00
Type of EEG: Continuous
Done with Video Recording: Yes
Study Sequence: Continuation of ongoing Study
Electrocardiogram: Unremarkable
Report
CONTINUOUS EEG REPORT:
Severely abnormal EEG for age in wakefulness through drowsiness due to nearly intermittent 2/s generalizing discharge discharges disrupting the background, which was disrupted for numerous hours during the study and then improving to diffuse slowing
again at the end of the study.
CLINICAL CORRELATION:
This study was suggestive of a generalizing cortical abnormality which showed no significant change control coordinator the prior day. The abnormality was epileptiform and suggestive of refractory status epilepticus alternating with diffuse cortical slowing.
Clinical correlation is advised.
METHODS:
A 21 channel digitized electroencephalogram (EEG) was performed at the bedside in the intensive care unit. The 10/20 international system of electrode placement was used with ECG and lateral/vertical eye movements recorded. Video was recorded.
Persyst quantitative EEG analysis was utilized.
ELECTROENCEPHALOGRAPHER IMPRESSION(S):
Quality of study
Good
Background
No organized background was demonstrated
Sleep
Drowsiness present
Photic Stimulation
Failed to activate the record.
ECG
Normal sinus rhythm
Abnormal Findings
At the beginning of the study, nearly continuously demonstrated were generalizing bursts of rhythmic delta activity (GPEDs) 2/s frequency of medium to high amplitudes were demonstrated. By page 450 of the study, 03/29/2025 approximately 1010 hrs.,
the record changed to a diffuse theta pattern with some suppressions lasting approximately 1-1/2 seconds.
This was then followed by diffuse beta activity and to return eventually to the above-mentioned generalizing periodic discharges by page 1200. The record again changed by page 1580 to a poorly organized theta background until page 4700 at which
time generalizing periodic discharges again returned with diffuse beta activity finally leading to diffuse slowing
--- NOTE | 2025-03-30 08:19 | W.PN.HOSP.TC ---
Today's Communication/Plan
-
see plan
Assessment / Plan
Assessment / Plan
IMPRESSION:
70-year-old female with past medical history significant for hypertension, hyperlipidemia, hfu-dorxkie-kteyzlylx diabetes, apparent history of seizures, prior history of alcohol dependence, recurrent admissions for altered mental status thought to
be secondary to medications requiring intubation in the past who now presents to the emergency department after being found down and is found to have nonepileptic seizures.
Cervical Spine CT
IMPRESSION:
No acute osseous abnormality.
Multilevel moderate degenerative changes.
HEAD CT
IMPRESSION:
No acute intracranial abnormality noted.
CXR
IMPRESSION:
No acute cardiopulmonary abnormality.
MRI
IMPRESSION:
No acute intracranial abnormality noted.
MRI w contrast
FINDINGS/IMPRESSION:
No MRI evidence for abnormal parenchymal enhancement with specific attention to the anterior left frontal lobe. Findings on the recent prior brain MRI are favored to be reflect encephalomalacia and gliosis from a remote injury or chronic infarct.
However, continued imaging follow-up can be performed for reevaluation if clinically indicated.
There is a mild degree of diffuse smooth pachymeningeal enhancement, left slightly greater than right, which is nonspecific and most likely idiopathic.
PLAN:
Nonconvulsive status epilepticus-past medical history indicates history of seizures (? withdrawal). EtOH level negative. UTox positive for Oxycodone and Benzodiazepines
-CT Head about without bleed
-Admitted to ICU
-MRI results above, no acute abnormality
-NPO, LR @ 75 - will order TF with dietary recs today
-continuous EEG
-s/p Keppra 4G load; continue Keppra 1 g every 12 --> increased to 1.5G q 12
-continue Lacosamide 200mg BID
-phenobarb added on afternoon 9/3
-appreciate Neurology and Dance Teacher consults
-s/p repeat MRI with contrast - no e/o mass
-patient is DNR/DNI
Hypomagnesemia
-repletion
NIDDM
-Sliding scale insulin
Patient with difficult social situation (please see Dr. Cruz's update notes)
DVT prophylaxis�Lovenox subcu
CODE STATUS� DNR/DNI
51 minutes spent on patient care
Anticipated Discharge: > 48 hours
Subjective/Interval History
-
Date of Service: March 30, 2025
somnolent
Objective Data
-
Labs:
Laboratory Results
03/30/25
04:38
WBC 11.4 H
Hgb 9.8 L
Hct 29.5 L
Plt Count 284
Sodium 136
Potassium 3.2 L
Chloride 102
Carbon Dioxide 31 H
BUN 5 L
Creatinine 0.4 L
Glucose 105 H
Calcium 8.6
Vital Signs:
Vital Signs
Temp Pulse Resp BP Pulse Ox
97.5 F 100 30 132/65 96
03/30/25 07:31 03/30/25 07:00 03/30/25 07:00 03/30/25 07:00 03/30/25 07:00
I&O
03/29/25 03/30/25 03/31/25
06:59 06:59 06:59
Intake Total 1675 / 1675 3140 / 3140
Output Total 520 / 520 450 / 450
Balance 1155 / 1155 2690 / 2690
Review of Systems
-
History Source: Patient
All other systems: Reviewed and negative
Physical Exam
-
General: Other (confused, EEG on)
HEENT: Other (dobhoff in place)
Respiratory: Negative Wheezes
Cardiac: Regular Rhythm and S1/S2
GI: Soft and Nontender
Neuro: Awake; Negative Oriented
Psych: Confused
Data Reviewed
-
Diagnostic Radiology: Report Reviewed by me
Labs: Labs Reviewed by me
--- NOTE | 2025-03-30 08:34 | PTCARENOTE ---
report received, assessments per work list. patient responsive to deep pain, extremities flaccid. pupils@5mm. continuous eeg continues. orders per neurologist, additional keppra administered. monitor nsr, tachypneic at times. lungs with diminished
coarse breath sounds. suctioned for large amount hannon pungent sputum. dobhoff@60. repeat xray obtain for placement. abdomen soft, hyperactive bowel sounds. incontinent urine. purewick in place. bed alarm maintained for patient safety
--- NOTE | 2025-03-30 09:50 | W.PN.NEURO.1 ---
Addendum entered and electronically signed by Tommie Peres MD 03/30/25 10:39:
Studies reviewed.
I have personally examined the patient. I reviewed and agree with the FUEL SYSTEM MAINTENANCE SUPERVISOR's Note.
My addenda:
Minimally responsive. No acute distress.
Mute
No response to verbal stimulation. No tremor.
Negative doll's eyes. Snoring.
Unable to assess hearing
Neck: full ROM.
Chest: no dyspnea
Heart: no JVD
Ext: (-) Clubbing, (-) Cyanosis, (-) Edema
IMPRESSIONS/RECOMMENDATIONS:
Abrupt onset of change in mental status
Rapid EEG evaluation indicated status epilepticus which was confirmed by continuous EEG monitoring started on 03/28/2025; continuous EEG monitoring has varied between status epilepticus and diffuse slowing
Increase levetiracetam from 1000 mg twice a day to dosing of 1500 mg twice a day
Continue lacosamide 200 mg twice a day
Reduce phenobarbital from 65 mg 3 times a day to dosing of once a day due to hypotension
Continue continuous EEG monitoring
Will follow
Original Note:
Today's Communication / Plan
-
.
Neuro Assessment/Plan
Assessment
IMPRESSIONS/RECOMMENDATIONS:
Abrupt onset of change in mental status
Rapid EEG evaluation indicated status epilepticus which was confirmed by continuous EEG monitoring started on 03/28/2025
-EEG 03/29/25: This study was suggestive of a generalizing cortical abnormality which showed improvement over the prior day. The abnormality was epileptiform and suggestive of refractory status epilepticus.
-EEG 03/30/25: Severely abnormal EEG for age in wakefulness through drowsiness due to nearly intermittent 2/s generalizing discharge discharges disrupting the background, which was disrupted for numerous hours during the study and then worsening again
at the end of the study.
-MRI brain 03/28/25: Abnormal area in the left frontal lobe anteriorly, possible mass effect per Neurology review.
-MRI brain 03/29/25 with contrast: No MRI evidence for abnormal parenchymal enhancement with specific attention to the anterior left frontal lobe. Findings on the recent prior brain MRI are favored to be reflect encephalomalacia and gliosis from a
remote injury or chronic infarct. However, continued imaging follow-up can be performed for reevaluation if clinically indicated. There is a mild degree of diffuse smooth pachymeningeal enhancement, left slightly greater than right, which is
nonspecific and most likely idiopathic.
Plan
-Increase levetiracetam from 1000mg to 1500mg IV q12 hours
-Continue lacosamide 200mg IV q12hrs
-Continue phenobarbital
-Will likely require consideration for intubation for further medication to suppress seizure activity if family wishes to pursue this
-Continue IV thiamine replacement.
-Vitamin B12 level is low at 333, continue cyanocobalamin 1000mcg daily.
-DVT prophylaxis.
Subjective/Objective
Subjective Data
Date of Service: March 30, 2025
Patient remains sedated/minimally responsive. Continuous EEG continues to be severely abnormal.
Objective Data
Vital Signs
Temp Pulse Resp BP Pulse Ox
97.5 F 74 23 95/50 98
03/30/25 07:31 03/30/25 09:00 03/30/25 09:00 03/30/25 09:00 03/30/25 09:00
Lab Results
03/30/25 04:38
03/30/25 04:38
Sodium 136 mmol/L (135-145) 03/30/25 04:38
Potassium 3.2 mmol/L (3.5-5.1) L 03/30/25 04:38
BUN 5 mg/dl (7-17) L 03/30/25 04:38
Glucose 105 mg/dl (70-99) H 03/30/25 04:38
Calcium 8.6 mg/dl (8.4-10.2) 03/30/25 04:38
LDL Cholesterol, Calc 113 mg/dl 03/28/25 05:32
Vitamin B12 333 pg/ml (516-150) 03/28/25 05:32
Ur Buprenorphine Negative (Negative) 03/28/25 08:11
Patient Allergies
topiramate (From Topamax) Allergy (Verified 12/30/24 04:41)
Itching
valdecoxib (From Bextra) Allergy (Verified 12/30/24 04:41)
Rash
Review of Systems
-
Unable to obtain full review of systems at this time due to: Acuity and Lethargy
Physical Exam
-
General: Appears Chronically Ill
HEENT: Normocephalic and Atraumatic
Respiratory: No Dyspnea
GI: Non-distended
Psych: Unable to Assess
Extended Neurological Exam
Mood & Affect: Unable to Assess
Attention Span & Concentration: Unresponsive to Physical Stimuli and Unable to assess
Memory: Unable to Assess
Tremor: Hand Tremor Absent and Head Tremor Absent
Involuntary Movement: None
Speech: Mute and Unable to Assess
Cranial Nerve II: Left Eye: Pupillary Reactivity Unremarkable and Pupillary Size Unremarkable
Cranial Nerve II: Right Eye: Pupillary Reactivity Unremarkable and Pupillary Size Unremarkable
Cranial Nerves III, IV, : Extraocular Movement: Unable to Assess
Cranial Nerve V: Facial Sensation: Unable to Assess
Cranial Nerve VII: Facial Symmetry: Normal Facial Symmetry
Cranial Nerve VIII: Hearing: Unable to Assess
Cranial Nerves IX, X: Palate Movement: Unable to Assess
Cranial Nerve XI: Shoulder Shrug: Unable to Assess
Cranial Nerve XII: Tongue Protusion: Unable to Assess
Muscle Strength, Overall: Absent (no response to painful stimulation on sedation)
Muscle Bulk & Tone: Reduced Tone
Pronator Drift: Unable to Assess
Cold Sensation: Unable to Assess
Vibration Sensation: Unable to Assess
Touch Sensation: Unable to Assess
Coordination: Unable to Assess
Babinski Sign: Absent Bilaterally
Gait & Station: Unable to Assess
Data Reviewed
-
MRI Head: Report Reviewed and Image Reviewed
EEG: Report Reviewed
Reviewed with: Physician and Nurse
Medications
-
Active Medications
Generic Name Dose Route Start Last Admin
Trade Name Freq PRN Reason Stop Dose Admin
Acetaminophen 650 mg 03/27/25 22:30
Acetaminophen 650 Mg Rectal Suppository RECTAL 04/24/25 22:29
Q4HPRN PRN
mild pain/NEWTON/temp> 100.4F
Albuterol/Ipratropium 3 ml 03/27/25 22:30
Ipratropium 0.5/Albuterol 3 Mg (3 Ml Ampul) INH
R Q4HPRN PRN
shortness of breath
Protocol
Baclofen 20 mg 03/28/25 16:00 03/30/25 07:37
Baclofen 20 Mg Tablet TUBE 04/25/25 15:59 Not Given
TID ALEXANDRE
Bisacodyl 10 mg 03/27/25 22:30
Bisacodyl 10 Mg Rectal Suppository RECTAL 04/24/25 22:29
[id number] PRN
constipation
Dextrose 12.5 grams 03/27/25 23:00
Dextrose 50% (0.5 Grams/Ml) 50 Ml Syringe IV 04/24/25 22:59
[id number] PRN
hypoglycemia
Protocol
Diazepam 5 mg 03/27/25 22:13 03/28/25 05:07
Diazepam 10 Mg/2 Ml Inj IV 04/24/25 22:12 5 mg
Q6HPRN PRN Administration
seizure
Enoxaparin Sodium 40 mg 03/28/25 18:00 03/29/25 17:47
Enoxaparin Sodium 40 Mg/0.4 Ml Syringe SC 04/25/25 17:59 40 mg
QPM ALEXANDRE Administration
Glucagon 1 mg 03/27/25 23:00
Glucagon 1 Mg Vial IM 04/24/25 22:59
PRN PRN
hypoglycemia - no IV access
Protocol
Lactated Ringer's 1,000 mls @ 75 mls/hr 03/28/25 18:00 03/30/25 00:33
Lr IV 1,000 mls
.[id number] ALEXANDRE Administration
Phenylephrine HCl 50 mg in 250 mls @ 0 mls/hr 03/29/25 19:15 03/29/25 19:50
Gibson-Synephrine IV 250 mls
PER PROTOCOL ALEXANDRE Administration
Protocol
Per Protocol
Lacosamide 200 mg 03/28/25 16:00 03/30/25 03:32
Lacosamide (10 Mg/Ml) 200 Mg/20 Ml Vial IV 04/11/25 15:59 200 mg
Q12H ALEXANDRE Administration
Levetiracetam 1,500 mg 03/30/25 20:00
Levetiracetam (100 Mg/Ml) 500 Mg/5 Ml Vial IV 04/25/25 19:59
Q12 ALEXANDRE
Ondansetron HCl 4 mg 03/27/25 22:30
Ondansetron 4 Mg/2 Ml Vial IV 04/24/25 22:29
Q6HPRN PRN
nausea and vomiting
Pantoprazole Sodium 40 mg 03/28/25 08:00 03/30/25 07:36
Pantoprazole Sodium 40 Mg/10 Ml Vial IV 04/25/25 07:59 40 mg
DAILY ALEXANDRE Administration
Phenobarbital Sodium 65 mg 03/29/25 20:00 03/30/25 07:37
Phenobarbital (65 Mg/Ml) 1 Ml Vial IV 04/26/25 19:59 65 mg
BID ALEXANDRE Administration
Potassium Chloride 40 meq 03/30/25 10:00
Potassium Chloride 10% Oral Solution (40 Meq/30 Ml) Cup PO 04/27/25 09:59
DAILY ALEXANDRE
Sodium Chloride 0 flush 03/27/25 23:00
Sodium Chloride 0.9% (Flush) Syringe IV 04/24/25 22:59
PER PROTOCOL ALEXANDRE
Sodium Chloride 10 ml 03/28/25 08:00 03/30/25 07:36
Sodium Chloride 0.9% (Preservative Free) 10 Ml Vial IV 04/25/25 07:59 10 ml
DAILY ALEXANDRE Administration
Thiamine HCl 100 mg 03/28/25 08:00 03/30/25 07:36
Thiamine (100 Mg/Ml) 2 Ml Vial IV 04/25/25 07:59 100 mg
DAILY ALEXANDRE Administration
Home Medications
�Medication �Instructions �Recorded
linagliptin 2.5 mg-metformin 1,000 1 tab PO BID Diabetes 04/02/23
mg tablet (Jentadueto)
gabapentin 300 mg capsule 300 mg PO TID Neurological 05/12/23
Condition
lisinopril 2.5 mg tablet 2.5 mg PO DAILY Blood Pressure 05/12/23
simvastatin 40 mg tablet 40 mg PO HS High Cholesterol 05/12/23
esomeprazole magnesium 40 mg 40 mg PO DAILY Gastrointestinal 02/09/25
capsule,delayed release (Nexium) Issue
albuterol sulfate 90 mcg/actuation 2 inh inhalation R Q6HPRN PRN sob 03/10/25
aerosol inhaler
baclofen 20 mg tablet 20 mg PO TID Muscle Spasms 03/26/25
diazepam 5 mg tablet 5 mg PO Q8HPRN PRN ANXIETY 03/26/25
nitrofurantoin 100 mg PO BID Urinary Issue 03/26/25
monohydrate/macrocrystals 100 mg
capsule
oxycodone 10 mg tablet 10 mg PO Q6HPRN PRN PAIN 03/26/25
thiamine HCl (vitamin B1) 100 mg 100 mg PO BID Supplement 03/26/25
tablet
--- NOTE | 2025-03-30 10:51 | W.PN.INTV ---
Documented by User: Ying Hall MD, Resident 03/30/25 10:56
Today's Communication / Plan
Recommendations
plan reviewed with attending
Assessment
-
70yoF PMH chronic alcohol use and frequent falls presenting with seizures found on EEG. Continued AMS.
Pt was found to be seizing in ED and keppra loaded. CT head negative for intracranial abnormalities. MRI 03/14/2025 demonstrated no new abnormalities but consistent L frontal lobe edema. MRI with contrast 03/29/25 redemonstrates encephalomalacia with
no concerns of mass.
AFVSS. Mild leukocytosis. UDS positive for her prescription medications: benzodiazepines and opioids. ECG normal. EEG continues demonstrating recurrent seizures. Discussion with family yesterday to change to DNR status.
This morning, pt is sitting in bed noncommunicative. Continue supportive care.
Plan:
Neuro:
Awake, AMS.
Continue Keppra, lacosamide, phenobarbital. PRN Valium
Continue Thiamine. Hx chronic alcohol use.
Continuous EEG
Neurology following. Continue monitoring EEG
Restart home baclofen.
Pulm:
VBG WNL. Maintaining airway.
On 2L NC. Wean appropriately.
Continue home albuterol.
Lung nodule noted on CXR last admission. Monitor for changes in symptoms. F/u outpt.
Monitor end tidal Co2.
Cardio:
ECG normal. RRR.
Hemodynamically stable.
GI:
NPO. Aspiration risk currently.
If mental status improves, we can consider advancing diet
Continue home PPI
Place Dobhoff for PO medications.
RD recs for nutrition through tube.
:
Stable kidney function
Monitor I+O
Nursing reports concentrated urine. 1L bolus followed by maintenance LR
UA to evaluate source of leukocytosis
ID:
Hold antibiotics.
Trend leukocytosis. Monitor for acute signs of infection
Endocrine:
Continue home synthroid
NIDDM
DVT prophylaxis: Lovenox
GI prophylaxis: home PPI
Subjective Dataa
Subjective Data
Date of Service:
Date of Service: March 30, 2025
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
Subjective:
AMS.
Objective Data
Data Reviewed
Vital Signs / I&O / Oxygen:
Vital Signs
Temp Pulse Resp BP Pulse Ox
97.5 F 79 22 119/60 98
03/30/25 07:31 03/30/25 09:30 03/30/25 09:30 03/30/25 09:30 03/30/25 09:30
Intake and Output
03/29/25 03/30/25 03/31/25
06:59 06:59 06:59
Intake Total 1675 / 1675 3140 / 3215 425 / 425
Output Total 520 / 520 450 / 450
Balance 1155 / 1155 2690 / 2765 425 / 425
SaO2 98
Nasal Cannula flow liters per 3
minute
Physical Exam
General: Respiratory Distress (n) and Comfortable
HEENT: Normocephalic, Anicteric and Moist Mucous Membranes
Cardiovascular: Regular Rhythm
Respiratory: Wheeze (n), Crackles (n) and Non-Labored Respirations
GI: Soft, Non Distended and Non Tender
Neurology: Alert and No Motor Deficits
Skin: Warm and Good Color (n)
Labs/Micro/Reports
Lab Data
03/30/25 04:38
03/30/25 04:38
Microbiology
03/28/25 08:11 Urine Urine Culture - Final
Escherichia coli - ESBL

Documented by User: Dat Cruz MD 03/30/25 10:57
Today's Communication / Plan
Recommendations
plan reviewed with attending
I reviewed this patient's case independently and in conjunction with the resident. I personally performed the ortez components of the evaluation and management of this critically ill patient, including the history, physical exam, and medical
decision-making. I was present during the ortez portions of care, reviewed the resident's documentation, and participated in the ongoing management of this patient requiring critical care. Total time spent providing critical care services today was
45 minute. I confirm the medical necessity of these services. I agree with documented assessment and plan
Dat Cruz MD, [facility], [facility]
[2025-03-30] MEDS: DULCOLAX 10 MG RECTAL (11:07)
--- NOTE | 2025-03-30 11:42 | PTCARENOTE ---
patient reassessed. making intermittient noises with care and repositioning. no stool since admission. prn dulcolax given.
[2025-03-30 12:13] LABS: Glucose - Point of Care 118 mg/dl (70-99)
[2025-03-30] MEDS: MIRALAX 17 GRAMS TUBE (12:19)
--- NOTE | 2025-03-30 13:35 | PN.CDI ---
CDI
- -
CDI:
Physician Documentation Request
Admit Date: 03/27/25 21:37
Dear Doctor Rm,
Please review the following and provide your response in the progress notes.
Clinical Indicators:
Pt admitted with Nonconvulsive status epilepticus.
Selected Entries
03/29/25
19:00 03/29/25
19:40 03/29/25
22:15
Blood pressure 76/39 83/44 87/47
03/28 LR @ 150cc/hr
03/29 11:15 500 ml LR bolus
03/29 19:10 250 ml LR bolus
03/29 19:50 Neosynephrine gtt at 20 mcgs/min
03/30 05:30 Neosynephrine gtt off
Please clarify which of the following is the most likely etiology of the above symptoms and treatment rendered:
Hypotension - indicate type/etiology, such as idiopathic, neurogenic or orthostatic, post-procedural, postoperative, due to hemodialysis, chronic, drug induced (indicate drug), etc.
Shock - indicate type if known
Other
Use of terms such as suspected, likely, concern for, or probable (associated with a specific diagnosis that is being evaluated, monitored, or treated as if it exists) are acceptable and can be coded in the inpatient setting, when documented at the
time of discharge.
Thank you,
Yesenia Carr RN, BSN
CDI Specialist
[place] [facility]
Please use your independent medical judgment in providing your response.
--- NOTE | 2025-03-30 13:58 | PN.CDI ---
CDI
- -
CDI:
Physician Documentation Request
Admit Date: 03/27/25 21:37
Dear Doctor Rm,
Please review the following and provide your response in the progress notes.
Clinical Indicators:
Pt admitted with Nonconvulsive status epilepticus.
Selected Entries
03/29/25
19:00 03/29/25
19:40 03/29/25
22:15
Blood pressure 76/39 83/44 87/47
03/28 LR @ 150cc/hr
03/29 11:15 500 ml LR bolus
03/29 RN Note: ' Assumed care. Patient received lying in bed with eyes closed, sonorous respirations. She is without apparent signs of distress or discomfort. Noted that SBP 77, MAP 44. Greg DENNY notified, new orders received. 250cc LR bolus given per
order, BP remains low. Neosynephrine started at 20mcg per order, titrated for MAP > 65, see MAR and worklist.
03/29 19:50 Neosynephrine gtt at 20 mcgs/min
03/30 05:30 Neosynephrine gtt off
Please clarify which of the following is the most likely etiology of the above symptoms and treatment rendered:
Hypotension - indicate type/etiology, such as idiopathic, neurogenic or orthostatic, post-procedural, postoperative, due to hemodialysis, chronic, drug induced (indicate drug), etc.
Shock - indicate type if known
Other
Use of terms such as suspected, likely, concern for, or probable (associated with a specific diagnosis that is being evaluated, monitored, or treated as if it exists) are acceptable and can be coded in the inpatient setting, when documented at the
time of discharge.
Thank you,
Yesenia Carr RN, BSN
CDI Specialist
[place] [facility]
Please use your independent medical judgment in providing your response.
--- NOTE | 2025-03-30 14:24 | PTCARENOTE ---
patient incontinent formed then loose brown stool. care provided, pure wick removed due to fecal incontinence. tube feeds initiated per orders. remains unresponsive and flaccid
[2025-03-30] MEDS: LIORESAL 10 MG TUBE ×2 (14:27→23:02)
--- NOTE | 2025-03-30 16:24 | PTCARENOTE ---
reassessed. saturated with urine. pure wick replaced as patient not having further stool. slight movement hands and feet noted. making sounds with care.
--- NOTE | 2025-03-30 16:31 | CM ---
IV/Antiseizure meds, continuous EEG, wean O2, NPO, Dobhoff. Discharge POC: TBD.
[2025-03-30] MEDS: LOVENOX 40 MG SC (17:02)
--- NOTE | 2025-03-30 19:50 | PTCARENOTE ---
Assumed care. Patient received lying in bed on continuous EEG monitor. 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 Her respirations are tachypneic, Kussmal respirations. She opens her eyes to voice and touch but she does not vocalize/speak, nor
does she follow commands. No spontaneous movement noted of all extremities. Bilateral pupils ERRL at 5mm. She is currently saturating 88% on 1L/nc, oxygen increased to 3L/nc with improvement in sats. BBS are clear with bronchial RUL. However, upper
airway congestion audible. Suctioned for small amount of thick hannon white secretions orally, oral care rendered. S1S2 regular, ST on CM with 1st degree AVB. Dobhoff NGT via left nare at 60cm with Jevity 1.5 tube feeding at 10cc/hr with 25cc/hr H2O
flush. No residual. Generalized anasarca 1+, BUE and BLE edema 1+. Purewick in place. No tonic/clonic seizure activity noted. Seizure precautions. Bed in low and locked position, bed alarm on. Frequent rounds on patient.
[2025-03-30] MEDS: KEPPRA 1500 MG IV (20:14)
--- NOTE | 2025-03-30 23:40 | PTCARENOTE ---
Patient noted with drop in sats to as low as 79%. No precipating factor noted. ? EEG with Tachypneic in the 40s with Kussmal breathing. Oxygen increased to 6L, mouth breathing. Respiratory therapist contacted, requested simple mask. Patient placed
on humidified simple mask at 12L with improvement in sats; order to keep sats > 93%. Patient is coughing but minimal secretions with suctioning. No change in BBS. Afebrile, BP stable. Good UO with purewick. No other change in patient physical
assessment.
[2025-03-31] VITALS (44 sets, daily range): BP systolic 74–148; BP diastolic 40–87; BMI 24.6
[2025-03-31] MEDS: LR 1000 IV ×2 (02:36→17:39)
[2025-03-31] MEDS: VIMPAT 200 MG IV ×2 (03:23→17:39)
--- NOTE | 2025-03-31 04:00 | PTCARENOTE ---
Am labs drawn. Patient skin is very hot to touch. Temp axillary 101.2F. Excess linens removed and room temp cooled. Zaina DENNY notified. New orders received. Since humidity was added to oxygen, patient has required more frequent oral/oral pharyngeal
suctioning. BBS with fine scattered crackles t/o. UA sent via straight cath. Lactic acid sent. BC x 2 sets sent. Portable CXR done. Nasal swabs sent for Flu and COVID. Tylenol given for fever. Unasyn ABx given, see MAR.
[2025-03-31 04:44] LABS: Venous Blood Gas B.E. 6.1 mmol/L (-4 to +4); Venous Blood Gas O2 Sat % 100.0 %
[2025-03-31 04:47] LABS: Hematocrit 30.1 % (37.0-47.0); Hemoglobin 10.0 g/dL (12.0-16.0); Mean Corp Hgb Conc. 33.2 g/dL (33.0-37.0); Mean Corpuscular Volume 82.5 fL (81.0-99.0); Platelet Count 292 10^3/uL (130-400); Red Cell Dist. Width 14.7 % (11.5-14.5)
[2025-03-31 05:19] LABS: Blood Urea Nitrogen 4 mg/dl (7-17); Calcium 8.7 mg/dl (8.4-10.2); Carbon Dioxide 31 mmol/L (22-30); Chloride 98 mmol/L (98-107); Estimated Creatinine Clearance 71 ml/min; Glucose 159 mg/dl (70-99); Magnesium 1.4 mg/dl (1.6-2.3); Potassium 4.1 mmol/L (3.5-5.1); Sodium 131 mmol/L (135-145); eGFR > 60.00
[2025-03-31 05:35] LABS: Urine Character Slightly Cloudy (Clear)
[2025-03-31] MEDS: UNASYN IV ×4 (05:37→23:48)
[2025-03-31 05:40] LABS: COVID-19 Antigen Negative (Negative)
[2025-03-31] MEDS: TYLENOL ORAL SOLUTION 650 MG TUBE (05:50)
[2025-03-31 06:14] LABS: Urine Squamous Cell 0-2 /LPF (Few); Urine White Cell 70-80 /HPF (0-5)
[2025-03-31] MEDS: MAGNESIUM SULFATE 50 IV ×2 (06:16→10:54)
--- NOTE | 2025-03-31 07:06 | PTCARENOTE ---
Addendum entered by Pat Paz RN 03/31/25 07:18:
at 0705, Noted that SBP dropped to the 70s, MAP 57. Neosynephrine gtt started per order to keep MAP > 65. HR improved to the 80s. RR improved to the upper 20s.
Original Note:
Report given verbally to oncoming shift, Kiara BENTLEY. Questions answered.
[2025-03-31] MEDS: NEO-SYNEPHRINE 250 IV (07:11)
--- NOTE | 2025-03-31 07:57 | W.PN.INTV ---
Today's Communication / Plan
Recommendations
Continuous EEG monitoring continuous-varies between status epilepticus and diffuse slowing
Adjustment of antiepileptics per neurology
Aspiration pneumonia suspected-antibiotics initiated
Comfort a priority
Goals of care discussion ongoing
Assessment
-
70-year-old smoking female with a history of hypertension, hyperlipidemia, GERD, diabetes, depression, anxiety, obstructive sleep apnea with recurrent UTIs and chronic alcohol abuse who states she has not drank alcohol in the last 3 months and
presented to the emergency room being found down by neighbor and noted to have significant seizures in the emergency room requiring 5 of Valium and Keppra load with intermittent ongoing seizures-lease administrator consulted for status epilepticus/critical
care management 03/28/2025.
Status epilepticus-differential includes primary seizure disorder, structural LATHE SPOTTER abnormality, alcohol withdrawal, baclofen withdrawal, benzodiazepine withdrawal
Hypomagnesemia
Diabetes
Leukocytosis
Mild drtymx-wxofnukphe-[id number] 11.6
Hyperglycemia aspiration pneumonia suspected
Mild hyponatremia
Conditions present prior to admission:
Recent admission 03/10--unresponsive episode suspected acute metabolic encephalopathy from polypharmacy, left upper lobe 1.1 cm pulmonary nodule
Hypertension.
Hyperlipidemia.
GERD.
Cigarette smoker.
Diabetes.
Depression.
Anxiety.
HEMANT.
Recurrent UTIs-including ESBL E. coli
Chronic alcohol abuse.
Chronic pain syndrome/chronic opiate dependence.
Compression fracture
Anemia of chronic disease
Upper GI bleed October 2024.
Orthostatic hypotension.
Recurrent falls
History of left 6th, 7th and 8th rib fractures
Tonsillectomy.
Plan
Respiratory status occasionally tenuous-increased rate, pink frothy fluid,
Supplemental oxygen as needed-currently on 3 L - 96% saturation
Aspiration precautions
BiPAP if needed
Nebulizers as needed
The patient is not to be intubated-now DNI/DNR
Chest x-ray 03/29/2025-left basilar atelectasis, no CHF
Chest x-ray 03/31/2025-left greater than right basilar opacifications-suspect pneumonia versus atelectasis
Aspiration pneumonia suspected
VBG 03/31/2020 5-43/143/7.46
CT head summarized below
Brain MRI 03/28/2025-stable focal encephalomalacia in the left frontal lobe anteriorly, no new suspicious abnormalities, mild right maxillary sinus mucosal thickening
Brain MRI 03/29/2025 with contrast-no evidence for frontal lobe mass, favored findings reflect encephalomalacia and gliosis from remote injury or chronic infarct
EEG continuous continues
Thiamine continues
Neurology evaluation ongoing-reviewed correspondence
Benzodiazepine and Keppra and phenobarbital load
Check cultures
Sputum culture if possible
Follow chest x-ray
Empiric antibiotics-Unasyn initiated 03/31/2025
Follow leukocytosis
Diazepam as needed
Currently on Keppra, Vimpat, phenobarbital
Baclofen reinitiated
Additional antiepileptics to be considered include fosphenytoin, and valproic acid and lacosamide
Monitor blood sugars
Insulin supplementation as needed
Replace electrolytes
Norepinephrine or phenylephrine as needed
Monitor hemoglobin
Transfuse if needed
DVT prophylaxis-on Lovenox
GI prophylaxis-on pantoprazole
Nasogastric feedings to begin
Bedside range of motion
Smoking cessation counseling once more awake and not postictal
Nicotine patch if needed
Recently discharged from hospital and seen by from our group who recommended outpatient CT chest ION as well as biopsy and pulmonary [id number] did not make follow-up appointment-most recent CT chest October 2024 without nodules or
masses and most recent chest x-ray without obvious nodule
Critical care statement: A total of 45 minutes of critical care time was provided for this patient today. This includes management of unstable vital signs, evaluation of the patient at bedside, reviewing the patient's pertinent medical records
including radiographs, microbiology, laboratory evaluations, and discussion with primary team, consultants, pharmacy, critical care nursing and charge nurse.
Family discussions
Dr. Cruz called patient's sister Alejandra Dennis [phone]-she lives in [place] on 03/29/2025 and is the only contact and person around that has any interest in helping patient as everyone else as outlined below has been estranged
The patient is 1 of 5 children-2 females and 3 males-1 male has past, both her parents have passed
Other 2 brothers are now estranged and have no contact with her
Alejandra is the only 1 that remotely keeps in touch with her, states that she has very poor quality of life, cannot take care of herself, has repetitive falls, and has no quality of life and smokes and drinks in the bathroom all day
We discussed what Stefania the patient would want and what Alejandra her Radha good would want for her if she was in the current situation-I outlined her current medical status including status epilepticus, mental decline, potential for brain tumor,
excetra
After lengthy discussion she would not want CPR, defibrillation, or coding of any sort and would not want intubation and mechanical ventilation as this would prolong the inevitable and she had very poor quality of life
She would like continued supportive care including antiepileptics and diagnostics but would not likely consent to brain surgery or brain biopsy
We will respect her wishes-continue to keep comfortable, adjust antiepileptic medications as needed, obtain MRI, however, we will not perform CPR, defibrillation, etc. or intubate her if she declines
Of note the patient's sister Alejandra recently had pituitary adenoma resected transsphenoidal and is very apprehensive of flying in their plane at altitude and unlikely to fly back to [place] because of these issues
Dr. Cruz spoke to estranged son-Lacey on 03/29/2025 kelin who lives in [place]-#[phone]. Updated on mother's current clinical situation. He agrees with no CPR, DNR status and no intubation
He would like to visit with her perhaps tomorrow. Freely admits he does not have a great relationship with her and has not been in touch for quite some time.
He still would like his aunt to be first contact, however, if there was a change in her status he would also like to be called.
Diagnostic data:
Chest x-ray 05/07/2023-mild chronic scarring right lower lobe, mild cardiomegaly
Chest x-ray 11/17-small to moderate left pleural effusion
Chest x-ray 03/10/2025-endotracheal tube in satisfactory position, possible nodular opacification over left scapula measuring 1.2 cm
Chest x-ray 03/27/2025-no acute cardiopulmonary abnormalities
CT chest 10/27/24-moderate left pleural effusion, fractures involving left sixth seventh eighth ribs
CT abdomen and pelvis 11/12/2024-visualized portions of the lung bases are unremarkable, no significant abnormalities in the abdomen or pelvis
CT head 03/10/2025-no acute intracranial abnormalities, left frontal lobe mild encephalomalacia possibly reflecting old infarct or posttraumatic changes
CT head 03/26/2025-no acute intracranial abnormalities
CT head 03/27/2025-no acute intracranial abnormalities
Brain MRI 03/14/2025-no acute intracranial abnormalities-especially if additional
Subjective Dataa
Subjective Data
Date of Service:
Date of Service: March 31, 2025
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
Subjective:
Some difficulties breathing, some stridor, unresponsive, blood pressure labile, some respiratory distress, increased chest congestion,
Review of Systems
General: Unobtainable - Pat Unresp
Objective Data
Data Reviewed
Vital Signs / I&O / Oxygen:
Vital Signs
Temp Pulse Resp BP Pulse Ox
101.2 F H 81 26 89/51 99
03/31/25 04:00 03/31/25 07:30 03/31/25 07:30 03/31/25 07:30 03/31/25 07:30
Intake and Output
03/30/25 03/31/25 04/01/25
06:59 06:59 06:59
Intake Total 3140 / 3215 3192.5 / 3192.5
Output Total 450 / 450 1325 / 1325
Balance 2690 / 2765 1867.5 / 1867.5
SaO2 99
Nasal Cannula flow liters per 4
minute
Physical Exam
General: Respiratory Distress (n) and Comfortable
HEENT: Normocephalic, Anicteric and Moist Mucous Membranes
Cardiovascular: Regular Rhythm
Respiratory: Wheeze (n), Crackles (Bilateral bases), Rhonchi, Non-Labored Respirations, Accessory Resp Muscle Use and Stridor (Mild)
GI: Soft, Non Distended and Non Tender
Neurology: Unresponsive, Lethargic and Non Verbal
Skin: Warm and Good Color (n)
Labs/Micro/Reports
Lab Data
03/31/25 04:12
03/31/25 04:12
Microbiology
03/31/25 05:05 Nasal Swab Influenza Types A & B (LOBITO) - Final
Negative for Influenza A & B, NAAT
Negative results must be combined with clinical observations
and patient history.
Nucleic Acid Amplification test (NAAT)performed on the
[employer] platform.
03/28/25 08:11 Urine Urine Culture - Final
Escherichia coli - ESBL
--- NOTE | 2025-03-31 08:53 | W.PN.HOSP.TC ---
Today's Communication/Plan
-
IV Unasyn
AED per Neurology
TF
continued GOC discussions
Assessment / Plan
Assessment / Plan
IMPRESSION:
70-year-old female with past medical history significant for hypertension, hyperlipidemia, mhy-eikatsh-dqcxvqzjr diabetes, apparent history of seizures, prior history of alcohol dependence, recurrent admissions for altered mental status thought to
be secondary to medications requiring intubation in the past who now presents to the emergency department after being found down and is found to have nonepileptic seizures. continuous EEG alternating between status and slowing. Hospital course
complicated be fevers/septic shock.
Cervical Spine CT
IMPRESSION:
No acute osseous abnormality.
Multilevel moderate degenerative changes.
HEAD CT
IMPRESSION:
No acute intracranial abnormality noted.
CXR
IMPRESSION:
No acute cardiopulmonary abnormality.
MRI
IMPRESSION:
No acute intracranial abnormality noted.
MRI w contrast
FINDINGS/IMPRESSION:
No MRI evidence for abnormal parenchymal enhancement with specific attention to the anterior left frontal lobe. Findings on the recent prior brain MRI are favored to be reflect encephalomalacia and gliosis from a remote injury or chronic infarct.
However, continued imaging follow-up can be performed for reevaluation if clinically indicated.
There is a mild degree of diffuse smooth pachymeningeal enhancement, left slightly greater than right, which is nonspecific and most likely idiopathic.
PLAN:
Nonconvulsive status epilepticus-past medical history indicates history of seizures (? withdrawal). EtOH level negative. UTox positive for Oxycodone and Benzodiazepines
-CT Head about without bleed
-Admitted to ICU
-MRI results above, no acute abnormality
-continuous EEG
-s/p Keppra 4G load; continue Keppra 1 g every 12 --> increased to 1.5G q 12
-continue Lacosamide 200mg BID
-phenobarb added on afternoon 03/28
-appreciate Neurology and Wash Driller Helper consults
-s/p repeat MRI with contrast - no e/o mass
-patient is DNR/DNI
-continued GOC discussions
Fever
Aspiration Pneumonia
Septic Shock
-patient with fever earlier this AM 03/31 with drop in BP and requirements of pressors. CXR with e/o pneumonia. Concern for aspiration pneumonia
-continue IV Unasyn
-follow up cultures
Hypomagnesemia
-repletion
NIDDM
-Sliding scale insulin
Patient with difficult social situation (please see Dr. Cruz's update notes)
DVT prophylaxis�Lovenox subcu
CODE STATUS� DNR/DNI
51 minutes spent on patient care
Anticipated Discharge: > 48 hours
Subjective/Interval History
-
Date of Service: March 31, 2025
patient lethargic on EEG, nonverbal
Objective Data
-
Labs:
Laboratory Results
03/31/25
04:12
WBC 11.1 H
Hgb 10.0 L
Hct 30.1 L
Plt Count 292
Sodium 131 L
Potassium 4.1 D
Chloride 98
Carbon Dioxide 31 H
BUN 4 L
Creatinine 0.4 L
Glucose 159 H
Calcium 8.7
Vital Signs:
Vital Signs
Temp Pulse Resp BP Pulse Ox
97.5 F 71 20 83/44 99
03/31/25 08:00 03/31/25 08:34 03/31/25 08:34 03/31/25 08:34 03/31/25 08:34
I&O
03/30/25 03/31/25 04/01/25
06:59 06:59 06:59
Intake Total 3140 / 3215 3192.5 / 3322.5 274 / 274
Output Total 450 / 450 1325 / 1325
Balance 2690 / 2765 1867.5 / 1997.5 274 / 274
Review of Systems
-
Unable to obtain full review of systems at this time due to: Patient Non-verbal
History Source: Patient
Physical Exam
-
General: Other (sedated, EEG on-going)
HEENT: Other (dobhoff in place)
Respiratory: Negative Wheezes
Cardiac: Regular Rhythm and S1/S2
GI: Soft and Nontender
Neuro: Awake; Negative Oriented
Psych: Confused
Data Reviewed
-
Diagnostic Radiology: Report Reviewed by me
Labs: Labs Reviewed by me
[2025-03-31] MEDS: THIAMINE INJECTION 100 MG IV (09:08)
[2025-03-31] MEDS: NSS (PRESERVATIVE FREE) 10 ML IV (09:08)
[2025-03-31] MEDS: LIORESAL 10 MG TUBE ×2 (09:09→22:27)
[2025-03-31] MEDS: PHENOBARBITAL 65 MG IV (09:09)
[2025-03-31] MEDS: MIRALAX 17 GRAMS TUBE (09:09)
[2025-03-31] MEDS: KEPPRA 1500 MG IV ×2 (09:09→19:39)
[2025-03-31] MEDS: PROTONIX IV 40 MG IV (09:09)
--- NOTE | 2025-03-31 13:22 | PTCARENOTE ---
Pt completely unresponsive to pain this am with GCS of 3. Pt woke up around 1330. Drowsy but answering questions appropriately. Now opens eyes and makes eye contact but speech very garbled.
Sinus rhythm to sinus logan. Weaning phenylephrine.
Moist cough.
Tolerating tube feeds.
All other assessments unchanged.
[2025-03-31] MEDS: LOVENOX 40 MG SC (17:39)
[2025-03-31] MEDS: LIORESAL TUBE (17:39)
--- NOTE | 2025-03-31 18:29 | PTCARENOTE ---
Pt drowsy and occasionally answers questions appropriately. Speech very garbled at times. Follows some commands.
Found DHT to be partially out, therefore, d/c'd and replaced. Will restart tube feeds after verified by xray.
All other assessments unchanged.
--- NOTE | 2025-03-31 19:27 | W.PN.NEURO.1 ---
Today's Communication / Plan
-
I agree that we have done everything short of intubation and burst suppression with anesthetics x12-24 hrs to try to control her seizures, and my understanding that this is not in line with her goals of care.
if no decision to escalate tomorrow, I would recommend stopping the EEG.
Neuro Assessment/Plan
Assessment
IMPRESSIONS/RECOMMENDATIONS:
Abrupt onset of change in mental status
Rapid EEG evaluation indicated status epilepticus which was confirmed by continuous EEG monitoring started on 03/28/2025
-EEG 03/29/25: This study was suggestive of a generalizing cortical abnormality which showed improvement over the prior day. The abnormality was epileptiform and suggestive of refractory status epilepticus.
-EEG 03/30/25: Severely abnormal EEG for age in wakefulness through drowsiness due to nearly intermittent 2/s generalizing discharge discharges disrupting the background, which was disrupted for numerous hours during the study and then worsening again
at the end of the study.
-MRI brain 03/28/25: Abnormal area in the left frontal lobe anteriorly, possible mass effect per Neurology review.
-MRI brain 03/29/25 with contrast: No MRI evidence for abnormal parenchymal enhancement with specific attention to the anterior left frontal lobe. Findings on the recent prior brain MRI are favored to be reflect encephalomalacia and gliosis from a
remote injury or chronic infarct. However, continued imaging follow-up can be performed for reevaluation if clinically indicated. There is a mild degree of diffuse smooth pachymeningeal enhancement, left slightly greater than right, which is
nonspecific and most likely idiopathic.
Plan
-Continue levetiracetam 1500mg IV q12 hours
-Continue lacosamide 200mg IV q12hrs
-Continue phenobarbital IV 65 mg/day
-Will likely require consideration for intubation for further medication to suppress seizure activity if family wishes to pursue this
-Continue IV thiamine replacement.
-Vitamin B12 level is low at 333, continue cyanocobalamin 1000mcg daily.
-DVT prophylaxis.
Subjective/Objective
Subjective Data
Date of Service: March 31, 2025
nurse reports this AM patient was not conversant, and for a period this afternoon, she was able somewhat converse.
On EEG, patient had a reasonably normal background with theta activity and no sz from 6:35 am until ~10:30 am, and since then has been in nonconvulsive status epilepticus >80% of the time.
I saw her when her EEG looked reasonably ok, and she told me she was feeling ok, Oriented x0, not able to answer meaningful questions.
Objective Data
Vital Signs
Temp Pulse Resp BP Pulse Ox
36.4 C 82 28 125/60 100
03/31/25 14:49 03/31/25 18:00 03/31/25 18:00 03/31/25 18:00 03/31/25 18:00
Lab Results
03/31/25 04:12
03/31/25 04:12
Sodium 131 mmol/L (135-145) L 03/31/25 04:12
Potassium 4.1 mmol/L (3.5-5.1) D 03/31/25 04:12
BUN 4 mg/dl (7-17) L 03/31/25 04:12
Glucose 159 mg/dl (70-99) H 03/31/25 04:12
Calcium 8.7 mg/dl (8.4-10.2) 03/31/25 04:12
LDL Cholesterol, Calc 113 mg/dl 03/28/25 05:32
Vitamin B12 333 pg/ml (239-931) 03/28/25 05:32
Ur Buprenorphine Negative (Negative) 03/28/25 08:11
Patient Allergies
topiramate (From Topamax) Allergy (Verified 12/30/24 04:41)
Itching
valdecoxib (From Bextra) Allergy (Verified 12/30/24 04:41)
Rash
Physical Exam
-
I saw her when her EEG looked reasonably ok, and she told me she was feeling ok, Oriented x0, not able to answer meaningful questions.
--- NOTE | 2025-03-31 19:30 | PTCARENOTE ---
Assumed care. Patient received lying in bed on continuous EEG monitor. See junior network administrator charted on worklist flowsheet. Stefania has her eyes open and she is conversant. Some of her conversation is oriented and she is able to states her needs. However,
sometimes she parrots words spoken by RN or says the same word repetitively. She states that she has 'to go poopy.' Assisted to bedpan, patient had moderate sized loose brown BM. Partial cares, Skin care given and partial linen change. Respirations
are non labored and slightly tachypneic. She is unable to grasp hands but she is moving all extremities weakly. Bilateral pupils ERRL at 5mm. BBS are with upper lobes clear, right base with crackles and left base diminished. Moist quality to voice.
Suctioned for small amount of thick white secretions orally, oral care rendered. S1S2 regular, ST on CM with 1st degree AVB. Dobhoff NGT via right nare at 65cm with Jevity 1.5 tube feeding at 45cc/hr with 25cc/hr H2O flush. No residual. Generalized
anasarca 2+, BUE and BLE edema 2+. Arms elevated on pillows. Repositioned every 2 hours. No tonic/clonic seizure activity noted. Seizure precautions. Bed in low and locked position, bed alarm on. Frequent rounds on patient.
--- NOTE | 2025-03-31 19:35 | EEGC.RPT ---
Continuous EEG Report
Recording
Start Date of Data Reviewed: 03/30/25
Start Time of Data Reviewed: 07:00
End Date of Data Reviewed: 03/31/25
End Time of Data Reviewed: 07:00
Type of EEG: Continuous
Done with Video Recording: Yes
Study Sequence: Continuation of ongoing Study
Electrocardiogram: Unremarkable
Report
A 21 channel digitized electroencephalogram (EEG) was performed at the bedside in the intensive care unit. The 10/20 international system of electrode placement was used with ECG and lateral/vertical eye movements recorded. Video was recorded.
Persyst quantitative EEG analysis was utilized.
ELECTROENCEPHALOGRAPHER IMPRESSION(S):
Quality of study
Good
Background
No organized background was demonstrated
Sleep
Drowsiness present
Photic Stimulation
Failed to activate the record.
ECG
Normal sinus rhythm
Abnormal Findings
at the beginning of the study, the patient is in status epilepticus. ~80-90% of the record consists of generalized epileptiform discharges with 1.5-2 Hz spike and waves or rhythmic delta. From 6:35 am until the end of this report at 7 am, there is a
generalized theta background without any epileptiform activity.
--- NOTE | 2025-03-31 23:00 | PTCARENOTE ---
BP has been soft with SBP in the mid 80s and MAP in 50s. Neosynephrine gtt restarted and titrated for MAP > 65.
[2025-04-01] VITALS (30 sets, daily range): BP systolic 83–160; BP diastolic 40–94; BMI 24.8
--- NOTE | 2025-04-01 00:14 | PTCARENOTE ---
Neurologically, Stefania is more somnolent again. She does not open eyes to voice or pain but grunts when spoken to. She appears to be sleeping comfortably when undisturbed with eyes closed, lying still, respirations tachypneic but nonlabored. Oral
care, repositioned. Rest of physical assessment unchanged. Afebrile. BP has been soft. Neosynephrine gtt titrated for MAP > 65.
--- NOTE | 2025-04-01 00:50 | PTCARENOTE ---
Patient opens eyes to voice, nonverbal, falls asleep easily. Very lethargic.
[2025-04-01] MEDS: TYLENOL ORAL SOLUTION 650 MG TUBE (02:22)
--- NOTE | 2025-04-01 04:00 | PTCARENOTE ---
Patient neuro status is waxing and waning. She appears to be sleeping comfortably, rouses easily but falls asleep easily. BBS unchanged. Suctioned as needed. Tolerating tube feeds. Afebrile. Continuing to titrate Neosynephrine as needed.
[2025-04-01] MEDS: VIMPAT 200 MG IV ×2 (04:20→16:25)
[2025-04-01 04:36] LABS: Hematocrit 27.9 % (37.0-47.0); Hemoglobin 9.1 g/dL (12.0-16.0); Mean Corp Hgb Conc. 32.6 g/dL (33.0-37.0); Mean Corpuscular Volume 83.8 fL (81.0-99.0); Platelet Count 308 10^3/uL (130-400); Red Cell Dist. Width 14.7 % (11.5-14.5)
[2025-04-01 04:58] LABS: Blood Urea Nitrogen 8 mg/dl (7-17); Estimated Creatinine Clearance 71 ml/min; Glucose 177 mg/dl (70-99); eGFR > 60.00
[2025-04-01 04:59] LABS: Calcium 8.8 mg/dl (8.4-10.2); Carbon Dioxide 33 mmol/L (22-30); Chloride 100 mmol/L (98-107); Magnesium 1.7 mg/dl (1.6-2.3); Potassium 3.6 mmol/L (3.5-5.1); Sodium 133 mmol/L (135-145)
[2025-04-01] MEDS: NEO-SYNEPHRINE 250 IV (05:42)
[2025-04-01] MEDS: UNASYN IV ×2 (05:43→11:46)
[2025-04-01] MEDS: MAGNESIUM SULFATE 100 IV (06:19)
--- NOTE | 2025-04-01 06:54 | PTCARENOTE ---
Report given verbally to oncoming shift, Kiara BENTLEY. Bedside rounds complete. Questions answered.
[2025-04-01] MEDS: LR IV ×2 (07:25→11:46)
[2025-04-01] MEDS: PROTONIX IV 40 MG IV (07:39)
[2025-04-01] MEDS: THIAMINE INJECTION 100 MG IV (07:40)
[2025-04-01] MEDS: PHENOBARBITAL 65 MG IV (07:40)
[2025-04-01] MEDS: LIORESAL 10 MG TUBE ×2 (07:40→16:25)
[2025-04-01] MEDS: KEPPRA 1500 MG IV ×2 (07:40→20:09)
[2025-04-01] MEDS: MIRALAX TUBE (07:41)
[2025-04-01] MEDS: NSS (PRESERVATIVE FREE) 10 ML IV (07:47)
[2025-04-01] MEDS: KCL 160 MEQ IV (07:47)
--- NOTE | 2025-04-01 08:54 | W.PN.HOSP.TC ---
Today's Communication/Plan
-
GOC discussions ongoing
Assessment / Plan
Assessment / Plan
IMPRESSION:
70-year-old female with past medical history significant for hypertension, hyperlipidemia, zja-oxksyfx-kmqybzifn diabetes, apparent history of seizures, prior history of alcohol dependence, recurrent admissions for altered mental status thought to
be secondary to medications requiring intubation in the past who now presents to the emergency department after being found down and is found to have nonepileptic seizures. continuous EEG alternating between status and slowing. Hospital course
complicated be fevers/septic shock.
Cervical Spine CT
IMPRESSION:
No acute osseous abnormality.
Multilevel moderate degenerative changes.
HEAD CT
IMPRESSION:
No acute intracranial abnormality noted.
CXR
IMPRESSION:
No acute cardiopulmonary abnormality.
MRI
IMPRESSION:
No acute intracranial abnormality noted.
MRI w contrast
FINDINGS/IMPRESSION:
No MRI evidence for abnormal parenchymal enhancement with specific attention to the anterior left frontal lobe. Findings on the recent prior brain MRI are favored to be reflect encephalomalacia and gliosis from a remote injury or chronic infarct.
However, continued imaging follow-up can be performed for reevaluation if clinically indicated.
There is a mild degree of diffuse smooth pachymeningeal enhancement, left slightly greater than right, which is nonspecific and most likely idiopathic.
PLAN:
Nonconvulsive status epilepticus-past medical history indicates history of seizures (? withdrawal). EtOH level negative. UTox positive for Oxycodone and Benzodiazepines
-CT Head about without bleed
-Admitted to ICU
-MRI results above, no acute abnormality
-continuous EEG
-s/p Keppra 4G load; continue Keppra 1 g every 12 --> increased to 1.5G q 12
-continue Lacosamide 200mg BID
-phenobarb added on afternoon 9/3
-appreciate Neurology and Senior Commissary Agent consults
-s/p repeat MRI with contrast - no e/o mass
-patient is DNR/DNI
-continued GOC discussions --> I will call sister again today. Appreciate neurology assessment. Given no return of meaningful cognition and against GOC to escalate - will talk to sister about comfort care
Fever
Aspiration Pneumonia
Septic Shock
-patient with fever earlier this AM 9/6 with drop in BP and requirements of pressors. CXR with e/o pneumonia. Concern for aspiration pneumonia
-continue IV Unasyn (day 2)
-follow up cultures
Hypomagnesemia
-repletion
NIDDM
-Sliding scale insulin
Patient with difficult social situation (please see Dr. Cruz's update notes)
DVT prophylaxis�Lovenox subcu
CODE STATUS� DNR/DNI
51 minutes spent on patient care
Anticipated Discharge: > 48 hours
Subjective/Interval History
-
Date of Service: April 01, 2025
patient more awake today stating 'I need you'
Objective Data
-
Labs:
Laboratory Results
04/01/25
04:18
WBC 9.4
Hgb 9.1 L
Hct 27.9 L
Plt Count 308
Sodium 133 L
Potassium 3.6
Chloride 100
Carbon Dioxide 33 H
BUN 8
Creatinine 0.4 L
Glucose 177 H
Calcium 8.8
Vital Signs:
Vital Signs
Temp Pulse Resp BP Pulse Ox
98.7 F 69 16 160/80 97
04/01/25 04:00 04/01/25 06:30 04/01/25 06:30 04/01/25 06:30 04/01/25 06:30
I&O
03/31/25 04/01/25 04/02/25
06:59 06:59 06:59
Intake Total 3192.5 / 3322.5 3695 / 3695
Output Total 1325 / 1325 1000 / 1000
Balance 1867.5 / 1996.5 2695 / 2695
Review of Systems
-
History Source: Patient
All other systems: Reviewed and negative
Physical Exam
-
General: No Apparent Distress
HEENT: Other (dobhoff in place)
Respiratory: Negative Wheezes
Cardiac: Regular Rhythm and S1/S2
GI: Soft and Nontender
Neuro: Awake and Other (repeating herself, not consistently following commands ); Negative Oriented
Psych: Confused
Data Reviewed
-
Diagnostic Radiology: Report Reviewed by me
Labs: Labs Reviewed by me
--- NOTE | 2025-04-01 09:31 | W.PN.INTV ---
Today's Communication / Plan
Recommendations
Continue antiepileptics
Aspiration precautions
Antibiotics
Comfort a priority
Goals of care discussions
Assessment
-
70-year-old smoking female with a history of hypertension, hyperlipidemia, GERD, diabetes, depression, anxiety, obstructive sleep apnea with recurrent UTIs and chronic alcohol abuse who states she has not drank alcohol in the last 3 months and
presented to the emergency room being found down by neighbor and noted to have significant seizures in the emergency room requiring 5 of Valium and Keppra load with intermittent ongoing seizures-performance improvement director consulted for status epilepticus/critical
care management 03/28/2025.
Status epilepticus-differential includes primary seizure disorder, structural FINANCIAL MANAGER abnormality, alcohol withdrawal, baclofen withdrawal, benzodiazepine withdrawal
Hypomagnesemia
Diabetes
Leukocytosis
Mild pbwesz-codcgnpupn-bwohrooauv 11.6
Hyperglycemia aspiration pneumonia suspected
Mild hyponatremia
Conditions present prior to admission:
Recent admission 03/10--unresponsive episode suspected acute metabolic encephalopathy from polypharmacy, left upper lobe 1.1 cm pulmonary nodule
Hypertension.
Hyperlipidemia.
GERD.
Cigarette smoker.
Diabetes.
Depression.
Anxiety.
HEMANT.
Recurrent UTIs-including ESBL E. coli
Chronic alcohol abuse.
Chronic pain syndrome/chronic opiate dependence.
Compression fracture
Anemia of chronic disease
Upper GI bleed October 2024.
Orthostatic hypotension.
Recurrent falls
History of left 6th, 7th and 8th rib fractures
Tonsillectomy.
Plan
Respiratory status occasionally tenuous-increased rate, pink frothy fluid-no CHF on chest x-ray
Supplemental oxygen as needed-currently on 4 L - 100% saturation, decreased to 2 L nasal cannula
Aspiration precautions
BiPAP if needed-has not needed
Nebulizers as needed-currently not bronchospastic
The patient is not to be intubated-now DNI/DNR
Chest x-ray 03/29/2025-left basilar atelectasis, no CHF
Chest x-ray 03/31/2025-left greater than right basilar opacifications-suspect pneumonia versus atelectasis
Follow occasional chest x-ray
Aspiration pneumonia suspected
VBG 03/31/2025-43/143/7.46
CT head summarized below
Brain MRI 03/28/2025-stable focal encephalomalacia in the left frontal lobe anteriorly, no new suspicious abnormalities, mild right maxillary sinus mucosal thickening
Brain MRI 03/29/2025 with contrast-no evidence for frontal lobe mass, favored findings reflect encephalomalacia and gliosis from remote injury or chronic infarct
EEG continuous continues-significant seizure burden persists
Thiamine continues
Neurology evaluation ongoing-reviewed correspondence-options are to escalate (intubate and burst suppression with ketamine) or de-escalate and remove EEG with emphasis on comfort
Benzodiazepine and Keppra and phenobarbital continues after load
Baclofen also reintroduced
Cultures reviewed
Blood cultures negative
Urine culture pending
Influenza negative
Urine culture from 03/28/2025-E. coli-ESBL
Sputum culture if possible-unable to produce
Follow occasional chest x-ray
Empiric antibiotics-Unasyn initiated 03/31/2025 for suspected aspiration pneumonia
Follow leukocytosis
Diazepam as needed
Currently on Keppra, Vimpat, phenobarbital
Additional antiepileptics to be considered include fosphenytoin, and valproic acid and lacosamide
Monitor blood sugars
Insulin supplementation as needed
Replace electrolytes
Discontinue IV fluids
Norepinephrine or phenylephrine as needed-wean
Monitor hemoglobin
Transfuse if needed
DVT prophylaxis-on Lovenox
GI prophylaxis-on pantoprazole
Nasogastric feedings to begin-tube feeds at goal rate
Bedside range of motion
Smoking cessation counseling once more awake and not postictal
Nicotine patch if needed
Hospitalist discussing with sister-goals of care-possible comfort care
Recently discharged from hospital and seen by from our group who recommended outpatient CT chest ION as well as biopsy and pulmonary [id number] did not make follow-up appointment-most recent CT chest October 2024 without nodules or
masses and most recent chest x-ray without obvious nodule
Critical care statement: A total of 45 minutes of critical care time was provided for this patient today. This includes management of unstable vital signs, evaluation of the patient at bedside, reviewing the patient's pertinent medical records
including radiographs, microbiology, laboratory evaluations, and discussion with primary team, consultants, pharmacy, critical care nursing and charge nurse.
Family discussions
Dr. Cruz called patient's sister Alejandra Dennis [phone]-she lives in [place] on 03/29/2025 and is the only contact and person around that has any interest in helping patient as everyone else as outlined below has been estranged
The patient is 1 of 5 children-2 females and 3 males-1 male has past, both her parents have passed
Other 2 brothers are now estranged and have no contact with her
Alejandra is the only 1 that remotely keeps in touch with her, states that she has very poor quality of life, cannot take care of herself, has repetitive falls, and has no quality of life and smokes and drinks in the bathroom all day
We discussed what Stefania the patient would want and what Alejandra her Radha good would want for her if she was in the current situation-I outlined her current medical status including status epilepticus, mental decline, potential for brain tumor, etc
After lengthy discussion she would not want CPR, defibrillation, or coding of any sort and would not want intubation and mechanical ventilation as this would prolong the inevitable and she had very poor quality of life
She would like continued supportive care including antiepileptics and diagnostics but would not likely consent to brain surgery or brain biopsy
We will respect her wishes-continue to keep comfortable, adjust antiepileptic medications as needed, obtain MRI, however, we will not perform CPR, defibrillation, etc. or intubate her if she declines
Of note the patient's sister Alejandra recently had pituitary adenoma resected transsphenoidal and is very apprehensive of flying in their plane at altitude and unlikely to fly back to [place] because of these issues
Dr. Cruz spoke to estranged son-Kumar on 03/29/2025 l who lives in [place]-#[phone]. Updated on mother's current clinical situation. He agrees with no CPR, DNR status and no intubation
He would like to visit with her perhaps tomorrow. Freely admits he does not have a great relationship with her and has not been in touch for quite some time.
He still would like his aunt to be first contact, however, if there was a change in her status he would also like to be called.
Diagnostic data:
Chest x-ray 05/07/2023-mild chronic scarring right lower lobe, mild cardiomegaly
Chest x-ray 11/17-small to moderate left pleural effusion
Chest x-ray 03/10/2025-endotracheal tube in satisfactory position, possible nodular opacification over left scapula measuring 1.2 cm
Chest x-ray 03/27/2025-no acute cardiopulmonary abnormalities
CT chest 10/27/24-moderate left pleural effusion, fractures involving left sixth seventh eighth ribs
CT abdomen and pelvis 11/12/2024-visualized portions of the lung bases are unremarkable, no significant abnormalities in the abdomen or pelvis
CT head 03/10/2025-no acute intracranial abnormalities, left frontal lobe mild encephalomalacia possibly reflecting old infarct or posttraumatic changes
CT head 03/26/2025-no acute intracranial abnormalities
CT head 03/27/2025-no acute intracranial abnormalities
Brain MRI 03/14/2025-no acute intracranial abnormalities-especially if additional
Subjective Dataa
Subjective Data
Date of Service:
Date of Service: April 01, 2025
Chief Complaint: Electric Repair Supervisor Follow Up and Pulmonary Follow Up
Subjective:
More alert, communicative, however, disoriented and does not answer questions appropriately
Review of Systems
General: Other (Per HPI)
Objective Data
Data Reviewed
Vital Signs / I&O / Oxygen:
Vital Signs
Temp Pulse Resp BP Pulse Ox
98.7 F 93 17 120/60 92
04/01/25 04:00 04/01/25 09:00 04/01/25 09:00 04/01/25 09:00 04/01/25 09:00
Intake and Output
03/31/25 04/01/25 04/02/25
06:59 06:59 06:59
Intake Total 3192.5 / 3322.5 3695 / 3781 433 / 433
Output Total 1325 / 1325 1000 / 1000
Balance 1867.5 / 1997.5 2695 / 2781 433 / 433
SaO2 92
Nasal Cannula flow liters per 2
minute
Physical Exam
General: Respiratory Distress (n) and Comfortable
HEENT: Normocephalic, Anicteric and Moist Mucous Membranes
Cardiovascular: Regular Rhythm
Respiratory: Wheeze (n), Crackles (Bilateral bases), Rhonchi, Non-Labored Respirations, Accessory Resp Muscle Use and Stridor (Mild)
GI: Soft, Non Distended and Non Tender
Neurology: Alert, Lethargic and Non Verbal
Skin: Warm and Good Color (n)
Labs/Micro/Reports
Lab Data
04/01/25 04:18
04/01/25 04:18
Microbiology
03/31/25 05:26 Blood/Venous Blood Culture - Preliminary
No Growth in 24 hours- Final report to follow
03/31/25 05:00 Blood/Venous Blood Culture - Preliminary
No Growth in 24 hours- Final report to follow
03/31/25 05:05 Nasal Swab Influenza Types A & B (LOBITO) - Final
Negative for Influenza A & B, NAAT
Negative results must be combined with clinical observations
and patient history.
Nucleic Acid Amplification test (NAAT)performed on the
[employer] platform.
03/28/25 08:11 Urine Urine Culture - Final
Escherichia coli - ESBL
--- NOTE | 2025-04-01 09:48 | W.PN.NEURO.1 ---
Today's Communication / Plan
-
our options are
1. escalate care (intubation and burst suppression, and my drug of choice would be ketamine for NMDA block since all the other options are GABAergic and we already have phenobarbital on board)
2. de-escalate
3. if no decision then take the EEG off and let her scalp rest and revisit tomorrow.
Neuro Assessment/Plan
Assessment
IMPRESSIONS/RECOMMENDATIONS:
Abrupt onset of change in mental status
Rapid EEG evaluation indicated status epilepticus which was confirmed by continuous EEG monitoring started on 03/28/2025
-EEG 03/29/25: This study was suggestive of a generalizing cortical abnormality which showed improvement over the prior day. The abnormality was epileptiform and suggestive of refractory status epilepticus.
-EEG 03/30/25: Severely abnormal EEG for age in wakefulness through drowsiness due to nearly intermittent 2/s generalizing discharge discharges disrupting the background, which was disrupted for numerous hours during the study and then worsening again
at the end of the study.
-MRI brain 03/28/25: Abnormal area in the left frontal lobe anteriorly, possible mass effect per Neurology review.
-MRI brain 03/29/25 with contrast: No MRI evidence for abnormal parenchymal enhancement with specific attention to the anterior left frontal lobe. Findings on the recent prior brain MRI are favored to be reflect encephalomalacia and gliosis from a
remote injury or chronic infarct. However, continued imaging follow-up can be performed for reevaluation if clinically indicated. There is a mild degree of diffuse smooth pachymeningeal enhancement, left slightly greater than right, which is
nonspecific and most likely idiopathic.
Plan
-Continue levetiracetam 1500mg IV q12 hours
-Continue lacosamide 200mg IV q12hrs
-Continue phenobarbital IV 65 mg/day
-Will likely require consideration for intubation for further medication to suppress seizure activity if family wishes to pursue this
-Continue IV thiamine replacement.
-Vitamin B12 level is low at 333, continue cyanocobalamin 1000mcg daily.
-DVT prophylaxis.
Subjective/Objective
Subjective Data
Date of Service: April 01, 2025
last evening into this morning, on EEG patient continues to alternate between status epilepticus and generalized slowing, with seizure pattern of 1-1.5 hz generalized spike and waves predominating.
seen this morning, patient offers no complaints
Objective Data
Vital Signs
Temp Pulse Resp BP Pulse Ox
37.1 C 93 17 120/60 92
04/01/25 04:00 04/01/25 09:00 04/01/25 09:00 04/01/25 09:00 04/01/25 09:00
Lab Results
04/01/25 04:18
04/01/25 04:18
Sodium 133 mmol/L (135-145) L 04/01/25 04:18
Potassium 3.6 mmol/L (3.5-5.1) 04/01/25 04:18
BUN 8 mg/dl (7-17) 04/01/25 04:18
Glucose 177 mg/dl (70-99) H 04/01/25 04:18
Calcium 8.8 mg/dl (8.4-10.2) 04/01/25 04:18
LDL Cholesterol, Calc 113 mg/dl 03/28/25 05:32
Vitamin B12 333 pg/ml (239-931) 03/28/25 05:32
Ur Buprenorphine Negative (Negative) 03/28/25 08:11
Patient Allergies
topiramate (From Topamax) Allergy (Verified 12/30/24 04:41)
Itching
valdecoxib (From Bextra) Allergy (Verified 12/30/24 04:41)
Rash
Physical Exam
-
I saw her when her EEG showed sz pattern of 1-1.5 Hz spike and waves,
patient attended bilaterally, told me she was 31 years old, and she was dysarthric.
--- NOTE | 2025-04-01 11:58 | EEGC.RPT ---
Continuous EEG Report
Recording
Start Date of Data Reviewed: 03/31/25
Start Time of Data Reviewed: :00
End Date of Data Reviewed: 04/01/25
End Time of Data Reviewed: 07:00
Type of EEG: Continuous
Done with Video Recording: Yes
Study Sequence: Continuation of ongoing Study
Electrocardiogram: Unremarkable
Report
A 21 channel digitized electroencephalogram (EEG) was performed at the bedside in the intensive care unit. The 10/20 international system of electrode placement was used with ECG and lateral/vertical eye movements recorded. Video was recorded.
Persyst quantitative EEG analysis was utilized.
ELECTROENCEPHALOGRAPHER IMPRESSION(S):
Quality of study
Good
Background
generalized theta activity
Sleep
Drowsiness present
Photic Stimulation
none
ECG
Normal sinus rhythm
Abnormal Findings
at the beginning of this review at 7 am, there is a generalized theta background without any epileptiform activity, with intermixed brief periods of attenuation or suppression. ~10:30 AM the patient goes back into status epilepticus consisting of
mostly 1-1.5 Hz spike and waves, or ~2 Hz rhythmic delta. this alternates with periods of the generalized theta/attenuation pattern. Status epilepticus comprises ~75% of the record.
--- NOTE | 2025-04-01 13:14 | W.PN.UPDATE ---
Update Note
Progress Note Update
I spoke to patient's sister and explained that patient is continuing to have seizures. At this point, we will transition to comfort care as this is not within her wishes for further aggressive intervention.
-stop tube feeding and fluids
-continue AED for comfort
-IV Morphine PRN with progression to gtt if indicated
-Hospice consult placed
--- NOTE | 2025-04-01 13:24 | EEGC.RPT ---
Continuous EEG Report
Recording
Start Date of Data Reviewed: 04/01/25
Start Time of Data Reviewed: 07:00
End Date of Data Reviewed: 04/01/25
End Time of Data Reviewed: 13:21
Type of EEG: Continuous
Done with Video Recording: Yes
Study Sequence: Termination of Study
Electrocardiogram: Unremarkable
Report
A 21 channel digitized electroencephalogram (EEG) was performed at the bedside in the intensive care unit. The 10/20 international system of electrode placement was used with ECG and lateral/vertical eye movements recorded. Video was recorded.
Persyst quantitative EEG analysis was utilized.
ELECTROENCEPHALOGRAPHER IMPRESSION(S):
Quality of study
Good
Background
generalized theta activity
Sleep
Drowsiness present
Photic Stimulation
none
ECG
Normal sinus rhythm
Abnormal Findings
at the beginning of this review at 7 am, there is status epilepticus consisting of mostly 1-1.5 Hz spike and waves, or ~2 Hz rhythmic delta. this alternates with periods of the generalized theta/attenuation pattern. Status epilepticus comprises ~75%
of the record.
--- NOTE | 2025-04-01 15:15 | W.PN.UPDATE ---
Update Note
Progress Note Update
Ms. Stefania Kaur is a 70 yo woman with hx essential HTN, HLD, NIDDM, prior history of seizures and alcohol abuse, recurrent admissions for altered mental status presented to the ER after being found down by neighbors.
On arrival to the emergency department patient was responsive to painful stimuli and minimally responsive to verbal stimuli. No spontaneous activity. She was seen to be having slow rhythmic movements concerning for seizure. Vitals stable, labs
unremarkable. Measurement of seizure activity by bedside EEG showed high percentage.
She was admitted to the ICU for continuous EEG monitoring. Neurology and Upper Extremity Surgeon consulted. Unfortunately despite increasing AED administration up to Keppra 1.5G q 12, Lacosamide 200mg IV q12 and phenobarbital, patient had continued seizure
activity on monitoring with fluctuating mentation from somnolence to persistent confusion.
Patient is estranged from most family, please see Dr. Cruz's update note from 03/29/25. Her sister, Alejandra, is her POA who reported that patient would not want intubation or CPR. And with clinical deterioration as above, we discussed transition
to comfort care today. Hospice is consulted and PRN comfort care medications ordered.
--- NOTE | 2025-04-01 15:20 | HOSPNOTE ---
Rec'd referral - spoke with patient's sister Alejandra who is in [place] - reviewed hospice philosophy and anticipated plan of care. Her goal is to ensure that Stefania is comfortable. At this time patient has been placed on comfort, a bed on 2N was
requested. Hospice will continue to follow and evaluate if patient is GIP appropriate for Hospice admission. TT with Dr Abdalla and Dr Islas (Hospice provided speech communication professor) who are in agreement with the plan.
--- NOTE | 2025-04-01 15:50 | CHAP ---
Stefania was awake, resting quietly. Face Cleaner asked if she would like a prayer, and Stefania said yes. Emotional and spiritual support provided.
--- NOTE | 2025-04-01 20:00 | PTCARENOTE ---
Assumed care of patient. M/S orders...comfort care. Will monitor end of life symptoms.
--- NOTE | 2025-04-01 20:53 | PTCARENOTE ---
Report called to Bella on . Pt to transfer to Room 2133 w/ belongings.
[2025-04-01] MEDS: LIORESAL TUBE (21:54)
[2025-04-02] MEDS: HALDOL 1 MG IV ×3 (02:13→11:20)
[2025-04-02] MEDS: VIMPAT 200 MG IV (04:54)
[2025-04-02 07:35] VITALS: BP 111/80
--- NOTE | 2025-04-02 08:21 | W.PN.HOSP.TC ---
Today's Communication/Plan
-
Comfort care
Assessment / Plan
Assessment / Plan
Physical exam:
General: Acute on chronically ill
Respiratory: Clear to Auscultation; Negative Wheezes, Rales or Rhonchi
Cardiac: Regular Rhythm and S1/S2
GI: Soft, Nontender and Nondistended
Neuro: Lethargic but responds to verbal stimuli and answer questions appropriately, generalized weakness.
A/P:
Comfort care:
Continue comfort medications
Hospice consult
Probably transition to GIP today
Status epilepticus/alcohol withdrawal/history of polysubstance abuse:
On multiple antiseizure medications
Neurology evaluated patient
Currently on Vimpat IV 200 mg every 12 hours, Keppra IV 1500 mg every 12 hours, and phenobarbital 60 mg IV daily
On benzodiazepines as needed
Urinary retention:
Cornell catheter for comfort
Alcohol use disorder/agitation/anxiety:
On benzo's
Septic shock due to aspiration pneumonia:
Received IV antibiotics and pressors
Rest of medical problems:
Hypertension
Orthostatic hypotension
Diabetes mellitus
Hyponatremia
Hyperlipidemia
Right hip fracture treated conservatively
ESBL E. coli
Chronic pain syndrome and chronic opiate dependence
Chronic L3 compression fracture
History of peptic ulcer disease
Anticipated Discharge: Today
Subjective/Interval History
-
Date of Service: April 02, 2025
Patient has some agitation and required some benzodiazepine. Patient also had some urine retention requiring urinary catheter. Mild suprapubic discomfort and lethargic but does answer questions appropriately.
Objective Data
-
Vital Signs:
Vital Signs
Temp Pulse Resp BP Pulse Ox
98.5 F 93 16 160/79 92
04/01/25 22:23 04/01/25 22:23 04/01/25 22:23 04/01/25 22:23 04/02/25 02:00
I&O
04/01/25 04/02/25 04/03/25
06:59 06:59 06:59
Intake Total 3695 / 3781 433 / 433
Output Total 1000 / 1000
Balance 2695 / 2781 433 / 433
[2025-04-02] MEDS: PROTONIX IV 40 MG IV (08:22)
[2025-04-02] MEDS: PHENOBARBITAL 65 MG IV (08:23)
[2025-04-02] MEDS: NSS (PRESERVATIVE FREE) 10 ML IV (08:23)
[2025-04-02] MEDS: KEPPRA 1500 MG IV (08:23)
[2025-04-02] MEDS: LIORESAL TUBE (08:29)
[2025-04-02] MEDS: ROBINUL 0.2 MG IV (08:38)
[2025-04-02] MEDS: MORPHINE SULFATE 2 MG IV ×2 (08:39→11:13)
--- NOTE | 2025-04-02 09:14 | VATNOTE ---
Left 5Fr DL Basilic PICC line has positive blood return and flushes well.
--- NOTE | 2025-04-02 09:55 | CM ---
Reviewed the chart notes. CM continues to be available to patient/family.
Plan: Comfort care.
[2025-04-02] MEDS: VALIUM INJECTION 5 MG IV (10:59)
--- NOTE | 2025-04-02 12:14 | W.DCSUMMARY ---
Discharge Summary
Discharge Data
Date of Admission: 03/27/25
Date of Discharge: 04/02/25
-
Pending Results: No
Hospital Course
Patient is 70 years old female history hypertension, hyperlipidemia, GERD, diabetes mellitus, depression, anxiety, obstructive sleep apnea, recurrent UTI, alcohol use disorder came into the hospital mental status changes. Patient was found in
status epilepticus. Critical care and neurology were consulted. She had continuous EEG with evidence of nonconvulsive seizures status epilepticus. Patient was treated with multiple antiseizure medications. Brain MRI showed encephalomalacia and
gliosis from prior injury or infarct but no acute abnormalities. Despite medical management patient continued to deteriorate and discussions took place about goals of care and the decision was made to move forward with comfort care measures.
Patient has been started on comfort care medications and appears comfortable and plan to transition to inpatient hospice care today.
Discharge Plan
-
Referrals:
Massimo Mcdaniels MD [Family Provider]
Prescriptions:
No Action
Jentadueto 2.5-1,000 mg Tablet
1 tab PO BID
simvastatin 40 mg tablet
40 mg PO HS
gabapentin 300 mg capsule
300 mg PO TID
lisinopril 2.5 mg tablet
2.5 mg PO DAILY
esomeprazole magnesium [Nexium] 40 mg Capsule,Delayed Release(Dr/Ec)
40 mg PO DAILY
albuterol sulfate 90 mcg/actuation HFA aerosol inhaler
2 inh INHALATION R Q6HPRN PRN (Reason: sob)
baclofen 20 mg tablet
20 mg PO TID
diazepam 5 mg tablet
5 mg PO Q8HPRN PRN (Reason: ANXIETY)
nitrofurantoin monohyd/m-cryst 100 mg capsule
100 mg PO BID
Rx Instructions:
STARTED 03/21/25 X7 DAYS
oxycodone 10 mg tablet
10 mg PO Q6HPRN PRN (Reason: PAIN)
Rx Instructions:
START 03/23/25 #28 X7 DAYS SUPPLY
thiamine HCl (vitamin B1) 100 mg Tablet
100 mg PO BID
Discharge Date and Time
Print Language: MACEDONIAN
--- NOTE | 2025-04-02 12:14 | HOSPNOTE ---
Spoke with primary contact and the patient will be placed inpatient hospice today for agitation. Admissions was called and Attending and CM informed of inpatient hospice.
== END 2025-04-02 12:27 | disposition hospice, inpatient (51) | DRG 100 ==
LOC: 2 NORTH 21:37
PROVIDERS: Nurse Practitioner Family; Physician Assistant; Radiology Neuroradiology; Student in an Organized Health Care Education/Training Program; ADMITTING PHYSICIAN Internal Medicine; ATTENDING PHYSICIAN Hospitalist; CONSULT PHYSICIAN Internal Medicine Critical Care Medicine; CONSULT PHYSICIAN Psychiatry & Neurology Neurology; EMERGENCY PHYSICIAN Emergency Medicine; FAMILY PHYSICIAN Family Medicine
PROC: XX20X89 Monitoring of Brain Electrical Activity, Computer-aided Detection and Notification, New Technology Group 9 (ICD-10-PCS; 2025-03-28)
PROC: 02HV33Z Insertion of Infusion Device into Superior Vena Cava, Percutaneous Approach (ICD-10-PCS; 2025-03-28)
PROC: 0DH67UZ Insertion of Feeding Device into Stomach, Via Natural or Artificial Opening (ICD-10-PCS; 2025-03-28)
DX: G40.901 Epilepsy, unspecified, not intractable, with status epilepticus (principal); A41.9 Sepsis, unspecified organism; G92.8 Other toxic encephalopathy; J69.0 Pneumonitis due to inhalation of food and vomit; R65.21 Severe sepsis with septic shock; J18.9 Pneumonia, unspecified organism; F13.139 Sedative, hypnotic or anxiolytic abuse with withdrawal, unspecified; F02.83 Dementia in other diseases classified elsewhere, unspecified severity, with mood disturbance; F02.84 Dementia in other diseases classified elsewhere, unspecified severity, with anxiety; K86.1 Other chronic pancreatitis; F11.20 Opioid dependence, uncomplicated; R47.01 Aphasia; E87.1 Hypo-osmolality and hyponatremia; F10.239 Alcohol dependence with withdrawal, unspecified; Z51.5 Encounter for palliative care; F17.210 Nicotine dependence, cigarettes, uncomplicated; E11.65 Type 2 diabetes mellitus with hyperglycemia; E78.00 Pure hypercholesterolemia, unspecified; F32.A Depression, unspecified; G43.909 Migraine, unspecified, not intractable, without status migrainosus; G47.33 Obstructive sleep apnea (adult) (pediatric); I10 Essential (primary) hypertension; K21.9 Gastro-esophageal reflux disease without esophagitis; K29.70 Gastritis, unspecified, without bleeding; I95.1 Orthostatic hypotension; K75.9 Inflammatory liver disease, unspecified; M54.2 Cervicalgia; R91.1 Solitary pulmonary nodule; D63.8 Anemia in other chronic diseases classified elsewhere; R09.02 Hypoxemia; G93.89 Other specified disorders of brain; R33.8 Other retention of urine; R29.6 Repeated falls; G89.4 Chronic pain syndrome; E83.42 Hypomagnesemia; Z66 Do not resuscitate; Z60.2 Problems related to living alone; Z88.8 Allergy status to other drugs, medicaments and biological substances; Z87.440 Personal history of urinary (tract) infections; Z87.19 Personal history of other diseases of the digestive system; Z87.81 Personal history of (healed) traumatic fracture; Z91.81 History of falling; Z11.52 Encounter for screening for COVID-19
CPT/HCPCS: 70450; 70551; 70552; 71045; 72125; 74018; 80048; 80053; 80061; 80306; 80307; 81003; 81015; 82077; 82140; 82607; 82805; 82962; 83605; 83735; 84443; 85025; 85027; 87040; 87077; 87086; 87186; 87502; 87811; 93005; 95714; 95813; 96374; 96375; 96376; 99291; 99292; A9575; C9254

== ENCOUNTER 2025-04-02 12:43 | Inpatient (IN) | payer OTHER, SELFPAY ==
--- NOTE | 2025-04-02 13:09 | HPS.HSE ---
Family Physician
-
Family Physician: INTERVIEWE UNKNOWN - PT NOT
Chief Complaint
-
Seizures
History of Present Illness
Patient is 70 years old female history hypertension, hyperlipidemia, GERD, diabetes mellitus, depression, anxiety, obstructive sleep apnea, recurrent UTI, alcohol use disorder came into the hospital mental status changes. Patient was found in
status epilepticus. Critical care and neurology were consulted. She had continuous EEG with evidence of nonconvulsive seizures status epilepticus. Patient was treated with multiple antiseizure medications. Brain MRI showed encephalomalacia and
gliosis from prior injury or infarct but no acute abnormalities. Despite medical management patient continued to deteriorate and discussions took place about goals of care and the decision was made to move forward with comfort care measures.
Patient has been started on comfort care medications and appears comfortable and plan to admit to inpatient hospice care today.
Medical History
Past Medical History
Past Medical History: Reports HTN, NIDDM and Other
Additional Past Medical History:
ETOH use disorder, Chronic pain syndrome/chronic opiate dependence , HX UGIB and ACBLA in October 2024 HX uncomplicated cystitis with MDRO ESBL-E. Coli, HX orthostatic hypotension:
Past Surgical History: Reports Other
Additional Past Surgical History:
Tonsillectomy
Social History
Tobacco: Smoker
Alcohol: Former
Drug: None
Personal: Single
Living: Alone
Family History
Family History: Not pertinent
Allergies / Home Medications
Allergies reflects when Allergies were last updated in [facility].
Home Medications with original date entered in [facility]
Allergy/Medication List:
Allergies
Allergy/AdvReac Type Severity Reaction Status Date / Time
topiramate (From Topamax) Allergy Itching Verified 12/30/24 04:41
valdecoxib (From Bextra) Allergy Rash Verified 12/30/24 04:41
Home Medications
linagliptin 2.5 mg-metformin 1,000 mg tablet (Jentadueto) 1 tab PO BID Diabetes 04/02/23
gabapentin 300 mg capsule 300 mg PO TID Neurological Condition 05/12/23
lisinopril 2.5 mg tablet 2.5 mg PO DAILY Blood Pressure 05/12/23
simvastatin 40 mg tablet 40 mg PO HS High Cholesterol 05/12/23
esomeprazole magnesium 40 mg capsule,delayed release (Nexium) 40 mg PO DAILY Gastrointestinal Issue 02/09/25
albuterol sulfate 90 mcg/actuation aerosol inhaler 2 inh inhalation R Q6HPRN PRN sob 03/10/25
baclofen 20 mg tablet 20 mg PO TID Muscle Spasms 03/26/25
diazepam 5 mg tablet 5 mg PO Q8HPRN PRN ANXIETY 03/26/25
nitrofurantoin monohydrate/macrocrystals 100 mg capsule 100 mg PO BID Urinary Issue 03/26/25
oxycodone 10 mg tablet 10 mg PO Q6HPRN PRN PAIN 03/26/25
thiamine HCl (vitamin B1) 100 mg tablet 100 mg PO BID Supplement 03/26/25
lacosamide 200 mg/20 mL intravenous solution 200 mg (20 mL) IV Q12H #100 mL 04/02/25
Review of Systems
-
A 12 point ROS was completed and negative except as noted: Yes
Physical Exam
Vital Signs
Vital Signs
Pulse Ox
94
04/02/25 13:04
Physical exam:
General: Acutely ill
HEENT: Normocephalic, Atraumatic and Moist Mucous Membranes
Respiratory: Clear to Auscultation; Negative Wheezes, Rales or Rhonchi
Cardiac: Regular Rhythm and S1/S2
GI: Soft, Nontender and Nondistended
Musculoskeletal: No Clubbing, No Cyanosis and No Edema
Neuro: Lethargic, able to answer questions, presence of generalized weakness
Psych: Agitation on and off but calm at the time of my evaluation
Physical Exam
General: Other
Data Reviewed
-
Old Records: Reviewed
Impression/Plan
-
IMPRESSION:
Patient is 70 years old female who came into the hospital mental status change and found to be in status epilepticus.
PLAN:
Comfort care:
Continue comfort medications
Hospice consult
Probably transition to [facility] today
Status epilepticus/alcohol withdrawal/history of polysubstance abuse:
On multiple antiseizure medications
She was on Vimpat IV 200 mg every 12 hours, Keppra IV 1500 mg every 12 hours, and phenobarbital 60 mg IV daily. Will see if she can be managed with benzodiazepines at this point otherwise might need to restart afore-mentioned AED.
On benzodiazepines as needed
Urinary retention:
Cornell catheter for comfort
Alcohol use disorder/agitation/anxiety:
On benzo's
Septic shock due to aspiration pneumonia:
Received IV antibiotics and pressors-currently off both.
Rest of medical problems:
Hypertension
Orthostatic hypotension
Diabetes mellitus
Hyponatremia
Hyperlipidemia
Right hip fracture treated conservatively
ESBL E. coli
Chronic pain syndrome and chronic opiate dependence
Chronic L3 compression fracture
History of peptic ulcer disease
[2025-04-02 13:16] VITALS: BP 111/80
--- NOTE | 2025-04-02 13:17 | PTCARENOTE ---
Chart flipped to inpatient hospice. Cornell placed for end of life care, patient medicated with PRN IV morphine, Valium, and Haldol this AM for dyspnea and restlessness/agitation. Complete bed bath and mouth care provided, sacrum foam replaced, B/L
heel and elbow foams placed for protection. Bed alarm in place.
--- NOTE | 2025-04-02 13:19 | CM ---
Reviewed the chart notes. Patient is transitioned to [facility] hospice level of care.
Plan: [facility] Hospice
[2025-04-02] MEDS: ROBINUL 0.2 MG IV ×2 (14:16→20:27)
[2025-04-02] MEDS: MORPHINE SULFATE 2 MG IV ×4 (14:16→23:08)
[2025-04-02] MEDS: VALIUM INJECTION 5 MG IV ×2 (14:36→22:26)
[2025-04-02] MEDS: HALDOL 1 MG IV ×2 (16:46→20:29)
[2025-04-02 19:21] VITALS: BP 138/81
[2025-04-02] MEDS: KEPPRA 1500 MG IV (20:30)
[2025-04-02] MEDS: VIMPAT 200 MG IV (21:56)
[2025-04-02 23:39] VITALS: BP 158/69
[2025-04-03] MEDS: MORPHINE SULFATE 2 MG IV (00:21)
[2025-04-03] MEDS: HALDOL 1 MG IV (00:56)
[2025-04-03] MEDS: MORPHINE 100 IV (01:00)
[2025-04-03] MEDS: VALIUM INJECTION 5 MG IV ×2 (01:30→03:03)
[2025-04-03] MEDS: MORPHINE SULFATE 4 MG IV ×4 (04:28→12:33)
[2025-04-03] MEDS: HALDOL 2 MG IV (04:34)
--- NOTE | 2025-04-03 04:38 | W.PN.UPDATE ---
Update Note
Progress Note Update
RN reports symptoms of agitation and restlessnes are not controlled with current regime of haldol 1mg, valium 5 and prn morphine doses. Will increase haldol and valium doses.
--- NOTE | 2025-04-03 05:03 | PTCARENOTE ---
Pt restless from start of shift. Pt yelling, attempting to get oob, pulling on catheter and undressing herself. Supportive care provided. Bed alarm in place. prn medications given as ordered, morphine gtt initiated at 0100, and increased per
protocol. Pt continues to be restless in bed. Maryan ROMERO notified. haldol and valium orders adjusted. call kothari within reach.
[2025-04-03 07:50] VITALS: BP 148/81
[2025-04-03] MEDS: KEPPRA 1500 MG IV (07:52)
[2025-04-03] MEDS: VIMPAT 200 MG IV (07:52)
[2025-04-03] MEDS: PHENOBARBITAL 60 MG IV (07:53)
[2025-04-03] MEDS: VALIUM INJECTION 10 MG IV (07:53)
--- NOTE | 2025-04-03 08:15 | HOSPNOTE ---
Late Entry for 04.02.25. Patient has been admitted onto inpatient hospice. Hospice will visit daily.
--- NOTE | 2025-04-03 08:35 | HOSPNOTE ---
[employer]el Services Sales Representative visited 70 year old patient to conduct Initial SHIP OFFICER Assessment. Patient recently admitted on Hospice Services and [facility] Level of Care with the Primary Diagnosis of Moderate Protein Calorie Malnutrition. Nurse assessing, changing,
and administering patient's medications upon SHIP OFFICER arrival, Nurse reported patient is resting and no concerns. SHIP OFFICER greeted patient and no response, patient asleep and appeared to be resting comfortably, no signs of pain and/or distress observed. No
family members present during this visit. Patient is Spiritism and is affiliated with [facility], arrangements in progress. Prayer and Emotional Support Provided SHIP OFFICER contacted patient's sister Alejandra to check on her and provide
updates from today's visit,she reported she's okay. Alejandra is the POA. Alejandra declined Bereavement Services at this time.
Patient meets [facility] criteria for SN assessments, management of pain, dyspnea, anxiety, and agitation requiring IV medications that could not be managed at home and/or in an Outpatient setting. Discharge planning continues.
SHIP OFFICER will conduct visits once a week while on [facility] Level of Care to provide supportive services and to monitor for additional services.
--- NOTE | 2025-04-03 08:55 | CM ---
Reviewed the chart notes. CM continues to be available to patient/family.
Plan: Continue [facility].
--- NOTE | 2025-04-03 11:07 | W.PN.HOSP.TC ---
Today's Communication/Plan
-
Comfort care
Assessment / Plan
Assessment / Plan
Physical exam:
General: Acutely ill
HEENT: Normocephalic, Atraumatic and Moist Mucous Membranes
Respiratory: Clear to Auscultation; Negative Wheezes, Rales or Rhonchi
Cardiac: Regular Rhythm and S1/S2
GI: Soft, Nontender and Nondistended
Musculoskeletal: No Clubbing, No Cyanosis and No Edema
Neuro: Lethargic, minimal responsive
Comfort care:
Continue comfort medications
Status epilepticus/alcohol withdrawal/history of polysubstance abuse:
On multiple antiseizure medications
She is on Vimpat IV 200 mg every 12 hours, Keppra IV 1500 mg every 12 hours, and phenobarbital 60 mg IV daily. Will see if we can taper these soon
On benzodiazepines as needed
Urinary retention:
Cornell catheter for comfort
Alcohol use disorder/agitation/anxiety:
On benzo's
Septic shock due to aspiration pneumonia:
Received IV antibiotics and pressors-currently off both.
Rest of medical problems:
Hypertension
Orthostatic hypotension
Diabetes mellitus
Hyponatremia
Hyperlipidemia
Right hip fracture treated conservatively
ESBL E. coli
Chronic pain syndrome and chronic opiate dependence
Chronic L3 compression fracture
History of peptic ulcer disease
Anticipated Discharge: 24 - 48 hours
Subjective/Interval History
-
Date of Service: April 03, 2025
Noticed medications increased overnight. Less responsive this morning.
Objective Data
-
Vital Signs:
Vital Signs
Temp Pulse Resp BP Pulse Ox
97.5 F 106 18 148/81 77
04/03/25 07:50 04/03/25 07:50 04/03/25 07:50 04/03/25 07:50 04/03/25 07:50
I&O
04/02/25 04/03/25 04/04/25
06:59 06:59 06:59
Intake Total 0 / 0
Output Total 1974
Balance -1974
--- NOTE | 2025-04-03 11:17 | HOSPNOTE ---
Patient is unresponsive during visit, on step 4 morphine drip, is given haldol and valium for severe agitation. Patient continues to be inpatient appropriate for management of agitation and pain requiring IV medications. Patient will be seen daily
by hospice. Please continue to medicate and PRN doses prior to care or repositioning. No family was present. When patient passes Alejandra (primary contact) will be calling the [employer].
[2025-04-03] MEDS: ROBINUL 0.2 MG IV (12:33)
--- NOTE | 2025-04-03 17:49 | PTCARENOTE ---
This RN went in room to assess patient, patient without any spontaneous breath or heart sounds. MD made aware, morphine gtt stopped.
--- NOTE | 2025-04-03 18:04 | W.DCSUMMARY ---
Discharge Summary
Discharge Data
Date of Admission: 04/02/25
Date of Discharge: 04/03/25
-
Pending Results: No
Hospital Course
Patient is 70 years old female with history of hypertension, hyperlipidemia, diabetes mellitus, alcohol use disorder, opioid dependence, seizures, depression, anxiety, chronic pancreatitis, peptic ulcer disease, HEMANT, came into the hospital with
unresponsiveness/mental status changes. Patient was having evidence of persistent seizures on EEG monitor demonstrating 100% seizure burden. Neurology consulted and critical care. Patient had multiple antiseizure medications given. MRI of the
brain no acute abnormalities but chronic changes. Despite aggressive medical treatment with antiseizure medications patient continued to have evidence of nonconvulsive seizures. Ultimately her care was shifted to comfort care measures. She was
admitted to inpatient hospice care. She on 04/03/2025 at 1749.
Discharge Plan
-
Patient Disposition:
Date/Time
Date/Time: 04/03/25 17:49
Discharge Date and Time
Discharge Date/Time: 04/03/25 17:49
Print Language: GERMAN
--- NOTE | 2025-04-03 18:05 | W.PN.DEATH ---
Pronouncement of
-
Called to see patient to pronounce.
No spontaneous heart tones or respirations noted.
Patient not responsive to verbal stimuli.
Patient is pronounced .
Time of : 17:49
Date of : 04/03/25
Cause of : Status epilepticus
Alcohol withdrawal
Septic shock due to aspiration pneumonia
Family Notified: Yes
--- NOTE | 2025-04-03 19:31 | PTCARENOTE ---
Morphine gtt wasted with second RN, L PICC and Cornell removed, [facility] notified. Belongings sent down with patient.
== END 2025-04-03 17:49 | disposition expired | DRG 951 ==
LOC: 2 NORTH 12:43
PROVIDERS: ADMITTING PHYSICIAN Hospitalist
DX: Z51.5 Encounter for palliative care (principal); A41.9 Sepsis, unspecified organism; R65.21 Severe sepsis with septic shock; J69.0 Pneumonitis due to inhalation of food and vomit; J18.9 Pneumonia, unspecified organism; E87.1 Hypo-osmolality and hyponatremia; F10.139 Alcohol abuse with withdrawal, unspecified; F11.20 Opioid dependence, uncomplicated; G40.901 Epilepsy, unspecified, not intractable, with status epilepticus; I10 Essential (primary) hypertension; E78.5 Hyperlipidemia, unspecified; E11.9 Type 2 diabetes mellitus without complications; G89.4 Chronic pain syndrome; F17.200 Nicotine dependence, unspecified, uncomplicated; R33.9 Retention of urine, unspecified; Z79.899 Other long term (current) drug therapy; Z87.11 Personal history of peptic ulcer disease; Z87.440 Personal history of urinary (tract) infections
CPT/HCPCS: C9254